=== PATIENT | female | born 1975 | race Caucasian/White ===

== ENCOUNTER 2019-09-04 12:52 | Emergency (ER) | payer OTHER, SELFPAY ==
--- NOTE | 2019-09-04 16:55 | PC.NURSE ---
[employer] CHARTING SYSTEM CRASHED WHEN PATIENT WAS BROUGHT TO ROOM 6. PAPER CHARTING/ASSESSMENT INITIATED.
== END 2019-09-04 13:55 | disposition home or self-care (01) ==
LOC: CHSED 12:54
PROVIDERS: Emergency Provider Surgery; PCP Family Medicine
DX: S61.204A Unspecified open wound of right ring finger without damage to nail, initial encounter (principal); W45.8XXA Other foreign body or object entering through skin, initial encounter
CPT/HCPCS: 99282

== ENCOUNTER 2019-09-09 10:50 | Outpatient (CLI) | payer OTHER, SELFPAY ==
[2019-09-09 11:21] LABS: Creatinine Urine 96.83 mg/dL (40-278)
[2019-09-09 11:26] LABS: MALB Creatinine Ratio 69.3 mg/g (0-30); Microalbumin Urine Random 67.2 mg/L
[2019-09-09 11:27] LABS: Hemoglobin A1C 7.3 % (<5.7)
[2019-09-09 12:46] LABS: Alanine Aminotransferase 41 U/L (14-59); Alkaline Phosphatase 86 U/L (46-116); Anion Gap 11.3 mmol/L (7-16); Aspartate Amino Transferase 27 U/L (15-37); Bilirubin,Total 0.3 mg/dL (0.00-1.00); Blood Urea Nitrogen 8 mg/dL (7-18); Carbon Dioxide 31 mmol/L (21-32); Chloride 107 mmol/L (98-108); Cholesterol 146 mg/dL (0-200); Estimated Glomerular Filt Rate > 60; Glucose 127 mg/dL (70-99); HDL Direct 43 mg/dL (40-60); LDL Cholesterol Calculated 57 mg/dL (<130); Osmolality Calculated 300 mOsm/kg (285-295); Potassium 4.3 mmol/L (3.5-5.1); Sodium 145 mmol/L (136-145); Total Protein 7.4 g/dL (6.4-8.2); Triglycerides 231 mg/dL (0-150)
== END 2019-09-09 10:51 | disposition home or self-care (01) ==
LOC: CHSLAB 10:53
PROVIDERS: PCP Nurse Practitioner Family; Visit Provider Nurse Practitioner Family
DX: E11.21 Type 2 diabetes mellitus with diabetic nephropathy (principal)
CPT/HCPCS: 36415; 80053; 80061; 82043; 83036

== ENCOUNTER 2020-02-12 14:46 | Outpatient (CLI) | payer OTHER, SELFPAY ==
--- NOTE | ~2020-02-12 | XR_ITS ---
EXAMINATION: XR chest 2V 02/12/2020 14:59 INDICATION: Chronic obstructive pulmonary disease PROCEDURE: 2 view chest COMPARISON: Comparison to multiple prior studies sequentially, with oldest reviewed study dated 09/2014. FINDINGS: The lungs are clear. The cardiomediastinal silhouette is within normal limits. There are no pleural effusions. There is no pneumothorax suspected. IMPRESSION: 1: NO ACUTE CARDIOPULMONARY DISEASE. Reviewed, dictated and finalized at location B.
[2020-02-12 15:16] LABS: Hematocrit 50.3 % (35.0-49.0); Mean Corpuscular HGB Conc 35.8 g/dL (32.0-36.0); Mean Corpuscular Hemoglobin 30.7 pg (27.0-31.0); Mean Corpuscular Volume 85.7 fL (78.0-102.0); Mean Platelet Volume 9.7 fl (9.2-11.8); Platelet Count Result 288 K/mm3 (150-420); Red Blood Count 5.87 M/mm3 (4.20-5.40); Red Cell Distribution Width 12.8 % (11.6-14.4); White Blood Count 10.7 K/mm3 (4.8-10.8)
[2020-02-12 16:28] LABS: Anion Gap 19.1 mmol/L (7-16); Blood Urea Nitrogen 11 mg/dL (7-18); Carbon Dioxide 23 mmol/L (21-32); Chloride 102 mmol/L (98-108); Potassium 4.1 mmol/L (3.5-5.1); Sodium 140 mmol/L (136-145)
[2020-02-12 16:29] LABS: Alanine Aminotransferase 52 U/L (14-59); Albumin Level 4.3 g/dL (3.4-5.0); Alkaline Phosphatase 105 U/L (46-116); Aspartate Amino Transferase 43 U/L (15-37); Bilirubin,Total 0.5 mg/dL (0.00-1.00); Calcium 9.9 mg/dL (8.5-10.1); Estimated Glomerular Filt Rate > 60; Osmolality Calculated 299 mOsm/kg (285-295); Total Protein 8.2 g/dL (6.4-8.2)
[2020-02-12 16:42] LABS: Glucose 272 mg/dL (70-99)
[2020-02-13 00:16] LABS: SARS-CoV-2 RNA PCR Negative
== END 2020-02-12 14:47 | disposition home or self-care (01) ==
LOC: CHSIMG 14:50
PROVIDERS: PCP Nurse Practitioner Family; Visit Provider Family Medicine
DX: J44.1 Chronic obstructive pulmonary disease with (acute) exacerbation (principal); Z11.59 Encounter for screening for other viral diseases
CPT/HCPCS: 36415; 71046; 80053; 85027; 87635; C9803; U0003

== ENCOUNTER 2020-02-14 03:01 | Emergency (ER) | payer OTHER, SELFPAY ==
[2020-02-14 03:23] VITALS: BP 128/75; PULSE 72; RESP 20; TEMP 36.2; O2SAT 97
--- NOTE | 2020-02-14 03:35 | ED.GENADULT ---
HPI - General Adult General Chief complaint: Headache Stated complaint: 44YO female w/ 5 day h/o frontal headache associated with Sinus congestion. Related Data Home Medications Medication Instructions Recorded Confirmed albuterol sulfate 90 mcg/actuation 1 inhalation INHALATION Q4H PRN 08/10/19 02/14/20 aerosol inhaler ondansetron HCl 8 mg tablet 8 mg PO Q8H PRN 09/09/19 02/14/20 insulin glargine 100 unit/mL (3 80 unit SUB-Q DAILY ml 01/25/20 02/14/20 mL) subcutaneous pen insulin lispro 100 unit/mL See Rx Instructions .ROUTE 01/25/20 02/14/20 subcutaneous solution .COMPLEX ml Allergies Allergy/AdvReac Type Severity Reaction Status Date / Time empagliflozin [Jardiance] Allergy Intermediate rash Verified 02/12/20 14:20 latex Allergy Intermediate unknown Verified 02/12/20 14:20 tetracycline Allergy Intermediate unknown Verified 02/12/20 14:20 Lactose intolerance Allergy Intermediate unknown Uncoded 01/25/20 10:14 Review of Systems Review of Systems: All systems reviewed & are unremarkable except as noted in HPI and below Constitutional: Constitutional: Reports no additional constitutional complaints Eyes: Eyes: Reports no additional eye complaints ENT: Reports system reviewed and no additional complaints, except as documented and Reports nasal congestion Cardiovascular: Cardiovascular: Reports no additional cardiovascular complaints Respiratory: Respiratory: Reports no additional respiratory complaints Gastrointestinal: Gastrointestinal: Reports no additional gastrointestinal complaints Genitourinary: Genitourinary: Reports no additional female genitourinary complaints Musculoskeletal: Musculoskeletal: Reports no additional musculoskeletal complaints Integumentary/Breasts: Skin/Breast: Reports system reviewed and no additional complaints, except as docu Neurologic: Reports system reviewed and no additional complaints, except as documented Psychiatric: Psychiatric: Reports no additional psychiatric complaints Endocrine: Endocrine: Reports no additional endocrine complaints [facility] Past Medical History Medical History Acute insomnia Acute sinusitis BMI 32.0-32.9,adult COPD (chronic obstructive pulmonary disease) Depression Diabetes mellitus with diabetic nephropathy Finger avulsion Hyperlipidemia IBS (irritable bowel syndrome) Migraine Nicotine dependence Sinusitis, acute maxillary Surgical History Surgical History Hx of cholecystectomy Hx of hysterectomy Family History Family History Mother Diabetes mellitus Social History Social History Smoking packs per day: 1 Smoking cigarettes per day: 20.0 Smoking status: Current every day smoker Tobacco type: cigarettes Alcohol intake: never Substance use: never Substance use type: does not use Exam Const: General: no acute distress and alert Orientation/consciousness: patient oriented x3 HENMT: Head: normal to inspection Face and sinus: sinus tenderness frontal and maxillary Throat: posterior oropharynx abnormal (posterior pharyngeal purulent drainage) Eyes: Pupils: Equal, round and reactive pupils present Neck: Neck: normal visual inspection Chest: Chest palpation & inspection: normal inspection of the chest Resp: Effort & Inspection: normal respiratory effort Auscultation: clear to auscultation bilaterally Cardio: Rate: regular rate Rhythm: regular rhythm GI: GI Palp: Yes Soft to palpation and No Tenderness to palpation present (GI) Back/Spine/Pelvis: Back: no CVA tenderness Neuro: General: patient oriented x3, moves all extremities, no focal motor deficits and CN's II-XI intact bilaterally Psych: Mental Status: mental status grossly normal Affect: normal affect Attitude: cooperative
[2020-02-14] MEDS: AMOXICILLIN/CLAVULANATE K 875-125 MG TAB 1 TABLET PO (03:48)
[2020-02-14 03:50] VITALS: BP 122/76; PULSE 75; RESP 20; TEMP 36.2; O2SAT 98
== END 2020-02-14 03:54 | disposition home or self-care (01) ==
PROVIDERS: Emergency Provider Family Medicine; PCP Nurse Practitioner Family
DX: J01.40 Acute pansinusitis, unspecified (principal)
CPT/HCPCS: 99283; A9270

== ENCOUNTER 2020-05-03 13:36 | Outpatient (CLI) | payer OTHER, SELFPAY ==
--- NOTE | ~2020-05-03 | US_ITS ---
EXAMINATION: US renal BI DATE: 05/03/2020 14:43 INDICATION: Unspecified abdominal pain TECHNIQUE: Multiple ultrasound grayscale images of the kidneys were obtained. COMPARISON: 04/01/2019 FINDINGS: The right kidney measures 10.1 x 5.0 x 6.0 cm. The left kidney measures 13.0 x 6.0 x 5.1 cm. The kidn eys demonstrate normal echogenicity. There is no hydronephrosis in either kidney. No stones identifi ed. The bladder is normal. IMPRESSION: 1. Normal kidneys without hydronephrosis. 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
[2020-05-03 13:59] LABS: Add Urine Microscopic? YES; Appearance Urine Clear (Clear); Bilirubin Urine Negative (Negative); Blood Urine Negative (Negative); Color Urine Yellow (Yellow); Glucose Urine UA 3+ (Negative); Ketones Urine 1+ (Negative); Leukocyte Esterase Ur Negative LEU/UL (Negative); Nitrate Urine Negative (Negative); Protein Urine 1+ (Negative)
[2020-05-03 14:13] LABS: Bacteria Urine 1+ /hpf; RBC Urine 0-2 /hpf (0-2); Squamous Epithelial Cell Urine Moderate /hpf (Few)
[2020-05-03 14:14] LABS: Budding Yeast Urine Present /hpf
[2020-05-03 14:56] LABS: Alanine Aminotransferase 88 U/L (14-59); Albumin Level 4.4 g/dL (3.4-5.0); Alkaline Phosphatase 105 U/L (46-116); Anion Gap 13 mmol/L (8-16); Aspartate Amino Transferase 109 U/L (15-37); Bilirubin,Total 0.5 mg/dL (0.00-1.00); Blood Urea Nitrogen 8 mg/dL (7-18); Calcium 9.4 mg/dL (8.5-10.1); Carbon Dioxide 25 mmol/L (21-32); Chloride 102 mmol/L (98-108); Cholesterol 171 mg/dL (0-200); Estimated Glomerular Filt Rate > 60; Glucose 220 mg/dL (70-99); HDL Direct 43 mg/dL (40-60); LDL Cholesterol Calculated 60 mg/dL (<130); Osmolality Calculated 295 mOsm/kg (285-295); Potassium 4.1 mmol/L (3.5-5.1); Sodium 140 mmol/L (136-145); Total Protein 8.7 g/dL (6.4-8.2); Triglycerides 339 mg/dL (0-150)
== END 2020-05-03 13:37 | disposition home or self-care (01) ==
PROVIDERS: PCP Nurse Practitioner Family; Visit Provider Nurse Practitioner Family
DX: M54.9 Dorsalgia, unspecified (principal); Z00.00 Encounter for general adult medical examination without abnormal findings; E11.21 Type 2 diabetes mellitus with diabetic nephropathy; E78.5 Hyperlipidemia, unspecified; Z87.442 Personal history of urinary calculi; R10.9 Unspecified abdominal pain
CPT/HCPCS: 36415; 76775; 80053; 80061; 81001; 83036

== ENCOUNTER 2020-05-06 08:42 | Outpatient (CLI) | payer OTHER, SELFPAY ==
--- NOTE | ~2020-05-06 | US_ITS ---
US abdomen complete DATE: 05/06/2020 09:49 INDICATION: Elevated liver function tests. Status post cholecystectomy. TECHNIQUE: Real-time imaging of the abdomen, Doppler evaluation COMPARISON: 05/03/2020 bilateral renal ultrasound FINDINGS: The gallbladder is surgically absent by clinical history. Normal hepatopedal portal venous flow direction. No hepatic space-occupying mass lesion is evident. The pancreas is not optimally evaluated due to interference from bowel gas. The spleen measures approximately 11 cm length, within upper limits of normal. The left kidney measures approximately 12.3 cm length. The right kidney measures 12.7 cm approximate length. There is an approximately 1.5 cm hyperechoic fo cus of the left renal pelvis with shadowing suggesting possible pelvic renal calculus. CT correlation is recommended. No hydronephrosis of either kidney is evident. IMPRESSION: Status post cholecystectomy Possible right renal pelvic calculus; consider CT abdomen pelvis correlation Limited evaluation of the pancreas due to interference from bowel gas Reviewed, dictated and finalized at Location A. 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
[2020-05-06 09:09] LABS: Creatinine Urine 72.02 mg/dL (40-278); MALB Creatinine Ratio 75.2 mg/g (0-30); Microalbumin Urine Random 54.2 mg/L
[2020-05-06 09:10] LABS: Hemoglobin A1C 7.7 % (<5.7)
[2020-05-06 09:28] LABS: Alanine Aminotransferase 66 U/L (14-59); Albumin Level 3.9 g/dL (3.4-5.0); Alkaline Phosphatase 94 U/L (46-116); Anion Gap 8 mmol/L (8-16); Aspartate Amino Transferase 47 U/L (15-37); Bilirubin,Total 0.4 mg/dL (0.00-1.00); Blood Urea Nitrogen 6 mg/dL (7-18); Calcium 8.8 mg/dL (8.5-10.1); Carbon Dioxide 28 mmol/L (21-32); Chloride 105 mmol/L (98-108); Estimated Glomerular Filt Rate > 60; Glucose 177 mg/dL (70-99); Osmolality Calculated 293 mOsm/kg (285-295); Potassium 3.7 mmol/L (3.5-5.1); Sodium 141 mmol/L (136-145); Total Protein 7.1 g/dL (6.4-8.2)
[2020-05-11 03:44] LABS: Hepatitis A Antibody IgM Nonreactive; Hepatitis B Core Antibody Nonreactive (Nonreactive); Hepatitis B Surface Antigen Nonreactive (Nonreactive); Hepatitis C Signal to Cutoff 0.01 ratio (<1.00); Hepatitis C Virus Antibody Nonreactive (Nonreactive)
== END 2020-05-06 08:43 | disposition home or self-care (01) ==
LOC: CHSIMG 08:45
PROVIDERS: PCP Nurse Practitioner Family; Visit Provider Nurse Practitioner Family
DX: R74.8 Abnormal levels of other serum enzymes (principal); E11.21 Type 2 diabetes mellitus with diabetic nephropathy
CPT/HCPCS: 36415; 76700; 80053; 80074; 82043; 83036

== ENCOUNTER 2020-05-18 08:49 | Outpatient (CLI) | payer OTHER, SELFPAY ==
--- NOTE | ~2020-05-18 | CT_ITS ---
EXAMINATION: CT abdomen pelvis w con DATE: 05/18/2020 09:20 INDICATION: Right sided abdominal and flank pain. TECHNIQUE: Computed tomography (CT) of the abdomen and pelvis was performed without intravenous contr ast. Automated exposure control and iterative reconstruction technique were employed. The dose-length product was 1104.06 mGy-cm. COMPARISON: 07/12/2007 FINDINGS: A couple unchanged 3-4 mm noncalcified granuloma in the right lower lobe. Mild discoid atelectasis at the lingula. Heart size is normal. No pericardial or pleural effusion. Diffuse hepatic steatosis. Ch olecystectomy clips at the gallbladder fossa. Pancreas, spleen and bilateral adrenal glands are ruthann l. Small region of cortical scarring at the lower pole of the left kidney. Bilateral nonobstructing n ephrolithiasis with 1 mm stone at a lower pole calyx of the left kidney and with a 1.3 cm stone at th e right renal pelvis. There is mild wall thickening at the right renal pelvis but with no evident str anding in the perinephric, renal sinus or periureteral fat and would favor chronic inflammation relat ed to the renal stone rather than more acute urinary tract infection. No hydronephrosis or stones see n along the ureters. Status post prior appendectomy with surgical clips at the tip of the cecum. No b owel obstruction. Small wide mouthed supraumbilical and infraumbilical ventral hernias the latter con taining fat and the former containing fat as well as anterior wall of the transverse colon. Bladder i s normal. The uterus is not identified and has likely been surgically resected. There is 3 screws lou ng the lateral margin of the left acetabulum which could be related to fixation of either an old heal ed fracture or osteotomy. IMPRESSION: 1. Bilateral nonobstructing nephrolithiasis with 13 mm stone in the right renal pelvis where there is mild wall thickening but no surrounding inflammatory stranding. This favors chronic inflammation rel ated to the stone but would correlate with urinalysis to exclude associated urinary tract infection. 2. Small widemouthed supraumbilical and infraumbilical hernias. 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 IMPRESSION: 1. Bilateral nonobstructing nephrolithiasis with 13 mm stone in the right renal pelvis where there is mild wall thickening but no surrounding inflammatory str anding. This favors chronic inflammation related to the stone but would correla te with urinalysis to exclude associated urinary tract infection. 2. Small widemouthed supraumbilical and infraumbilical hernias.
== END 2020-05-18 08:50 | disposition home or self-care (01) ==
LOC: CHSIMG 08:50
PROVIDERS: PCP Nurse Practitioner Family; Visit Provider Nurse Practitioner Family
DX: N20.0 Calculus of kidney (principal)
CPT/HCPCS: 74177; Q9965

== ENCOUNTER 2020-07-11 12:51 | Outpatient (CLI) | payer OTHER, SELFPAY ==
[2020-07-11 13:31] LABS: SARS-CoV-2 Ag Negative (Negative)
== END 2020-07-11 12:52 | disposition home or self-care (01) ==
LOC: CHSLAB 12:54
PROVIDERS: PCP Nurse Practitioner Family; Visit Provider Nurse Practitioner Family
DX: R50.9 Fever, unspecified (principal)
CPT/HCPCS: 87426

== ENCOUNTER 2020-08-17 15:43 | Emergency (ER) | payer OTHER, SELFPAY ==
--- NOTE | ~2020-08-17 | XR_ITS ---
EXAMINATION: XR chest 1V portable INDICATION: Left-sided chest pain TECHNIQUE: Portable AP chest at 1627 hours COMPARISON: 02/12/2020 FINDINGS: The lungs are free of acute opacities. There is no pleural effusion or pneumothorax. The ca rdiomediastinal silhouette is normal. IMPRESSION: 1. No acute cardiopulmonary abnormality. 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 [employer]
--- NOTE | 2020-08-17 15:52 | ECG_ITS ---
Measurements Intervals [place] Rate: 85 P: 57 [place]: 153 QRS: -52 QRSD: 85 T: 79 QT: 360 QTc: 430 Interpretive Statements SINUS RHYTHM LEFT ANTERIOR FASCICULAR BLOCK ST ELEVATION IN ANTEROLAT/INF LEADS- PROBABLY EARLY REPOLARIZATION BASELINE WANDER- V1 ABNORMAL ECG Electronically Signed On 08-17-2020 17:19:00 [employer] by Jr Mccracken D.O.
[2020-08-17 15:57] VITALS: BP 147/94; PULSE 96; RESP 20; TEMP 36.7; O2SAT 98
[2020-08-17 16:15] LABS: Basophils Absolute Auto 0.08 K/mm3 (0.00-0.10); Basophils Percent Auto 0.7 % (0.0-1.0); Eosinophils Absolute Auto 0.28 K/mm3 (0.02-0.50); Eosinophils Percent Auto 2.4 % (1.0-6.0); Hemoglobin 16.8 g/dL (12.0-15.0); Immature Granulocyte Absolute 0.04 K/mm3 (0.00-0.00); Immature Granulocyte Percent A 0.3 % (0.0-0.0); Lymphocytes Percent Auto 37.5 % (18.0-42.0); Mean Corpuscular Hemoglobin 30.4 pg (27.0-31.0); Mean Platelet Volume 9.7 fl (9.2-11.8); Monocytes Absolute Auto 0.49 K/mm3 (0.10-0.90); Monocytes Percent Auto 4.2 % (2.0-11.0); Neutrophils Absolute Auto 6.5 K/mm3 (1.7-7.2); Neutrophils Percent Auto 54.9 % (50.0-70.0); Platelet Count Result 287 K/mm3 (150-420); Red Blood Count 5.52 M/mm3 (4.20-5.40); White Blood Count 11.7 K/mm3 (4.8-10.8)
--- NOTE | 2020-08-17 16:21 | ED.GENADULT ---
HPI - General Adult General Chief complaint: Chest Pain Stated complaint: chest pain Source: patient Mode of arrival: ambulatory Limitations: no limitations History of Present Illness HPI narrative: Preeti is a 45F with a PMH of COPD, fibromyalgia, kidney stones, IBS, DMII, insomnia and depression that presented to the ED with chest pain. She has had a chest pain for 3 days. It is a little worse today. It is a constant aching and tenderness in her upper left chest. It is worse when she is carrying her 25lb grandchild. She also is very tired, has persistent sweats (admits she is going through menopause), but no anxiety, N/V, syncope or SOB. Related Data Allergies Allergy/AdvReac Type Severity Reaction Status Date / Time empagliflozin [Jardiance] Allergy Intermediate rash Verified 07/12/20 15:41 latex Allergy Intermediate unknown Verified 07/12/20 15:41 tetracycline Allergy Intermediate unknown Verified 07/12/20 15:41 Lactose intolerance Allergy Intermediate unknown Uncoded 07/12/20 15:41 Review of Systems Constitutional: Constitutional: Reports as per HPI Eyes: Eyes: Reports no additional eye complaints ENT: Reports system reviewed and no additional complaints, except as documented Cardiovascular: Cardiovascular: Reports as per HPI Respiratory: Respiratory: Reports as per HPI Gastrointestinal: Gastrointestinal: Reports no additional gastrointestinal complaints Genitourinary: Genitourinary: Reports no additional female genitourinary complaints Musculoskeletal: Musculoskeletal: Reports no additional musculoskeletal complaints Integumentary/Breasts: Skin/Breast: Reports system reviewed and no additional complaints, except as docu Neurologic: Reports system reviewed and no additional complaints, except as documented Psychiatric: Psychiatric: Reports no additional psychiatric complaints Endocrine: Endocrine: Reports no additional endocrine complaints Hematologic/Lymphatic: Hematologic/Lymphatic: Reports no additional hematologic/lymphatic complaints Allergic/Immunologic: Allergic/Immunologic: Reports no additional allergic/immunologic complaints [facility] Past Medical History Medical History Acute insomnia Acute sinusitis BMI 32.0-32.9,adult COPD (chronic obstructive pulmonary disease) COPD exacerbation Depression Diabetes mellitus with diabetic nephropathy Finger avulsion Hyperlipidemia IBS (irritable bowel syndrome) Migraine Sinusitis, acute maxillary Surgical History Surgical History Hx of cholecystectomy Hx of hysterectomy Family History Family History Mother Diabetes mellitus Social History Social History Smoking packs per day: 1 Smoking cigarettes per day: 20.0 Smoking status: Former smoker Tobacco type: cigarettes Alcohol intake: never Substance use: never Substance use type: does not use Gender identity (if verbalized by the patient): Female Exam Const: General: no acute distress and alert Orientation/consciousness: patient oriented x3 Limitations: No altered mental status HENMT: Head: normal to inspection Eyes: Conjunctivae: conjunctivae normal Pupils: Equal, round and reactive pupils present Neck: Neck: normal visual inspection Chest: Chest palpation & inspection: normal inspection of the chest Other: TTP just left of the sternum Resp: Effort & Inspection: normal respiratory effort, not labored and not tachypneic Auscultation: clear to auscultation bilaterally Cardio: Rate: regular rate Rhythm: regular rhythm Heart sounds: no murmurs GI: GI Palp: Yes Soft to palpation, No Tenderness to palpation present (GI) and No Guarding due to palpation present (GI) : General: Yes no CVA tenderness Skin: General skin exam: normal color Neuro: G
[2020-08-17 16:28] LABS: Prothrombin Time 10.6 Seconds (9.50-12.10)
[2020-08-17 16:29] LABS: Alanine Aminotransferase 33 U/L (14-59); Alkaline Phosphatase 96 U/L (46-116); Anion Gap 10 mmol/L (8-16); Aspartate Amino Transferase 30 U/L (15-37); Bilirubin,Total 0.4 mg/dL (0.00-1.00); Blood Urea Nitrogen 8 mg/dL (7-18); Calcium 9.6 mg/dL (8.5-10.1); Carbon Dioxide 26 mmol/L (21-32); Chloride 104 mmol/L (98-108); Estimated CRCL calculation 84 ml/min; Estimated Glomerular Filt Rate > 60; Glucose 193 mg/dL (70-99); Lipase 161 U/L (73-393); Osmolality Calculated 293 mOsm/kg (285-295); Potassium 3.9 mmol/L (3.5-5.1); Sodium 140 mmol/L (136-145); Total Protein 8.2 g/dL (6.4-8.2); Troponin I 4.5 ng/L (0.00-60.4)
[2020-08-17 16:36] LABS: BNP 5.6 pg/mL (0-100)
[2020-08-17 17:13] VITALS: PULSE 92; RESP 20; O2SAT 96
== END 2020-08-17 17:10 | disposition home or self-care (01) ==
PROVIDERS: Emergency Provider Family Medicine; PCP Nurse Practitioner Family
DX: M94.0 Chondrocostal junction syndrome [Tietze] (principal)
CPT/HCPCS: 36415; 71045; 80053; 83690; 83880; 84484; 85025; 85610; 93005; 99283; 99284

== ENCOUNTER 2020-09-29 10:19 | Outpatient (CLI) | payer OTHER, SELFPAY ==
[2020-09-29 10:33] LABS: Hematocrit 46.1 % (35.0-49.0); Hemoglobin 15.8 g/dL (12.0-15.0); Mean Corpuscular HGB Conc 34.3 g/dL (32.0-36.0); Mean Corpuscular Hemoglobin 29.9 pg (27.0-31.0); Mean Corpuscular Volume 87.3 fL (78.0-102.0); Mean Platelet Volume 9.2 fl (9.2-11.8); Platelet Count Result 295 K/mm3 (150-420); Red Blood Count 5.28 M/mm3 (4.20-5.40); Red Cell Distribution Width 13.2 % (11.6-14.4)
[2020-09-29 10:39] LABS: Add Urine Microscopic? YES; Appearance Urine Clear (Clear); Bilirubin Urine Negative (Negative); Blood Urine Negative (Negative); Color Urine Yellow (Yellow); Glucose Urine UA 3+ (Negative); Ketones Urine Negative (Negative); Leukocyte Esterase Ur Negative (Negative); Nitrate Urine Negative (Negative); Protein Urine Negative (Negative); Specific Grav Ur 1.025 (1.010-1.020); Urobilinogen Urine 0.2 mg/dL (0.2-1.0)
[2020-09-29 10:45] LABS: Bacteria Urine Trace /hpf; Budding Yeast Urine Present /hpf; RBC Urine None seen /hpf (0-2); Squamous Epithelial Cell Urine Moderate /hpf (Few); WBC Urine 0-3 /hpf (0-3)
[2020-09-29 11:07] LABS: Anion Gap 9 mmol/L (8-16); Band Neutrophils Percent 0 % (0-6); Basophils Percent Manual 1 % (0-1); Blood Urea Nitrogen 10 mg/dL (7-18); Calcium 9.3 mg/dL (8.5-10.1); Carbon Dioxide 29 mmol/L (21-32); Chloride 105 mmol/L (98-108); Eosinophils Percent Manual 3 % (1-6); Estimated Glomerular Filt Rate > 60; Glucose 147 mg/dL (70-99); Lymphocytes Percent Manual 47 % (18-44); Metamyelocytes Percent 0 %; Monocytes Percent Manual 6 % (3-9); Myelocytes Percent 0 %; Neutrophils Percent Manual 43 % (46-73); Osmolality Calculated 298 mOsm/kg (285-295); Platelet Estimate Adequate (Adequate); Potassium 3.8 mmol/L (3.5-5.1); Sodium 143 mmol/L (136-145); Total Cells Counted 100
== END 2020-09-29 10:20 | disposition home or self-care (01) ==
PROVIDERS: PCP Nurse Practitioner Family
DX: N20.0 Calculus of kidney (principal); Z01.818 Encounter for other preprocedural examination
CPT/HCPCS: 36415; 80048; 81001; 85025; 87086

== ENCOUNTER 2020-10-07 11:20 | Outpatient (CLI) | payer OTHER, SELFPAY ==
[2020-10-08 01:17] LABS: SARS-CoV-2 RNA PCR Negative
== END 2020-10-07 11:21 | disposition home or self-care (01) ==
PROVIDERS: PCP Nurse Practitioner Family
DX: N20.0 Calculus of kidney (principal); Z01.818 Encounter for other preprocedural examination; Z20.822 Contact with and (suspected) exposure to COVID-19
CPT/HCPCS: C9803; U0003; U0005

== ENCOUNTER 2020-10-17 16:12 | Outpatient (NON) | payer OTHER, SELFPAY | END 2020-10-17 16:13 | LOC: CHSLAB 16:13 | PROVIDERS: Visit Provider Nurse Practitioner Family | DX: N20.0 Calculus of kidney (principal) | CPT/HCPCS: 87086; 87088 ==

== ENCOUNTER 2020-10-18 00:13 | Emergency (ER) | payer OTHER, SELFPAY ==
--- NOTE | ~2020-10-18 | CT_ITS ---
EXAMINATION: CT abdomen pelvis w con DATE: 10/18/2020 01:43 INDICATION: Abdomen pain TECHNIQUE: Computed tomography (CT) of the abdomen and pelvis was performed with 100 cc Omnipaque 350 intravenous contrast. The dose-length product was 844.95 mGy-cm. Automated exposure control and iter ative reconstruction technique were employed. COMPARISON: CT dated 05/18/2020 FINDINGS: Heart size normal. No significant pleural or pericardial effusion. Small hiatal hernia. No significant vascular abnormality. No lymphadenopathy. There is a malpositioned right ureteral stent with proximal coil in the distal ureter. There are mult iple stones in the distal aspect of the right ureter. There is right hydronephrosis with enhancement of the urothelium, suspicious for ascending urinary tract infection. Punctate nonobstructing left gordon al stone. Fatty infiltration of the liver. Status post cholecystectomy. The spleen, pancreas, adrenal glands ar e unremarkable. There is a periumbilical ventral hernia containing nonobstructed colon. There are rig ht renal stones. Status post hysterectomy. Surgical hardware in the right acetabulum. Moderate osteoa rthritis of the hips. IMPRESSION: 1. Malpositioned right ureteral stent with the proximal coil in the distal aspect of the ureter. Enha ncing right urothelium, suspicious for ascending urinary tract infection. 2: Multiple distal right ureteral and bilateral renal stones. 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 IMPRESSION: 1. Malpositioned right ureteral stent with the proximal coil in the distal aspe ct of the ureter. Enhancing right urothelium, suspicious for ascending urinary tract infection. 2: Multiple distal right ureteral and bilateral renal stones.
[2020-10-18 00:15] VITALS: BP 148/78; PULSE 110; RESP 22; TEMP 36.5; O2SAT 97
--- NOTE | 2020-10-18 00:35 | ECG_ITS ---
Measurements Intervals [place] Rate: 99 P: 30 [place]: 104 QRS: 1 QRSD: 102 T: 79 QT: 370 QTc: 475 Interpretive Statements SINUS RHYTHM DELAYED PRECORDIAL R/S TRANSITION NONSPECIF ST ELEVATION IN ANTEROLAT/INF LEADS BORDERLINE ST-T WAVE ABNORMALITY- HIGH LATERAL LEADS BASELINE ARTIFACT- I, III, AVR, AVL BORDERLINE ECG Electronically Signed On 10-18-2020 7:04:36 CDT by Jr Mccracken D.O.
[2020-10-18] MEDS: ONDANSETRON INJ 4 MG/2 ML VIAL IV PUSH (00:43)
[2020-10-18] MEDS: MORPHINE SULFATE (*CRX) 4 MG/ML INJ IV PUSH ×2 (00:44→04:13)
[2020-10-18] MEDS: SODIUM CHLORIDE 0.9% IV 1,000 ML 999 ML IV CONT ×2 (00:54→01:48)
[2020-10-18] MEDS: MAG HYDROX/ALUMINUM HYD/SIMETH 30 ML, PHENobarb/HYOSCY/ATROPINE/SCOP 32.4 MG, LIDOCAINE... PO (00:56)
[2020-10-18 00:59] LABS: Basophils Percent Auto 1.1 % (0.0-1.0); Eosinophils Absolute Auto 0.22 K/mm3 (0.02-0.50); Eosinophils Percent Auto 2.3 % (1.0-6.0); Hematocrit 46.4 % (35.0-49.0); Hemoglobin 16.6 g/dL (12.0-15.0); Immature Granulocyte Absolute 0.03 K/mm3 (0.00-0.00); Immature Granulocyte Percent A 0.3 % (0.0-0.0); Lymphocytes Percent Auto 37.8 % (18.0-42.0); Mean Corpuscular HGB Conc 35.8 g/dL (32.0-36.0); Mean Corpuscular Volume 83.8 fL (78.0-102.0); Mean Platelet Volume 9.8 fl (9.2-11.8); Monocytes Percent Auto 9.5 % (2.0-11.0); Neutrophils Absolute Auto 4.7 K/mm3 (1.7-7.2); Platelet Count Result 309 K/mm3 (150-420); Red Blood Count 5.54 M/mm3 (4.20-5.40); Red Cell Distribution Width 12.5 % (11.6-14.4); White Blood Count 9.5 K/mm3 (4.8-10.8)
[2020-10-18 01:13] LABS: Partial Thromboplastin Time 27.9 SEC (23.90-30.70); Prothrombin Time 10.8 Seconds (9.50-12.10)
[2020-10-18 01:15] VITALS: BP 136/86; PULSE 100; RESP 20; O2SAT 97
[2020-10-18 01:18] LABS: Add Urine Microscopic? YES; Appearance Urine Clear (Clear); Bilirubin Urine Negative (Negative); Blood Urine 3+ (Negative); Color Urine Yellow (Yellow); Glucose Urine UA 3+ (Negative); Ketones Urine Negative (Negative); Leukocyte Esterase Ur 1+ LEU/UL (Negative); Nitrate Urine Positive (Negative); Protein Urine 1+ (Negative); Specific Grav Ur <= 1.005 (1.010-1.020)
[2020-10-18 01:23] LABS: Alanine Aminotransferase 21 U/L (14-59); Albumin Level 3.5 g/dL (3.4-5.0); Alkaline Phosphatase 103 U/L (46-116); Anion Gap 17 mmol/L (8-16); Aspartate Amino Transferase 14 U/L (15-37); Bilirubin,Total 0.5 mg/dL (0.00-1.00); Blood Urea Nitrogen 13 mg/dL (7-18); Calcium 9.1 mg/dL (8.5-10.1); Carbon Dioxide 21 mmol/L (21-32); Chloride 90 mmol/L (98-108); Estimated CRCL calculation 49 ml/min; Estimated Glomerular Filt Rate 44; Lipase 246 U/L (73-393); Potassium 3.1 mmol/L (3.5-5.1); Sodium 128 mmol/L (136-145); Total Protein 7.5 g/dL (6.4-8.2)
[2020-10-18 01:29] LABS: Glucose > 500 mg/dL (70-99); Osmolality Calculated 288 mOsm/kg (285-295)
[2020-10-18 01:29] LABS: RBC Urine >75 /hpf (0-2)
[2020-10-18 01:30] LABS: Bacteria Urine 1+ /hpf; Squamous Epithelial Cell Urine None seen /hpf (Few); WBC Urine 16-20 /hpf (0-3)
[2020-10-18 01:44] VITALS: BP 125/82; PULSE 90; RESP 18; O2SAT 99
[2020-10-18] MEDS: KCL 20 MEQ/SW 100 ML 100 ML 50 MEQ IVPB (01:55)
[2020-10-18 02:21] LABS: Glucose Point of Care 417 (65-105)
[2020-10-18] MEDS: SODIUM CHLORIDE 0.9% IV 1,000 ML 999 ML (03:25)
--- NOTE | 2020-10-18 04:17 | ED.ABDPAIN ---
HPI - Abdominal Pain General Chief Complaint: Abdominal Pain Stated Complaint: upper adominal pain History of Present Illness HPI narrative: This is a 45-year-old female that presents with some abdominal pain/ having flank pain mainly on the right side has a history of kidney stones and had a large kidney stone measuring 13mm, was seen approximately a week ago and had a ureteral stent placed, and along with some lithotripsy, and she has been having abdominal pain ever since she had this procedure done by urology at [facility]. The patient has been having abdominal pain so her primary care physician this afternoon and told her that if symptoms worsen should present herself to the emergency department. Currently her pain is right flank area and abdominal with some nausea with no vomiting rates her pain about 8/10 afebrile. Currently there is no chest pain no shortness of breath no fever chills no diarrhea or constipation. Patient has a history of diabetes, COPD and depression. Apparently the patient has been feeling sick and has not been eating well or taking her insulin. Patient had repeat labs and the potassium level was 3.1 after a K rider and will supplement with 40 mEq of p.o. potassium her lactic acid level had dropped from 01/15 1.9 patient is pain level has decreased about a about a 2/10 and will send the patient home with the request to follow-up with her urologist at [facility] at her scheduled time. Patient also advise she has urinary tract infection will be sending in antibiotics for that. Patient did receive 1 g of IM ceftriaxone prior to discharge MD elicited complaint: abdominal pain Onset (ago): week(s) Pain Consistency: intermittent Location: periumbilical and R flank Severity: severe Pain scale (0-10): 8 Related Data Home Medications Medication Instructions Recorded Confirmed insulin glargine [Basaglar KwikPen 60 unit SUBCUT HS 10/18/20 10/18/20 U-100 Insulin] oxybutynin chloride 10 mg PO DAILY 10/18/20 10/18/20 pregabalin [Lyrica] 400 mg PO HS 10/18/20 10/18/20 Allergies Allergy/AdvReac Type Severity Reaction Status Date / Time empagliflozin [Jardiance] Allergy Intermediate rash Verified 10/17/20 15:22 latex Allergy Intermediate unknown Verified 10/17/20 15:22 tetracycline Allergy Intermediate unknown Verified 10/17/20 15:22 Lactose intolerance Allergy Intermediate unknown Uncoded 10/17/20 15:22 Review of Systems Review of Systems: All systems reviewed & are unremarkable except as noted in HPI and below PMFSH Past Medical History Medical History Acute insomnia Acute sinusitis BMI 32.0-32.9,adult COPD (chronic obstructive pulmonary disease) COPD exacerbation Depression Diabetes mellitus with diabetic nephropathy Finger avulsion Hyperlipidemia IBS (irritable bowel syndrome) Migraine Sinusitis, acute maxillary Surgical History Surgical History Hx of cholecystectomy Hx of hysterectomy Family History Family History Mother Diabetes mellitus Social History Social History Smoking packs per day: 1 Smoking cigarettes per day: 20.0 Smoking status: Former smoker Tobacco type: cigarettes Alcohol intake: never Substance use: never Substance use type: does not use Gender identity (if verbalized by the patient): Female Exam Const: General: no acute distress HENMT: Head: normal to inspection Eyes: Conjunctivae: conjunctivae normal Pupils: Equal, round and reactive pupils present EOM: EOMs intact bilaterally Neck: Neck: normal visual inspection, no lymphadenopathy and no meningeal signs Chest: Chest palpation & inspection: normal inspection of the chest Resp: Effort & Inspection: normal respiratory effort Auscultation: clear to
[2020-10-18 04:50] LABS: Glucose Point of Care 354 (65-105)
[2020-10-18] MEDS: INSULIN HUMAN REGULAR (*BKC) 100 UNITS/ML 6 UNITS SUB-Q (04:55)
[2020-10-18 04:58] LABS: Potassium 3.1 mmol/L (3.5-5.1)
[2020-10-18 05:10] LABS: Lactic Acid Reflex 1.9 mmol/L (0.4-2.0)
[2020-10-18] MEDS: cefTRIAXone 1 GM VIAL IM (05:27)
[2020-10-18] MEDS: POTASSIUM CHLORIDE 20 MEQ TABLET 40 MEQ PO (05:27)
[2020-10-18 05:28] VITALS: BP 120/77; PULSE 80; RESP 20; TEMP 36.6; O2SAT 99
[2020-10-18] MEDS: LIDOCAINE HCL 1% LOCAL INJ 20 ML VIAL (05:28)
[2020-10-18 05:38] LABS: Glucose Point of Care 355 (65-105)
== END 2020-10-18 05:37 | disposition home or self-care (01) ==
PROVIDERS: Emergency Provider Emergency Medicine; PCP Nurse Practitioner Family
DX: N20.0 Calculus of kidney (principal); N39.0 Urinary tract infection, site not specified
CPT/HCPCS: 36415; 74177; 80053; 81001; 82948; 83605; 83690; 84132; 84484; 85025; 85610; 85730; 87086; 93005; 96361; 96365; 96366; 96372; 96375; 96376; 99284; A9270; J0696; J1815; J2270; J2405; J3480; J7030; Q9967

== ENCOUNTER 2020-10-21 12:20 | Outpatient (CLI) | payer OTHER, SELFPAY ==
--- NOTE | ~2020-10-21 | US_ITS ---
US retroperitoneal comp 10/21/2020 12:52 Procedure: Realtime transabdominal ultrasound of the kidneys and bladder. Indication: Hydronephrosis Comparison: No prior studies for comparison. Findings: There is moderate right hydronephrosis with right renal stones. No left hydronephrosis, sto ne or mass. The right kidney measures 14.1 cm and left kidney measures 12.7 cm. Bladder within ruthann l limits. Right ureteral jet not definitely visualized. Impression: 1: Right renal stones with moderate hydronephrosis. Reviewed, dictated and finalized at location B. Impression: 1: Right renal stones with moderate hydronephrosis.
== END 2020-10-21 12:21 | disposition home or self-care (01) ==
PROVIDERS: PCP Nurse Practitioner Family
DX: N13.30 Unspecified hydronephrosis (principal)
CPT/HCPCS: 76770

== ENCOUNTER 2021-02-15 15:17 | Outpatient (NON) | payer OTHER, SELFPAY | END 2021-02-15 15:18 | disposition home or self-care (01) | LOC: CHSLAB 15:18 | PROVIDERS: Visit Provider Nurse Practitioner Family | DX: N39.0 Urinary tract infection, site not specified (principal) | CPT/HCPCS: 87086 ==

== ENCOUNTER 2021-02-20 12:19 | Outpatient (CLI) | payer OTHER, SELFPAY ==
--- NOTE | ~2021-02-20 | MM_ITS ---
EXAMINATION: MM screening johanna BI w therese HISTORY: Screening mammogram TECHNIQUE: Craniocaudal and mediolateral oblique 3-D tomosynthesis images were obtained and synthetic 2-D images were generated. CAD analysis was submitted and interpreted. COMPARISON: 04/14/2018 bilateral diagnostic digital mammogram and left breast ultrasound 01/19/2016 bilateral digital screening mammogram BREAST PARENCHYMAL COMPOSITION: There are scattered areas of fibroglandular density. FINDINGS: Scattered bilateral benign calcifications. There is no evidence of suspicious mass, calcifi cation, or architectural distortion to suggest malignancy in either breast. There has been no suspici ous interval change. IMPRESSION: 1. No mammographic evidence of malignancy. 2. Recommend routine screening mammography in one year. BI-RADS Category 2: Benign finding(s). 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
== END 2021-02-20 12:20 | disposition home or self-care (01) ==
LOC: CHSIMG 12:20
PROVIDERS: PCP Nurse Practitioner Family; Visit Provider Nurse Practitioner Family
DX: Z12.31 Encounter for screening mammogram for malignant neoplasm of breast (principal)
CPT/HCPCS: 77063; 77067

== ENCOUNTER 2021-04-05 13:00 | Outpatient (NON) | payer OTHER, SELFPAY | END 2021-04-05 13:01 | disposition home or self-care (01) | LOC: CHSLAB 13:02 | PROVIDERS: Visit Provider Nurse Practitioner Family | DX: R30.0 Dysuria (principal) | CPT/HCPCS: 87086; 87088 ==

== ENCOUNTER 2021-05-25 00:01 | Observation (INO) | payer OTHER, SELFPAY ==
--- NOTE | ~2021-05-25 | XR_ITS ---
EXAMINATION: XR chest 1V portable INDICATION: Leukocytosis TECHNIQUE: Portable AP chest at 0154 hours COMPARISON: 08/17/2020 FINDINGS: The lungs are free of acute opacities. There is no pleural effusion or pneumothorax. The ca rdiomediastinal silhouette is normal. IMPRESSION: 1. No acute cardiopulmonary abnormality. 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
--- NOTE | ~2021-05-25 | CT_ITS ---
EXAMINATION: CT cervical spine wo con DATE: 05/25/2021 00:45 INDICATION: Head injury, neck pain TECHNIQUE: Computed tomography (CT) of the cervical spine was performed without intravenous contrast. The dose-length product (DLP) was 379.47 mGy-cm. Automated exposure control and iterative reconstruc tion technique were employed. COMPARISON: None FINDINGS: There is no fracture, dislocation, or subluxation. The vertebral body heights, alignment, a nd intervertebral disc spaces are normal. The paravertebral soft tissues are unremarkable. The odonto id is intact. IMPRESSION: 1. No acute osseous abnormality. 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
--- NOTE | ~2021-05-25 | CT_ITS ---
EXAMINATION: CT brain wo con INDICATION: Head injury COMPARISON: None TECHNIQUE: Standard unenhanced head CT. The dose-length product (DLP) was 605.33 mGy-cm. The mA was a djusted according to patient size. Iterative reconstruction technique was employed. FINDINGS: There is no intracranial hemorrhage, acute infarction, or abnormal mass lesion. The ventric les are normal. There is no abnormal mass effect or midline shift. The trivedi-white matter differentiat ion is normal. The basal cisterns are patent. The orbits are normal. The paranasal sinuses, mastoids and calvarium are normal. IMPRESSION: 1. No acute intracranial abnormality. 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
--- NOTE | 2021-05-25 00:07 | ED.GENADULT ---
HPI - General Adult General Source: patient and family Mode of arrival: ambulatory Limitations: no limitations History of Present Illness HPI narrative: Preeti is a 46F with a PMH of nicotine dependence, fibromyalgia, COPD, migraines, IBS, HLD, DMII and depression that presented to the ED after falling and hitting her head. She was out smoking in the garage when she went unconscious and hit her head. She is unsure if she tripped and got knocked out or passed out then fell. She admits to using MJ earlier in the evening before her fall. No CP, SOB, nausea or vomiting reported. Related Data Home Medications Medication Instructions Recorded Confirmed liraglutide 0.6 mg/0.1 mL (18 mg/3 1.2 mg SUB-Q DAILY ml 02/15/21 05/25/21 mL) subcutaneous pen injector Allergies Allergy/AdvReac Type Severity Reaction Status Date / Time empagliflozin [Jardiance] Allergy Intermediate rash Verified 05/25/21 00:20 latex Allergy Intermediate Rash Verified 05/25/21 00:20 tetracycline Allergy Intermediate unknown Verified 05/25/21 00:20 lactose AdvReac Nausea Verified 05/25/21 00:20 Review of Systems Constitutional: Constitutional: Reports no additional constitutional complaints Eyes: Eyes: Reports no additional eye complaints ENT: Reports system reviewed and no additional complaints, except as documented Cardiovascular: Cardiovascular: Reports as per HPI Respiratory: Respiratory: Reports no additional respiratory complaints Gastrointestinal: Gastrointestinal: Reports no additional gastrointestinal complaints Genitourinary: Genitourinary: Reports no additional female genitourinary complaints Musculoskeletal: Musculoskeletal: Reports no additional musculoskeletal complaints Integumentary/Breasts: Skin/Breast: Reports system reviewed and no additional complaints, except as docu Neurologic: Reports as per HPI Psychiatric: Psychiatric: Reports no additional psychiatric complaints Endocrine: Endocrine: Reports no additional endocrine complaints Hematologic/Lymphatic: Hematologic/Lymphatic: Reports no additional hematologic/lymphatic complaints Allergic/Immunologic: Allergic/Immunologic: Reports no additional allergic/immunologic complaints PMFSH Past Medical History Medical History Acute insomnia Acute sinusitis BMI 32.0-32.9,adult COPD (chronic obstructive pulmonary disease) COPD exacerbation Depression Diabetes mellitus with diabetic nephropathy Finger avulsion Hyperlipidemia IBS (irritable bowel syndrome) Migraine Sinusitis, acute maxillary Surgical History Surgical History Hx of cholecystectomy Hx of hysterectomy Family History Family History Mother Diabetes mellitus Social History Social History Smoking packs per day: 1 Smoking cigarettes per day: 20.0 Smoking status: Current every day smoker Tobacco type: cigarettes Second hand tobacco smoke exposure: Yes Alcohol intake: former Substance use: unknown Substance use type: does not use Gender identity (if verbalized by the patient): Female Spiritual care concerns: No Exam Const: General: no acute distress, alert and confusion Orientation/consciousness: patient oriented x3 Other: Slow to respond to questions HENMT: Head: normal to inspection Other: Nomocephalic, atrauamtic Eyes: Pupils: Equal, round and reactive pupils present Other: conjunctival injection Neck: Neck: normal visual inspection Other: No midline tenderness. Full active ROM Chest: Chest palpation & inspection: normal inspection of the chest Resp: Effort & Inspection: normal respiratory effort Auscultation: clear to auscultation bilaterally Cardio: Rate: tachycardic Rhythm: regular rhythm GI: Inspection: non-distended GI Palp
--- NOTE | 2021-05-25 00:15 | ECG_ITS ---
Measurements Intervals [place] Rate: 97 P: 28 CT: 149 QRS: -28 QRSD: 93 T: 54 QT: 340 QTc: 433 Interpretive Statements SINUS RHYTHM DELAYED PRECORDIAL R/S TRANSITION ST ELEVATION IN DIFFUSE LEADS- PROBABLY EARLY REPOLARIZATION ABNORMALITY BASELINE ARTIFACT- I, II, III, AVR, AVL, AVF BORDERLINE ECG Electronically Signed On 05-25-2021 8:24:05 CDT by Jr Mccracken D.O.
[2021-05-25 00:27] VITALS: BP 156/93; PULSE 109; RESP 17; TEMP 36.8; O2SAT 95
[2021-05-25 00:28] LABS: Glucose Point of Care 139 mg/dl (65-105)
[2021-05-25 00:58] LABS: Hematocrit 46.8 % (35.0-49.0); Hemoglobin 16.4 g/dL (12.0-15.0); Mean Corpuscular Hemoglobin 31.3 pg (27.0-31.0); Mean Corpuscular Volume 89.3 fL (78.0-102.0); Platelet Count Result 293 K/mm3 (150-420); Red Blood Count 5.24 M/mm3 (4.20-5.40); Red Cell Distribution Width 13.5 % (11.6-14.4)
[2021-05-25 01:06] LABS: White Blood Count 22.3 K/mm3 (4.8-10.8)
[2021-05-25 01:15] LABS: Alanine Aminotransferase 36 U/L (14-59); Albumin Level 3.7 g/dL (3.4-5.0); Alkaline Phosphatase 89 U/L (46-116); Anion Gap 11 mmol/L (8-16); Aspartate Amino Transferase 21 U/L (15-37); Bilirubin,Total 0.3 mg/dL (0.00-1.00); Blood Urea Nitrogen 9 mg/dL (7-18); Calcium 8.7 mg/dL (8.5-10.1); Carbon Dioxide 29 mmol/L (21-32); Chloride 103 mmol/L (98-108); Estimated CRCL calculation 69 ml/min; Estimated Glomerular Filt Rate > 60; Glucose 140 mg/dL (70-99); Osmolality Calculated 296 mOsm/kg (285-295); Potassium 3.6 mmol/L (3.5-5.1); Sodium 143 mmol/L (136-145); Total Protein 7.5 g/dL (6.4-8.2)
[2021-05-25 01:21] LABS: Add Urine Microscopic? YES; Appearance Urine Clear (Clear); Bilirubin Urine Negative (Negative); Blood Urine 2+ (Negative); Color Urine Light Yellow (Yellow); Glucose Urine UA 3+ (Negative); Ketones Urine Negative (Negative); Leukocyte Esterase Ur Negative (Negative); Nitrate Urine Negative (Negative); Protein Urine Negative (Negative); Specific Grav Ur 1.015 (1.010-1.020); Urobilinogen Urine 0.2 mg/dL (0.2-1.0)
[2021-05-25 01:26] LABS: Band Neutrophils Percent 0 % (0-6); Basophils Absolute Manual 0.44 K/mm3 (0-0.1); Basophils Percent Manual 2 % (0-1); Eosinophils Absolute Manual 0.66 K/mm3 (0.02-0.5); Eosinophils Percent Manual 3 % (1-6); Lymphocytes Absolute Manual 3.56 K/mm3 (1.1-4.5); Lymphocytes Percent Manual 16 % (18-44); Monocytes Absolute Manual 1.11 K/mm3 (0.1-0.90); Monocytes Percent Manual 5 % (3-9); Neutrophils Percent Manual 74 % (46-73); Platelet Estimate Adequate (Adequate)
[2021-05-25 01:30] LABS: RBC Urine 21-50 /hpf (0-2)
[2021-05-25 01:30] LABS: Ethanol < 3 mg/dL (0-6); Troponin I < 4.0 ng/L (0.00-60.4)
[2021-05-25 01:31] LABS: Bacteria Urine Trace /hpf; Squamous Epithelial Cell Urine Few /hpf (Few); WBC Urine 0-3 /hpf (0-3)
[2021-05-25 01:32] LABS: Amphetamine Screen Urine Negative (Negative); Barbiturate Screen Urine Negative (Negative); Benzodiazepines Screen Urine Negative (Negative); Cannabinoid Screen Urine Positive (Negative); Cocaine Screen Urine Negative (Negative); Methadone Screen Urine Negative (Negative); Opiate Screen Urine Negative (Negative); Phencyclidine Screen Urine Negative (Negative)
--- NOTE | 2021-05-25 02:50 | PC.NURSE ---
report called to [facility] de la cruz, pt being admitted for 23 hours observation into room 204. pt admitted with iv antibiotics infusing.
--- NOTE | 2021-05-25 03:11 | PC.NURSE ---
pt transported to floor via wheelchair, no IV medications infusing at this time.
[2021-05-25 03:12] VITALS: BP 115/71; PULSE 93; RESP 16; O2SAT 97
[2021-05-25 03:36] VITALS: BMI 32.1
--- NOTE | 2021-05-25 03:38 | PC.NURSE ---
Patient admitted to room 204 per w/c from the ER. Is alert and oriented, cooperative with care.
[2021-05-25 04:00] VITALS: BP 120/82; PULSE 93; RESP 20; TEMP 36.4; O2SAT 96
[2021-05-25 07:55] LABS: Hematocrit 44.6 % (35.0-49.0); Hemoglobin 15.3 g/dL (12.0-15.0); Mean Corpuscular HGB Conc 34.3 g/dL (32.0-36.0); Mean Corpuscular Hemoglobin 30.5 pg (27.0-31.0); Mean Corpuscular Volume 88.8 fL (78.0-102.0); Mean Platelet Volume 9.2 fl (9.2-11.8); Platelet Count Result 291 K/mm3 (150-420); Red Blood Count 5.02 M/mm3 (4.20-5.40); Red Cell Distribution Width 13.4 % (11.6-14.4); White Blood Count 18.2 K/mm3 (4.8-10.8)
[2021-05-25 08:00] VITALS: BP 98/63; PULSE 82; PULSE 92; RESP 14; TEMP 36.7; O2SAT 94
[2021-05-25 08:03] LABS: Estimated CRCL calculation 80 ml/min; Estimated Glomerular Filt Rate > 60
[2021-05-25] MEDS: INSULIN GLARGINE (*BKC) 100 UNITS/ML 80 UNITS SUB-Q (08:48)
[2021-05-25 08:49] LABS: Band Neutrophils Percent 0 % (0-6); Lymphocytes Percent Manual 33 % (18-44); Monocytes Absolute Manual 0.54 K/mm3 (0.1-0.90); Monocytes Percent Manual 3 % (3-9); Neutrophils Absolute Manual 11.64 K/mm3 (1.7-7.2); Neutrophils Percent Manual 64 % (46-73); Platelet Estimate Adequate (Adequate); Total Cells Counted 100
[2021-05-25] MEDS: SIMVASTATIN 10 MG TABLET 20 MG PO (08:49)
[2021-05-25] MEDS: VENLAFAXINE HCL 75 MG TABLET BY MOUTH (08:50)
[2021-05-25] MEDS: ENOXAPARIN 40 MG/0.4 ML SYRINGE SUB-Q (08:51)
--- NOTE | 2021-05-25 11:34 | PM.SD2 ---
Same Day Admit/Disch: HPI History of Present Illness Chief complaint: LEUKOCYTOSIS SYNCOPE Narrative: Preeti Sharif is a 46 year old female who is admitted under observation for head injury related to a fall. Pt states she is not sure if she passed out then fell or fell then passed out. She believes she may have tripped over a small stepping stool but is not 100% sure. She admits that she lost consciousness for an unknown duration. She admits to smoking marijuana earlier in the day which she gets from a dispensary and NOT off the streets. Prior to her fall she was smoking a cigarette. She admits she has a headache which is much better this AM. The [place] is located at the top front of her head where her hematoma is found. She denies changes in vision, hearing, balance, coordination, speech, numbness, tingling, fevers, chills, abdominal pain, flank pain, urinary issues, vaginal drainage or itching, rashes, and no recent infections. [facility] Past Medical History Medical History Acute insomnia Acute sinusitis BMI 32.0-32.9,adult COPD (chronic obstructive pulmonary disease) COPD exacerbation Depression Diabetes mellitus with diabetic nephropathy Finger avulsion Hyperlipidemia IBS (irritable bowel syndrome) Migraine Sinusitis, acute maxillary Surgical History Surgical History Hx of cholecystectomy Hx of hysterectomy Family History Family History Mother Diabetes mellitus Social History Social History Smoking packs per day: 1 Smoking cigarettes per day: 20.0 Smoking status: Current every day smoker Tobacco type: cigarettes Second hand tobacco smoke exposure: Yes Alcohol intake: former Substance use: unknown Substance use type: does not use Gender identity (if verbalized by the patient): Female Spiritual care concerns: No Same Day Admit/Disch: Med Pre-admit Medications Home Medications Medication Instructions Recorded Confirmed Type fluticasone propionate 50 See Rx Instructions .ROUTE 09/02/20 05/25/21 Rx mcg/actuation nasal .COMPLEX #16 ml spray,suspension oxybutynin chloride 10 mg 10 mg PO DAILY #30 tablet 01/10/21 05/25/21 Rx tablet,extended release 24 hr albuterol sulfate 90 mcg/actuation 1 inh INHALATION Q4H PRN #6.7 g 01/12/21 05/25/21 Rx aerosol inhaler insulin glargine 100 unit/mL (3 See Rx Instructions .ROUTE 01/12/21 05/25/21 Rx mL) subcutaneous pen .COMPLEX #15 milliliter insulin syringe-needle U-100 1 mL #500 each 01/12/21 05/25/21 Rx 27 gauge x 1/2 meloxicam 15 mg tablet See Rx Instructions .ROUTE 01/12/21 05/25/21 Rx .COMPLEX #90 tablet simvastatin 20 mg tablet 20 mg PO DAILY #30 tablet 01/12/21 05/25/21 Rx venlafaxine 75 mg tablet See Rx Instructions .ROUTE 01/12/21 05/25/21 Rx .COMPLEX #90 tablet ipratropium bromide 17 2 puff INHALATION BID #12.9 gm 01/24/21 05/25/21 Rx mcg/actuation HFA aerosol inhaler insulin lispro 100 unit/mL See Rx Instructions .ROUTE 01/26/21 05/25/21 Rx subcutaneous solution .COMPLEX #10 ml liraglutide 0.6 mg/0.1 mL (18 mg/3 1.2 mg SUB-Q DAILY ml 02/15/21 05/25/21 History mL) subcutaneous pen injector pen needle, diabetic 32 gauge x #100 ea 02/15/21 05/25/21 Rx 5/32 loratadine 10 mg tablet See Rx Instructions .ROUTE 03/24/21 05/25/21 Rx .COMPLEX #30 tablet pregabalin 200 mg capsule 400 mg PO HS #60 cap 04/14/21 05/25/21 Rx ertugliflozin 5 mg tablet 5 mg PO QAM #90 tablet 04/25/21 05/25/21 Rx tamsulosin 0.4 mg capsule See Rx Instructions .ROUTE 04/28/21 05/25/21 Rx .COMPLEX #30 cap insulin syringes (disposable) 1 mL #500 each 05/10/21 05/25/21 Rx omeprazole 40 mg capsule,delayed 40 mg PO DAILY #30 cap 05/23/21 05/25/21 Rx release Exam Const: General: cooperative, comfortable, no acute di
[2021-05-25 11:40] LABS: Glucose Point of Care 53 mg/dl (65-105)
[2021-05-25 11:40] LABS: Glucose Point of Care 110 mg/dl (65-105)
[2021-05-25 11:44] VITALS: PULSE 72
[2021-05-25 11:48] VITALS: BP 102/60; PULSE 72; RESP 14; TEMP 36.4; O2SAT 94
--- NOTE | 2021-05-25 13:38 | PCPTNOTE ---
No Care Plan initiated due to patient being discharged today.
--- NOTE | 2021-05-25 13:40 | PC.NURSE ---
Pt given discharge instructions by RN. Medications were reviewed, Blood glucose monitoring was reviewed. S&S of concussion were reviewed. Pt has an appointment with PCP on 06/01/21 @ 0900. RN took pt to family car via and assisted her into the car.
--- NOTE | 2021-05-31 14:03 | PC.NURSE ---
Pt states she received and understood her discharge instructions. Pt states everybody was very nice .
== END 2021-05-25 13:25 | disposition home or self-care (01) ==
LOC: CHSED 02:07 → CHS2ND 07:26
PROVIDERS: Admitting Provider Family Medicine; Emergency Provider Family Medicine; PCP Nurse Practitioner Family; Visit Provider Family Medicine
DX: S09.90XA Unspecified injury of head, initial encounter (principal); R55 Syncope and collapse; D72.829 Elevated white blood cell count, unspecified; J44.9 Chronic obstructive pulmonary disease, unspecified; E11.21 Type 2 diabetes mellitus with diabetic nephropathy; E78.5 Hyperlipidemia, unspecified; N20.0 Calculus of kidney; K58.9 Irritable bowel syndrome, unspecified; M79.7 Fibromyalgia; F17.210 Nicotine dependence, cigarettes, uncomplicated; F32.A Depression, unspecified; Z90.49 Acquired absence of other specified parts of digestive tract; Z90.710 Acquired absence of both cervix and uterus
CPT/HCPCS: 36415; 70450; 71045; 72125; 80053; 80307; 81001; 82565; 82948; 84484; 85025; 87040; 93005; 96365; 96366; 96367; 96372; 97161; 99283; 99285; A9270; G0378; G0379; J1650; J1815; J2543; J3370

== ENCOUNTER 2021-06-13 11:44 | Outpatient (CLI) | payer OTHER, SELFPAY ==
--- NOTE | ~2021-06-13 | XR_ITS ---
EXAMINATION: XR abdomen/kub 1V EXAM DATE: 06/13/2021 12:16 INDICATION: RLQ pain x1yr, worse x3wks, F/U from ER visit 05/25 . TECHNIQUE: Frontal projection(s) of the abdomen for interpretation. Comparison is made to prior exami nation from 2012. FINDINGS: There are cholecystectomy clips. There is expected amount of colonic stool and gas. No s mall bowel dilation, nonobstructive bowel gas pattern. Calcifications in the pelvis are believed to be phleboliths. There is no organomegaly suspected. The bones are unremarkable. Right acetabular hardware. IMPRESSION: Unremarkable abdomen x-ray exam. Reviewed, dictated and finalized at location B. CENTER ASSOCIATE
[2021-06-13 11:57] LABS: Hematocrit 47.4 % (35.0-49.0); Hemoglobin 15.9 g/dL (12.0-15.0); Mean Corpuscular HGB Conc 33.5 g/dL (32.0-36.0); Mean Corpuscular Hemoglobin 30.2 pg (27.0-31.0); Mean Corpuscular Volume 90.1 fL (78.0-102.0); Mean Platelet Volume 9.4 fl (9.2-11.8); Platelet Count Result 293 K/mm3 (150-420); Red Blood Count 5.26 M/mm3 (4.20-5.40); Red Cell Distribution Width 13.2 % (11.6-14.4); White Blood Count 14.7 K/mm3 (4.8-10.8)
[2021-06-13 12:19] LABS: Band Neutrophils Percent 0 % (0-6); Eosinophils Absolute Manual 0.44 K/mm3 (0.02-0.5); Eosinophils Percent Manual 3 % (1-6); Lymphocytes Absolute Manual 5.14 K/mm3 (1.1-4.5); Lymphocytes Percent Manual 35 % (18-44); Monocytes Absolute Manual 0.73 K/mm3 (0.1-0.90); Monocytes Percent Manual 5 % (3-9); Neutrophils Absolute Manual 8.37 K/mm3 (1.7-7.2); Neutrophils Percent Manual 57 % (46-73); Platelet Estimate Adequate (Adequate); Total Cells Counted 100
== END 2021-06-13 11:45 | disposition home or self-care (01) ==
LOC: CHSLAB 11:47
PROVIDERS: PCP Nurse Practitioner Family; Visit Provider Nurse Practitioner Family
DX: R10.31 Right lower quadrant pain (principal); R10.2 Pelvic and perineal pain; N20.0 Calculus of kidney; D72.829 Elevated white blood cell count, unspecified
CPT/HCPCS: 36415; 74018; 85025

== ENCOUNTER 2021-06-18 18:25 | Emergency (ER) | payer OTHER, SELFPAY ==
--- NOTE | ~2021-06-18 | CT_ITS ---
EXAMINATION: CT abdomen pelvis wo con DATE: 06/18/2021 19:25 INDICATION: Nephrolithiasis. Right flank pain. TECHNIQUE: Computed tomography (CT) of the abdomen and pelvis was performed without intravenous contr ast. Automated exposure control and iterative reconstruction technique were employed. The dose-length product was 834.52 mGy-cm. COMPARISON: None FINDINGS: Normal discoid atelectasis at the lingula. Heart size is normal. Very small pericardial effusion. No pleural effusion. Diffuse hepatic steatosis. Cholecystectomy clips the upper outer fossa. Pancreas, s pleen and bilateral adrenal glands are normal. 1 mm nonobstructing stone in an inferior calyx of the left kidney. Kidneys and ureters are otherwise normal with no other urolithiasis, hydroureteronephros is or perinephric/ureteral stranding. Decompressed bladder is unremarkable. The uterus is not identif ied and has likely been surgically resected. Status post appendectomy with suture line at the margin of the remaining very small appendiceal stump. Bowels are unremarkable with no obstruction. Couple sm all fat-containing periumbilical ventral hernias. No free intraperitoneal gas or fluid. No free intra peritoneal gas or fluid. No pathologically enlarged abdominal or pelvic lymphadenopathy. Fixation scr ews in the right supra-acetabular region. Heterotopic ossification cephalad to the right greater troc hanter. IMPRESSION: 1. 1 mm nonobstructing left renal stone. No other urolithiasis or hydronephrosis. 2. Couple small fat-containing paraumbilical ventral hernias. 3. Very small pericardial effusion. 4. Diffuse hepatic steatosis. 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 MAN IMPRESSION: 1. 1 mm nonobstructing left renal stone. No other urolithiasis or hydronephrosi s. 2. Couple small fat-containing paraumbilical ventral hernias. 3. Very small pericardial effusion. 4. Diffuse hepatic steatosis.
[2021-06-18 18:30] VITALS: BP 150/102; PULSE 115; RESP 20; TEMP 36.8; O2SAT 95
--- NOTE | 2021-06-18 18:43 | ED.ABDPAIN ---
HPI - Abdominal Pain General Chief Complaint: Urogenital-Female Stated Complaint: POSSIBLE KIDNEY STONE Source: patient and RN notes reviewed Mode of arrival: ambulatory Limitations: no limitations History of Present Illness MD elicited complaint: flank pain and other ( Pain in her urethra) Pertinent past history: kidney stones Onset (ago): day(s) (2) Pain Consistency: intermittent Location: R flank Severity: severe Quality: stabbing, sharp and burning Radiation: none Migration to: no migration Exacerbating factors: nothing Relieving factors: nothing Associated symptoms: nausea Related Data Home Medications Medication Instructions Recorded Confirmed liraglutide 0.6 mg/0.1 mL (18 mg/3 1.2 mg SUB-Q DAILY ml 02/15/21 06/18/21 mL) subcutaneous pen injector Allergies Allergy/AdvReac Type Severity Reaction Status Date / Time empagliflozin [Jardiance] Allergy Intermediate rash Verified 06/01/21 09:10 latex Allergy Intermediate Rash Verified 06/01/21 09:10 tetracycline Allergy Intermediate unknown Verified 06/01/21 09:10 lactose AdvReac Nausea Verified 06/01/21 09:10 Review of Systems Review of Systems: All systems reviewed & are unremarkable except as noted in HPI and below Constitutional: Constitutional: Denies chills and Denies fever(s) Cardiovascular: Cardiovascular: Denies chest pain Gastrointestinal: Gastrointestinal: Denies constipation, Reports nausea and Denies vomiting PMFSH Past Medical History Medical History Acute insomnia Acute sinusitis BMI 32.0-32.9,adult COPD (chronic obstructive pulmonary disease) COPD exacerbation Depression Diabetes mellitus with diabetic nephropathy Finger avulsion Hyperlipidemia IBS (irritable bowel syndrome) Migraine Sinusitis, acute maxillary Surgical History Surgical History Hx of cholecystectomy Hx of hysterectomy Family History Family History Mother Diabetes mellitus Social History Social History Smoking packs per day: 1 Smoking cigarettes per day: 20.0 Smoking status: Current every day smoker Tobacco type: cigarettes Second hand tobacco smoke exposure: Yes Alcohol intake: former Substance use: unknown Substance use type: does not use Gender identity (if verbalized by the patient): Female Spiritual care concerns: No Exam Const: General: healthy appearing, no acute distress and alert Nutritional Appearance: well nourished and obese centrally obese Orientation/consciousness: patient oriented x3 Other: female nurse in the room during examination. HENMT: Head: normal to inspection Ears: external ears normal Face and sinus: normal facial exam Mouth: Yes moist mucous membranes Eyes: Conjunctivae: conjunctivae normal Pupils: Equal, round and reactive pupils present EOM: EOMs intact bilaterally Resp: Effort & Inspection: normal respiratory effort Auscultation: clear to auscultation bilaterally Cardio: Rate: regular rate Rhythm: regular rhythm GI: GI Palp: Yes Soft to palpation, No Tenderness to palpation present (GI) and No Guarding due to palpation present (GI) Auscultation: normal bowel sounds : General: Yes CVA tenderness on the right Back/Spine/Pelvis: Cervical Spine: cervical ROM normal Thoracic/Lumbar Spine: thoraco-lumbar ROM normal Skin: General skin exam: normal color Rashes: no rashes Neuro: General: patient oriented x3, moves all extremities and no focal motor deficits Speech: normal speech Gait exam (Neuro): Normal gait present Extrem: General: normal to inspection and no clubbing, cyanosis or edema Psych: Appearance: grossly normal and well kempt Mental Status: mental status grossly normal Affect: normal affect Attitude: cooperative Thought content: Yes Normal thought content present
[2021-06-18 18:48] LABS: Add Urine Microscopic? YES; Bilirubin Urine Negative (Negative); Blood Urine 1+ (Negative); Color Urine Light Yellow (Yellow); Glucose Urine UA 3+ (Negative); Ketones Urine 1+ (Negative); Leukocyte Esterase Ur Negative LEU/UL (Negative); Nitrate Urine Negative (Negative); Protein Urine 2+ (Negative); Specific Grav Ur 1.015 (1.010-1.020); Urobilinogen Urine 0.2 mg/dL (0.2-1.0); pH Urine 8.5 (5.0-8.0)
[2021-06-18] MEDS: KETOROLAC (*BKC) 60 MG/2 ML VIAL IM (18:49)
[2021-06-18 18:56] LABS: Appearance Urine Cloudy (Clear); Bacteria Urine 2+ /hpf; Squamous Epithelial Cell Urine Many /hpf (Few); WBC Urine None seen /hpf (0-3)
[2021-06-18 18:57] LABS: Budding Yeast Urine Present /hpf
--- NOTE | 2021-06-18 19:01 | PC.NURSE ---
REPORT TO JILL LWE.
[2021-06-18 19:12] LABS: Basophils Absolute Auto 0.14 K/mm3 (0.00-0.10); Basophils Percent Auto 1.2 % (0.0-1.0); Eosinophils Absolute Auto 0.16 K/mm3 (0.02-0.50); Eosinophils Percent Auto 1.3 % (1.0-6.0); Hemoglobin 18.6 g/dL (12.0-15.0); Immature Granulocyte Absolute 0.05 K/mm3 (0.00-0.00); Immature Granulocyte Percent A 0.4 % (0.0-0.0); Lymphocytes Absolute Auto 4.73 K/mm3 (1.10-4.50); Lymphocytes Percent Auto 39.8 % (18.0-42.0); Mean Corpuscular HGB Conc 35.1 g/dL (32.0-36.0); Mean Corpuscular Hemoglobin 31.1 pg (27.0-31.0); Mean Corpuscular Volume 88.5 fL (78.0-102.0); Mean Platelet Volume 9.3 fl (9.2-11.8); Monocytes Absolute Auto 0.78 K/mm3 (0.10-0.90); Monocytes Percent Auto 6.6 % (2.0-11.0); Neutrophils Percent Auto 50.7 % (50.0-70.0); Platelet Count Result 288 K/mm3 (150-420); Red Blood Count 5.99 M/mm3 (4.20-5.40); Red Cell Distribution Width 13.2 % (11.6-14.4); White Blood Count 11.9 K/mm3 (4.8-10.8)
[2021-06-18 19:27] LABS: Alanine Aminotransferase 45 U/L (14-59); Albumin Level 3.9 g/dL (3.4-5.0); Alkaline Phosphatase 108 U/L (46-116); Anion Gap 16 mmol/L (8-16); Aspartate Amino Transferase 36 U/L (15-37); Bilirubin,Total 0.5 mg/dL (0.00-1.00); Blood Urea Nitrogen 10 mg/dL (7-18); Calcium 9.6 mg/dL (8.5-10.1); Carbon Dioxide 20 mmol/L (21-32); Chloride 97 mmol/L (98-108); Estimated CRCL calculation 63 ml/min; Estimated Glomerular Filt Rate 58; Glucose 280 mg/dL (70-99); Osmolality Calculated 285 mOsm/kg (285-295); Potassium 3.9 mmol/L (3.5-5.1); Sodium 133 mmol/L (136-145); Total Protein 8.3 g/dL (6.4-8.2)
[2021-06-18 19:29] LABS: CRP < 0.5 mg/dL (0.0-0.9)
[2021-06-18 20:07] VITALS: BP 137/88; PULSE 97; RESP 18; TEMP 36.7; O2SAT 98
== END 2021-06-18 20:12 | disposition home or self-care (01) ==
PROVIDERS: Emergency Provider Emergency Medicine; PCP Nurse Practitioner Family
DX: N34.2 Other urethritis (principal)
CPT/HCPCS: 36415; 74176; 80053; 81001; 85025; 86140; 96372; 99283; 99284; A9270; J1885

== ENCOUNTER 2021-07-05 12:48 | Outpatient (CLI) | payer OTHER, SELFPAY ==
[2021-07-08 07:34] LABS: FSH 39.3 mIU/mL (***)
[2021-07-10 15:16] LABS: Testosterone Free 2.4 pg/mL (0.1-6.4); Testosterone Total 14 ng/dL (2-45)
[2021-07-13 01:11] LABS: Estrogen 116.4 pg/mL
== END 2021-07-05 12:49 | disposition home or self-care (01) ==
LOC: CHSLAB 12:50
PROVIDERS: PCP Nurse Practitioner Family; Visit Provider Nurse Practitioner Family
DX: R53.83 Other fatigue (principal); M25.50 Pain in unspecified joint; L68.9 Hypertrichosis, unspecified
CPT/HCPCS: 36415; 82672; 83001; 83002; 84402; 84403; 86038; 86039; 86430

== ENCOUNTER 2021-10-20 10:53 | Outpatient (CLI) | payer OTHER, SELFPAY ==
--- NOTE | ~2021-10-20 | XR_ITS ---
XR chest 2V DATE: 10/20/2021 11:08 INDICATION: Wheezing, cough. History of COPD, asthma. Smoker. TECHNIQUE: PA and lateral views COMPARISON: 05/25/2021 portable AP chest FINDINGS: Normal heart size. No hilar or mediastinal enlargement. No pulmonary infiltrate or consolid ation, pleural effusion or pulmonary vascular congestion or pneumothorax. Surgical clips overlie the upper abdomen on lateral view, likely due to cholecystectomy. Included skeletal structures are unremarkable. IMPRESSION: No active cardiopulmonary disease Reviewed, dictated and finalized at location A.
== END 2021-10-20 10:54 | disposition home or self-care (01) ==
LOC: CHSIMG 10:56
PROVIDERS: PCP Family Medicine; Visit Provider Nurse Practitioner Family
DX: R06.2 Wheezing (principal)
CPT/HCPCS: 71046

== ENCOUNTER 2021-11-02 15:16 | Outpatient (NON) | payer OTHER, SELFPAY | END 2021-11-02 15:17 | disposition home or self-care (01) | LOC: CHSLAB 15:18 | PROVIDERS: Visit Provider Nurse Practitioner Family | DX: N39.0 Urinary tract infection, site not specified (principal) | CPT/HCPCS: 87086; 87088 ==

== ENCOUNTER 2021-11-21 14:34 | Outpatient (CLI) | payer OTHER, SELFPAY ==
[2021-11-21 15:04] LABS: Basophils Absolute Auto 0.13 K/mm3 (0.00-0.10); Basophils Percent Auto 1.1 % (0.0-1.0); Eosinophils Absolute Auto 0.21 K/mm3 (0.02-0.50); Eosinophils Percent Auto 1.8 % (1.0-6.0); Hematocrit 49.6 % (35.0-49.0); Hemoglobin 17.5 g/dL (12.0-15.0); Immature Granulocyte Absolute 0.03 K/mm3 (0.00-0.00); Immature Granulocyte Percent A 0.3 % (0.0-0.0); Lymphocytes Absolute Auto 5.76 K/mm3 (1.10-4.50); Lymphocytes Percent Auto 48.2 % (18.0-42.0); Mean Corpuscular HGB Conc 35.3 g/dL (32.0-36.0); Mean Corpuscular Hemoglobin 30.1 pg (27.0-31.0); Mean Corpuscular Volume 85.4 fL (78.0-102.0); Mean Platelet Volume 9.2 fl (9.2-11.8); Monocytes Absolute Auto 0.65 K/mm3 (0.10-0.90); Monocytes Percent Auto 5.4 % (2.0-11.0); Neutrophils Absolute Auto 5.2 K/mm3 (1.7-7.2); Neutrophils Percent Auto 43.2 % (50.0-70.0); Platelet Count Result 361 K/mm3 (150-420); Red Blood Count 5.81 M/mm3 (4.20-5.40); Red Cell Distribution Width 13.5 % (11.6-14.4)
[2021-11-21 15:10] LABS: Appearance Urine Clear (Clear); Bilirubin Urine Negative (Negative); Color Urine Yellow (Yellow); Glucose Urine UA 3+ (Negative); Ketones Urine Negative (Negative); Leukocyte Esterase Ur Negative LEU/UL (Negative); Nitrate Urine Negative (Negative); Protein Urine Negative (Negative); Specific Grav Ur <= 1.005 (1.010-1.020); Urobilinogen Urine 0.2 mg/dL (0.2-1.0)
[2021-11-21 15:33] LABS: Add Urine Microscopic? YES; Blood Urine Trace-lysed (Negative); RBC Urine 0-2 /hpf (0-2); WBC Urine None seen /hpf (0-3)
[2021-11-21 15:34] LABS: Bacteria Urine Trace /hpf; Squamous Epithelial Cell Urine Rare /hpf (Few)
[2021-11-21 15:39] LABS: Hemoglobin A1C 7.7 % (<5.7)
[2021-11-21 15:41] LABS: Alanine Aminotransferase 20 U/L (14-59); Albumin Level 4.1 g/dL (3.4-5.0); Alkaline Phosphatase 91 U/L (46-116); Amylase 20 U/L (25-115); Anion Gap 11 mmol/L (8-16); Aspartate Amino Transferase 21 U/L (15-37); Bilirubin,Total 0.5 mg/dL (0.00-1.00); Blood Urea Nitrogen 7 mg/dL (7-18); Calcium 9.5 mg/dL (8.5-10.1); Carbon Dioxide 26 mmol/L (21-32); Chloride 102 mmol/L (98-108); Cholesterol 207 mg/dL (0-200); Estimated Glomerular Filt Rate > 60; Glucose 106 mg/dL (70-99); HDL Direct 38 mg/dL (40-60); LDL Cholesterol Calculated 107 mg/dL (<130); Lipase 147 U/L (73-393); Magnesium 1.8 mg/dL (1.8-2.4); Osmolality Calculated 286 mOsm/kg (285-295); Potassium 3.3 mmol/L (3.5-5.1); Sodium 139 mmol/L (136-145); Total Protein 7.9 g/dL (6.4-8.2); Triglycerides 312 mg/dL (0-150)
[2021-11-23 16:27] LABS: Vitamin D 25 Hydroxy 22 ng/mL (30-100)
== END 2021-11-21 14:35 | disposition home or self-care (01) ==
LOC: CHSLAB 14:37
PROVIDERS: PCP Nurse Practitioner Family; Visit Provider Nurse Practitioner Family
DX: Z00.00 Encounter for general adult medical examination without abnormal findings (principal); R11.2 Nausea with vomiting, unspecified; R11.10 Vomiting, unspecified; E11.21 Type 2 diabetes mellitus with diabetic nephropathy; E78.5 Hyperlipidemia, unspecified; Z79.899 Other long term (current) drug therapy
CPT/HCPCS: 36415; 80053; 80061; 81001; 82150; 82306; 83036; 83690; 83735; 85025

== ENCOUNTER 2022-05-15 13:52 | Outpatient (CLI) | payer OTHER, SELFPAY ==
--- NOTE | ~2022-05-15 | XR_ITS ---
EXAMINATION: XR chest 2V DATE: 05/15/2022 14:08 INDICATION: Chronic obstructive pulmonary disease TECHNIQUE: PA and lateral views of the chest are obtained. COMPARISON: 10/20/2021 FINDINGS: The lungs are free of acute opacities. No pleural effusion or pneumothorax. The cardiomedia stinal silhouette is normal. There is mild thoracic spondylosis. IMPRESSION: 1. No acute cardiopulmonary abnormality. 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
== END 2022-05-15 13:53 | disposition home or self-care (01) ==
LOC: CHSIMG 13:54
PROVIDERS: PCP Nurse Practitioner Family; Visit Provider Nurse Practitioner Family
DX: J44.1 Chronic obstructive pulmonary disease with (acute) exacerbation (principal)
CPT/HCPCS: 71046

== ENCOUNTER 2022-06-26 15:49 | Outpatient (CLI) | payer OTHER, SELFPAY ==
[2022-06-26 18:00] LABS: Appearance Urine Clear (Clear); Bilirubin Urine Negative (Negative); Blood Urine 2+ (Negative); Glucose Urine UA 3+ (Negative); Ketones Urine Negative (Negative); Leukocyte Esterase Ur Negative LEU/UL (Negative); Nitrate Urine Negative (Negative); Protein Urine Negative (Negative); Specific Grav Ur 1.015 (1.010-1.020); Urobilinogen Urine 0.2 mg/dL (0.2-1.0)
[2022-06-26 18:22] LABS: Add Urine Microscopic? YES; Bacteria Urine Trace /hpf; Color Urine Light Yellow (Yellow); Squamous Epithelial Cell Urine Few /hpf (Few); WBC Urine 0-3 /hpf (0-3)
== END 2022-06-26 15:50 | disposition home or self-care (01) ==
LOC: CHSLAB 15:51
PROVIDERS: PCP Nurse Practitioner Family; Visit Provider Nurse Practitioner Family
DX: R39.9 Unspecified symptoms and signs involving the genitourinary system (principal)
CPT/HCPCS: 81001

== ENCOUNTER 2022-06-28 13:58 | Outpatient (CLI) | payer OTHER, SELFPAY ==
--- NOTE | ~2022-06-28 | US_ITS ---
EXAMINATION: US pelvic complete DATE: 06/28/2022 14:43 INDICATION: Right lower quadrant pain. Uterus and ovaries are surgically absent. Comparison:No prior studies for comparison. TECHNIQUE: Multiple transabdominal and endovaginal sonographic images of the pelvis performed. FINDINGS: The uterus and ovaries are absent. No abnormal pelvic masses. There is no free fluid in the pelvis. There are no abnormal masses seen on either side. IMPRESSION: 1. Unremarkable pelvic ultrasound status post total hysterectomy. 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 ICAL CARE TECHNICIAN
--- NOTE | ~2022-06-28 | US_ITS ---
US renal BI 06/28/2022 14:44 Procedure: Realtime transabdominal ultrasound of the kidneys and bladder. Indication: Bilateral flank pain Comparison: No prior studies for comparison Findings: Renal echotexture is normal bilaterally without hydronephrosis, contour deforming mass or r enal calculus. The right kidney measures 11.5 cm and left kidney measures 12.9 cm. Bladder within no rmal limits. Impression: 1: Unremarkable renal ultrasound. No stones, masses or hydronephrosis. 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 GATOR Impression: 1: Unremarkable renal ultrasound. No stones, masses or hydronephrosis.
== END 2022-06-28 13:59 | disposition home or self-care (01) ==
LOC: CHSIMG 14:00
PROVIDERS: PCP Nurse Practitioner Family; Visit Provider Nurse Practitioner Family
DX: R10.2 Pelvic and perineal pain (principal); R10.9 Unspecified abdominal pain
CPT/HCPCS: 76775; 76856

== ENCOUNTER 2022-07-16 14:29 | Outpatient (CLI) | payer OTHER, SELFPAY ==
[2022-07-16 15:29] LABS: Influenza A QL RT-PCR Negative (Negative); Influenza B QL RT-PCR Negative (Negative); SARS-CoV-2 RNA PCR Positive (Negative)
== END 2022-07-16 14:30 | disposition home or self-care (01) ==
LOC: CHSLAB 14:31
PROVIDERS: PCP Nurse Practitioner Family; Visit Provider Nurse Practitioner Family
DX: U07.1 COVID-19 (principal)
CPT/HCPCS: 87636

== ENCOUNTER 2022-09-13 11:27 | Outpatient (CLI) | payer OTHER, SELFPAY ==
--- NOTE | ~2022-09-13 | XR_ITS ---
EXAMINATION: XR foot RT 2V INDICATION: Right foot pain TECHNIQUE: Two views of the right foot are obtained. COMPARISON: 12/13/2017 FINDINGS: There is stable changes of talonavicular plate and screw fixation. Bone alignment is normal . No fracture is identified. The soft tissues are unremarkable. IMPRESSION: 1. No radiographic correlate for the patient's symptoms. 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 AL TRAINER SUPERVISOR
== END 2022-09-13 11:28 | disposition home or self-care (01) ==
LOC: CHSIMG 11:29
PROVIDERS: PCP Nurse Practitioner Family; Visit Provider Nurse Practitioner Family
DX: M79.671 Pain in right foot (principal)
CPT/HCPCS: 73620

== ENCOUNTER 2022-12-27 10:21 | Emergency (ER) | payer OTHER, SELFPAY ==
[2022-12-27] VITALS (7 sets, daily range): BP systolic 101–132; BP diastolic 70–80; PULSE 98–115; RESP 18–22; TEMP 36.1–36.5; O2SAT 95–97
--- NOTE | ~2022-12-27 | CT_ITS ---
Clinical Indication: Shortness of breath CT Scan of the Chest with Contrast: Technique: Contiguous sections were acquired throughout the chest after intravenous administration of 100 cc of Omnipaque 350. Dose reduction technique was used on this scan by utilizing automated expos ure control and iterative reconstruction technique. The dose-length product (DLP) was 520.80 mGy-cm. Findings: There is right paratracheal, subcarinal, AP window, and bilateral hilar lymphadenopathy. Largest node is probably in the superior right paratracheal region measuring 2.5 x 1.7 x 1.2 cm.. There is no ashlie ling defect in the pulmonary arterial tree to suggest pulmonary embolus. There is no evidence of aort ic dissection or aneurysm. There is no evidence of pleural or pericardial effusion. There are probable minimal hypoventilatory groundglass changes at the lung bases. No pulmonary nodule evident. Images through the upper abdomen reveal probable splenomegaly, partially imaged. Impression: No evidence of pulmonary embolus, aortic dissection, or aortic aneurysm. Mediastinal and bilateral hilar lymphadenopathy, as detailed above. Diagnostic considerations include inflammatory/reactive lymph nodes versus lymphoma or other metastatic disease. Probable minimal hypoventilatory groundglass changes at the lung bases. Correlate for bronchiolitis, hypersensitivity pneumonitis, or minimal pulmonary edema. Probable splenomegaly, of uncertain etiology. Reviewed, dictated and finalized at [facility]. Impression: No evidence of pulmonary embolus, aortic dissection, or aortic aneurysm. Mediastinal and bilateral hilar lymphadenopathy, as detailed above. Diagnostic considerations include inflammatory/reactive lymph nodes versus lymphoma or oth er metastatic disease. Probable minimal hypoventilatory groundglass changes at the lung bases. Correla te for bronchiolitis, hypersensitivity pneumonitis, or minimal pulmonary edema. Probable splenomegaly, of uncertain etiology.
--- NOTE | ~2022-12-27 | XR_ITS ---
Clinical Indication: Cough, shortness of breath PA and lateral views of the chest: Comparison: 05/15/2022 Findings: The lungs are clear, without evidence of focal consolidation or pleural effusion. Cardiome diastinal silhouette is within normal limits. Bones and soft tissues are unremarkable. Impression: Normal chest. Reviewed, dictated and finalized at location . Impression: Normal chest.
--- NOTE | 2022-12-27 10:28 | ECG_ITS ---
Measurements Intervals [place] Rate: 103 P: 4 SC: 155 QRS: -53 QRSD: 75 T: 39 QT: 327 QTc: 430 Interpretive Statements SINUS TACHYCARDIA LEFT AXIS DEVIATION [QRS AXIS < -30] PATTERN CONSISTENT WITH PULMONARY DISEASE ABNORMAL ECG COMPARED TO ECG 05/25/2021 00:25:39 SINUS TACHYCARDIA NOW PRESENT LEFT-AXIS DEVIATION NOW PRESENT Electronically Signed On 12-31-2022 9:14:20 CDT by Gt Celestin M.D.
[2022-12-27] MEDS: IPRATROPIUM 0.5 MG/ALBUTEROL SULFATE 2.5 MG AMPUL.NEB 3 ML INHALATION (10:47)
[2022-12-27 11:00] LABS: HCO3 ABG 22.3 mmol/L (23-29); Oxygen Content ABG 21.4 %vol (16.0-22.0); Oxygen Saturation ABG 97.1 % (95-97); Oxyhemoglobin 92.8 % (94-100); PCO2 ABG 33.7 mmHg (35-45); PO2 ABG 89.2 mmHg (80-90); Total Hemoglobin 16.4 g/dL (12.0-18.0); pH ABG 7.44 (7.35-7.45)
[2022-12-27 11:01] LABS: Basophils Absolute Auto 0.09 K/mm3 (0.00-0.10); Basophils Percent Auto 1.2 % (0.0-1.0); Eosinophils Absolute Auto 0.26 K/mm3 (0.02-0.50); Eosinophils Percent Auto 3.4 % (1.0-6.0); Hematocrit 46.3 % (35.0-49.0); Hemoglobin 15.9 g/dL (12.0-15.0); Immature Granulocyte Absolute 0.02 K/mm3 (0.00-0.00); Immature Granulocyte Percent A 0.3 % (0.0-0.0); Lymphocytes Absolute Auto 2.86 K/mm3 (1.10-4.50); Lymphocytes Percent Auto 37.7 % (18.0-42.0); Mean Corpuscular HGB Conc 34.3 g/dL (32.0-36.0); Mean Corpuscular Hemoglobin 30.9 pg (27.0-31.0); Mean Corpuscular Volume 89.9 fL (78.0-102.0); Mean Platelet Volume 9.9 fl (9.2-11.8); Monocytes Absolute Auto 0.62 K/mm3 (0.10-0.90); Monocytes Percent Auto 8.2 % (2.0-11.0); Neutrophils Absolute Auto 3.7 K/mm3 (1.7-7.2); Neutrophils Percent Auto 49.2 % (50.0-70.0); Platelet Count Result 239 K/mm3 (150-420); Red Blood Count 5.15 M/mm3 (4.20-5.40); Red Cell Distribution Width 13.9 % (11.6-14.4); White Blood Count 7.6 K/mm3 (4.8-10.8)
[2022-12-27 11:02] LABS: Device NASAL CANNULA; Liters per Minute 1.5 LPM; Modified Allen's Test Pass; Site Drawn RIGHT RADIAL
[2022-12-27] MEDS: methylPREDNISolone SOD SUCC 125 MG VIAL IV PUSH (11:02)
[2022-12-27 11:16] LABS: INR 0.9; Partial Thromboplastin Time 26.2 SEC (23.90-30.70); Prothrombin Time 10.3 Seconds (9.50-12.10)
[2022-12-27 11:18] LABS: D Dimer 0.58 mg/L (0.19-0.50)
[2022-12-27 11:20] LABS: Alanine Aminotransferase 33 U/L (14-59); Albumin Level 3.4 g/dL (3.4-5.0); Alkaline Phosphatase 81 U/L (46-116); Anion Gap 8 mmol/L (8-16); Aspartate Amino Transferase 24 U/L (15-37); Bilirubin,Total 0.4 mg/dL (0.00-1.00); Blood Urea Nitrogen 10 mg/dL (7-18); Calcium 8.6 mg/dL (8.5-10.1); Carbon Dioxide 26 mmol/L (21-32); Chloride 107 mmol/L (98-108); Estimated CRCL calculation 89 ml/min; Estimated Glomerular Filt Rate > 60; Glucose 204 mg/dL (70-99); Magnesium 1.7 mg/dL (1.8-2.4); NT Pro B Type Natriuretic Pept 12 pg/mL (0-125); Osmolality Calculated 297 mOsm/kg (285-295); Potassium 4.1 mmol/L (3.5-5.1); Sodium 141 mmol/L (136-145); Total Protein 7.1 g/dL (6.4-8.2); Troponin I 4.2 ng/L (0.00-60.4)
--- NOTE | 2022-12-27 12:02 | ED.SOB ---
HPI - SOB/Dyspnea General Chief Complaint: Shortness of Breath/Dyspnea Stated Complaint: shortness of breath Time Seen by Provider: 12/27/22 10:23 Source: patient Mode of arrival: ambulatory Limitations: no limitations History of Present Illness HPI Narrative: this is a 47-year-old female with a history of COPD/ asthma that presents with increased shortness of breath started earlier today with some nonproductive cough with no chest pain no abdominal pain no fever chills no flank pain. Patient has a history of COPD and has been using her inhaler with minimal relief at home. MD elicited complaint: shortness of breath and cough Pertinent past history: COPD and asthma Onset (ago): hour(s) Related Data Allergies Allergy/AdvReac Type Severity Reaction Status Date / Time empagliflozin [Jardiance] Allergy Intermediate rash Verified 12/27/22 10:31 latex Allergy Intermediate Rash Verified 12/27/22 10:31 tetracycline Allergy Intermediate unknown Verified 12/27/22 10:31 lactose AdvReac Nausea Verified 12/27/22 10:31 Review of Systems Review of Systems: All systems reviewed & are unremarkable except as noted in HPI and below PMFSH Past Medical History Medical History Acute bronchitis Acute insomnia Acute sinusitis Acute sinusitis BMI 32.0-32.9,adult Calculus of kidney COPD (chronic obstructive pulmonary disease) COPD exacerbation COPD exacerbation Cough Depression Diabetes mellitus with diabetic nephropathy Fatigue Finger avulsion Head injury with loss of consciousness (05/24/21) Hyperlipidemia IBS (irritable bowel syndrome) Joint pain Migraine Nipple discharge Pelvic pain Preventative health care RLQ abdominal pain Sinusitis, acute maxillary Syncope Urethritis Wheezing Surgical History Surgical History Hx of cholecystectomy Hx of hysterectomy Family History Family History Mother Diabetes mellitus Social History Social History Smoking packs per day: 1 Smoking cigarettes per day: 20.0 Smoking status: Current every day smoker Tobacco type: cigarettes Second hand tobacco smoke exposure: Yes Alcohol intake: former Substance use: unknown Substance use type: does not use Lack of Transportation: No Lack of Food: Never True Concerned About Future Housing: No Difficulty Paying Gas/Electric Bills: YES Difficulty Paying for Meds: No Currently Unemployed: No Education: High School Diploma/GED Difficulty w/ Childcare or Family Care: No Living arrangements: with family Gender identity (if verbalized by the patient): Female Spiritual care concerns: No Exam Const: General: healthy appearing Nutritional Appearance: well nourished Orientation/consciousness: patient oriented x3 Limitations: no limitations HENMT: Head: normal to inspection Face and sinus: normal facial exam Mouth: Yes Normal oral and palatal mucosa present Eyes: Conjunctivae: conjunctivae normal Neck: Neck: normal visual inspection Chest: Chest palpation & inspection: normal inspection of the chest Resp: Effort & Inspection: normal respiratory effort Auscultation: wheezes Cardio: Rate: regular rate Rhythm: regular rhythm GI: GI Palp: Yes Soft to palpation : General: Yes bladder normal to palpation Urinary Catheter: Urinary Catheter: patent and draining Skin: General skin exam: normal color Rashes: no rashes Neuro: General: patient oriented x3 Cranial nerves: Yes Nystagmus not present Extrem: General: normal to inspection Psych: Mental Status: mental status grossly normal Affect: normal affect Course Course Emergency Course: Patient presenting with shortness of breath received a nebulizer treatment with IV steroids and after her breathing treatment patient felt sig
== END 2022-12-27 12:14 | disposition home or self-care (01) ==
PROVIDERS: Emergency Provider Emergency Medicine; PCP Nurse Practitioner Family
DX: J06.9 Acute upper respiratory infection, unspecified (principal); J44.9 Chronic obstructive pulmonary disease, unspecified; E78.5 Hyperlipidemia, unspecified; E11.9 Type 2 diabetes mellitus without complications; F17.210 Nicotine dependence, cigarettes, uncomplicated
CPT/HCPCS: 36415; 36600; 71046; 71275; 80053; 82805; 83735; 83880; 84484; 85025; 85380; 85610; 85730; 93005; 94640; 96374; 99284; J2930; Q9967

== ENCOUNTER 2023-01-03 05:04 | Observation (INO) | payer OTHER, SELFPAY ==
[2023-01-03] VITALS (14 sets, daily range): BP systolic 98–116; BP diastolic 63–79; PULSE 84–125; RESP 16–24; TEMP 35.8–36.8; O2SAT 91–98; BMI 31.4
--- NOTE | ~2023-01-03 | XR_ITS ---
Portable chest x-ray Comparison: 12/27/2022 Clinical History: COPD exacerbation, cough Findings: Suggestion of minimal asymmetric haziness of the right lung as compared to the left. No pl eural effusion or pneumothorax. Cardiomediastinal silhouette is stable. Bones and soft tissues are u nremarkable. Impression: Minimal right lung haziness. Correlate for minimal asymmetric pulmonary edema or atypical infection. Reviewed, dictated and finalized at location . Impression: Minimal right lung haziness. Correlate for minimal asymmetric pulmonary edema o r atypical infection.
--- NOTE | 2023-01-03 05:08 | ED.GENADULT ---
HPI - General Adult General Chief complaint: Shortness of Breath/Dyspnea Stated complaint: SOB Time Seen by Provider: 01/03/23 05:05 History of Present Illness HPI narrative: the patient is a 47-year-old woman with a history of COPD, on inhalers and nebulizer therapies at home but not on oxygen. She still smokes cigarettes but she has been trying to vape more than smoke. Also uses marijuana. History of insulin-dependent diabetes, hyperlipidemia, depression, irritable bowel syndrome, prior cholecystectomy and hysterectomy. She was seen here 12/27/2022 for a COPD exacerbation who was treated with IV steroids while in the emergency room. A workup had a positive D-dimer but a CT angiogram of the chest was negative (see results below). She was discharged home on prednisone 20 mg p.o. b.i.d. for 5 days and LEVOFLOX 500 mg daily for 5 days. She has taken her medications and has completed that course. The patient continues to have wheezing and shortness of breath. She has a cough occasionally productive of green phlegm most recently 48 hours ago. Does have chest tightness with the coughing. Has rhinorrhea nasal congestion and a sore throat. Myalgias present. No abdominal pain. No nausea vomiting. No fevers or chills or diaphoresis. No urinary symptoms. No sick contacts. Related Data Allergies Allergy/AdvReac Type Severity Reaction Status Date / Time empagliflozin [Jardiance] Allergy Intermediate rash Verified 12/27/22 10:31 latex Allergy Intermediate Rash Verified 12/27/22 10:31 tetracycline Allergy Intermediate unknown Verified 12/27/22 10:31 lactose AdvReac Nausea Verified 12/27/22 10:31 Review of Systems Review of Systems: All systems reviewed & are unremarkable except as noted in HPI and below Constitutional: Constitutional: Denies chills, Denies excessive sweating, Denies fatigue, Denies fever(s), Denies headache(s) and Denies weakness Eyes: Eyes: Denies change in vision and Denies photophobia ENT: Denies dysphagia, Denies dizziness, Denies headache(s), Denies lip swelling, Reports nasal congestion, Reports sore throat and Denies tongue swelling Cardiovascular: Cardiovascular: Reports chest pain (tightness), Denies syncope, Denies rapid heart rate and Reports dyspnea Respiratory: Respiratory: Reports chest congestion, Reports cough, Reports dyspnea and Reports wheezing Gastrointestinal: Gastrointestinal: Denies abdominal pain, Denies constipation, Denies dysphagia, Denies diarrhea, Denies nausea and Denies vomiting Genitourinary: Genitourinary: Denies hematuria, Denies urinary frequency, Denies dysuria and Denies urinary urgency Musculoskeletal: Musculoskeletal: Denies back pain, Denies myalgias, Denies arthralgias, Denies joint swelling and Denies numbness Integumentary/Breasts: Skin/Breast: Denies pruritus, Denies erythema and Denies rash Neurologic: Denies confusion, Denies dizziness, Denies syncope, Denies headache(s), Denies focal weakness, Denies numbness and Denies weakness Psychiatric: Psychiatric: Denies anxiety and Denies confusion Endocrine: Endocrine: Denies excessive sweating and Denies fatigue Hematologic/Lymphatic: Hematologic/Lymphatic: Denies easy bleeding and Denies easy bruising Allergic/Immunologic: Allergic/Immunologic: Denies lip swelling and Denies tongue swelling PMFSH Past Medical History Medical History Acute bronchitis Acute insomnia Acute sinusitis Acute sinusitis BMI 32.0-32.9,adult Calculus of kidney COPD (chronic obstructive pulmonary disease) COPD exacerbation COPD exacerbation Cough Depression Diabetes mellitus with diabetic nephropathy Fatigue Finger avulsion Head injury with loss of consciousness (05/24/21) Hyperlipidemia IBS (irritable bowel syndrome) Joint pain Migraine Nipple discharge Pelvic pain Preventative health care RLQ abdominal pain Sinusitis, acute maxillary Syncope Urethritis Wheezing Surgical
--- NOTE | 2023-01-03 05:20 | ECG_ITS ---
Measurements Intervals [place] Rate: 111 P: 2 WI: 137 QRS: -50 QRSD: 92 T: 72 QT: 343 QTc: 466 Interpretive Statements BASELINE ARTIFACT, REDUCED ECG QUALITY SINUS TACHYCARDIA LEFT ANTERIOR FASCICULAR BLOCK [QRS AXIS <= -45, QR IN I, RS IN II] POOR R-WAVE PROGRESSION COMPARED TO ECG 12/27/2022 10:59:29 NO SIGNIFICANT DIFFERENCE Electronically Signed On 01-03-2023 16:25:15 CDT by Jin Taylor M.D.
[2023-01-03] MEDS: guaiFENesin/DEXTROMETHORPHAN 5 ML UDC 10 ML PO (05:24)
[2023-01-03] MEDS: methylPREDNISolone SOD SUCC 125 MG VIAL IV PUSH (05:25)
[2023-01-03] MEDS: IPRATROPIUM 0.5 MG/ALBUTEROL SULFATE 2.5 MG AMPUL.NEB 3 ML 9 ML INHALATION (05:25)
[2023-01-03 05:26] LABS: Basophils Absolute Auto 0.08 K/mm3 (0.00-0.10); Basophils Percent Auto 0.5 % (0.0-1.0); Eosinophils Percent Auto 1.9 % (1.0-6.0); Hematocrit 44.2 % (35.0-49.0); Hemoglobin 15.4 g/dL (12.0-15.0); Immature Granulocyte Absolute 0.06 K/mm3 (0.00-0.00); Immature Granulocyte Percent A 0.4 % (0.0-0.0); Lymphocytes Absolute Auto 5.44 K/mm3 (1.10-4.50); Lymphocytes Percent Auto 35.2 % (18.0-42.0); Mean Corpuscular HGB Conc 34.8 g/dL (32.0-36.0); Mean Corpuscular Hemoglobin 30.6 pg (27.0-31.0); Mean Corpuscular Volume 87.9 fL (78.0-102.0); Mean Platelet Volume 9.6 fl (9.2-11.8); Monocytes Absolute Auto 0.69 K/mm3 (0.10-0.90); Monocytes Percent Auto 4.5 % (2.0-11.0); Neutrophils Absolute Auto 8.9 K/mm3 (1.7-7.2); Neutrophils Percent Auto 57.5 % (50.0-70.0); Platelet Count Result 271 K/mm3 (150-420); Red Blood Count 5.03 M/mm3 (4.20-5.40); Red Cell Distribution Width 13.5 % (11.6-14.4); White Blood Count 15.5 K/mm3 (4.8-10.8)
[2023-01-03] MEDS: BENZONATATE 100 MG CAPSULE PO (05:26)
[2023-01-03] MEDS: MAGNESIUM SULF 2 GM/WATER 50ML 2 GM/50 ML BAG IVPB (05:31)
[2023-01-03 05:44] LABS: Lactic Acid Reflex 2.4 mmol/L (0.4-2.0)
[2023-01-03 05:48] LABS: D Dimer 0.51 mg/L (0.19-0.50)
[2023-01-03 05:52] LABS: Alanine Aminotransferase 20 U/L (14-59); Albumin Level 3.2 g/dL (3.4-5.0); Alkaline Phosphatase 92 U/L (46-116); Anion Gap 12 mmol/L (8-16); Aspartate Amino Transferase 12 U/L (15-37); Bilirubin,Total 0.3 mg/dL (0.00-1.00); Blood Urea Nitrogen 13 mg/dL (7-18); CRP 10.9 mg/dL (0.0-0.9); Calcium 9.5 mg/dL (8.5-10.1); Carbon Dioxide 26 mmol/L (21-32); Chloride 100 mmol/L (98-108); Estimated Glomerular Filt Rate > 60; Glucose 195 mg/dL (70-99); NT Pro B Type Natriuretic Pept 13 pg/mL (0-125); Osmolality Calculated 291 mOsm/kg (285-295); Potassium 3.1 mmol/L (3.5-5.1); Sodium 138 mmol/L (136-145); Total Protein 7.3 g/dL (6.4-8.2); Troponin I 5.1 ng/L (0.00-60.4)
[2023-01-03 06:01] LABS: Base Excess ABG -0.8 mmol/L (0-2); HCO3 ABG 22.6 mmol/L (23-29); Oxygen Content ABG 19.8 %vol (16.0-22.0); Oxygen Saturation ABG 91.8 % (95-97); Oxyhemoglobin 87.8 % (94-100); PCO2 ABG 34.1 mmHg (35-45); PO2 ABG 58.7 mmHg (80-90); Total Hemoglobin 16.1 g/dL (12.0-18.0); pH ABG 7.44 (7.35-7.45)
[2023-01-03 06:02] LABS: Device ROOM AIR; Modified Allen's Test Pass; Site Drawn LEFT RADIAL
[2023-01-03 06:29] LABS: Erythrocyte Sedimentation Rate 26 mm/hr (0-15)
[2023-01-03 06:30] LABS: Strep Group A RT-PCR NOT DETECTED (Negative)
[2023-01-03 06:42] LABS: Influenza A QL RT-PCR Negative (Negative); Influenza B QL RT-PCR Negative (Negative); SARS-CoV-2 RNA PCR Negative (Negative)
[2023-01-03 06:51] LABS: RSV RNA, RT-PCR Negative (Negative)
--- NOTE | 2023-01-03 08:03 | PC.NURSE ---
0802 pt given fan; stated she was overheating
[2023-01-03] MEDS: AZITHROMYCIN 500 MG/NS 250 ML 500 MG/250 ML BAG 250 MG IVPB (08:09)
[2023-01-03] MEDS: POTASSIUM BICARBONATE 25 MEQ TABEF 50 MEQ PO (08:11)
[2023-01-03 08:23] LABS: Reflex Lactic Acid Yes or No Add Lactic
[2023-01-03 09:15] LABS: Lactic Acid 1.9 mmol/L (0.4-2.0)
[2023-01-03] MEDS: cefTRIAXone 2 GM/NS 100 ML 2 GM/100 ML BAG IVPB (09:20)
--- NOTE | 2023-01-03 09:55 | ADMGEN ---
This patient, Preeti Sharif, was admitted to 2nd Floor Room 203-2. Patient/family oriented to hospital policies and general routines including ID bracelet, bed and alarms, visiting hours, pain management, procedures, bathroom and other care routines, personal items, smoking policy, room service/diet, and visiting hours. Information on how to activate the Rapid Response Team has been discussed. Patient/Family are encouraged to report perceived risks to care and to ask questions if they do not understand what they are told or what they should do.
[2023-01-03 10:01] LABS: Magnesium 1.8 mg/dL (1.8-2.4)
[2023-01-03] MEDS: SIMVASTATIN 10 MG TABLET 20 MG PO (12:07)
[2023-01-03] MEDS: TAMSULOSIN HCL 0.4 MG CAPSULE BY MOUTH (12:07)
[2023-01-03] MEDS: NICOTINE (*PBKC) 21 MG PATCH 1 PATCH TRANSDERM (12:07)
[2023-01-03] MEDS: ENOXAPARIN 40 MG/0.4 ML SYRINGE SUB-Q (12:07)
[2023-01-03 12:12] LABS: Glucose Point of Care 361 mg/dl (65-105)
[2023-01-03] MEDS: INSULIN HUMAN LISPRO (*BKC) 1,000 UNITS/10 ML VIAL 70 UNITS SUB-Q ×2 (12:31→17:29)
[2023-01-03] MEDS: ALBUTEROL SULFATE NEB 2.5 MG/3 ML INH INHALATION ×2 (15:22→19:30)
[2023-01-03 17:05] LABS: Glucose Point of Care 232 mg/dl (65-105)
[2023-01-03] MEDS: QUEtiapine FUMARATE 25 MG TABLET 50 MG BY MOUTH (20:28)
[2023-01-03] MEDS: ACETAMINOPHEN 325 MG TABLET 650 MG PO (20:28)
[2023-01-03] MEDS: PREGABALIN (*CRX) 100 MG CAPSULE 400 MG PO (20:28)
[2023-01-03 20:31] LABS: Glucose Point of Care 265 mg/dl (65-105)
[2023-01-03] MEDS: INSULIN GLARGINE (*BKC) 1,000 UNITS/10 ML VIAL 40 UNITS SUB-Q (20:33)
[2023-01-04] VITALS (8 sets, daily range): BP systolic 111–141; BP diastolic 63–86; PULSE 76–102; RESP 17–18; TEMP 36.2–36.4; O2SAT 93–96
[2023-01-04 04:57] LABS: Basophils Absolute Auto 0.03 K/mm3 (0.00-0.10); Basophils Percent Auto 0.2 % (0.0-1.0); Eosinophils Absolute Auto 0.08 K/mm3 (0.02-0.50); Eosinophils Percent Auto 0.5 % (1.0-6.0); Hematocrit 43.7 % (35.0-49.0); Hemoglobin 14.8 g/dL (12.0-15.0); Immature Granulocyte Absolute 0.12 K/mm3 (0.00-0.00); Immature Granulocyte Percent A 0.8 % (0.0-0.0); Lymphocytes Absolute Auto 3.54 K/mm3 (1.10-4.50); Lymphocytes Percent Auto 24.3 % (18.0-42.0); Mean Corpuscular HGB Conc 33.9 g/dL (32.0-36.0); Mean Corpuscular Hemoglobin 30.4 pg (27.0-31.0); Mean Corpuscular Volume 89.7 fL (78.0-102.0); Mean Platelet Volume 9.7 fl (9.2-11.8); Monocytes Absolute Auto 0.64 K/mm3 (0.10-0.90); Monocytes Percent Auto 4.4 % (2.0-11.0); Neutrophils Absolute Auto 10.2 K/mm3 (1.7-7.2); Neutrophils Percent Auto 69.8 % (50.0-70.0); Platelet Count Result 275 K/mm3 (150-420); Red Blood Count 4.87 M/mm3 (4.20-5.40); Red Cell Distribution Width 13.6 % (11.6-14.4); White Blood Count 14.6 K/mm3 (4.8-10.8)
[2023-01-04 05:10] LABS: Anion Gap 10 mmol/L (8-16); Blood Urea Nitrogen 13 mg/dL (7-18); Calcium 9.3 mg/dL (8.5-10.1); Carbon Dioxide 27 mmol/L (21-32); Chloride 107 mmol/L (98-108); Estimated CRCL calculation 105 ml/min; Estimated Glomerular Filt Rate > 60; Glucose 170 mg/dL (70-99); Osmolality Calculated 302 mOsm/kg (285-295); Potassium 3.5 mmol/L (3.5-5.1); Sodium 144 mmol/L (136-145)
[2023-01-04] MEDS: methylPREDNISolone SOD SUCC 40 MG VIAL IV PUSH (05:46)
[2023-01-04] MEDS: ALBUTEROL SULFATE NEB 2.5 MG/3 ML INH INHALATION ×2 (06:54→11:31)
[2023-01-04] MEDS: cefTRIAXone 2 GM/NS 100 ML 2 GM/100 ML BAG IVPB (08:50)
[2023-01-04] MEDS: AZITHROMYCIN 500 MG/NS 250 ML 500 MG/250 ML BAG 250 MG IVPB (08:50)
[2023-01-04] MEDS: INSULIN HUMAN LISPRO (*BKC) 1,000 UNITS/10 ML VIAL 70 UNITS SUB-Q (08:51)
[2023-01-04] MEDS: NICOTINE (*PBKC) 21 MG PATCH 1 PATCH TRANSDERM (08:51)
[2023-01-04] MEDS: SIMVASTATIN 10 MG TABLET 20 MG PO (08:51)
[2023-01-04] MEDS: ENOXAPARIN 40 MG/0.4 ML SYRINGE SUB-Q (08:51)
[2023-01-04] MEDS: TAMSULOSIN HCL 0.4 MG CAPSULE BY MOUTH (08:51)
--- NOTE | 2023-01-04 11:45 | PC.NURSE ---
Discharge packet reviewed with patient. All questions answered. Pt escorted to front of hospital.
--- NOTE | 2023-01-07 10:31 | PC.NURSE ---
Pt states she received and understood her discharge instructions. Pt also states everything was fine .
--- NOTE | 2023-01-14 11:13 | PM.SD2 ---
Same Day Admit/Disch: HPI History of Present Illness Chief complaint: COPD exacerbation pneumonia Narrative: Preeti Sharif is a 47 year old female the patient is a 47-year-old woman with a history of COPD, on inhalers and nebulizer therapies at home but not on oxygen.? She still smokes cigarettes but she has been trying to vape more than smoke.? Also uses marijuana.? History of insulin-dependent diabetes, hyperlipidemia, depression, irritable bowel syndrome, prior cholecystectomy and hysterectomy.? She was seen here 12/27/2022 for a COPD exacerbation who was treated with IV steroids while in the emergency room.? A workup had a positive D-dimer but a CT angiogram of the chest was negative (see results below).? She was discharged home on prednisone 20 mg p.o. b.i.d. for 5 days and LEVOFLOX 500 mg daily for 5 days.? She has taken her medications and has completed that course.? The patient continues to have wheezing and shortness of breath.? She has a cough occasionally productive of green phlegm most recently 48 hours ago.? Does have chest tightness with the coughing.? Has rhinorrhea nasal congestion and a sore throat.? Myalgias present.? No abdominal pain.? No nausea vomiting.? No fevers or chills or diaphoresis.? No urinary symptoms.? No sick contacts. Related Data [facility] Past Medical History Medical History (Updated 01/18/23 @ 12:02 by Arline Olson NP) Acute bronchitis Acute insomnia Acute sinusitis Acute sinusitis BMI 32.0-32.9,adult Calculus of kidney COPD (chronic obstructive pulmonary disease) COPD exacerbation COPD exacerbation Cough Depression Diabetes mellitus with diabetic nephropathy Fatigue Finger avulsion Head injury with loss of consciousness (05/24/21) Hyperlipidemia IBS (irritable bowel syndrome) Joint pain Migraine Nipple discharge Pelvic pain Pneumonia Preventative health care RLQ abdominal pain Sinusitis, acute maxillary Syncope Urethritis Wheezing Surgical History Surgical History Hx of cholecystectomy Hx of hysterectomy Family History Family History Mother Diabetes mellitus Social History Social History Smoking packs per day: 1 Smoking cigarettes per day: 20.0 Smoking status: Heavy tobacco smoker Tobacco type: cigarettes Second hand tobacco smoke exposure: Yes Alcohol intake: current Substance use: never Substance use type: does not use Lack of Transportation: No Lack of Food: Never True Current Housing: I Have Housing Concerned About Future Housing: No Difficulty Paying Gas/Electric Bills: No Difficulty Paying for Meds: No Currently Unemployed: No Education: Decline to Answer Difficulty w/ Childcare or Family Care: No Living arrangements: with family Gender identity (if verbalized by the patient): Female Spiritual care concerns: No Same Day Admit/Disch: Med Pre-admit Medications Home Medications Medication Instructions Recorded Confirmed Type fluticasone propionate 50 See Rx Instructions .Route 09/02/20 01/03/23 Rx mcg/actuation nasal .COMPLEX #16 mL spray,suspension albuterol sulfate 90 mcg/actuation 1 inh inhalation Q4H PRN Shortness 01/12/21 01/03/23 Rx aerosol inhaler (Ventolin HFA) Of Breath #6.7 grams insulin syringe-needle U-100 1 mL #500 ea 01/12/21 01/03/23 Rx 27 gauge x 1/2 insulin lispro 100 unit/mL See Rx Instructions .Route 01/26/21 01/03/23 Rx subcutaneous solution .COMPLEX #10 mL pen needle, diabetic 32 gauge x #100 ea 02/15/21 01/03/23 Rx 5/32 (TechLITE Pen Needle) insulin syringes (disposable) 1 mL #500 ea 05/10/21 01/03/23 Rx simvastatin 20 mg tablet 20 mg PO DAILY #30 tabs 07/26/21 01/03/23 Rx insulin glargine 100 unit/mL (3 90 unit (0.9 mL) .Route .COMPLEX 11/23/21 01/03/23 Rx mL) subcutaneous pen (Basaglar #15 mL KwikPen U-100 Insul
== END 2023-01-04 11:45 | disposition home or self-care (01) ==
LOC: CHSED 08:07 → CHS2ND 09:20
PROVIDERS: Emergency Medicine; Nurse Practitioner Family; Admitting Provider Internal Medicine; Emergency Provider Emergency Medicine; PCP Nurse Practitioner Family; Visit Provider Internal Medicine
DX: J44.0 Chronic obstructive pulmonary disease with (acute) lower respiratory infection (principal); J20.9 Acute bronchitis, unspecified; J44.1 Chronic obstructive pulmonary disease with (acute) exacerbation; E11.21 Type 2 diabetes mellitus with diabetic nephropathy; E78.5 Hyperlipidemia, unspecified; K58.9 Irritable bowel syndrome, unspecified; R09.02 Hypoxemia; F32.A Depression, unspecified; F17.210 Nicotine dependence, cigarettes, uncomplicated; Z79.4 Long term (current) use of insulin; Z20.822 Contact with and (suspected) exposure to COVID-19
CPT/HCPCS: 36415; 36600; 71045; 80048; 80053; 82805; 82948; 83605; 83735; 83880; 84484; 85025; 85380; 85652; 86140; 87637; 87651; 93005; 94640; 96365; 96367; 96368; 96372; 96375; 99285; A9270; G0378; G0379; J0456; J0696; J1650; J1815; J2920; J2930; J3475

== ENCOUNTER 2023-06-05 12:40 | Outpatient (CLI) | payer OTHER, SELFPAY ==
[2023-06-05 13:06] LABS: Basophils Absolute Auto 0.14 K/mm3 (0.00-0.10); Basophils Percent Auto 1.4 % (0.0-1.0); Eosinophils Absolute Auto 0.17 K/mm3 (0.02-0.50); Eosinophils Percent Auto 1.7 % (1.0-6.0); Hematocrit 50.6 % (35.0-49.0); Hemoglobin 17.3 g/dL (12.0-15.0); Immature Granulocyte Absolute 0.04 K/mm3 (0.00-0.00); Immature Granulocyte Percent A 0.4 % (0.0-0.0); Lymphocytes Absolute Auto 4.56 K/mm3 (1.10-4.50); Lymphocytes Percent Auto 45.7 % (18.0-42.0); Mean Corpuscular HGB Conc 34.2 g/dL (32.0-36.0); Mean Corpuscular Hemoglobin 29.7 pg (27.0-31.0); Mean Corpuscular Volume 86.8 fL (78.0-102.0); Mean Platelet Volume 9.9 fl (9.2-11.8); Monocytes Absolute Auto 0.67 K/mm3 (0.10-0.90); Monocytes Percent Auto 6.7 % (2.0-11.0); Neutrophils Absolute Auto 4.4 K/mm3 (1.7-7.2); Neutrophils Percent Auto 44.1 % (50.0-70.0); Platelet Count Result 313 K/mm3 (150-420); Red Blood Count 5.83 M/mm3 (4.20-5.40); Red Cell Distribution Width 13.2 % (11.6-14.4)
[2023-06-05 13:41] LABS: Alanine Aminotransferase 24 U/L (14-59); Albumin Level 3.8 g/dL (3.4-5.0); Alkaline Phosphatase 123 U/L (46-116); Anion Gap 12 mmol/L (8-16); Aspartate Amino Transferase 13 U/L (15-37); Bilirubin,Total 0.3 mg/dL (0.00-1.00); Blood Urea Nitrogen 7 mg/dL (7-18); Calcium 9.9 mg/dL (8.5-10.1); Carbon Dioxide 26 mmol/L (21-32); Chloride 100 mmol/L (98-108); Cholesterol 240 mg/dL (0-200); Estimated Glomerular Filt Rate > 60; Glucose 243 mg/dL (70-99); HDL Direct 32 mg/dL (40-60); Osmolality Calculated 292 mOsm/kg (285-295); Potassium 4.2 mmol/L (3.5-5.1); Sodium 138 mmol/L (136-145); Total Protein 8.2 g/dL (6.4-8.2)
[2023-06-05 13:43] LABS: LDL Cholesterol Calculated 50 mg/dL (<130); Triglycerides 789 mg/dL (0-150)
[2023-06-05 13:46] LABS: LDL Cholesterol Direct 118 mg/dL (0-130)
[2023-06-05 14:05] LABS: Hemoglobin A1C 11.6 % (<5.7)
[2023-06-07 12:03] LABS: Vitamin D 25 Hydroxy 15 ng/mL (30-100)
== END 2023-06-05 12:41 | disposition home or self-care (01) ==
LOC: CHSLAB 12:41
PROVIDERS: PCP Nurse Practitioner Family; Visit Provider Nurse Practitioner Family
DX: E78.5 Hyperlipidemia, unspecified (principal); Z13.6 Encounter for screening for cardiovascular disorders; Z79.899 Other long term (current) drug therapy; I10 Essential (primary) hypertension; E11.21 Type 2 diabetes mellitus with diabetic nephropathy
CPT/HCPCS: 36415; 80053; 80061; 82306; 83036; 83721; 85025

== ENCOUNTER 2023-08-10 11:43 | Emergency (ER) | payer OTHER, SELFPAY ==
--- NOTE | ~2023-08-10 | XR_ITS ---
EXAMINATION: XR ankle RT min 3V INDICATION: Right ankle pain TECHNIQUE: Four views of the right ankle are obtained. COMPARISON: 09/13/2022 FINDINGS: There are stable changes of talonavicular fusion. Bone alignment is normal. No fracture is identified. The soft tissues are unremarkable. IMPRESSION: 1. No acute osseous abnormality. 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
[2023-08-10 11:43] VITALS: BP 120/75; PULSE 99; RESP 18; TEMP 36.7; O2SAT 95
[2023-08-10] MEDS: ORPHENADRINE CITRATE 30 MG/ML 2 ML VIAL 60 MG IM (12:13)
[2023-08-10] MEDS: KETOROLAC (*BKC) 60 MG/2 ML VIAL IM (12:14)
--- NOTE | 2023-08-10 12:57 | ED.LOWEXIN ---
HPI - Extremity Injury (Lower) General Chief Complaint: Extremity Injury, Lower Stated Complaint: right foot pain and low back pain Time Seen by Provider: 08/10/23 11:52 Source: patient Mode of arrival: ambulatory Limitations: no limitations History of Present Illness HPI Narrative: this is a 48-year-old female with a known surgery with rods and pins in her right ankle after a fracture in the past presents with pain in her right ankle and causing spasm in her lower back on the right with no numbness or tingling rates her pain about a 7/10 no known injury but has been at work and been on her feet for most of the day and has been going on for the last 2 to 3 days. complaint: ankle injury Onset (ago): day(s) Related Data Allergies Allergy/AdvReac Type Severity Reaction Status Date / Time empagliflozin [Jardiance] Allergy Intermediate rash Verified 07/01/23 13:08 latex Allergy Intermediate Rash Verified 07/01/23 13:08 tetracycline Allergy Intermediate unknown Verified 07/01/23 13:08 lactose AdvReac Nausea Verified 07/01/23 13:08 Review of Systems Review of Systems: All systems reviewed & are unremarkable except as noted in HPI and below PMFSH Past Medical History Medical History Acute bronchitis Acute insomnia Acute sinusitis Acute sinusitis BMI 32.0-32.9,adult Calculus of kidney COPD (chronic obstructive pulmonary disease) COPD exacerbation COPD exacerbation Cough Depression Diabetes mellitus with diabetic nephropathy Fatigue Finger avulsion Head injury with loss of consciousness (05/24/21) Hyperlipidemia IBS (irritable bowel syndrome) Joint pain Migraine Nipple discharge Pelvic pain Pneumonia Preventative health care RLQ abdominal pain Sinusitis, acute maxillary Syncope Urethritis Wheezing Surgical History Surgical History Hx of cholecystectomy Hx of hysterectomy Family History Family History Mother Diabetes mellitus Social History Social History Smoking packs per day: 1 Smoking cigarettes per day: 20.0 Smoking status: Heavy tobacco smoker Tobacco type: cigarettes Second hand tobacco smoke exposure: Yes Alcohol intake: current Substance use: never Substance use type: does not use Lack of Transportation: No Lack of Food: Never True Current Housing: I Have Housing Concerned About Future Housing: No Difficulty Paying Gas/Electric Bills: No Difficulty Paying for Meds: No Currently Unemployed: No Education: Decline to Answer Difficulty w/ Childcare or Family Care: No Living arrangements: with family Gender identity (if verbalized by the patient): Female Spiritual care concerns: No Exam Const: General: healthy appearing Nutritional Appearance: well nourished Orientation/consciousness: patient oriented x3 Chest: Chest palpation & inspection: normal inspection of the chest Resp: Effort & Inspection: normal respiratory effort Auscultation: clear to auscultation bilaterally Cardio: Rate: regular rate Rhythm: regular rhythm Skin: General skin exam: normal color Rashes: no rashes Wounds: no wounds Neuro: General: patient oriented x3 and moves all extremities Extrem: Other: Right lower ankle pain with no swelling has good range of motion although tender with no numbness or tingling. Course Course Emergency Course: Patient received muscle relaxer IM along with Toradol 60mg IM after reassessment patient has a moderate relief of her symptoms x-rays reviewed with patient which shows no acute fractures. Vital Signs Vital signs: Vital Signs Temperature 36.7 C 08/10/23 11:43 Pulse Rate 99 08/10/23 11:43 Respiratory Rate 18 08/10/23 11:43 Blood Pressure 120/75 08/10/23 11:43 Pulse Oximetry 95 08/10/23 11
[2023-08-10 13:37] VITALS: PULSE 84; RESP 20; O2SAT 98
== END 2023-08-10 13:38 | disposition home or self-care (01) ==
PROVIDERS: Emergency Provider Emergency Medicine; PCP Nurse Practitioner Family
DX: S93.491A Sprain of other ligament of right ankle, initial encounter (principal); S33.5XXA Sprain of ligaments of lumbar spine, initial encounter; J44.9 Chronic obstructive pulmonary disease, unspecified; E11.9 Type 2 diabetes mellitus without complications; Z87.891 Personal history of nicotine dependence; X58.XXXA Exposure to other specified factors, initial encounter
CPT/HCPCS: 73610; 96372; 99284; J1885; J2360

== ENCOUNTER 2023-09-06 13:26 | Outpatient (RCR) | payer OTHER, SELFPAY ==
--- NOTE | 2023-09-06 14:38 | OPREHPOC ---
Outpatient Therapy Plan of Care This is a Multidisciplinary Plan of Care that may contain components documented by all disciplines (PT, OT, and ST.) PT Problem 1 PT Problem #1 Knowledge Deficit PT Goal 1 Goal 1. independent and compliant with HEP Target Visit 6 PT Problem 2 PT Problem #2 Pain PT Goal 1 Goal 1. decrease pain at worst to 4/10 or less in the buttock 2. centralization of L radicular symptoms to not past the buttock. Target Visit 12 PT Problem 3 PT Problem #3 Impaired Range of Motion PT Goal 1 Goal 1. improve lumbar flexion to the ankles 2. improve lumbar side bending to 40 degrees Target Visit 12 PT Problem 4 PT Problem #4 Impaired Strength PT Goal 1 Goal 1. patient to perform TA contraction correctly in supine hooklying 2. patient to hold bridge posture in supine for 60 seconds without posture loss 3. 4+/5 or better bilateral hip strength 4. 5/5 L knee strength Target Visit 12 PT Problem 5 PT Problem #5 Impaired Functional Mobil PT Goal 1 Goal 1. LEFS to display 40% or less functional deficits 2. patient to ambulate 6 minutes without rest for 800ft or better Target Visit 12
--- NOTE | 2023-09-06 14:38 | PTOPEVAL1 ---
Assessment and note entered by JT File, PT Evaluation Information Assessment Status Evaluation Diagnosis L knee pain, sciatica Onset 09/02/23 Subjective Information patient reports she is coming to therapy for pain that runs from behind the L knee up to the buttock . she reports she has pain all the time. she reports her symptoms are worse with increased activity. she reports both standing and sitting. she reports she gets relief when sitting with the L knee bent and sitting on her foot. she reports the whole leg tingles and she has had neuropathy for some time. she reports she has had no injury that she can recall. she reports her symptoms have been going off and on for about 6 months. she reports she has not had any imaging of the L knee or lower back. Reported Pain Level Pain Score 6: Self Report Assessment PT Clinical Summary mrs. quevedo is a 48 yo female who presents to skilled PT services for evaluation and treatment of L knee and posterior LE pain. she presents today with signs and symptoms that and consistent with L sciatica. she presents with decreased lumbar rom, weak core strength, weak hip strength, pain, and L LE paresthesias. Continued skilled PT is indicated to improve patients objective/ functional deficits and return to her prior level functional activity performance/quality of life. Plan of Care Interventions Electrical Stimulation,Hot Pack/Cold Pack,Manual Therapy,Neuro Re-education,Patient/Caregiver Educati,Therapeutic Activities,Therapeutic Exercise PT Services Indicated Yes Treatment Frequency and 3x weekly for 12 visits Duration These treatments will address the objective and functional deficits as defined above. The patient will be advanced safely and appropriately in order for the patient to progress towards his/her prior level of function. Additional exercises will be introduced and as well as a comprehensive home exercise program upon discharge, if needed, ?to ensure carryover of functional gains achieved in the clinic. This treatment plan has been reviewed and agreement upon by the patient.
--- NOTE | 2023-09-16 13:20 | PCPTNOTE ---
patient no call no show
== END 2023-09-10 09:51 | disposition home or self-care (01) ==
LOC: CHSPT 13:26
PROVIDERS: PCP Family Medicine; Visit Provider Nurse Practitioner Family
DX: M25.562 Pain in left knee (principal); M54.32 Sciatica, left side
CPT/HCPCS: 97014; 97110; 97161; G0283

== ENCOUNTER 2023-11-14 11:02 | Outpatient (CLI) | payer OTHER, SELFPAY ==
[2023-11-14 11:25] LABS: Appearance Urine Clear (Clear); Bilirubin Urine Negative (Negative); Blood Urine Negative (Negative); Color Urine Light Yellow (Yellow); Glucose Urine UA 3+ (Negative); Ketones Urine Negative (Negative); Leukocyte Esterase Ur Negative LEU/UL (Negative); Nitrate Urine Negative (Negative); Protein Urine Negative (Negative); Specific Grav Ur 1.015 (1.010-1.020); Urobilinogen Urine 0.2 mg/dL (0.2-1.0); pH Urine 7.5 (5.0-8.0)
[2023-11-14 11:30] LABS: Creatinine Urine 39.65 mg/dL (40-278); MALB Creatinine Ratio 32.7 mg/g (0-30); Microalbumin Urine Random < 13.0 mg/L
[2023-11-14 11:33] LABS: Hemoglobin A1C 8.5 % (<5.7)
[2023-11-14 11:34] LABS: Add Urine Microscopic? YES; Bacteria Urine Rare /hpf; RBC Urine None seen /hpf (0-2); Squamous Epithelial Cell Urine Occasional /hpf (Few); WBC Urine None seen /hpf (0-3)
[2023-11-14 12:50] LABS: Alanine Aminotransferase 41 U/L (14-59); Albumin Level 3.5 g/dL (3.4-5.0); Alkaline Phosphatase 82 U/L (46-116); Anion Gap 8 mmol/L (4-12); Aspartate Amino Transferase 24 U/L (15-37); Bilirubin,Total 0.4 mg/dL (0.00-1.00); Blood Urea Nitrogen 7 mg/dL (7-18); Calcium 8.8 mg/dL (8.5-10.1); Carbon Dioxide 29 mmol/L (21-32); Chloride 106 mmol/L (98-108); Estimated Glomerular Filt Rate > 60; Glucose 217 mg/dL (70-99); Magnesium 1.9 mg/dL (1.8-2.4); Osmolality Calculated 301 mOsm/kg (285-295); Potassium 4.4 mmol/L (3.5-5.1); Sodium 143 mmol/L (136-145); Total Protein 6.7 g/dL (6.4-8.2)
[2023-11-16 03:48] LABS: Vitamin D 25 Hydroxy 68 ng/mL (30-100)
== END 2023-11-14 11:03 | disposition home or self-care (01) ==
LOC: CHSLAB 11:03
PROVIDERS: PCP Nurse Practitioner Family; Visit Provider Nurse Practitioner Family
DX: N39.0 Urinary tract infection, site not specified (principal); Z79.899 Other long term (current) drug therapy; E11.21 Type 2 diabetes mellitus with diabetic nephropathy; I10 Essential (primary) hypertension
CPT/HCPCS: 36415; 80053; 81001; 82043; 82306; 83036; 83735

== ENCOUNTER 2023-12-30 19:40 | Emergency (ER) | payer OTHER, SELFPAY ==
[2023-12-30] VITALS (8 sets, daily range): BP systolic 100–158; BP diastolic 61–109; PULSE 78–137; RESP 16–22; TEMP 36.6; O2SAT 92–98
--- NOTE | ~2023-12-30 | CT_ITS ---
EXAMINATION: CTA chest PE protocol DATE: 12/30/2023 21:18 INDICATION: sob, elevated d dimer TECHNIQUE: Computed tomography angiography (CTA) of the chest was performed with 100 mL Omnipaque-350 intravenous contrast timed to evaluate the pulmonary arteries. Coronal maximum intensity projection 3D-reconstructions were created by the technologist. The dose-length product (DLP) was 863.10 mGy-cm. Automated exposure control and iterative reconstruction technique were employed. COMPARISON: 12/27/2022. FINDINGS: Lung parenchyma and airways: Mild motion artifact. Multiple bilateral sub-6 mm pulmonary nodules. Mil d diffuse groundglass opacities and dependent septal thickening. Patent airways. Pleura: Unremarkable. Thoracic inlet, axillae and chest wall: Unremarkable. Thoracic aorta: No significant dilation. No dissection. Mediastinum: Enlarged paratracheal, prevascular, subcarinal, and precarinal lymph nodes. Heart and pericardium: Normal. Coronary artery calcifications: Absent. Upper abdomen: No significant finding. Bones: No acute osseous finding. Pulmonary arteries: Study quality: Mild motion artifact, overall diagnostic. No pulmonary emboli dete cted. IMPRESSION: No CT evidence of acute pulmonary embolus. Pulmonary opacities may represent mild edema in the appropriate clinical context. Mediastinal lymphadenopathy. Multiple sub-6 mm pulmonary nodules which require no routine follow-up unless the patient is at high risk, in which case consider an optional low-dose noncontrast CT of the chest in 12 months.. Reviewed, dictated and finalized at [facility]. IMPRESSION: No CT evidence of acute pulmonary embolus. Pulmonary opacities may represent mild edema in the appropriate clinical contex t. Mediastinal lymphadenopathy. Multiple sub-6 mm pulmonary nodules which require no routine follow-up unless t he patient is at high risk, in which case consider an optional low-dose noncont rast CT of the chest in 12 months..
--- NOTE | 2023-12-30 19:46 | ECG_ITS ---
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 Measurements Intervals [place] Rate: 135 P: 58 MI: 128 QRS: 3 QRSD: 87 T: 67 QT: 324 QTc: 486 Interpretive Statements SINUS TACHYCARDIA SEPTAL MYOCARDIAL INFARCTION , PROBABLY OLD [40+ ms Q WAVE IN V1/V2] No previous ECG available for comparison Electronically Signed On 12-31-2023 14:12:36 CDT by Sangita Perez M.D.
--- NOTE | 2023-12-30 19:49 | ED.GENADULT ---
HPI - General Adult General Chief complaint: Abdominal Pain Stated complaint: abdominal pain Time Seen by Provider: 12/30/23 19:43 Source: patient Mode of arrival: ambulatory Limitations: clinical condition History of Present Illness HPI narrative: 48 year old female presents to the Emergency Department complaining of abdominal pain, cramping, sweating and dehydration. States she has been mowing grass past 2 days in heat. Patient is hyperventilating and very anxious. Poor historian. Onset (ago): day(s) Radiation: non-radiation Severity: moderate Pain Consistency: constant Relieving factors: none Exacerbating factors: none Treatments prior to arrival: none Related Data Allergies Allergy/AdvReac Type Severity Reaction Status Date / Time empagliflozin [Jardiance] Allergy Intermediate rash Verified 12/30/23 19:45 latex Allergy Intermediate Rash Verified 12/30/23 19:45 tetracycline Allergy Intermediate unknown Verified 12/30/23 19:45 lactose AdvReac Nausea Verified 12/30/23 19:45 Review of Systems Review of Systems: All systems reviewed & are unremarkable except as noted in HPI and below Constitutional: Constitutional: Reports as per HPI and Reports weakness Eyes: Eyes: Reports as per HPI ENT: Reports system reviewed and no additional complaints, except as documented Cardiovascular: Cardiovascular: Reports as per HPI, Denies chest pain and Reports rapid heart rate Respiratory: Respiratory: Reports as per HPI and Reports dyspnea Gastrointestinal: Gastrointestinal: Reports as per HPI and Reports abdominal pain Genitourinary: Genitourinary: Reports no additional female genitourinary complaints Musculoskeletal: Musculoskeletal: Reports no additional musculoskeletal complaints and Reports muscle cramps Integumentary/Breasts: Skin/Breast: Reports system reviewed and no additional complaints, except as docu Neurologic: Reports system reviewed and no additional complaints, except as documented, Reports dizziness and Reports weakness Psychiatric: Psychiatric: Reports no additional psychiatric complaints Endocrine: Endocrine: Reports no additional endocrine complaints Hematologic/Lymphatic: Hematologic/Lymphatic: Reports no additional hematologic/lymphatic complaints Allergic/Immunologic: Allergic/Immunologic: Reports no additional allergic/immunologic complaints [facility] Past Medical History Medical History Acute bronchitis Acute insomnia Acute sinusitis Acute sinusitis BMI 32.0-32.9,adult Calculus of kidney COPD (chronic obstructive pulmonary disease) COPD exacerbation COPD exacerbation Cough Depression Diabetes mellitus with diabetic nephropathy Fatigue Finger avulsion Head injury with loss of consciousness (05/24/21) Hyperlipidemia IBS (irritable bowel syndrome) Joint pain Migraine Nipple discharge Pelvic pain Pneumonia Preventative health care RLQ abdominal pain Sinusitis, acute maxillary Syncope Urethritis Wheezing Surgical History Surgical History Hx of cholecystectomy Hx of hysterectomy Family History Family History Mother Diabetes mellitus Social History Social History Smoking packs per day: 1 Smoking cigarettes per day: 20.0 Smoking status: Heavy tobacco smoker Tobacco type: cigarettes Second hand tobacco smoke exposure: Yes Alcohol intake: current Substance use: never Substance use type: does not use Lack of Transportation: No Lack of Food: Never True Current Housing: I Have Housing Concerned About Future Housing: No Difficulty Paying Gas/Electric Bills: No Difficulty Paying for Meds: No Currently Unemployed: No Education: Decline to Answer Difficulty w/ Childcare or Family Care: No Living arrangements: with family Gender identity (if
[2023-12-30] MEDS: SODIUM CHLORIDE 0.9% IV 1,000 ML 999 ML IV CONT ×2 (20:00→21:36)
[2023-12-30] MEDS: LORazepam INJ (*CRX) 2 MG/ML VIAL 1 MG IV PUSH (20:03)
[2023-12-30 20:13] LABS: Hematocrit 54.6 % (35.0-49.0); Hemoglobin 18.7 g/dL (12.0-15.0); Mean Corpuscular HGB Conc 34.2 g/dL (32-36); Mean Corpuscular Hemoglobin 30.2 pg (27.0-31.0); Mean Corpuscular Volume 88.1 fL (78.0-102.0); Mean Platelet Volume 9.8 fl (9.2-11.8); Platelet Count Result 441 K/mm3 (150-420); Red Cell Distribution Width 13.3 % (11.6-14.4)
[2023-12-30 20:18] LABS: White Blood Count 35.9 K/mm3 (4.8-10.8)
[2023-12-30 20:31] LABS: Alanine Aminotransferase 64 U/L (14-59); Albumin Level 4.5 g/dL (3.4-5.0); Alkaline Phosphatase 108 U/L (46-116); Anion Gap 21 mmol/L (4-12); Aspartate Amino Transferase 55 U/L (15-37); Bilirubin,Total 0.5 mg/dL (0.00-1.00); Blood Urea Nitrogen 9 mg/dL (7-18); Calcium 10.3 mg/dL (8.5-10.1); Carbon Dioxide 21 mmol/L (21-32); Chloride 92 mmol/L (98-108); Estimated CRCL calculation 45 ml/min; Estimated Glomerular Filt Rate 39; Magnesium 1.9 mg/dL (1.8-2.4); Osmolality Calculated 294 mOsm/kg (285-295); Potassium 2.7 mmol/L (3.5-5.1); Sodium 134 mmol/L (136-145); Total Protein 9.3 g/dL (6.4-8.2); Troponin I 8.4 ng/L (0.00-60.4)
[2023-12-30 20:34] LABS: Band Neutrophils Percent 0 % (0-6); Glucose 419 mg/dL (70-99); Neutrophils Absolute Manual 27.64 K/mm3 (1.7-7.2); Neutrophils Percent Manual 77 % (46-73); Total Cells Counted 100
[2023-12-30 20:35] LABS: Lymphocytes Percent Manual 17 % (18-44); Monocytes Absolute Manual 1.79 K/mm3 (0.1-0.90); Monocytes Percent Manual 5 % (3-9); Myelocytes Percent 1 %; Platelet Estimate Increased (Adequate); Schistocytes None Seen
[2023-12-30 20:57] LABS: Base Excess ABG -8.9 mmol/L (0-2); Device ROOM AIR; HCO3 ABG 14.3 mmol/L (23-29); Oxygen Saturation ABG 93.7 % (95-97); Oxyhemoglobin 91.4 % (94-100); PO2 ABG 69.9 mmHg (80-90); Site Drawn LEFT BRACHIAL; Total Hemoglobin 18.7 g/dL (12.0-18.0); pH ABG 7.36 (7.35-7.45)
[2023-12-30 21:03] LABS: Acetone Negative (Negative)
[2023-12-30 21:04] LABS: Add Urine Microscopic? NO; Appearance Urine Clear (Clear); Bilirubin Urine Negative (Negative); Blood Urine Negative (Negative); Color Urine Yellow (Yellow); Glucose Urine UA 3+ (Negative); Ketones Urine Negative (Negative); Leukocyte Esterase Ur Negative (Negative); Nitrate Urine Negative (Negative); Protein Urine Negative (Negative); Specific Grav Ur <= 1.005 (1.010-1.020); Urobilinogen Urine 0.2 mg/dL (0.2-1.0)
[2023-12-30] MEDS: INSULIN REG 100 UNITS/100 ML 100 UNITS/100 ML BAG 8 UNITS IV CONT (21:36)
[2023-12-30 22:33] LABS: Glucose Point of Care 152 mg/dl (65-105)
[2023-12-30 23:01] LABS: Hematocrit 46.1 % (35.0-49.0); Hemoglobin 16.3 g/dL (12.0-15.0); Mean Corpuscular HGB Conc 35.4 g/dL (32-36); Mean Corpuscular Hemoglobin 30.8 pg (27.0-31.0); Mean Corpuscular Volume 87.1 fL (78.0-102.0); Mean Platelet Volume 9.4 fl (9.2-11.8); Platelet Count Result 310 K/mm3 (150-420); Red Blood Count 5.29 M/mm3 (4.20-5.40); Red Cell Distribution Width 13.2 % (11.6-14.4)
[2023-12-30 23:10] LABS: Reflex Lactic Acid Yes or No Add Lactic
[2023-12-30 23:14] LABS: Band Neutrophils Percent 0 % (0-6); Lymphocytes Absolute Manual 6.24 K/mm3 (1.1-4.5); Lymphocytes Percent Manual 24 % (18-44); Monocytes Percent Manual 10 % (3-9); Neutrophils Absolute Manual 17.16 K/mm3 (1.7-7.2); Neutrophils Percent Manual 66 % (46-73); Total Cells Counted 100
[2023-12-30 23:15] LABS: Platelet Estimate Adequate (Adequate); Schistocytes None Seen
[2023-12-30] MEDS: POTASSIUM CHLORIDE 20 MEQ ER TABLET 40 MEQ PO (23:17)
[2023-12-30 23:22] LABS: Lactic Acid Reflex 3.2 mmol/L (0.4-2.0)
[2023-12-31] VITALS: BP 110/64; PULSE 74; RESP 18; TEMP 36.6; O2SAT 96
[2024-01-01 07:42] LABS: Beta-Hydroxybutyrate/Acetoacetate 0.14 mmol/L (0.02-0.27)
--- NOTE | 2024-01-06 14:39 | PC.NURSE ---
FINAL BLOOD CULTURE RESULTS X2: NO GROWTH AFTER 5 DAYS.
== END 2023-12-31 | disposition home or self-care (01) ==
PROVIDERS: Emergency Provider Emergency Medicine; PCP Nurse Practitioner Family
DX: E86.0 Dehydration (principal); E11.65 Type 2 diabetes mellitus with hyperglycemia; E87.21 Acute metabolic acidosis; E87.6 Hypokalemia; D72.829 Elevated white blood cell count, unspecified; R91.8 Other nonspecific abnormal finding of lung field; J44.9 Chronic obstructive pulmonary disease, unspecified; E11.21 Type 2 diabetes mellitus with diabetic nephropathy; E78.5 Hyperlipidemia, unspecified; F32.A Depression, unspecified; F17.210 Nicotine dependence, cigarettes, uncomplicated; Z79.4 Long term (current) use of insulin; Z79.84 Long term (current) use of oral hypoglycemic drugs; Z79.51 Long term (current) use of inhaled steroids; Z79.85 Long-term (current) use of injectable non-insulin antidiabetic drugs
CPT/HCPCS: 36415; 36600; 71275; 80053; 81003; 82010; 82805; 82948; 83605; 83735; 84484; 85025; 85380; 87040; 93005; 96361; 96374; 96375; 99284; A9270; J1815; J2060; J7030; Q9967

== ENCOUNTER 2024-01-06 14:01 | Outpatient (CLI) | payer OTHER, SELFPAY ==
[2024-01-06 14:19] LABS: Hemoglobin 18.2 g/dL (12.0-15.0); Mean Corpuscular HGB Conc 34.3 g/dL (32-36); Mean Corpuscular Hemoglobin 30.4 pg (27.0-31.0); Mean Corpuscular Volume 88.6 fL (78.0-102.0); Mean Platelet Volume 9.7 fl (9.2-11.8); Platelet Count Result 410 K/mm3 (150-420); Red Blood Count 5.98 M/mm3 (4.20-5.40); Red Cell Distribution Width 12.8 % (11.6-14.4); White Blood Count 14.2 K/mm3 (4.8-10.8)
[2024-01-06 14:42] LABS: Band Neutrophils Percent 0 % (0-6); Basophils Absolute Manual 0.14 K/mm3 (0-0.1); Basophils Percent Manual 1 % (0-1); Eosinophils Absolute Manual 0.28 K/mm3 (0.02-0.50); Eosinophils Percent Manual 2 % (1-6); Lymphocytes Absolute Manual 5.53 K/mm3 (1.1-4.5); Lymphocytes Percent Manual 39 % (18-44); Monocytes Absolute Manual 0.85 K/mm3 (0.1-0.90); Monocytes Percent Manual 6 % (3-9); Neutrophils Absolute Manual 7.38 K/mm3 (1.7-7.2); Neutrophils Percent Manual 52 % (46-73); Total Cells Counted 100
[2024-01-06 14:43] LABS: Platelet Estimate Slightly Increased (Adequate)
[2024-01-06 14:52] LABS: Alanine Aminotransferase 48 U/L (14-59); Albumin Level 4.2 g/dL (3.4-5.0); Alkaline Phosphatase 116 U/L (46-116); Anion Gap 12 mmol/L (4-12); Aspartate Amino Transferase 26 U/L (15-37); Bilirubin,Total 0.4 mg/dL (0.00-1.00); Blood Urea Nitrogen 9 mg/dL (7-18); Carbon Dioxide 27 mmol/L (21-32); Chloride 94 mmol/L (98-108); Estimated Glomerular Filt Rate 59; Potassium 4.8 mmol/L (3.5-5.1); Sodium 133 mmol/L (136-145); Total Protein 8.5 g/dL (6.4-8.2)
[2024-01-06 14:58] LABS: Glucose 526 mg/dL (70-99); Osmolality Calculated 298 mOsm/kg (285-295)
[2024-01-07 22:23] LABS: Vitamin D 25 Hydroxy 81 ng/mL (30-100)
== END 2024-01-06 14:02 | disposition home or self-care (01) ==
LOC: CHSLAB 14:02
PROVIDERS: PCP Nurse Practitioner Family; Visit Provider Nurse Practitioner Family
DX: E55.9 Vitamin D deficiency, unspecified (principal); D72.829 Elevated white blood cell count, unspecified
CPT/HCPCS: 36415; 80053; 82306; 85025

== ENCOUNTER 2024-04-13 12:40 | Outpatient (NON) | payer OTHER, SELFPAY ==
[2024-04-13 13:16] LABS: Add Urine Microscopic? NO; Appearance Urine Clear (Clear); Bilirubin Urine Negative (Negative); Blood Urine Negative (Negative); Color Urine Light Yellow (Yellow); Glucose Urine UA 3+ (Negative); Ketones Urine Trace (Negative); Leukocyte Esterase Ur Negative LEU/UL (Negative); Nitrate Urine Negative (Negative); Protein Urine Negative (Negative); Urobilinogen Urine 0.2 mg/dL (0.2-1.0)
== END 2024-04-13 12:41 | disposition home or self-care (01) ==
LOC: CHSLAB 12:41
PROVIDERS: PCP Nurse Practitioner Family; Visit Provider Nurse Practitioner Family
DX: Z87.898 Personal history of other specified conditions (principal)
CPT/HCPCS: 81003

== ENCOUNTER 2024-09-02 14:58 | Outpatient (CLI) | payer OTHER, SELFPAY ==
--- NOTE | ~2024-09-02 | XR_ITS ---
HISTORY: GENERAL LT KNEE PAIN, POPS ,NKI COMPARISON: None TECHNIQUE: 3 views of the left knee were performed FINDINGS: No acute or subacute fracture. Medial tibiofemoral joint space narrowing is identified. No suprapatellar joint effusion is identified. The infrapatellar joint space is clear. IMPRESSION: Degenerative disease, without acute fracture. 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 WIRE HANGER
--- NOTE | ~2024-09-02 | XR_ITS ---
Right foot Technique: AP, oblique, and lateral views were obtained. Clinical History: Pain Findings: No acute fracture or dislocation is seen. Osseous alignment is anatomic. There is orthopedi c fusion across the talonavicular joint. Remaining joint spaces are intact. Soft tissues are unremark able. Impression: No acute abnormality. Orthopedic fusion across the talonavicular joint. Reviewed, dictated and finalized at location . SHADE ASSEMBLER Impression: No acute abnormality. Orthopedic fusion across the talonavicular joint.
--- NOTE | ~2024-09-02 | XR_ITS ---
HISTORY: BUBBA FEET PAIN,NKI,CHRONIC COMPARISON: None TECHNIQUE: 3 views of the left foot were performed FINDINGS: No acute fracture or dislocation is appreciated. Periarticular osteopenia is identified suggesting osteoarthritis. Additional findings within the proximal phalanx of the great toe which may represent gouty arthritis. Peripheral joint space narrowing is identified. The base of the fifth metatarsal is intact. A small calcaneal spur is noted. Trace soft tissue swelling along the forefoot. IMPRESSION: Soft tissue swelling and degenerative disease without acute fracture. 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 TURE METER OPERATOR
--- OUTSIDE RECORDS SUMMARY | 2024-09-02 15:40 | XMS_ITS | Clinical Summary ---
Author Organization [facility] Address [address] [place] [address] Care Team Providers Care Non Categorical Preschool Teacher Name Role Phone Josh Kidd MD Primary Care Provider [phone] Allergies Active Allergy Reactions Criticality Noted Date Comments Latex Rash Low 10/28/2014 Tetracyclines & Related Rash Low 10/28/2014 Medications insulin glargine 100 UNIT/ML injection (PEN) Inject into the skin nightly at bedtime. Active cyclobenzaprine 10 MG tablet Take 10 mg by mouth 3 (three) times daily as needed for Muscle Spasms. Active trazodone 50 MG tablet Take 50-100 mg by mouth nightly as needed for Sleep. Active simvastatin 20 MG tablet Take 20 mg by mouth daily. Active pregabalin 100 MG capsule Take 100 mg by mouth 2 (two) times daily. Active omeprazole 40 MG capsuleIndicatio ns:One hour prior to largest meal Take 40 mg by mouth daily. Active diclofenac potassium 50 MG tablet Take 50 mg by mouth 3 (three) times daily. Active loratadine 10 MG tablet Take 10 mg by mouth daily. Active insulin lispro 100 UNIT/ML injection (VIAL)Indication s:Patient states she takes 60 units 3 times per day of Admelog, has a photo on cell phone showing the same. Inject 60 Units into the skin 3 (three) times daily before meals. Active venlafaxine 75 MG tablet Take 75 mg by mouth daily. Active liraglutide 18 MG/3ML injection Inject 1.2 mg into the skin daily. Active fluticasone furoate-vilanter ol 200-25 MCG/INH inhaler Inhale 1 puff into the lungs daily. Arnuity Elipta per patient Active ipratropium 17 MCG/ACT inhaler Inhale into the lungs as needed for Wheezing. Atrovent HFA Active albuterol (2.5 MG/3ML) 0.083% nebulizer solution as needed for Wheezing. Active topiramate 50 MG TabIndications:S tatus migrainosus 2nd script. Take 1 tab twice daily for 2 weeks, then fill new script. 28 tablet 9 Active topiramate 50 MG TabIndications:S tatus migrainosus 3rd script. Take 1 cap twice daily along with 25mg cap for 2 weeks, then fill new script. 28 tablet 9 Active topiramate 100 MG tabletIndication s:Status migrainosus 4th script. Take 1 tab twice daily to continue 60 tablet 2 9 Active topiramate 25 MG tabletIndication s:Status migrainosus 3rd script. Take 1 tab twice daily for 2 weeks along with 50mg tab, then fill new script. 28 tablet 9 Active Active Problems Problem Noted Date Diagnosed Date Status migrainosus 11/27/2018 Chronic migraine w/o aura, not intractable, w st at migr 11/27/2018 Ischemic stroke ([facility]) 11/26/2018 Social History Tobacco Use Types Packs/Day Years Used Date Smoking Tobacco: Every Day Cigarettes 1 32 Smokeless Tobacco: Never Alcohol Use Standard Drinks/Week Comments No 0 (1 standard drink = 0.6 oz pur e alcohol) AUDIT-C Answer Date Recorded Frequency of Alcohol Consumption Never 11/26/2018 Average Number of Drinks Not on file 019 Frequency of Binge Drinking Not on file 07/2018 Comments Unknown Sex and Gender Information Value Date Recorded Sex Assigned at Not on file 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 Gender Identity Not on file Sexual Orientation Not on file Last Filed Vital Signs Vital Sign Reading Time Taken Comments Blood Pressure 143/93 11/28/2018 7:43 AM CDT RN NOTIFIED Pulse 88 11/28/2018 7:43 AM CDT Temperature 36.7 C (98 F) 11/28/2018 7:43 AM CDT Respiratory Rate 18 11/28/2018 7:43 AM CDT Oxygen Saturation 95% 11/28/2018 7:43 AM CDT Inhaled Oxygen Concentration - - Weight 86.2 kg (190 lb) 11/26/2018 8:29 PM CDT Height 162.6 cm (5' 4 ) 11/26/2018 8:29 PM CDT Body Mass Index 32.61 11/26/2018 8:29 PM CDT Plan of Treatment Health Maintenance Due Date Last Done Comments Colorectal Cancer Screening Colonoscopy (10 Years) 1973 Annual Physical 1976 Pneumococcal Vaccine: Pediat rics (0 to 5 Years) and At-Risk Patients (6 to 64 Years) (1 of 2 - PCV) 1979 Hepatitis C 1991 DTaP, Tdap and Td Vaccines ( 1 - Tdap) 1992 Hepatitis B Vaccines (1 of 3 - 19+ 3-dose series) 1992 Mammogram Screening 2013 Zoster Vaccines (1 of 2) 2023 COVID-19 Vaccine ( - 2023-2 5 season) 2024 Influenza Adult (#1) 2024 Meningococcal B Vaccine Aged Out No l onger eligible based on patient's age to complete this topic Meningococcal Vaccine Aged Out No olya winston eligible based on patient's age to complete this topic RSV Immunizations Under 20 Months Aged Out No longer eligible based on patient's age to complete this topic Insurance [employer] Advance Directives * Full Code (Latest Code Status on File) Date Activated Date Inactivated Comments 11/26/2018 6:13 PM 11/28/2018 2:55 PM Care Teams Non Categorical Preschool Teacher Relationship Specialty Start Date End Date Josh Kidd MD [address] [place] [address] PCP - General FAMILY PRACTICE 11/26/18
--- OUTSIDE RECORDS SUMMARY | 2024-09-02 15:40 | XMS_ITS | Referral Summary ---
Author Organization [facility] Address [address] [place] [address] Care Team Providers Care Manager Clinical Informatics Name Role Phone Josh Kidd MD Primary Care Provider [phone] Allergies Active Allergy Reactions Criticality Noted Date Comments Empagliflozin Rash Medium 04/08/2018 Latex Other (See comments),Rash Medium 11/11/2012 Reaction: Catheters cause blisters Tetracyclines Hives Medium 11/11/2012 Medications albuterol 2.5 mg /3 mL (0.083 %) nebulizer solution as needed Active amoxicillin-cl avulanate (AUGMENTIN) 875-125 mg per tablet Take 1 tablet by mouth 2 (two) times a day 2 Active cyclobenzaprin e (FLEXERIL) 10 mg tablet Take 10 mg by mouth 3 (three) times a day as needed 8 Active Steglatro 5 mg tablet Take 1 tablet by mouth every morning [address] (NexIUM) 20 mg granule packet for oral suspension Active fluticasone propionate (FLONASE) 50 mcg/actuation nasal spray SPRAY 1 SPRAY INTO EACH NOSTRIL EVERY DAY 2 Active fluticasone furoate-vilant Beatriz (BREO ELLIPTA) 200-25 mcg/dose diskus inhaler Inhale 1 puff daily Active insulin glargine (BASAGLAR) 100 unit/mL (3 mL) pen for injection Inject 60 Units under the skin nightly 8 Active HumaLOG 100 unit/mL vial for injection INJECT 70 UNITS SUBCUTANEOUSLY 3 TIMES A DAY 2 Active Atrovent HFA 17 mcg/actuation inhaler Inhale 2 puffs 2 (two) times a day 2 Active Victoza 2-Beau 0.6 mg/0.1 mL (18 mg/3 mL) injection INJECT 0.6 MG (0.1 ML) UNDER THE SKIN DAILY 2 Active loratadine (CLARITIN) 10 mg tablet Take 10 mg by mouth daily 2 Active meloxicam (MOBIC) 15 mg tablet Take 15 mg by mouth daily 2 Active omeprazole (PriLOSEC) 40 mg capsule Take by mouth daily 2 Active ondansetron (ZOFRAN) 8 mg tablet TAKE 1 TABLET BY MOUTH EVERY 8 HOURS NEEDED FOR NAUSEA & VOMITING 0 Active oxybutynin XL (DITROPAN-XL) 10 mg 24 hr tablet TAKE 1 (ONE) TABLET BY MOUTH ONCE DAILY REASONS: URINARY URGENCY 2 Active TechLITE Pen Needle 32 gauge x 532 needle daily 2 Active predniSONE (DELTASONE) 20 mg tablet TAKE 2 TABLETS BY MOUTH DAILY FOR 5 DAYS TAKE IN THE MORNING WITH FOOD 2 Active pregabalin (LYRICA) 200 mg capsule Take 400 mg by mouth nightly 2 Active rOPINIRole (REQUIP) 0.25 mg tablet 0 Active simvastatin (ZOCOR) 20 mg tablet Take 20 mg by mouth nightly 8 Active SUMAtriptan (IMITREX) 50 mg tablet Take 50 mg by mouth daily as needed 2 Active TechLITE Insulin Syringe 1 mL 31 gauge x 5/16 syringe as directed 2 Active venlafaxine (EFFEXOR) 75 mg tablet Take 75 mg by mouth daily 2 Active Active Problems Problem Noted Date Diagnosed Date CRP elevated 11/30/2021 Chronic pain syndrome 11/30/2021 Smoking 11/30/2021 Renal stone 10/23/2021 Positive JOSH (antinuclear antibody) 10/23/2021 Arthralgia of both hands 10/23/2021 Chronic fatigue 10/23/2021 Diabetic polyneuropathy asso ciated with type 2 diabetes mellitus (CMS/HCC) 05/12/2020 Hyperlipidemia 05/12/2020 Insulin resistance 05/12/2020 Chronic migraine w/o aura, not intractable, w st at migr 11/27/2018 Status migrainosus 11/27/2018 Ischemic stroke 11/26/2018 Gastric ulcer 11/11/2012 Social History Tobacco Use Types Packs/Day Years Used Date Smoking Tobacco: Former Comments Unknown Sex and Gender Information Value Date Recorded Sex Assigned at Not on file Legal Sex Female 10:10 AM V 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 Gender Identity Not on file Sexual Orientation Not on file Last Filed Vital Signs Vital Sign Reading Time Taken Comments Blood Pressure 149/89 10/23/2021 12:53 PM CDT Pulse 80 10/23/2021 12:53 PM CDT Temperature 36.6 C (97.9 F) 10/23/2021 12:53 PM CDT Respiratory Rate - - Oxygen Saturation 97% 11/23/2012 7:27 AM CDT Inhaled Oxygen Concentration - - Weight 85 kg (187 lb 6.4 oz) 10/23/2021 12:53 PM CDT Height 162.6 cm (5' 4 ) 10/23/2021 12:53 PM CDT Body Mass Index 32.17 10/23/2021 12:53 PM CDT Plan of Treatment Not on file Insurance [facility] Care Teams Manager Clinical Informatics Relationship Specialty Start Date End Date Josh Kidd MD [address] [place] [address] PCP - General 10/02/18
--- OUTSIDE RECORDS SUMMARY | 2024-09-02 15:40 | XMS_ITS | Clinical Summary ---
Author Organization [facility] Address [address] [place] [address] Care Team Providers Care Broomcorn Seeder Name Role Phone Yenny Hernández WATER AND FIRE TECHNICIAN-SENIOR DYNAMICS CRM DEVELOPER Primary Care Provid er Source Comments [facility],non-owned Affiliates and Associated Physician Practices is amultiple site organization consisting of ambulatory clinics and hospital sitesin [place], [place], [place] and [place]. This disclosure is being madepursuant to the Care Everywhere program and may not contain all information available regarding this patient. Last updated 18.[facility] Allergies Active Allergy Reactions Criticality Noted Date Comments Empagliflozin Rash Medium 04/08/2018 Latex Skin Reactions 04/08/2018 Catheters cause blisters Tetracycline Unknown 04/08/2018 Medications * Be aware that medications may not be up to date on this document. Alwaysverify current medications with the patient. Medication Sig Dispensed Refills Start Date End Date Status ADMELOG 100 UNIT/ML vial Inject 60 Units subcutaneously 3 times daily before meals 03/24/2018 Active cyclobenzaprine (FLEXERIL) 10 MG tablet Take 10 mg by mouth 3 times daily as needed 04/01/2018 Active VICTOZA 18 MG/3ML pen Inject 1.2 mg subcutaneously at bedtime 03/22/2018 Active omeprazole (PRILOSEC) 40 MG capsule Take 40 mg by mouth at bedtime 03/24/2018 Active simvastatin (ZOCOR) 20 MG tablet Take 20 mg by mouth at bedtime 03/30/2018 Active BASAGLAR KWIKPEN (BASAGLAR) pen Inject 60 Units subcutaneously at bedtime 03/30/2018 Active Albuterol Sulfate (VENTOLIN HFA IN) Inhale by mouth as needed Active STEGLATRO 5 MG tablet Take 5 mg by mouth at bedtime 08/12/2020 Active fluticasone propionate (FLONASE) 50 MCG/ACT nasal spray USE 1 SPRAY IN EACH NOSTRIL DAILY 04/20/2020 Active TECHLITE PEN NEEDLES 32G X 4 MM MISC USE DIRECTED ONCE DAILY 08/24/2020 Active loratadine (CLARITIN) 10 MG tablet Take 10 mg by mouth at bedtime 04/18/2020 Active meloxicam (MOBIC) 15 MG tablet Take 15 mg by mouth once daily 04/18/2020 Active pregabalin (LYRICA) 200 MG capsule Take 400 mg by mouth at bedtime 05/11/2020 Active SUMAtriptan (IMITREX) 50 MG tablet Take 50 mg by mouth once as needed Active traMADol (ULTRAM) 50 MG tablet Take 50 mg by mouth every 4 hours as needed 07/18/2020 Active venlafaxine (EFFEXOR) 75 MG tablet Take 75 mg by mouth at bedtime 04/18/2020 Active oxyCODONE, immediate release, (ROXICODONE) 5 MG tablet Take 1 (one) tablet by mouth every 6 hours as needed for Pain 5 tablet 10/12/2020 Active tamsulosin (FLOMAX) 0.4 MG capsule Take 1 (one) capsule by mouth once daily At the same time every day after a meal. For stent discomfort. Take as long as stent is in place. 30 capsule 10/12/2020 Active oxybutynin CR 24hr (DITROPAN-XL) 10 MG tabletIndications :Urinary Urgency TAKE 1 (ONE) TABLET BY MOUTH ONCE DAILY REASONS: URINARY URGENCY 90 tablet 4 11/06/2021 Active Active Problems Problem Noted Date Diagnosed Date Renal stone Immunizations Name Administration Dates Next Due INFLUENZA VACCINE 06/12/2020 Family History Medical History Relation Name Comments Diabetes - Type 2 Father Diabetes - Type 2 Sister Relation Name Status Comments Father Sister Social History Tobacco Use Types Packs/Day Years Used Date Smoking Tobacco: Some Days Cigarettes Smokeless Tobacco: Never Comments:A PACK LASTS A WEEK Alcohol Use Standard Drinks/Week Comments No 0 (1 standard drink = 0.6 oz pur e alcohol) AUDIT-C Answer Date Recorded Q1: How often do you have a drink containing alc ohol? Never 10/04/2020 Average Number of Drinks Not on file 021 Frequency of Binge Drinking Not on file 03/2021 Sex and Gender Information Value Date Recorded Sex Assigned at Not on file Gender Identity Not on file Sexual Orientation Not on file Last Filed Vital Signs Vital Sign Reading Time Taken Comments Blood Pressure 133/87 10/18/2020 1:13 PM CDT Pulse 96 10/18/2020 1:13 PM CDT Temperature 36.8 C (98.2 F) 10/18/2020 1:13 PM CDT Respiratory Rate 20 10/12/2020 12:00 PM CDT Oxygen Saturation 100% 10/18/2020 1:13 PM CDT Inhaled Oxygen Concentration - - Weight 79.4 kg (175 lb) 10/18/2020 1:13 PM CDT Height 162.6 cm (5' 4 ) 10/18/2020 1:13 PM CDT Body Mass Index 30.04 10/18/2020 1:13 PM CDT Plan of Treatment Health Maintenance Due Date Last Done Comments COLOGUARD (AGES 45-75) - COL ON CA SCREENING 1973 COLON MONITORING 1973 COLONOSCOPY - COLON CA SCREENING 1973 CT COLONOGRAPHY - COLON CA SCREENING 1973 Colorectal Cancer Screening 1973 FIT - COLON CA SCREENING 1973 FLEX SIG - COLON CA SCREENING 1973 MAMMOGRAM 1973 PAP SMEAR 1973 HIV SCREENING 1988 HEPATITIS C SCREENING 03/02/1991 DTAP/TDAP/TD VACCINES (1 - Tdap) 1992 HEPATITIS B VACCINE (1 of 3 - 19+ 3-dose series) 1992 PNEUMOCOCCAL VACCINE 50+ (1 of 2 - PCV) 1992 PNEUMOCOCCAL VACCINE (1 of 2 - PCV) 1992 ZOSTER VACCINE (1 of 2) 2023 SCREENING FOR DIABETES 10/13/2023 1, 10/12/2020 COVID-19 VACCINE (1 - 2023-2 5 season) 2024 INFLUENZA VACCINE (#1) 2024 06/12/2020 DEPRESSION SCREENING 07/29/2024 HIB VACCINE Aged Out No longer eligi ble based on patient's age to complete this topic HPV VACCINE Aged Out No longer eligi ble based on patient's age to complete this topic MENINGOCOCCAL (Group B) VACCINE Aged Out No longer eligible b ased on patient's age to complete this topic MENINGOCOCCAL VACCINE Aged Out No olya winston eligible based on patient's age to complete this topic Medical Devices Implanted Type Area Pharmacy Associate Device Identifier Shelf Expiration Date Model / Serial / Lot Stent Uret 6fr 24cm Pgtl Crv Tpr Tip Implanted:Qty: 1 on 10/12/2020 by Dariel Gudino MD at [facility] Right: Ureter [employer] Scimed 07/04/2023 [id number] / / [id number] Procedures Procedure Name Priority Date/Time Associated Diagnosis Comments GLUCOSE - POINT OF CARE Routine 10/12/2020 7:58 AM CDT from Last 3 Months or Most Recently Relevant to Health Maintenance Results * (ABNORMAL) GLUCOSE - POINT OF CARE (10/12/2020 7:58 AM CDT) Glucose WB/POC 160(H) 70 - 115 mg/dL 10/12/2020 7:59 AM CDT [facility] Specimen Type Venous 10/12/2020 7:59 AM CDT [facility] Blood BLOOD SPECIMEN / Unknown 10/12/2020 7:58 AM CDT 10/12/2020 7:59 AM CDT Dariel Gudino MD LAB - POINT OF CAR E ORDERABLES [facility] [address] [place] [address], [facility] [phone] from Last 3 Months or Most Recently Relevant to Health Maintenance Care Teams Broomcorn Seeder Relationship Specialty Start Date End Date Yenny Hernández, WATER AND FIRE TECHNICIAN-SENIOR DYNAMICS CRM DEVELOPER [address] [place] [address] PCP - General 06/16/20
--- OUTSIDE RECORDS SUMMARY | 2024-09-02 15:40 | XMS_ITS | Encounter Summary ---
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
--- OUTSIDE RECORDS SUMMARY | 2024-09-02 15:40 | XMS_ITS | Patient Health Summary ---
Author Organization [facility] [employer] Address [address] [place] [address] Care Team Providers Care Dance Hall Hostess Name Role Phone Yenny Hernández SEO ASSISTANT-MEDICAL RECEPTIONIST BILLER Primary Care Provid er Note from [facility],non-owned Affiliates and Associated Physician Practices is amultiple site organization consisting of ambulatory clinics and hospital sitesin [place], [place], [place] and [place]. This disclosure is being madepursuant to the Care Everywhere program and may not contain all information available regarding this patient. Last updated 18.[facility] [employer] Allergies * Empagliflozin(Rash) -Medium Criticality * Latex(Skin Reactions) * Tetracycline(Unknown) Medications * Be aware that medications may not be up to date on this document. Alwaysverify current medications with the patient. * ADMELOG 100 UNIT/ML vial(Started 03/24/2018) Inject 60 Units subcutaneously 3 times daily before meals * cyclobenzaprine (FLEXERIL) 10 MG tablet(Started 04/01/2018) Take 10 mg by mouth 3 times daily as needed * VICTOZA 18 MG/3ML pen(Started 03/22/2018) Inject 1.2 mg subcutaneously at bedtime * omeprazole (PRILOSEC) 40 MG capsule(Started 03/24/2018) Take 40 mg by mouth at bedtime * simvastatin (ZOCOR) 20 MG tablet(Started 03/30/2018) Take 20 mg by mouth at bedtime * BASAGLAR KWIKPEN (BASAGLAR) pen(Started 03/30/2018) Inject 60 Units subcutaneously at bedtime * Albuterol Sulfate (VENTOLIN HFA IN) Inhale by mouth as needed * STEGLATRO 5 MG tablet(Started 08/12/2020) Take 5 mg by mouth at bedtime * fluticasone propionate (FLONASE) 50 MCG/ACT nasal spray(Started 04/20/2020) USE 1 SPRAY IN EACH NOSTRIL DAILY * TECHLITE PEN NEEDLES 32G X 4 MM MISC(Started 08/24/2020) USE DIRECTED ONCE DAILY * loratadine (CLARITIN) 10 MG tablet(Started 04/18/2020) Take 10 mg by mouth at bedtime * meloxicam (MOBIC) 15 MG tablet(Started 04/18/2020) Take 15 mg by mouth once daily * pregabalin (LYRICA) 200 MG capsule(Started 05/11/2020) Take 400 mg by mouth at bedtime * SUMAtriptan (IMITREX) 50 MG tablet Take 50 mg by mouth once as needed * traMADol (ULTRAM) 50 MG tablet(Started 07/18/2020) Take 50 mg by mouth every 4 hours as needed * venlafaxine (EFFEXOR) 75 MG tablet(Started 04/18/2020) Take 75 mg by mouth at bedtime * oxyCODONE, immediate release, (ROXICODONE) 5 MG tablet(Started 10/12/2020) Take 1 (one) tablet by mouth every 6 hours as needed for Pain * tamsulosin (FLOMAX) 0.4 MG capsule(Started 10/12/2020) Take 1 (one) capsule by mouth once daily At the same time every day after a meal. For stent discomfort. Take as long as stent is in place. * oxybutynin CR 24hr (DITROPAN-XL) 10 MG tablet(Started 11/06/2021) TAKE 1 (ONE) TABLET BY MOUTH ONCE DAILY REASONS: URINARY URGENCY 4 refills by 11/06/2022 Active Problems Problem Noted Date Diagnosed Date Renal stone Immunizations * INFLUENZA VACCINE(Given 06/12/2020) Social History Tobacco Use Types Packs/Day Years [...] Mass Index 30.04 10/18/2020 1:13 PM CDT Medical Devices Implanted Type Area Systems Software Designer Device Identifier Shelf Expiration Date Model / Serial / Lot Stent Uret 6fr 24cm Pgtl Crv Tpr Tip Implanted:Qty: 1 on 10/12/2020 by Dariel Gudino MD at [facility] Right: Ureter [employer]imed 07/04/2023 [id number] / / [id number] Procedures * IMAGING/RADIOLOGY/XRAY RESULTS ORDER(Performed 11/08/2020) * MT CYSTOSCOPY,REMV CALCULUS,SIMPLE(Performed 10/19/2020) Performed for Nephrolithiasis, Encounter for removal of ureteral stent * URINALYSIS AUTO - POINT OF CARE (AMB) [facility](Performed 10/18/2020) Performed for Nephrolithiasis * CARDIAC EKG ORDER(Performed 10/13/2020) * FL CYSTO SURGERY(Performed 10/12/2020) Performed for Renal stone * GLUCOSE - POINT OF CARE(Performed 10/12/2020) * STONE ANALYSIS QUANT(Performed 10/12/2020) Performed for Renal stone * PATHOLOGY TISSUE(Performed 10/12/2020) Performed for Kidney stone * MT CYSTOSCOPY,INSERT URETERAL STENT(Performed 10/12/2020) Performed for Kidney stone * MT CYSTOURETHROSCOPY,URETER CATHETER(Performed 10/12/2020) Performed for Kidney stone * MT CYSTO/URETERO/PYELOSCOPY W/LITHOTRIPSY(Performed 10/12/2020) Performed for Kidney stone * ENDOTRACHEAL TUBE NOTE(Performed 10/12/2020) * EKG 12-LEAD(Performed 10/12/2020) Performed for Chronic obstructive pulmonary disease, unspecified COPD type (HCC) * GLUCOSE - POINT OF CARE(Performed 10/12/2020) * CULTURE URINE(Performed 08/31/2020) Performed for Kidney stone * URINALYSIS AUTO - POINT OF CARE (AMB) [facility](Performed 08/12/2020) Performed for Kidney stone * XR FOOT LEFT 2VW(Performed 10/16/2018) Performed for Bunion, left foot * URINALYSIS AUTO - POINT OF CARE (AMB) [facility](Performed 04/08/2018) Performed for Frequent UTI Results * IMAGING RADIOLOGY XRAY RESULTS ORDER (11/08/2020) Anatomical Region Laterality Modality Other Narrative 11/08/2020 Ordered by an unspecified provider. Scanned Document IMAGING * MT CYSTOSCOPY,REMV CALCULUS,SIMPLE (10/19/2020 2:40 PM CDT) Narrative Monica Tong APRN-CNP - 10/19/2020 2:40 PM CDT Monica Tong APRN-CNP 10/19/2020 2:41 PM Cystoscopy with stent removal: Patient's perineum and genitalia were prepped and draped in the usual sterile fashion. Lidocaine urojet was injected into the urethra and given sufficient time to take effect. A flexible cystoscope was advanced into the bladder. Urethra examined with well coapting sphincter.The stent was grasped and removed in its entirety. Patient tolerated well. IAN Reid 10/19/2020 2:40 PM Monica SOSA PROCEDURE/MIN OR SURGICAL ORDERABLES * URINALYSIS AUTO - POINT OF CARE (AMB) [facility] (10/18/2020 1:25 PM CDT) Only the most recent of3 resultswithin the time period is included. Glucose UA 500 Bilirubin UA POCT 2 Ketones UA POCT 5 Specific Azalea UA 1.015 Blood Urine POCT 200 pH UA 6.0 Protein UA 30 Urobilinogen UA 4 Nitrite UA pos WBC UA 500 Urine URINE / Unknown 10/18/2020 1 :25 PM CDT Monica Ibarra Ran SEO ASSISTANT-MEDICAL RECEPTIONIST BILLER LAB - POINT O F CARE ORDERABLES * CARDIAC EKG ORDER (10/13/2020 2:52 PM CDT) Narrative 10/13/2020 2:52 PM CDT Ordered by an unspecified provider. Scanned Document CARDIAC SERVICES ORD ERABLES * FL CYSTO SURGERY (10/12/2020 8:59 PM CDT) Narrative [facility] - 10/12/2020 8:59 PM CDT Fluoroscopy was used for this exam in the OR. Please see the Operative report. Dariel Gudino MD FLUOROSCOPY ORDERA BLES [facility] * (ABNORMAL) GLUCOSE - POINT OF CARE (10/12/2020 11:04 AM CDT) Only the most recent of2 resultswithin the time period is included. Pathologist [facility] Glucose WB/POC 173(H) 70 - 115 mg/dL 10/12/2020 12:33 PM CDT [facility] Specimen Type Arterial/C apillary 10/12/2020 12:33 PM CDT [facility] Blood BLOOD SPECIMEN / Unknown 10/12/2020 11:04 AM CDT 10/12/2020 12:32 PM CDT Dariel Gudino MD LAB - POINT OF CAR E ORDERABLES [facility] [address] [place] [id number], [place] [phone] * STONE ANALYSIS QUANT (10/12/2020 10:50 AM CDT) Pathologist [facility] Calculi Composition See Note 10/15/2020 7:40 AM CDT [facility] ([facility]) Comment: Calculi composed primarily of: 20% calcium oxalate monohydrate, 60% calcium oxalate dihydrate, and 20% calcium phosphate (hydroxy- and carbonate- apatite). INTERPRETIVE INFORMATION: Calculi (Stone) analysis Calculi are the products of physiological processes that yield crystalline compounds in a matrix of biological compounds and blood. Matrix components are not reported. The clinically significant crystalline components identified in calculi specimens are reported. Gross description may not be consistent with composition determined by FTIR analysis. Performed By: [facility] [address] [place] [address] Driver Merchandiser: Mahogany Flores MD Calculi Mass 43 mg 10/15/2020 7:40 AM CDT [email or web address] [facility] ([facility]) Calculi Number 6 10/15/2020 7:40 AM CDT [facility] ([facility]) Calculi Size 1 to 4 mm 10/15/2020 7:40 AM CDT [facility] ([facility]) Calculi Description See Note 10/15/2020 7:40 AM CDT [facility] ([facility]) Comment: Specimen consists of six, small, august/white, irregular calculi fragments. Pathology/Cytolo gy CALCULUS SPECIMEN / Unknown Collection / Unknown 10/12/2020 10:50 AM CDT 10/12/2020 1:17 PM CDT Dariel Gudino MD LAB - URINE CHEMIS TRY ORDERABLES [facility]) [address] [place] [address] * PATHOLOGY TISSUE (10/12/2020 10:11 AM CDT) Case Report Surgical Pathology Report Case: [id number] Authorizing Provider: Dariel Gudino MD Collected: 10/12/2020 10:11 AM Ordering Location: [facility] Received: 10/12/2020 11:24 AM Pathologist: Jessica Hayden MD Specimen: Calculus, RIGHT RENAL PELVIS STONE 10/12/2020 5:33 PM CDT [facility] Final Diagnosis Ureter, right, stone, extraction: - Calculi (gross diagnosis) 10/12/2020 5:33 PM CDT [facility] Clinical History The patient is a 45-year-old woman with kidney stones. Operative procedure: Right ureteroscopy with lithotripsy, stone extraction. 10/12/2020 5:33 PM CDT [facility] Gross Description The requisition and specimen(s) are identified with the patient's name Preeti Sharif. Received fresh without fixative, specimen A consists of 4 hard, yellow-august kidney stones ranging from 0.2-0.3 cm in greatest dimension, with an aggregate measurement of 0.7 x 0.2 x 0.2 cm. There is no attached soft tissue. The specimen is received for gross examination only, and is submitted for chemical analysis. 10/12/2020 5:33 PM CDT [facility] Disclaimer The performance characteristics of all immunohistochemical and indirect immunofluorescence stains (if any) cited in this report were determined by the Histopathology Laboratory of [facility]. Some of these tests were developed by our own laboratory and have not been cleared or approved by the US Food and Drug Administration. The FDA does not require this test to go through premarket FDA review. These tests are used for clinical purposes. They should not be regarded as investigational or for research. This laboratory is certified under the Clinical Laboratory Improvement Amendments (CLIA) as qualified to perform high complexity clinical laboratory testing. This case has been personally reviewed and interpreted by the attending (teaching) pathologist. 10/12/2020 5:33 PM CDT [facility] Embedded Images 10/12/2020 5:33 PM CDT [facility] Gross only CALCULUS SPECIMEN / Unknown 10/12/2020 10:11 AM CDT 10/12/2020 11:24 AM CDT Comment:Pre-op diagnosis: KIDNEY STONE Dariel Gudino MD LAB - PATHOLOGY/CY TOLJACKELYN ORDERABLES [facility] [address] [place] [address], [place] [phone] * ETT LINE PERFORMABLE (10/12/2020 9:23 AM CDT) Narrative Pennie Inman APRN-CRNA - 10/12/2020 9:23 AM CDT Pennie Inman APRN-CRNA 10/12/2020 9:23 AM Endotracheal Tube Placement: Patient Location: OR. Procedure: intubation ([id number]). Procedure Section: Sedation: under general anesthesia. Indications for Airway Management: anesthesia Procedure pretreatments used? No Induction: modified rapid sequence Patient Position: sniffing Mask Ventilation: not attempted. Blade Type: Adan Blade Size: 3 Laryngoscopy View: grade 1 (full cords) Intubation Adjuncts: cricoid pressure Tube: endotracheal tube Placement: oral Tube type: cuff - inflated Tube Size (MM): 6.5 Depth of Insertion (CM): 23 Measured From: gums Cuff volume (mL): 6 Cuff Inflated With: air Number of Attempts: 1. Placement Verified By: direct visualization, bilateral breath sounds and CO2 monitor Tube secured with: adhesive tape. Dentition unchanged? Yes Difficult Airway? No. Staff Section Anesthesia Provider: Pennie Inman APRN-CRNA, Performed the procedure Alfonzo Freeman MD GENERAL ANESTHESIA O RDERABLES * EKG 12-LEAD (10/12/2020 8:47 AM CDT) Ventricular Rate 81 BPM [facility] Atrial Rate 81 BPM [facility] P-R Interval 160 ms [facility] QRS Duration ms 86 ms [facility] Q-T Interval ms 406 ms [facility] QTC Calculation (Bezet) 471 ms [facility] Calculated P [place] 37 degrees [facility] Calculated R [place] -32 degrees [facility] Calculated T [place] 50 degrees [facility] Interpretation EKG NORMAL SINUS RHYTHM LEFT AXIS DEVIATION NO PREVIOUS ECGS AVAILABLE Confirmed by Enrrique Tinoco ([id number]) on 10/13/2020 7:55:54 AM [facility] 10/12/2020 8:47 AM CDT 10/13/2020 7:55 AM CDT Alfonzo Freeman MD ECG ORDERABLES [facility] * CULTURE URINE (08/31/2020 3:31 PM INK GRINDER) Culture Urine 10,000-50,000 CFU/mL urogenital rebel AMY 09/02/2020 8:18 AM INK GRINDER [facility] Urine URINE SPECIMEN OBTAINED BY CLEAN CATCH PROCEDURE / Unknown Collection / Unknown 08/31/2020 3:31 PM INK GRINDER 08/31/2020 3:37 PM INK GRINDER Dariel Gudino MD LAB - MICROBIOLOGY ORDERABLES [facility] [address] [place] [address] [phone] * XR FOOT LEFT 2VW (10/16/2018 2:13 PM CDT) Anatomical Region Laterality Modality Ankle / Foot Radiographic Shireen ging 10/16/2018 2:39 PM CDT Impressions 10/17/2018 10:05 AM CDT IMPRESSION: Mild hallux valgus. Dictated by Chang Lazar MD (resident care provider). I, Dr. PATTIE BRYANT M.D. have personally reviewed and interpreted this examination/study. This report was electronically signed by PATTIE BRYANT M.D. on 10/17/2018 10:05 AM . Narrative 10/17/2018 10:05 AM CDT EXAMINATION: Left foot, 2 views HISTORY: Left foot bunion. COMPARISON: No prior study is available for comparison. FINDINGS: 2 weightbearing views of the foot are submitted for interpretation. There is no acute fracture or dislocation. Mild hallux valgus is present. The joint spaces are preserved. A small plantar calcaneal spur is present. Bone density and texture are normal. No soft tissue swelling is present. Procedure Note Pattie Bryant MD - 10/17/2018 EXAMINATION: Left foot, 2 views HISTORY: Left foot bunion. COMPARISON: No prior study is available for comparison. FINDINGS: 2 weightbearing views of the foot are submitted for interpretation.There is no acute fracture or dislocation. Mild hallux valgus is present. The joint spaces are preserved. A small plantar calcaneal spur is present. Bone density and texture are normal. No soft tissue swelling is present. IMPRESSION: Mild hallux valgus. Dictated by Chang Lazar MD (resident care provider). I, Dr. PATITE BRYANT M.D. have personally reviewed and interpreted this examination/study. This report was electronically signed by PATTIE BRYANT M.D. on 10/17/2018 10:05 AM . Derick Smith Jr., MD DIAGNOSTIC IMAGING ORDERABLES Care Teams Dance Hall Hostess Relationship Specialty Start Date End Date Yenny Hernández, SEO ASSISTANT-MEDICAL RECEPTIONIST BILLER [address] [place] [address] PCP - General 06/16/20
--- OUTSIDE RECORDS SUMMARY | 2024-09-02 15:40 | XMS_ITS | Referral Summary ---
Author Organization [facility] [employer] Address [address] [place] [address] Care Team Providers Care Excavation Laborer Name Role Phone Yenny Hernández TECHNOLOGY ARCHITECT-ACID LEVELER Primary Care Provid er Source Comments [facility],non-owned Affiliates and Associated Physician Practices is amultiple site organization consisting of ambulatory clinics and hospital sitesin [place], [place], [place] and [place]. This disclosure is being madepursuant to the Care Everywhere program and may not contain all information available regarding this patient. Last updated 18.[facility] [employer] Allergies Active Allergy Reactions Criticality Noted Date [...] Administration Dates Next Due INFLUENZA VACCINE 06/12/2020 Social History Tobacco Use Types Packs/Day Years [...] Mass Index 30.04 10/18/2020 1:13 PM CDT Functional Status Functional Status Response Date of Assess ment Is person deaf or have serious hearing difficult y? No 10/12/2020 Is person blind or have serious difficulty seein g? No 10/12/2020 Does person have serious dif ficulty walking/climbing stairs? No 10/12/2020 Does person have difficulty dressing/bathing? No 10/12/2020 Does person have difficulty doing errands alone? No 10/12/2020 Cognitive Status Response Date of Assessm ent Does person have difficulty concentrating/remembering/making decisions? No 10/12/2020 Plan of Treatment Not on file Medical Devices Implanted Type Area Acetaldehyde Converter Operator Device Identifier Shelf Expiration Date Model / Serial / Lot Stent Uret 6fr 24cm Pgtl Crv Tpr Tip Implanted:Qty: 1 on 10/12/2020 by Dariel Gudino MD at [facility] Right: Ureter Maag[employer]imed 07/04/2023 [id number] / / [id number] Procedures Procedure Name Priority Date/Time Associated Diagnosis Comments GLUCOSE - POINT OF CARE Routine 10/12/2020 7:58 AM CDT from Last 3 Months or Most Recently Relevant to Health Maintenance Results * (ABNORMAL) GLUCOSE - POINT OF CARE (10/12/2020 7:58 AM CDT) Glucose WB/POC 160(H) 70 - 115 mg/dL 10/12/2020 7:59 AM CDT [facility] Specimen Type Venous 10/12/2020 7:59 AM CDT [facility] Blood BLOOD SPECIMEN / Unknown 10/12/2020 7:58 AM CDT 10/12/2020 7:59 AM CDT Dariel Gudino MD LAB - POINT OF CAR E ORDERABLES [facility] [address] [place] [address], [facility] [phone] from Last 3 Months or Most Recently Relevant to Health Maintenance Care Teams Excavation Laborer Relationship Specialty Start Date End Date Yenny Hernández, TECHNOLOGY ARCHITECT-ACID LEVELER [address] [place] [address] PCP - General 06/16/20
--- OUTSIDE RECORDS SUMMARY | 2024-09-02 15:40 | XMS_ITS | Clinical Summary ---
Author Organization [facility] Address [address] [place] [address] Care Team Providers Care Ticket Dispenser Changer Name Role Phone Josh Kidd MD Primary Care Provider [phone] Allergies Active Allergy Reactions Criticality Noted Date [...] 11/27/2018 Ischemic stroke 11/26/2018 Gastric ulcer 11/11/2012 Surgical History Surgery Date Site/Laterality Comments NM TOTAL ABDOMINAL HYSTERECT W/WO RMVL TUBE OVARY Hysterectomy - (Added by TW Conv) HIP SURGERY Hip Repair - (Added by TW Conv) ANKLE SURGERY Ankle Surgery - (Added by TW Conv) Family History Medical History Relation Name Comments Bladder Cancer Other Bladder Cance r - (Added by TW Conv) Breast cancer Other Breast Cancer - (Added by TW Conv) Colon cancer Other Malignant Neopl asm, Colon - (Added by TW Conv) Kidney cancer Other Kidney Cancer - (Added by TW Conv) Relation Name Status Comments Other Social History Tobacco Use Types Packs/Day Years Used Date Smoking Tobacco: Former Comments Unknown Sex and Gender Information Value Date Recorded Sex Assigned at Not on file Legal Sex Female 10:10 AM GUIDE [employer]OME[employer] Gender Identity Not on file Sexual Orientation Not on file Obstetrics History Last Filed Vital Signs Vital Sign Reading [...] 10/23/2021 12:53 PM CDT Plan of Treatment Health Maintenance Due Date Last Done Comments Albumin Creatinine Ratio, Urine 1973 Breast Cancer Screening-Mammogram 1973 Cervical Cancer Screening 1973 Colon Cancer Screening-Colonoscopy 1973 Depression Screening 1973 Hemoglobin A1C 1973 Hepatitis C Screening 1973 eGFR 1973 Dilated Eye Exam 1973 Foot Exam 1973 Lipid Panel 1973 DTaP/Tdap/Td Vaccine (1 - Tdap) 1984 Hepatitis B Screening 1991 Regular Well Visit/Exam 18-64 1991 Pneumococcal vaccine <65 (2 of 2 - PCV) 08/10/2020 0 08/10/2019 Zoster Vaccine (1 of 2) 2023 Influenza Vaccine (#1) 2024 06/12/2020, 2018 Insurance [facility] Care Teams Ticket Dispenser Changer Relationship Specialty Start Date End Date Josh Kidd MD [address] [place] [address], [place] [address] PCP - General 10/02/18
--- OUTSIDE RECORDS SUMMARY | 2024-09-02 15:40 | XMS_ITS | Clinical Summary ---
Author Organization [facility] Address [address] [place] [address] Phone Care Team Providers Care Commercial Loan Underwriter Name Role Phone Yenny Hernández Fred CAPABILITY LEAD, [facility] Primary Care Provi feliberto Allergies Active Allergy Reactions Criticality Noted Date Comments Latex Rash,Unknown Low 10/28/2014 Medications cyclobenzaprine (FLEXERIL) 10 MG Tablet Take 10 mg by mouth. 8 Active rOPINIRole (REQUIP) 0.25 MG Tablet 0 Active meloxicam (MOBIC) 15 MG Tablet 0 Active venlafaxine (EFFEXOR) 75 MG Tablet 0 Active traZODone (DESYREL) 50 MG Tablet TAKE 1 TABLET BY MOUTH TWICE A DAY 0 Active simvastatin (ZOCOR) 20 MG Tablet 0 Active pregabalin (LYRICA) 200 MG Capsule 0 Active omeprazole (PriLOSEC) 40 MG CAPSULE DELAYED RELEASE TAKE 1 CAPSULE BY MOUTH EVERY DAY 0 Active ondansetron (ZOFRAN) 8 MG Tablet TAKE 1 TABLET BY MOUTH EVERY 8 HOURS NEEDED FOR NAUSEA & VOMITING 0 Active loratadine (CLARITIN) 10 MG Tablet Take 10 mg by mouth daily. 0 Active fluticasone (FLONASE) 50 MCG/ACT Suspension USE 1 SPRAY IN EACH NOSTRIL DAILY 0 Active OneTouch Verio Strip TEST BLOOD SUGAR 3 TIMES DAILY 0 Active SUMAtriptan (IMITREX) 50 MG Tablet Take 50 mg by mouth once as needed. Use as directed. May repeat dose in 2 hours if headache recurs. Active insulin glargine (Lantus SoloStar) 100 UNIT/ML Solution Pen-injector 40 Units by Subcutaneous route every evening. 15 mL 3 0 Active Insulin Lispro, 1 Unit Dial, (HumaLOG KwikPen) 100 UNIT/ML Solution Pen-injector 14 units before each meal. ISF of 1:15 if >140 mg/dL. Up to 80 units/day 30 mL 3 0 Active Active Problems Problem Noted Date Diagnosed Date Type 2 diabetes mellitus wit h diabetic polyneuropathy, with long-term current use of insulin 05/12/2020 Class 1 obesity due to exces s calories with serious comorbidity and body mass index (BMI) of 32.0 to 32.9 in adult 05/12/2020 Hyperlipidemia 05/12/2020 Diabetic polyneuropathy asso ciated with type 2 diabetes mellitus 05/12/2020 Insulin resistance 05/12/2020 Family History Medical History Relation Name Comments Diabetes Father Parkinsonism Father Cancer Mother Mouth Diabetes Mother Neuropathy Mother Diabetes Sister Lupus Sister Relation Name Status Comments Father Alive Mother Sister Alive Social History Tobacco Use Types Packs/Day Years Used Date Smoking Tobacco: Former Cigarettes Smokeless Tobacco: Never Tobacco Cessation:Counseling Given: No Alcohol Use Standard Drinks/Week Comments Not Currently 0 (1 standard drink = 0.6 oz pur e alcohol) Sexually Active Control Partners Comments Not Currently Comments Unknown Sex and Gender Information Value Date Recorded Sex Assigned at Not on file Legal Sex Female 11:33 AM CDT Gender Identity Not on file Sexual Orientation Not on file Last Filed Vital Signs Vital Sign Reading Time Taken Comments Blood Pressure 130/72 05/12/2020 2:07 PM CDT Pulse 120 05/12/2020 2:07 PM CDT Temperature 36 C (96.8 F) 05/12/2020 2:07 PM CDT Respiratory Rate 16 05/12/2020 2:07 PM CDT Oxygen Saturation 97% 05/12/2020 2:07 PM CDT Inhaled Oxygen Concentration - - Weight 86.2 kg (190 lb) 05/12/2020 2:07 PM CDT Height 162.6 cm (5' 4 ) 05/12/2020 2:07 PM CDT Body Mass Index 32.61 05/12/2020 2:07 PM CDT Plan of Treatment Health Maintenance Due Date Last Done Comments Diabetes: Eye Exam 1973 Diabetes: Foot Exam 1973 Diabetes: Hemoglobin A1c 1973 Hepatitis C Virus (HCV) Screening 1973 TdaP Immunization 1973 Diabetes: Nephropathy Screening 1991 Hepatitis B Immunization (1 of 3 - 19+ 3-dose series) 1992 Colonoscopy 2018 Colorectal Cancer Screening 2018 Pneumococcal Immunization (5 0+ years) (2 of 2 - PCV) 08/10/2020 08/10/2019 Cologuard 2023 Immunochemical Fecal Occult Blood 2023 Mammogram 2023 Zoster Immunization (1 of 2) 2023 Influenza Immunization (#1) 2024 05/05/2019 SARS-COV-2 Immunization ( - 2023- season) 2024 Respiratory Syncytial Virus (RSV) Immunization (Adult) (1 - 1-dose 75+ series) 2048 Pneumococcal Immunization Combined Discontinued 2019 Meningococcal Immunization (ACWY) Aged Out No longer eligible based on patient's age to complete this topic Rotavirus Immunization Aged Out No lo nger eligible based on patient's age to complete this topic Insurance [place] Care Teams Commercial Loan Underwriter Relationship Specialty Start Date End Date Yenny Hernández, CAPABILITY LEAD, ASSEMBLY AND PACKING SUPERVISOR [address] [place] [address] PCP - General Advanced Practice Nurse 05/05/20
== END 2024-09-02 14:59 | disposition home or self-care (01) ==
PROVIDERS: PCP Nurse Practitioner Family; Visit Provider Nurse Practitioner Family
DX: M25.562 Pain in left knee (principal); M79.672 Pain in left foot; M79.671 Pain in right foot; M79.89 Other specified soft tissue disorders
CPT/HCPCS: 73562; 73630

== ENCOUNTER 2024-12-12 13:54 | Emergency (ER) | payer OTHER, SELFPAY ==
[2024-12-12 13:54] VITALS: BP 132/85; PULSE 96; RESP 16; TEMP 36.4; O2SAT 95
--- OUTSIDE RECORDS SUMMARY | 2024-12-12 14:00 | XMS_ITS | Encounter Summary ---
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
--- OUTSIDE RECORDS SUMMARY | 2024-12-12 14:00 | XMS_ITS | Clinical Summary ---
Author Organization [facility] Address [address] [place] [address] Care Team Providers Care Shot Lighter Name Role Phone Josh Kidd MD Primary Care Provider [phone] Allergies Active Allergy Reactions Criticality Noted Date [...] ciated with type 2 diabetes mellitus 05/12/2020 Hyperlipidemia 05/12/2020 Insulin resistance 05/12/2020 Chronic migraine w/o aura, not intractable, w st at migr 11/27/2018 Status migrainosus 11/27/2018 Ischemic stroke 11/26/2018 Gastric ulcer 11/11/2012 Surgical History Surgery Date Site/Laterality Comments MT TOTAL ABDOMINAL HYSTERECT W/WO RMVL TUBE OVARY [...] cancer Other Kidney Cancer - (Added by Conv) Relation Name Status Comments Other Social History Tobacco Use Types Packs/Day Years Used Date Smoking Tobacco: Former Comments Unknown Sex and Gender Information Value Date Recorded Sex Assigned at Not on file 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
--- OUTSIDE RECORDS SUMMARY | 2024-12-12 14:00 | XMS_ITS | Clinical Summary ---
Author Organization [facility] Address [address] [place] [address] Phone Care Team Providers Care Signals Intelligence Analyst Name Role Phone Yenny Hernández Fred [facility], [facility] Primary Care Provi feliberto Allergies Active Allergy [...] Cologuard 2023 Immunochemical Fecal Occult Blood 2023 Zoster Immunization (1 of 2) 2023 [...] this topic Insurance [place]ID [place] Care Teams Signals Intelligence Analyst Relationship Specialty Start Date End Date Yenny Hernández, CLINIC MGR, PIG MACHINE CRANE OPERATOR [address] [place] [address] PCP - General Advanced Practice Nurse 05/05/20
--- OUTSIDE RECORDS SUMMARY | 2024-12-12 14:00 | XMS_ITS | Clinical Summary ---
Author Organization [facility] Address [address] [place] [address] Care Team Providers Care Birth Certificate Clerk Name Role Phone Yenny Hernández FINAL ASSEMBLY AND PACKING SUPERVISOR-LOOM SETTER Primary Care Provid er Source Comments [facility],non-owned Affiliates and Associated Physician Practices is amultiple site organization consisting of ambulatory clinics and hospital sitesin [place], [place], [place] and [place]. This disclosure is being madepursuant to the Care Everywhere program and may not contain all information available regarding this patient. Last updated 18.[facility] Allergies Active Allergy Reactions Criticality Noted Date Comments Empagliflozin Rash Medium 04/08/2018 Latex Skin Reactions 04/08/2018 Catheters cause blisters Tetracycline Unknown 04/08/2018 Medications * Be aware that medications may not be up to date on this document. Alwaysverify current medications with the patient. ADMELOG 100 UNIT/ML vial Inject 60 Units subcutaneously 3 times daily before meals 8 Active cyclobenzaprin e (FLEXERIL) 10 MG tablet Take 10 mg by mouth 3 times daily as needed 8 Active VICTOZA 18 MG/3ML pen Inject 1.2 mg subcutaneously at bedtime 8 Active omeprazole (PRILOSEC) 40 MG capsule Take 40 mg by mouth at bedtime 8 Active simvastatin (ZOCOR) 20 MG tablet Take 20 mg by mouth at bedtime 8 Active BASAGLAR KWIKPEN (BASAGLAR) pen Inject 60 Units subcutaneously at bedtime 8 Active Albuterol Sulfate (VENTOLIN HFA IN) Inhale by mouth as needed Active STEGLATRO 5 MG tablet Take 5 mg by mouth at bedtime 1 Active fluticasone propionate (FLONASE) 50 MCG/ACT nasal spray USE 1 SPRAY IN EACH NOSTRIL DAILY 0 Active TECHLITE PEN NEEDLES 32G X 4 MM MISC USE DIRECTED ONCE DAILY 1 Active loratadine (CLARITIN) 10 MG tablet Take 10 mg by mouth at bedtime 0 Active meloxicam (MOBIC) 15 MG tablet Take 15 mg by mouth once daily 0 Active pregabalin (LYRICA) 200 MG capsule Take 400 mg by mouth at bedtime 0 Active SUMAtriptan (IMITREX) 50 MG tablet Take 50 mg by mouth once as needed Active traMADol (ULTRAM) 50 MG tablet Take 50 mg by mouth every 4 hours as needed 0 Active venlafaxine (EFFEXOR) 75 MG tablet Take 75 mg by mouth at bedtime 0 Active oxyCODONE, immediate release, (ROXICODONE) 5 MG tablet Take 1 (one) tablet by mouth every 6 hours as needed for Pain 5 tablet 1 Active tamsulosin (FLOMAX) 0.4 MG capsule Take 1 (one) capsule by mouth once daily At the same time every day after a meal. For stent discomfort. Take as long as stent is in place. 30 capsule 1 Active oxybutynin CR 24hr (DITROPAN-XL) 10 MG tabletIndicati ons:Urinary Urgency TAKE 1 (ONE) TABLET BY MOUTH ONCE DAILY REASONS: URINARY URGENCY 90 tablet 4 2 Active Active Problems Problem Noted Date Diagnosed Date Renal stone Immunizations Immunization Administration Dates Next Due INFLUENZA VACCINE 06/12/2020 [...] of Binge Drinking Not on file 03/2021 Comments No Sex and Gender Information Value Date Recorded Sex Assigned at Not on file Legal Sex Female 11:21 AM CDT Gender Identity Not on file [...] 50+ (1 of 2 - PCV) 1992 ZOSTER VACCINE (1 of 2) 2023 SCREENING FOR DIABETES 10/13/2023 1, 10/12/2020 COVID-19 VACCINE (1 - 2023-2 5 season) 2024 DEPRESSION SCREENING 07/29/2024 INFLUENZA VACCINE (Season Ended) 2025 06/12/2020 HIB VACCINE Aged Out No longer eligi ble based on patient's age to complete this topic HPV VACCINE Aged Out No longer eligi ble based on patient's age to complete this topic MENINGOCOCCAL (Group B) VACCINE SHARED DECISION-MAKING Aged Out No longer eligible based on patient's age to complete this topic MENINGOCOCCAL GROUPS A/C/Y/W VACCINE Aged Out No longer eligible b ased on patient's age to complete this topic Medical Devices Implanted Type Area Critical Care Unit Manager Device Identifier Shelf Expiration Date Model / Serial / Lot Stent Uret 6fr 24cm Pgtl Crv Tpr Tip Implanted:Qty: 1 on 10/12/2020 by Dariel Gudino MD at [facility] Right: U[employer]ter [employer] 07/04/2023 [id number] / / [id number] Procedures Procedure Name Priority Date/Time Associated Diagnosis Comments GLUCOSE - POINT OF CARE Routine 10/12/2020 7:58 AM CDT from Last 3 Months or Most Recently Relevant to Health Maintenance Results * (ABNORMAL) GLUCOSE - POINT OF CARE (10/12/2020 7:58 AM CDT) Glucose WB/POC 160(H) 70 - 115 mg/dL 10/12/2020 7:59 AM CDT [facility] Specimen Type Venous 10/12/2020 7:[address] [facility] Blood BLOOD SPECIMEN / Unknown 10/12/2020 7:58 AM CDT 10/12/2020 7:59 AM CDT us Dariel Gudino MD LAB - POINT OF CARE ORDERA BLES Final Result [facility] [address] [place] [id number], [facility] [phone] from Last 3 Months or Most Recently Relevant to Health Maintenance Insurance [facility] Care Teams Birth Certificate Clerk Relationship Specialty Start Date End Date Yenny Hernández, FINAL ASSEMBLY AND PACKING SUPERVISOR-LOOM SETTER [address] [place] [address] PCP - General 06/16/20
--- OUTSIDE RECORDS SUMMARY | 2024-12-12 14:00 | XMS_ITS | Clinical Summary ---
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 Gender Identity Not on file Sexual Orientation [...] Colonoscopy (10 Years) 1973 Annual Physical 1976 Hepatitis C 1991 DTaP, Tdap and Td Vaccines ( 1 - Tdap) 1992 Hepatitis B Vaccines (1 of 3 - 19+ 3-dose series) 1992 Pneumococcal Vaccine: 50+ Ye ars (1 of 2 - PCV) 1992 Mammogram Screening 2013 Zoster Vaccines (1 of 2) 2023 COVID-19 Vaccine (1 - 2023-2 5 season) 2024 Meningococcal B Vaccine Aged Out No l onger eligible based on patient's age to complete this topic Meningococcal Vaccine Aged Out No olya winston eligible based on patient's age to complete this topic RSV Immunizations Under 20 Months Aged Out No longer eligible based on patient's age to complete this topic Insurance Advance Directives * Full Code (Latest Code Status on File) Date Activated Date Inactivated Comments 11/26/2018 6:13 PM 11/28/2018 2:55 PM Care Teams Union Steward Relationship Specialty Start Date End Date Josh Kidd MD [facility] [place] [address] PCP - General FAMILY PRACTICE 11/26/18
--- OUTSIDE RECORDS SUMMARY | 2024-12-12 14:00 | XMS_ITS | Referral Summary ---
Author Organization [facility] Address [address] [place] [address] Care Team Providers Care Director Of Family Service Center Name Role Phone Josh Kidd MD Primary Care Provider [phone] Allergies Active Allergy Reactions Criticality Noted Date [...] on file Legal Sex Female 10:10 AM EVP Gender Identity Not on file Sexual Orientation [...] Plan of Treatment Not on file Insurance [facility] Care Teams Director Of Family Service Center Relationship Specialty Start Date End Date Josh Kidd MD [address] [place] [id number] PCP - General 10/02/18
--- NOTE | 2024-12-12 14:08 | ED.SKABFB ---
HPI - Skin/Abscess/Foreign Bdy General Chief complaint: Skin/Abscess/Foreign Body Stated complaint: skin infection Time Seen by Provider: 12/12/24 14:07 Source: patient History of Present Illness HPI narrative: 49 years old white female, history of diabetes presents with a lump like cyst at the left side of her neck started 1 and have week ago, was seen by medical provider and was given steroid topical for possible insect bite. No improvement, getting worse. Patient denies any fever, chills, nausea, vomiting, itching or drainage. Related Data Allergies Allergy/AdvReac Type Severity Reaction Status Date / Time empagliflozin (Jardiance) Allergy Intermediate rash Verified 12/12/24 14:10 latex Allergy Intermediate Rash Verified 12/12/24 14:10 tetracycline Allergy Intermediate unknown Verified 12/12/24 14:10 lactose AdvReac Nausea Verified 12/12/24 14:10 Review of Systems Review of Systems: All systems reviewed & are unremarkable except as noted in HPI and below PMFSH Past Medical History Medical History Pneumonia Wheezing Cough Urethritis Joint pain Fatigue RLQ abdominal pain Pelvic pain Head injury with loss of consciousness (05/24/21) Syncope Nipple discharge Preventative health care Acute bronchitis Acute sinusitis COPD exacerbation Calculus of kidney COPD exacerbation BMI 32.0-32.9,adult Acute sinusitis Sinusitis, acute maxillary Finger avulsion Depression Acute insomnia Migraine IBS (irritable bowel syndrome) COPD (chronic obstructive pulmonary disease) Hyperlipidemia Diabetes mellitus with diabetic nephropathy Surgical History Surgical History Hx of cholecystectomy Hx of hysterectomy Family History Family History Mother Diabetes mellitus Social History Social History Smoking packs per day: 1 Smoking cigarettes per day: 20.0 Smoking status: Heavy tobacco smoker Tobacco type: cigarettes Second hand tobacco smoke exposure: Yes Alcohol intake: current Substance use: never Substance use type: does not use Do You Feel Safe in your Home?: Yes Lack of Transportation: No Lack of Food: Never True Current Housing: I Have Housing Concerned About Future Housing: No Difficulty Paying Gas/Electric Bills: No Difficulty Paying for Meds: No Currently Unemployed: No Education: Decline to Answer Difficulty w/ Childcare or Family Care: No Living arrangements: with family Gender identity (if verbalized by the patient): Female Spiritual care concerns: No Exam Narrative: General appearance: Well-developed, well-nourished Skin: Normal color Head: Normocephalic, nontraumatic Eyes: Clear conjunctiva ENT: Oropharynx normal, ears normal, nose normal Neck: Supple, nontender , 1 x 3/4 cm indurated skin like a lump with 4 mm scab at the center of it, no fluctuation, tender to touch, slightly erythematous, no discharge at the left side of neck, scattered bumps at the neck posteriorly and bilaterally. Neurologic: Alert and oriented ×3, DIRECT MAIL MARKETER is normal as tested, no gross motor deficit Course Vital Signs Vital signs: Vital Signs Temperature 36.4 C L 12/12/24 13:54 Pulse Rate 96 12/12/24 13:54 Respiratory Rate 16 12/12/24 13:54 Blood Pressure 132/85 12/12/24 13:54 Pulse Oximetry 95 12/12/24 13:54 Oxygen Delivery Room Air 12/12/24 13:54 Temperature 36.4 C L 12/12/24 13:54 Pulse Rate 96 12/12/24 13:54 Respiratory Rate 16 12/12/24 13:54 Blood Pressure 132/85 12/12/24 13:54 Pulse Oximetry 95 12/12/24 13:54 Oxygen Delivery Room Air 12/12/24 13:54 MDM - Skin/Abscess/Foreign Bdy MDM Narrative Medical decision making narrative: Physical examination showing a lumbar at the left side of the neck looks like cyst, infected, nonfluctuant, no discharge have a scab at the center of it. My plan to treat with antibiotic orally at this time, patient was advised to follow-up with Plastic surgery for possible incision and removing the cyst. Discharge Plan Discharge Clinical Impression: Infected cyst of skin Patient Disposition: Home Condition: Stable Instructions: Antibiotic Form, Cyst (ED) Additional Instructions: Return if symptoms are worsening , call your family physician/ plastic surgery for appointment, take Tylenol as as needed for aches and pain, continue home medications. Patient Language: Macedonian Prescriptions: New clindamycin HCl [Cleocin HCl] 300 mg capsule 300 mg PO Q6H Qty: 40 0RF No Action Breztri Aerosphere 160-9-4.8 mcg/actuation HFA aerosol inhaler 2 inh inhalation BID Qty: 10.7 2RF (DME) insulin syringe-needle U-100 1 mL 27 gauge x 1/2 syringe See Rx Instructions .ROUTE .MEDSUPPLY Qty: 500 3RF Rx Instructions: QID prednisone 10 mg tablet See Rx Instructions PO DIRECTED Qty: 30 0RF Rx Instructions: Taper orally as directed; Day 1-3 take 4 tablets every AM. Day 4-6 take 3 tablets every AM. Day 7-9 take 2 tablets every AM. Day 10-12 take 1 tablet every AM. cholecalciferol (vitamin D3) 50 mcg (2,000 unit) capsule 50 mcg PO DAILY Qty: 30 2RF pregabalin [Lyrica] 200 mg capsule 400 mg PO HS Qty: 60 1RF (DME) FreeStyle Sherron 3 [place] Misc See Rx Instructions .Route Qty: 1 0RF Rx Instructions: As directed azithromycin [Zithromax Z-Beau] 250 mg tablet See Rx Instructions PO .COMPLEX Qty: 6 0RF Rx Instructions: take 500 mg today (day 1), then 250 mg for 4 days (days 2-5) PO albuterol sulfate 2.5 mg /3 mL (0.083 %) solution for nebulization 2.5 mg inhalation Q4-6H PRN (Reason: shortness of breath or wheezing) Qty: 90 3RF triamcinolone acetonide 0.5 % cream 1 applic topical TID PRN (Reason: rash) Qty: 30 1RF fluticasone propionate 50 mcg/actuation spray,suspension See Rx Instructions .ROUTE .COMPLEX Qty: 16 3RF Dose Instruction: USE 1 SPRAY IN EACH NOSTRIL DAILY Rx Instructions: USE 1 SPRAY IN EACH NOSTRIL DAILY (DME) pen needle, diabetic [TechLITE Pen Needle] 32 gauge x needle See Rx Instructions .Route Qty: 100 11RF Rx Instructions: Use once daily (DME) insulin syringes (disposable) 1 mL syringe See Rx Instructions .ROUTE .MEDSUPPLY Qty: 500 0RF Rx Instructions: As directed omeprazole 40 mg capsule,delayed release(DR/EC) See Rx Instructions .ROUTE .COMPLEX Qty: 30 5RF Dose Instruction: TAKE 1 CAPSULE BY MOUTH EVERY DAY Rx Instructions: TAKE 1 CAPSULE BY MOUTH EVERY DAY (DME) 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 meter [OneTouch Ultra2 Meter] [facility] See Rx Instructions .ROUTE .COMPLEX Qty: 1 0RF Dose Instruction: DIRECTED Rx Instructions: DIRECTED venlafaxine 150 mg capsule,extended release 24hr See Rx Instructions .ROUTE .COMPLEX Qty: 90 1RF Dose Instruction: TAKE 1 CAPSULE BY MOUTH EVERY DAY Rx Instructions: TAKE 1 CAPSULE BY MOUTH EVERY DAY Trulicity 0.75 mg/0.5 mL pen injector See Rx Instructions .ROUTE .COMPLEX Qty: 2 2RF Dose Instruction: 0.75 MG (0.5 ML) SUBCUTANEOUSLY WEEKLY Rx Instructions: 0.75 MG (0.5 ML) SUBCUTANEOUSLY WEEKLY quetiapine 100 mg tablet See Rx Instructions .ROUTE .COMPLEX Qty: 90 3RF Dose Instruction: TAKE 1 TABLET BY MOUTH AT BEDTIME Rx Instructions: TAKE 1 TABLET BY MOUTH AT BEDTIME meloxicam 15 mg tablet See Rx Instructions .ROUTE .COMPLEX Qty: 90 1RF Dose Instruction: TAKE 1 TABLET BY MOUTH EVERY DAY Rx Instructions: TAKE 1 TABLET BY MOUTH EVERY DAY loratadine 10 mg tablet See Rx Instructions .ROUTE .COMPLEX Qty: 30 5RF Dose Instruction: TAKE 1 TABLET BY MOUTH EVERY DAY Rx Instructions: TAKE 1 TABLET BY MOUTH EVERY DAY Steglatro 5 mg tablet See Rx Instructions .ROUTE .COMPLEX Qty: 30 3RF Dose Instruction: TAKE 1 TABLET BY MOUTH EVERY DAY IN THE MORNING Rx Instructions: TAKE 1 TABLET BY MOUTH EVERY DAY IN THE MORNING (DME) OneTouch Ultra Test Strip See Rx Instructions .ROUTE .COMPLEX Qty: 100 5RF Dose Instruction: TEST BLOOD SUGAR FOUR TIMES DAILY Rx Instructions: TEST BLOOD SUGAR FOUR TIMES DAILY (DME) lancets [OneTouch Delica Plus Lancet] 33 gauge [facility] See Rx Instructions .ROUTE .COMPLEX Qty: 100 1RF Dose Instruction: CHECK BLOOD GLUCOSE UP TO 4 TIMES DAILY Rx Instructions: CHECK BLOOD GLUCOSE UP TO 4 TIMES DAILY insulin glargine [Lantus Solostar U-100 Insulin] 100 unit/mL (3 mL) insulin pen See Rx Instructions .ROUTE .COMPLEX Qty: 15 0RF Dose Instruction: INJECT 20 UNITS SUBCUTANEOUSLY DAILY Rx Instructions: INJECT 20 UNITS SUBCUTANEOUSLY DAILY oxybutynin chloride 5 mg tablet extended release 24hr See Rx Instructions .ROUTE .COMPLEX Qty: 30 2RF Dose Instruction: TAKE 1 TABLET BY MOUTH EVERY DAY Rx Instructions: TAKE 1 TABLET BY MOUTH EVERY DAY insulin lispro [Humalog U-100 Insulin] 100 unit/mL solution See Rx Instructions .ROUTE .COMPLEX Qty: 30 0RF Dose Instruction: INJECT 70 UNITS SUBCUTANEOUSLY 3 TIMES A DAY Rx Instructions: INJECT 70 UNITS SUBCUTANEOUSLY 3 TIMES A DAY atorvastatin 20 mg tablet See Rx Instructions .ROUTE .COMPLEX Qty: 90 2RF Dose Instruction: TAKE 1 TABLET BY MOUTH EVERYDAY AT BEDTIME Rx Instructions: TAKE 1 TABLET BY MOUTH EVERYDAY AT BEDTIME albuterol sulfate 90 mcg/actuation HFA aerosol inhaler See Rx Instructions .ROUTE .COMPLEX Qty: 18 2RF Dose Instruction: INHALE 1 PUFF BY MOUTH EVERY 4 HOURS NEEDED FOR SHORTNESS OF BREATH OR WHEEZING Rx Instructions: INHALE 1 PUFF BY MOUTH EVERY 4 HOURS NEEDED FOR SHORTNESS OF BREATH OR WHEEZING (DME) FreeStyle Sherron 3 Plus Sensor Device See Rx Instructions .Route Qty: 1 0RF Rx Instructions: As directed tizanidine 2 mg tablet See Rx Instructions .ROUTE .COMPLEX Qty: 90 0RF Dose Instruction: TAKE 1 TABLET BY MOUTH 3 TIMES A DAY NEEDED FOR MUSCLE SPASTICITY Rx Instructions: TAKE 1 TABLET BY MOUTH 3 TIMES A DAY NEEDED FOR MUSCLE SPASTICITY Follow-up/Referrals: Rolando Pedersen MD [Physician] - 12/15/24 Yenny Hernández NP [Primary Care Provider] -
== END 2024-12-12 14:18 | disposition home or self-care (01) ==
LOC: CHSED 14:18
PROVIDERS: Emergency Provider Emergency Medicine; PCP Nurse Practitioner Family
DX: L72.8 Other follicular cysts of the skin and subcutaneous tissue (principal); J44.9 Chronic obstructive pulmonary disease, unspecified; E78.5 Hyperlipidemia, unspecified; E11.9 Type 2 diabetes mellitus without complications; F17.210 Nicotine dependence, cigarettes, uncomplicated
CPT/HCPCS: 99283

== ENCOUNTER 2024-12-26 10:42 | Emergency (ER) | payer OTHER, SELFPAY ==
[2024-12-26] VITALS (49 sets, daily range): BP systolic 97–149; BP diastolic 61–99; PULSE 69–114; RESP 15–29; TEMP 36.4–36.9; O2SAT 91–99
--- NOTE | ~2024-12-26 | CT_ITS ---
CT soft tissue neck wo con Ordering provider: Jin Quiroz MD History: 49 years Female with . Spider bite on Lt. side of neck, just below jawline x1mo . Comparison: None. Technique: CT soft tissues neck was performed without contrast. . Automated exposure control and ite rative reconstruction technique were employed. The dose-length product was 381.40 mGy-cm. Findings: LOWER HEAD: The visualized brain parenchyma, optic globes/orbits and mastoids are normal. The visua lized paranasal sinuses are well aerated. SALIVARY GLANDS: Normal. Lymph nodes seen deep to the left parotid the gland measuring 1.1 cm. THYROID: Normal. SUPRAHYOID DEEP SPACES: Left parapharyngeal space lymph node is seen measuring 1.1 cm. Otherwise, nor mal. CAROTID ARTERIES: Normal. JUGULAR VEINS: Normal. TONSILS: Normal. ORAL CAVITY: Partially obscured by dental amalgam but normal as visualized. PHARYNX, LARYNX AND TRACHEA: Patent and normal. No prevertebral soft tissue swelling. SUPERFICIAL SOFT TISSUES: Focal area of fat stranding or hematoma seen in the left side of the neck j ust lateral to the left masseter muscle measuring 2 x 1 cm. Another soft tissue density is seen in th e subcutaneous tissues in the area just inferior to the left parotid the gland measuring 0.7 x 1.2 cm . Otherwise, Normal. No lymphadenopathy or neck mass. THORACIC INLET/VISUALIZED UPPER CHEST: Normal. mediastinal lymph node is seen measuring 1.1 cm. SKELETAL: Age appropriate degenerative changes. IMPRESSION: 1. 2 focal areas seen in the left upper neck seen one lateral to the left masseter muscle and the ot her just inferior to the left parotid gland may be the site of focal infection. Follow-up and clinica l correlation advised. 2. No other significant abnormality seen. 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 IMPRESSION: 1. 2 focal areas seen in the left upper neck seen one lateral to the left mass eter muscle and the other just inferior to the left parotid gland may be the si te of focal infection. Follow-up and clinical correlation advised. 2. No other significant abnormality seen.
--- NOTE | ~2024-12-26 | XR_ITS ---
EXAMINATION: XR chest 1V portable 12/26/2024 11:07 INDICATION: Shortness of breath, nausea and vomiting PROCEDURE: AP portable chest COMPARISON: 10/20/2021 FINDINGS: The lungs are clear. The cardiomediastinal silhouette is within normal limits. There are no pleural effusions. There is no pneumothorax suspected. IMPRESSION: 1: NO ACUTE CARDIOPULMONARY DISEASE. 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
--- OUTSIDE RECORDS SUMMARY | 2024-12-26 10:47 | XMS_ITS | Clinical Summary ---
Author Organization [facility] [employer] Address [address] [place] [address] Care Team Providers Care Toe Former Name Role Phone Yenny Hernández FILTER TANK OPERATOR-HIGH SCHOOL FRENCH TEACHER Primary Care Provid er Source Comments [facility] [employer],non-owned Affiliates and Associated Physician Practices is amultiple site organization consisting of ambulatory clinics and hospital sitesin [place], [place], [place] and [place]. This disclosure is being madepursuant to the Care Everywhere program and may not contain all information available regarding this patient. Last updated 18.[facility] [employer] Allergies Active Allergy Reactions Criticality Noted Date [...] 1:13 PM CDT Height 162.6 cm (5' 4) 10/18/2020 1:13 PM CDT Body Mass Index [...] this topic Medical Devices Implanted Type Area Outpatient Clerk Device Identifier Shelf Expiration Date Model / Serial / Lot Stent Uret 6fr 24cm Pgtl Crv Tpr Tip Implanted:Qty: 1 on 10/12/2020 by Dariel Gudino MD at [facility] Right: [employer] 07/04/2023 [id number] / / [id number] Procedures Procedure Name Priority Date/Time Associated Diagnosis [...] Specimen Type Venous 10/12/2020 7:59 AM CDT [facility] Blood BLOOD SPECIMEN / Unknown 10/12/2020 7:58 AM CDT 10/12/2020 7:59 AM CDT us Dariel Gudino MD LAB - POINT OF CARE ORDERA BLES Final Result [facility] [address] [place] [id number], [facility] [phone] from Last 3 Months or Most Recently Relevant to Health Maintenance Insurance [facility] Care Teams Toe Former Relationship Specialty Start Date End Date Yenny Hernández, FILTER TANK OPERATOR-HIGH SCHOOL FRENCH TEACHER [address] [place] [address] PCP - General 06/16/20
--- OUTSIDE RECORDS SUMMARY | 2024-12-26 10:47 | XMS_ITS | Clinical Summary ---
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
--- OUTSIDE RECORDS SUMMARY | 2024-12-26 10:47 | XMS_ITS | Referral Summary ---
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
--- OUTSIDE RECORDS SUMMARY | 2024-12-26 10:47 | XMS_ITS | Clinical Summary ---
Author Organization [facility] Address [address] [place] [address] Phone Care Team Providers Care Receiver/Laborer Name Role Phone Yenny Hernández Fred CALENDER SUPERVISOR, [facility] Primary Care Provi feliberto Allergies Active Allergy [...] 2:07 PM CDT Height 162.6 cm (5' 4) 05/12/2020 2:07 PM CDT Body Mass Index [...] this topic Insurance MEDICAID [place] Care Teams Receiver/Laborer Relationship Specialty Start Date End Date Yenny Hernández, CALENDER SUPERVISOR, RECEPTIONIST [employer] [address] [place] [address] PCP - General Advanced Practice Nurse 05/05/20
[2024-12-26 10:52] LABS: Glucose Point of Care 369 mg/dl (65-105)
[2024-12-26] MEDS: SODIUM CHLORIDE 0.9% IV 1,000 ML 999 ML IV CONT ×2 (11:34→12:23)
[2024-12-26] MEDS: ONDANSETRON INJ 4 MG/2 ML VIAL IV PUSH (11:34)
[2024-12-26 11:39] LABS: Hemoglobin 16.5 g/dL (12.0-15.0); Mean Corpuscular HGB Conc 34.4 g/dL (32-36); Mean Corpuscular Hemoglobin 30.6 pg (27.0-31.0); Mean Corpuscular Volume 89.1 fL (78.0-102.0); Mean Platelet Volume 9.6 fl (9.2-11.8); Platelet Count Result 286 K/mm3 (150-420); Red Blood Count 5.39 M/mm3 (4.20-5.40); Red Cell Distribution Width 13.2 % (11.6-14.4); White Blood Count 18.3 K/mm3 (4.8-10.8)
[2024-12-26 11:57] LABS: Alanine Aminotransferase 32 U/L (6-35); Albumin Level 4.3 g/dL (3.5-5.1); Alkaline Phosphatase 81 U/L (38-126); Anion Gap 11 mmol/L (4-12); Aspartate Amino Transferase 37 U/L (14-36); Bilirubin,Total 0.7 mg/dL (0.2-1.3); Blood Urea Nitrogen 13 mg/dL (7-17); Calcium 9.3 mg/dL (8.4-10.2); Carbon Dioxide 21 mmol/L (22-30); Chloride 104 mmol/L (98-107); Estimated CRCL calculation 68 ml/min; Estimated Glomerular Filt Rate > 60; Glucose 338 mg/dL (65-110); Lactic Acid Reflex 3.8 mmol/L (0.4-2.0); Lipase 195 U/L (23-300); Osmolality Calculated 295 mOsm/kg (285-295); Sodium 136 mmol/L (137-145); Total Protein 7.3 g/dL (6.3-8.2)
--- NOTE | 2024-12-26 12:13 | ECG_ITS ---
Test Date: 2024-12-26 12:23:34 Measurements Intervals [place] Rate: 86 P: 31 [place]: 147 QRS: -42 QRSD: 97 T: 91 QT: 271 QTc: 326 Interpretive Statements SINUS RHYTHM LEFT AXIS DEVIATION PATTERN CONSISTENT WITH PULMONARY DISEASE NONSPECIFIC T-WAVE ABNORMALITY- HIGH LATERAL LEADS BASELINE ARTIFACT- I, II, AVR BORDERLINE ECG Compared to ECG 12/30/2023 20:01:15 HEART RATE HAS DECREASED Electronically Signed On 12-27-2024 07:01:36 CDT by Jr Mccracken D.O.
[2024-12-26] MEDS: KCL 20 MEQ/SW 100 ML 100 ML 50 MEQ IVPB (12:23)
[2024-12-26] MEDS: POTASSIUM BICARBONATE 25 MEQ TABEF 50 MEQ PO (12:24)
--- NOTE | 2024-12-26 12:51 | ED.FEVER ---
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 insulin syringe-needle U-100 1 mL 27 gauge x 1/2 syringe See Rx Instructions .ROUTE .MEDSUPPLY Qty: 500 3RF Rx Instructions: QID cholecalciferol (vitamin D3) 50 mcg (2,000 unit) capsule 50 mcg PO DAILY Qty: 30 2RF (DME) FreeStyle Sherron 3 [place] See Rx Instructions .Route Qty: 1 0RF Rx Instructions: As directed albuterol sulfate 2.5 mg /3 mL (0.083 %) solution for nebulization 2.5 mg inhalation Q4-6H PRN (Reason: shortness of breath or wheezing) Qty: 90 3RF triamcinolone acetonide 0.5 % cream 1 applic topical TID PRN (Reason: rash) Qty: 30 1RF fluconazole 150 mg tablet 150 mg PO ONCE Qty: 2 0RF Rx Instructions: Take first dose today and repeat in 3 days doxycycline monohydrate 100 mg capsule 100 mg PO BID Qty: 20 0RF mupirocin 2 % ointment 1 applic topical BID Qty: 22 0RF fluticasone propionate 50 mcg/actuation spray,suspension See Rx Instructions .ROUTE .COMPLEX Qty: 16 3RF Dose Instruction: USE 1 SPRAY IN EACH NOSTRIL DAILY Rx Instructions: USE 1 SPRAY IN EACH NOSTRIL DAILY (DME) pen needle, diabetic [TechLITE Pen Needle] 32 gauge x 5/32 needle See Rx Instructions .Route Qty: 100 11RF Rx Instructions: Use once daily (DME) insulin syringes (disposable) 1 mL syringe See Rx Instructions .ROUTE .MEDSUPPLY Qty: 500 0RF Rx Instructions: As directed omeprazole 40 mg capsule,delayed release(DR/EC) See Rx Instructions .ROUTE .COMPLEX Qty: 30 5RF Dose Instruction: TAKE 1 CAPSULE BY MOUTH EVERY DAY Rx Instructions: TAKE 1 CAPSULE BY MOUTH EVERY DAY (DME) 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 meter [OneTouch Ultra2 Meter] [facility] See Rx Instructions .ROUTE .COMPLEX Qty: 1 0RF Dose Instruction: DIRECTED Rx Instructions: DIRECTED venlafaxine 150 mg capsule,extended release 24hr See Rx Instructions .ROUTE .COMPLEX Qty: 90 1RF Dose Instruction: TAKE 1 CAPSULE BY MOUTH EVERY DAY Rx Instructions: TAKE 1 CAPSULE BY MOUTH EVERY DAY Trulicity 0.75 mg/0.5 mL pen injector See Rx Instructions .ROUTE .COMPLEX Qty: 2 2RF Dose Instruction: 0.75 MG (0.5 ML) SUBCUTANEOUSLY WEEKLY Rx Instructions: 0.75 MG (0.5 ML) SUBCUTANEOUSLY WEEKLY quetiapine 100 mg tablet See Rx Instructions .ROUTE .COMPLEX Qty: 90 3RF Dose Instruction: TAKE 1 TABLET BY MOUTH AT BEDTIME Rx Instructions: TAKE 1 TABLET BY MOUTH AT BEDTIME meloxicam 15 mg tablet See Rx Instructions .ROUTE .COMPLEX Qty: 90 1RF Dose Instruction: TAKE 1 TABLET BY MOUTH EVERY DAY Rx Instructions: TAKE 1 TABLET BY MOUTH EVERY DAY loratadine 10 mg tablet See Rx Instructions .ROUTE .COMPLEX Qty: 30 5RF Dose Instruction: TAKE 1 TABLET BY MOUTH EVERY DAY Rx Instructions: TAKE 1 TABLET BY MOUTH EVERY DAY Steglatro 5 mg tablet See Rx Instructions .ROUTE .COMPLEX Qty: 30 3RF Dose Instruction: TAKE 1 TABLET BY MOUTH EVERY DAY IN THE MORNING Rx Instructions: TAKE 1 TABLET BY MOUTH EVERY DAY IN THE MORNING (DME) OneTouch Ultra Test Strip See Rx Instructions .ROUTE .COMPLEX Qty: 100 5RF Dose Instruction: TEST BLOOD SUGAR FOUR TIMES DAILY Rx Instructions: TEST BLOOD SUGAR FOUR TIMES DAILY (DME) lancets [OneTouch Delica Plus Lancet] 33 gauge misc See Rx Instructions .ROUTE .COMPLEX Qty: 100 1RF Dose Instruction: CHECK BLOOD GLUCOSE UP TO 4 TIMES DAILY Rx Instructions: CHECK BLOOD GLUCOSE UP TO 4 TIMES DAILY insulin glargine [Lantus Solostar U-100 Insulin] 100 unit/mL (3 mL) insulin pen See Rx Instructions .ROUTE .COMPLEX Qty: 15 0RF Dose Instruction: INJECT 20 UNITS SUBCUTANEOUSLY DAILY Rx Instructions: INJECT 20 UNITS SUBCUTANEOUSLY DAILY oxybutynin chloride 5 mg tablet extended release 24hr See Rx Instructions .ROUTE .COMPLEX Qty: 30 2RF Dose Instruction: TAKE 1 TABLET BY MOUTH EVERY DAY Rx Instructions: TAKE 1 TABLET BY MOUTH EVERY DAY insulin lispro [Humalog U-100 Insulin] 100 unit/mL solution See Rx Instructions .ROUTE .COMPLEX Qty: 30 0RF Dose Instruction: INJECT 70 UNITS SUBCUTANEOUSLY 3 TIMES A DAY Rx Instructions: INJECT 70 UNITS SUBCUTANEOUSLY 3 TIMES A DAY atorvastatin 20 mg tablet See Rx Instructions .ROUTE .COMPLEX Qty: 90 2RF Dose Instruction: TAKE 1 TABLET BY MOUTH EVERYDAY AT BEDTIME Rx Instructions: TAKE 1 TABLET BY MOUTH EVERYDAY AT BEDTIME albuterol sulfate 90 mcg/actuation HFA aerosol inhaler See Rx Instructions .ROUTE .COMPLEX Qty: 18 2RF Dose Instruction: INHALE 1 PUFF BY MOUTH EVERY 4 HOURS NEEDED FOR SHORTNESS OF BREATH OR WHEEZING Rx Instructions: INHALE 1 PUFF BY MOUTH EVERY 4 HOURS NEEDED FOR SHORTNESS OF BREATH OR WHEEZING (DME) FreeStyle Sherron 3 Plus Sensor Device See Rx Instructions .Route Qty: 1 0RF Rx Instructions: As directed tizanidine 2 mg tablet See Rx Instructions .ROUTE .COMPLEX Qty: 90 0RF Dose Instruction: TAKE 1 TABLET BY MOUTH 3 TIMES A DAY NEEDED FOR MUSCLE SPASTICITY Rx Instructions: TAKE 1 TABLET BY MOUTH 3 TIMES A DAY NEEDED FOR MUSCLE SPASTICITY pregabalin [Lyrica] 200 mg capsule 400 mg PO HS Qty: 60 1RF (DME) Dexcom G7 Sensor Device See Rx Instructions .Route Qty: 1 0RF Rx Instructions: As directed (DME) Dexcom G7 Rehabilitation Services Aide Misc See Rx Instructions .Route Qty: 1 0RF Rx Instructions: As directed Follow-up/Referrals: Yenny Hernández CIRCULAR SHEAR OPERATOR [Primary Care Provider] -
[2024-12-26 12:52] LABS: Glucose Point of Care 221 mg/dl (65-105)
[2024-12-26 12:52] LABS: Influenza A QL RT-PCR Negative (Negative); Influenza B QL RT-PCR Negative (Negative); RSV RNA, RT-PCR Negative (Negative); SARS-CoV-2 RNA PCR Negative (Negative)
[2024-12-26 12:58] LABS: Add Urine Microscopic? NO; Appearance Urine Clear (Clear); Bilirubin Urine Negative (Negative); Blood Urine Negative (Negative); Color Urine Light Yellow (Yellow); Glucose Urine UA 3+ (Negative); Ketones Urine Negative (Negative); Leukocyte Esterase Ur Negative LEU/UL (Negative); Nitrate Urine Negative (Negative); Protein Urine Negative (Negative); Specific Grav Ur <= 1.005 (1.010-1.020); Urobilinogen Urine 0.2 mg/dL (0.2-1.0); pH Urine 5.5 (5.0-8.0)
[2024-12-26 13:11] LABS: Magnesium 1.8 mg/dL (1.6-2.3)
[2024-12-26 13:23] LABS: Band Neutrophils Percent 0 % (0-6); Basophils Percent Manual 0 % (0-1); Eosinophils Percent Manual 0 % (1-6); Lymphocytes Absolute Manual 6.95 K/mm3 (1.1-4.5); Lymphocytes Percent Manual 38 % (18-44); Monocytes Absolute Manual 0.18 K/mm3 (0.1-0.90); Monocytes Percent Manual 1 % (3-9); Neutrophils Absolute Manual 11.16 K/mm3 (1.3-6.7); Neutrophils Percent Manual 61 % (46-73); Total Cells Counted 100
[2024-12-26 13:25] LABS: Platelet Estimate Adequate (Adequate)
[2024-12-26 13:28] LABS: Reflex Lactic Acid Yes or No Add Lactic
[2024-12-26 13:40] LABS: Potassium 2.7 mmol/L (3.4-5.0)
[2024-12-26 13:59] LABS: Lactic Acid 1.9 mmol/L (0.7-2.0)
[2024-12-26 15:57] LABS: Glucose Point of Care 135 mg/dl (65-105)
--- NOTE | 2024-12-28 13:19 | PC.NURSE ---
preliminary blood culture, no growth. pt transferred to [facility]
--- NOTE | 2025-01-02 12:36 | PC.NURSE ---
FINAL BLOOD CULTURE NO GROWTH AFTER 5 DAYS
== END 2024-12-26 17:44 | disposition short-term general hospital (02) ==
PROVIDERS: Emergency Provider Emergency Medicine; PCP Nurse Practitioner Family
DX: L03.211 Cellulitis of face (principal); L02.01 Cutaneous abscess of face; E11.65 Type 2 diabetes mellitus with hyperglycemia; J44.9 Chronic obstructive pulmonary disease, unspecified; F17.210 Nicotine dependence, cigarettes, uncomplicated; Z20.822 Contact with and (suspected) exposure to COVID-19
CPT/HCPCS: 36415; 70490; 71045; 80053; 81003; 82948; 83605; 83690; 83735; 85025; 87040; 87637; 93005; 96361; 96365; 96366; 96368; 96375; 99285; A9270; J0696; J2405; J3480; J7030

== ENCOUNTER 2024-12-31 09:06 | Outpatient (CLI) | payer OTHER, SELFPAY ==
[2024-12-31 09:32] LABS: Basophils Absolute Auto 0.12 K/mm3 (0.00-0.10); Basophils Percent Auto 1.3 % (0.0-1.0); Eosinophils Absolute Auto 0.34 K/mm3 (0.02-0.50); Eosinophils Percent Auto 3.7 % (1.0-6.0); Hematocrit 47.6 % (35.0-49.0); Hemoglobin 15.6 g/dL (12.0-15.0); Immature Granulocyte Absolute 0.03 K/mm3 (0.00-0.00); Immature Granulocyte Percent A 0.3 % (0.0-0.0); Lymphocytes Absolute Auto 3.91 K/mm3 (1.10-4.50); Mean Corpuscular HGB Conc 32.8 g/dL (32-36); Mean Corpuscular Hemoglobin 30.5 pg (27.0-31.0); Mean Platelet Volume 9.6 fl (9.2-11.8); Monocytes Absolute Auto 0.65 K/mm3 (0.10-0.90); Neutrophils Absolute Auto 4.26 K/mm3 (1.70-7.20); Neutrophils Percent Auto 45.7 % (50.0-70.0); Platelet Count Result 277 K/mm3 (150-420); Red Blood Count 5.12 M/mm3 (4.20-5.40); Red Cell Distribution Width 12.8 % (11.6-14.4); White Blood Count 9.3 K/mm3 (4.8-10.8)
--- OUTSIDE RECORDS SUMMARY | 2024-12-31 09:39 | XMS_ITS | Referral Summary ---
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 Care Teams Dermatology Nurse Relationship Specialty Start Date End Date Josh Kidd MD [address] [place] [id number] PCP - General 10/02/18
--- OUTSIDE RECORDS SUMMARY | 2024-12-31 09:39 | XMS_ITS | Clinical Summary ---
Author Organization [facility] Address [address] [place] [address] Care Team Providers Care Balloon Sander Name Role Phone Yenny Hernández ENGINEERING EQUIPMENT OPERATOR-FINANCIAL SECRETARY Primary Care Provid er Source Comments [facility],non-owned Affiliates and Associated Physician Practices is amultiple site organization consisting of ambulatory clinics and hospital sitesin [place] and [place]. This disclosure is being madepursuant to the Care Everywhere program and may not contain all information available regarding this patient. Last updated 18.[facility] Allergies Active Allergy Reactions Criticality Noted Date [...] Last Done Comments COLOGUARD (AGES 45-75) - COLON CA SCREENING 1973 COLON MONITORING 1973 COLONOSCOPY [...] of 2) 2023 SCREENING FOR DIABETES 10/13/2023 , 10/12/2020, 11/27/2018, Additional history exists COVID-19 VACCINE (1 - 2023- season) 2024 DEPRESSION SCREENING 07/29/2024 INFLUENZA VACCINE [...] A/C/Y/W VACCINE Aged Out No longer eligible based on patient's age to complete this topic Medical Devices Implanted Type Area Pump Runner Device Identifier Shelf Expiration Date Model / Serial / Lot Stent Uret 6fr 24cm Pgtl Crv Tpr Tip Implanted:Qty: 1 on 10/12/2020 by Dariel Gudino MD at [facility] Right: Ureter [employer] 07/04/2023 [id number] / / [id number] Procedures Procedure Name Priority Date/Time Associated Diagnosis Comments GLUCOSE - POINT OF CARE Routine 10/12/2020 7:58 AM CDT from Last 3 Months or Most Recently Relevant to Health Maintenance Results * (ABNORMAL) GLUCOSE - POINT OF CARE (10/12/2020 7:58 AM CDT) Glucose WB/POC 160(H) 70 - 115 mg/dL 10/12/2020 7:59 AM CDT [facility] Specimen Type Venous 10/12/2020 7:59 AM CDT [facility] Blood BLOOD SPECIMEN / Unknown 10/12/2020 7:58 AM CDT 10/12/2020 7:59 AM CDT us Dariel Gudino MD LAB - POINT OF CARE ORDERA BLES Final Result [address] [address], [place] [phone] from Last 3 Months or Most Recently Relevant to Health Maintenance Insurance [facility] Care Teams Balloon Sander Relationship Specialty Start Date End Date Yenny Hernández, ENGINEERING EQUIPMENT OPERATOR-FINANCIAL SECRETARY [address] [place] [address] PCP - General 06/16/20
--- OUTSIDE RECORDS SUMMARY | 2024-12-31 09:39 | XMS_ITS | Clinical Summary ---
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
--- OUTSIDE RECORDS SUMMARY | 2024-12-31 09:39 | XMS_ITS | Clinical Summary ---
Author Organization [facility] Address [address] [place] [address] Phone Care Team Providers Care Display Mechanic Name Role Phone Yenny Hernández Fred ADJUNCT INSTRUCTOR, [facility] Primary Care Provi feliberto Allergies Active Allergy [...] 2023 Zoster Immunization (1 of 2) 2023 SARS-COV-2 Immunization (1 - season) 2024 Influenza Immunization (Seas on Ended) 2025 05/05/2019 Respiratory Syncytial Virus (RSV) Immunization (Adult) (1 - 1-dose 75+ series) 2048 Pneumococcal Immunization Combined Discontinued 2019 Human Papillomavirus (HPV) Immunization Aged Out No longer eligible b ased on patient's age to complete this topic Meningococcal Immunization (ACWY) Aged Out No longer eligible based on patient's age to complete this topic Rotavirus Immunization Aged Out No lo nger eligible based on patient's age to complete this topic Insurance MEDICAID [place] Care Teams Display Mechanic Relationship Specialty Start Date End Date Yenny Hernández, ADJUNCT INSTRUCTOR, CLINICAL APPLICATIONS MANAGER [address] [phone] PCP - General Advanced Practice Nurse 05/05/20
[2024-12-31 10:05] LABS: Alanine Aminotransferase 34 U/L (6-35); Albumin Level 4.3 g/dL (3.5-5.1); Alkaline Phosphatase 72 U/L (38-126); Anion Gap 6 mmol/L (4-12); Aspartate Amino Transferase 38 U/L (14-36); Bilirubin,Total 0.4 mg/dL (0.2-1.3); Blood Urea Nitrogen 10 mg/dL (7-17); Calcium 9.7 mg/dL (8.4-10.2); Carbon Dioxide 32 mmol/L (22-30); Chloride 107 mmol/L (98-107); Estimated Glomerular Filt Rate > 60; Glucose 165 mg/dL (65-110); Osmolality Calculated 303 mOsm/kg (285-295); Potassium 4.8 mmol/L (3.4-5.0); Sodium 145 mmol/L (137-145); Total Protein 7.2 g/dL (6.3-8.2)
== END 2024-12-31 09:07 | disposition home or self-care (01) ==
PROVIDERS: PCP Nurse Practitioner Family; Visit Provider Nurse Practitioner Family
DX: E87.6 Hypokalemia (principal); D72.829 Elevated white blood cell count, unspecified
CPT/HCPCS: 36415; 80053; 85025

== ENCOUNTER 2025-02-07 05:26 | Emergency (ER) | payer OTHER, SELFPAY ==
--- NOTE | ~2025-02-07 | XR_ITS ---
Portable chest x-ray Comparison: 12/26/2024 Clinical History: Shortness of breath Findings: Lungs are clear, without focal consolidation or pleural effusion. Cardiomediastinal silho uette is stable. Bones and soft tissues are unremarkable. Impression: Clear lungs. Reviewed, dictated and finalized at location . Impression: Clear lungs.
[2025-02-07 05:28] VITALS: BP 133/77; PULSE 104; RESP 22; TEMP 38.6; O2SAT 97
--- OUTSIDE RECORDS SUMMARY | 2025-02-07 05:28 | XMS_ITS | Encounter Summary ---
Author Organization [facility] Address [address] [place] [address] Care Team Providers Care Filter Tender Name Role Phone Josh Kidd MD Primary Care Provider [phone] Encounter Details Date Type Department Care Team (Late st Contact Info) Description 01/03/2019 Abstract SFL CONVERSION [address] [place] [address] , Generic Conversion, Social History Tobacco Use [...] Information Value Date Recorded Sex Assigned at Female 12/26/2024 8:40 PM CDT Legal Sex Female 10:01 PM JOB TRAINING SPECIALIST Gender Identity Female 12/26/2024 8:40 PM CDT Sexual Orientation Straight 12/26/2024 8: 40 PM CDT documented as of this encounter Plan of Treatment Not on file documented as of this encounter Visit Diagnoses Not on filedocumented in this encounter Care Teams Filter Tender Relationship Specialty Start Date End Date Josh Kidd MD [address] [place] [address] PCP - General FAMILY PRACTICE 11/26/18 documented as of this encounter
--- OUTSIDE RECORDS SUMMARY | 2025-02-07 05:29 | XMS_ITS | Clinical Summary ---
Author Organization [facility] Address [address] [place] [address] Phone Care Team Providers Care Dairy And Food Laboratory Assistant Name Role Phone Yenny Hernández Fred ENGINE ASSEMBLER, [facility] Primary Care Provi feliberto Allergies Active [...] of 3 - 19+ 3-dose series) 1992 Cologuard 2018 Colonoscopy 2018 Colorectal Cancer Screening 2018 Immunochemical Fecal Occult Blood 2018 Pneumococcal Immunization (5 0+ years) (2 of 2 - PCV) 08/10/2020 08/10/2019 Zoster Immunization (1 of 2) 2023 SARS-COV-2 Immunization (1 - season) 2024 Influenza Immunization (#1) 2025 05/05/2019 Respiratory Syncytial Virus (RSV) Immunization [...] age to complete this topic Insurance MEDICAID [place] Care Teams Dairy And Food Laboratory Assistant Relationship Specialty Start Date End Date Yenny Hernández, ENGINE ASSEMBLER, STEAM PRESS OPERATOR [address] [place] [address] PCP - General Advanced Practice Nurse 05/05/20
--- OUTSIDE RECORDS SUMMARY | 2025-02-07 05:29 | XMS_ITS | Clinical Summary ---
Author Organization [facility] Address [address] [place] [address] Care Team Providers Care Application Lead Name Role Phone Josh Kidd MD Primary Care Provider Allergies Active Allergy Reactions Criticality Noted Date Comments Latex Rash Low 10/28/2014 Tetracyclines & Related Rash Low 10/28/2014 Medications insulin glargine 100 UNIT/ML injection (PEN) Inject into the skin nightly at bedtime. Active cyclobenzaprine 10 MG tablet Take 1 tablet (10 mg total) by mouth 3 (three) times daily as needed for Muscle Spasms. Active trazodone 50 MG tablet Take 50-100 mg by mouth nightly as needed for Sleep. Active simvastatin 20 MG tablet Take 20 mg by mouth daily. Active pregabalin 100 MG capsule Take 1 capsule (100 mg total) by mouth 2 (two) times daily. Active omeprazole 40 MG capsuleIndicatio ns:One hour prior to largest meal Take 1 capsule (40 mg total) by mouth daily. Indications: One hour prior to largest meal Active diclofenac potassium 50 MG tablet Take 50 mg by mouth 3 (three) times daily. Active loratadine 10 MG tablet Take 1 tablet (10 mg total) by mouth daily. Active insulin lispro 100 UNIT/ML injection (VIAL)Indication s:Patient states she takes 60 units 3 times per day of Admelog, has a photo on cell phone showing the same. Inject 60 Units into the skin 3 (three) times daily before meals. Active venlafaxine 75 MG tablet Take 1 tablet (75 mg total) by mouth daily. Active liraglutide 18 MG/3ML [...] fill new script. 28 tablet 9 Active QUEtiapine (SEROQUEL) 100 MG tablet Take 1 tablet (100 mg total) by mouth nightly at bedtime. Active meloxicam (MOBIC) 15 MG tablet Take 1 tablet (15 mg total) by mouth daily. Active atorvastatin (LIPITOR) 20 MG tablet Take 1 tablet (20 mg total) by mouth nightly at bedtime. Active oxybutynin XL (DITROPAN-XL) 10 MG 24 hr tablet Take 1 tablet (10 mg total) by mouth daily. Active Active Problems Problem Noted Date Diagnosed Date Neck abscess 12/26/2024 Status migrainosus 11/27/2018 Chronic migraine w/o aura, not intractable, w st at migr 11/27/2018 Ischemic stroke ([facility]) 11/26/2018 Encounters Date Type Department Care Team Description 12/26/2024 6:58 PM CDT - 12/27/2024 9:40 PM CDT Hospital Encounter [facility] [address] [place] [address] Ash Lopes MD Mardani, Fareed, MD Sohail, Atif, MD Discharge Disposition: Left Against Medical Advice 12/26/2024 Travel from Last 3 Months Social History Tobacco Use Types Packs/Day Years Used Date Smoking Tobacco: Every Day Cigarettes 1 32 Smokeless Tobacco: Never Alcohol Use Standard Drinks/Week Comments No 0 (1 standard drink = 0.6 oz pur e alcohol) B1300 Health Literacy Answer Date Recor ded How often do you need to hav e someone help you when you read instructions, pamphlets, or other written material from your doctor or pharmacy? Never 12/26/2024 [facility] Utilities Answer Date Recorded In the past 12 [address] has e [address] gas, oil, or water [employer] threatened to shut off services in your home? No 12/26/2024 Humiliation, Afraid, Rape, and Kick questionnair e Answer Date Recorded Within the last year, have y ou been afraid of your partner or ex-partner? No 12/26/2024 Within the last year, have y ou been humiliated or emotionally abused in other ways by your partner or ex-partner? No Within the last year, have y ou been kicked, hit, slapped, or otherwise physically hurt by your partner or ex-partner? No 12/26/2024 Within the last year, have y ou been raped or forced to have any kind of sexual activity by your partner or ex-partner? No 12/26/2024 Social Connection and Isolat ion Panel [NHANES] Answer Date Recorded In a typical week, how many times do you talk on the phone with family, friends, or neighbors? More than three times a week 12/26/2024 How often do you get togethe r with friends or relatives? More than three times a week 12/26/2024 How often do you attend chur ch or christianity services? Never 12/26/2024 Do you belong to any clubs o r organizations such as synagogue groups, unions, fraternal or athletic groups, or school groups? No 12/26/2024 How often do you attend meet ings of the clubs or organizations you belong to? Never 12/26/2024 Are you , , di vorced, , never , or living with a partner? 12/26/2024 AUDIT-C Answer Date Recorded Q1: How often do you have a drink containing alcohol? Monthly or less 12/26/2024 Q2: How many drinks containi ng alcohol do you have on a typical day when you are drinking? Patient does not drink Q3: How often do you have si x or more drinks on one occasion? Never 12/26/2024 Overall Financial Resource Strain (CARDIA) Answe r Date Recorded How hard is it for you to pa y for the very basics like food, housing, medical care, and heating? Not hard at all 12/26/2024 [facility] [place] [facility] - Occupational Stress Questionnaire Answer Date Recorded Do you feel stress - tense, restless, nervous, or anxious, or unable to sleep at night because your mind is troubled all the time - these days? Only a little 12/26/2024 Hunger Vital Sign Answer Date Recorded Within the past 12 months, y ou worried that your food would run out before you got the money to buy more. Never true 12/27/19 25 Within the past 12 months, t he food you bought just didn't last and you didn't have money to get more. Never true 12/26/2024 PRAPARE - Transportation Answer Date Re corded In the past 12 months, has l ack of transportation kept you from medical appointments or from getting medications? No 11/28 In the past 12 months, has l ack of transportation kept you from meetings, work, or from getting things needed for daily living? No 12/26/2024 Housing Stability Vital Sign Answer Javan e Recorded In the last 12 months, was t here a time when you were not able to pay the mortgage or rent on time? No 12/26/2024 In the past 12 months, how m any times have you moved where you were living? 0 12/26/2024 At any time in the past 12 m [facility], were you homeless or living in a group home (including now)? 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 PM [employer] Gender Identity Female 12/26/2024 8:40 PM CDT Sexual Orientation Straight 12/26/2024 8: 40 PM CDT Last Filed Vital Signs Vital Sign Reading Time Taken Comments Blood Pressure 145/79 12/27/2024 8:06 PM CDT Pulse 90 12/27/2024 8:06 PM CDT Temperature 36.9 C (98.4 F) 12/27/2024 8:06 PM CDT Respiratory Rate 20 12/26/2024 7:46 PM CDT Oxygen Saturation 95% 12/27/2024 8:06 PM CDT Inhaled Oxygen Concentration - - Weight 85.3 kg (188 lb 0.8 oz) 12/26/2024 8:00 P M CDT Height 162.6 cm (5' 4) 12/26/2024 8:00 PM CDT Body Mass Index 32.28 12/26/2024 8:00 PM CDT Plan of Treatment Health Maintenance Due Date Last Done Comments Colorectal Cancer Screening Colonoscopy (10 Years) 1975 Annual Physical 1976 Hepatitis C 1991 DTaP, Tdap and Td Vaccines ( 1 - Tdap) 1992 Hepatitis B Vaccines (1 of 3 - 19+ 3-dose series) 1992 Mammogram Screening 2013 Pneumococcal Vaccine: 50+ Ye ars (2 of 2 - PCV) 08/10/2020 08/10/2019 Zoster Vaccines (1 of 2) 2023 COVID-19 Vaccine ( - 2023-2 5 season) 2024 Meningococcal B Vaccine Aged Out No l onger eligible based on patient's age to complete this topic Meningococcal Vaccine Aged Out No olya winston eligible based on patient's age to complete this topic RSV Immunizations Under 20 Months Aged Out No longer eligible based on patient's age to complete this topic Procedures Procedure Name Priority Date/Time Associated Diagnosis Comments POCT GLUCOSE - DOCKED DEVICE Routine 12/27/2024 8:08 PM CDT POCT GLUCOSE - DOCKED DEVICE Routine 12/27/2024 4:54 PM CDT POCT GLUCOSE - DOCKED DEVICE Routine 12/27/2024 12:45 PM CDT POTASSIUM, SERUM Routine 12/27/2024 12:1 1 PM CDT HEMOGLOBIN, GLYCOSYLATED Routine 12/27/2024 12:11 PM CDT CULTURE, WOUND, W/GRAM STAIN Nurse Collected Priority 12/27/2024 11:30 AM CDT CULTURE, ANAEROBIC Nurse Collected Priority 12/27/2024 11:30 AM CDT URINE BACTERIA CULTURE Nurse Collected Priority 12/27/2024 11:12 AM CDT POCT GLUCOSE - DOCKED DEVICE Routine 12/27/2024 6:13 AM CDT BASIC METABOLIC PANEL Routine 12/27/2024 4:01 AM CDT CBC W/DIFF AUTOMATED Routine 12/27/2024 4:01 AM CDT PATHOLOGY Routine 12/27/2024 12:00 AM CDT POCT GLUCOSE - DOCKED DEVICE Routine 12/26/2024 9:41 PM CDT ECG 12-LEAD Routine 12/26/2024 9:27 PM CDT LACTIC ACID W REFLEX (SEPSIS) STAT 12/26/2024 8:24 PM CDT COMPREHENSIVE METABOLIC PANEL Routine 12/26/2024 8:24 PM CDT CBC W/DIFF AUTOMATED Routine 12/26/2024 8:24 PM CDT CULTURE, BACTERIA, BLOOD Routine 12/26/2024 8:23 PM CDT CULTURE, BACTERIA, BLOOD Routine 12/26/2024 8:23 PM CDT POCT GLUCOSE - DOCKED DEVICE Routine 12/26/2024 7:48 PM CDT from Last 3 Months Results * (ABNORMAL) POCT glucose (12/27/2024 8:08 PM CDT) Only the most recent of6 resultswithin the time period is included. GLUCOSE POC 123(H) 70 - 109 12/27/2024 8:55 PM CDT [facility] 12/27/2024 8:08 PM CDT Jacques Ramirez MD POCT ORDERABLES - DEVICE Final R esult Performing Organization Address [facility] de Phone Number [facility] [address] [place] [address], [place] [phone] * (ABNORMAL) HEMOGLOBIN, GLYCOSYLATED (12/27/2024 12:11 PM CDT) HGB A1C 7.6(H) <5.7 % 12/27/2024 3:36 PM CDT [facility] ESTIMATED AVG GLUCOSE 171(H) 74 - 114 MG/DL 12/27/2024 3:36 PM CDT [facility] 12/27/2024 12:1 1 PM CDT Jacques Ramirez MD LABORATORY Final Result Performing Organization Address [facility] de Phone Number [facility] [address] [place] [address], [place] [phone] * POTASSIUM, SERUM (12/27/2024 12:11 PM CDT) POTASSIUM S/P/B 3.6 3.5 - 5.1 MMOL/L 12/27/2024 12:49 PM CDT [facility] 12/27/2024 12:1 1 PM CDT Jacques Ramirez MD LABORATORY Final Result Performing Organization Address [facility] de Phone Number [facility] [address] [place] [address], [place] [phone] * CULTURE, WOUND W/ GRAM STAIN (12/27/2024 11:30 AM CDT) SPEC DESCRIPTION CHEEK,LEFT 12/27/2024 3:09 PM CDT [facility] SPECIAL REQUESTS NO SPECIAL REQUEST 12/27/2024 3:09 PM CDT [facility] GRAM STAIN RESULT NO NEUTROPHILS OR ORGANISMS SEEN 12/27/2024 4:03 PM CDT [facility] CULTURE RESULT NO GROWTH 5 DAYS 01/01/2025 11:41 AM CDT [facility] CHEEK STRUCTURE / Unknown 12/27/2024 11:30 AM CDT 12/27/2024 3:09 PM CDT us Bree Mendez MD MICROBIOLOGY - GENERAL ORD ERABLES Final Result Performing Organization Address City/[facility]/ZIP Co de Phone Number [facility] [address] [place] [address], [place] [phone] * CULTURE, ANAEROBIC (12/27/2024 11:30 AM CDT) SPEC DESCRIPTION CHEEK,LEFT 12/27/2024 3:09 PM CDT [facility] SPECIAL REQUESTS NO SPECIAL REQUEST 12/27/2024 3:09 PM CDT [facility] CULTURE RESULT NO ANAEROBES ISOLATED 01/01/2025 11:41 AM CDT [facility] CHEEK STRUCTURE / Unknown 12/27/2024 11:30 AM CDT 12/27/2024 3:10 PM CDT us Bree Mendez MD MICROBIOLOGY - GENERAL ORD ERABLES Final Result Performing Organization Address City/[facility]/ZIP Co de Phone Number [facility] [address] [place] [address], [place] [phone] * CULTURE URINE (12/27/2024 11:12 AM CDT) SPEC DESCRIPTION URINE CLEAN CATCH 12/27/2024 11:12 AM CDT [facility] SPECIAL REQUESTS NO SPECIAL REQUEST 12/27/2024 11:12 AM CDT [facility] CULTURE RESULT NO GROWTH (< OR = 1,000 CFU/ML) 12/29/2024 8:54 AM CDT [facility] URINE SPECIMEN OBTAINED BY CLEAN CATCH PROCEDURE / Unknown 12/27/2024 11:12 AM CDT 12/27/2024 11:31 AM CDT us Vitor Larry MD MICROBIOLOGY - GENERAL ORDERAB LES Final Result [facility] [address] [place] [address], [phone] * (ABNORMAL) BASIC METABOLIC PANEL (12/27/2024 4:01 AM CDT) SODIUM S/P/B 149(H) 136 - 145 MMOL/L 12/27/2024 5:04 AM CDT [facility] POTASSIUM S/P/B 2.6(LL) 3.5 - 5.1 MMOL/L 12/27/2024 5:04 AM CDT [facility] Comment: Critical Result(s) Called to and read back by: JILL [id number] at: 05:02:52 12/27/2024 by LUCY. CHLORIDE S/P/B 118(H) 97 - 115 MMOL/L 12/27/2024 5:04 AM CDT [facility] CO2 25.0 21.0 - 32.0 MMOL/L 12/27/2024 5:04 AM CDT [facility] GLUCOSE 108(H) 74 - 106 MG/DL 12/27/2024 5:04 AM CDT [facility] BUN 6(L) 7 - 18 MG/DL 12/27/2024 5:04 AM CDT [facility] CREATININE S/P/B 0.42(L) 0.55 - 1.02 MG/DL 12/27/2024 5:04 AM CDT [facility] CALCIUM S/P/B 8.0(L) 8.5 - 10.1 MG/DL 12/27/2024 5:04 AM CDT [facility] ANION GAP 6.0 2.0 - 10.0 MMOL/L 12/27/2024 5:04 AM CDT [facility] OSMOLALITY (CALC) 306 MOSM/KG 025 5:04 AM CDT [facility] Comment:REFERENCE RANGE NOT ESTABLISHED GFR ESTIMATE >90 >90 ML/MIN/1. 73 M2 12/27/2024 5:04 AM CDT [facility] GFR NOTES GFR REFERENCE S: 12/27/2024 5:04 AM CDT [facility] Comment: THE ESTIMATED GFR IS CALCULATED USING THE 2020 CKD-EPI EQUATION. THE FOLLOWING CATEGORIES FOR GRADING RENAL FUNCTION ARE RECOMMENDED BY THE INTERNATIONAL SOCIETY OF NEPHROLOGY (KDIGO 2012 CLINICAL PRACTICE GUIDELINE). G1,NORMAL OR HIGH: >89 ml/min/1.73 m2 G2,MILDLY DECREASED: 60-89 ml/min/1.73 m2 G3A,MILDLY TO MODERATELY DECREASED: 45-59 ml/min/1.73 m2 G3B,MODERATELY TO SEVERELY DECREASED: 30-44 ml/min/1.73 m2 G4,SEVERELY DECREASED: 15-29 ml/min/1.73 m2 G5,KIDNEY FAILURE: <15 ml/min/1.73 m2 12/27/2024 4:01 AM CDT Vitor Larry MD LABORATORY Final Result [facility] [address] [place] [address], [phone] * (ABNORMAL) CBC W/DIFF AUTOMATED (12/27/2024 4:01 AM CDT) Only the most recent of2 resultswithin the time period is included. WBC 7.81 4.00 - 10.80 x10'3/uL 12/27/2024 4:10 AM CDT [facility] RBC 4.42 4.10 - 5.40 x10'6/uL 12/27/2024 4:10 AM CDT [facility] HGB 13.9 12.0 - 16.0 G/DL 12/27/2024 4:10 AM CDT [facility] HCT 40.0 36.0 - 47.0 % 12/27/2024 4:10 AM CDT [facility] MCV 90.5 78.0 - 100.0 FL 12/27/2024 4:10 AM CDT [facility] MCH 31.4(H) 27.0 - 31.0 PG 12/27/2024 4:10 AM CDT [facility] MCHC 34.8 33.0 - 36.0 G/DL 12/27/2024 4:10 AM CDT [facility] RDW 13.4 11.5 - 14.5 % 12/27/2024 4:10 AM CDT [facility] PLT 192 150 - 350 x10'3/uL 12/27/2024 4:10 AM CDT [facility] MPV 9.7 7.4 - 10.4 FL 12/27/2024 4:10 AM CDT [facility] DIFFERENTIAL TYPE MANUAL DIFFERENTIAL 12/27/2024 5:06 AM CDT [facility] NRBC % 0.0 % 12/27/2024 5:06 AM CDT [facility] SEG NEUTROPHILS 34 % 5:06 AM CDT [facility] LYMPHOCYTES 60 % 12/27/2024 5:06 AM CDT [facility] MONOCYTES 4 % 12/27/2024 5:06 AM CDT [facility] EOSINOPHILS 1 % 12/27/2024 5:06 AM CDT [facility] BASOPHILS 1 % 12/27/2024 5:06 AM CDT [facility] ABS. NEUTROPHILS 2.66 1.60 - 8.30 x10'3/uL 12/27/2024 5:06 AM CDT [facility] ABS. LYMPHOCYTES 4.69 0.80 - 4.70 x10'3/uL 12/27/2024 5:06 AM CDT [facility] ABS. MONOCYTES 0.31 0.00 - 1.50 x10'3/uL 12/27/2024 5:06 AM CDT [facility] ABS. EOSINOPHILS 0.08 0.00 - 0.40 x10'3/uL 12/27/2024 5:06 AM CDT [facility] ABS. BASOPHILS 0.08 0.00 - 0.20 x10'3/uL 12/27/2024 5:06 AM CDT [facility] ABS. NUCLEATED RBC'S 0.00 0.00 - 0.01 x10'3/uL 12/27/2024 5:06 AM CDT [facility] RBC MORPHOLOGY RBC MORPHOLOGY APPEARS NORMAL. SLIDE REVIEWED. 12/27/2024 5:06 AM CDT [facility] PLT EST. ADEQUATE 12/27/2024 5:06 AM CDT [facility] 12/27/2024 4:01 AM CDT us Vitor Larry MD LABORATORY Final Result [facility] [address] [place] [address], [phone] * Pathology (12/27/2024 12:00 AM CDT) PATHOLOGY [facility] Department of Laboratory Medicine [address] [place] [address] , extension [phone] Pathology Report Surgical Pathology Report Name: DAKOTA SHARIF Specimen #: [id number] Age: 8 1975 (Age: 49) Location: [facility] Sex: F Procedure Date: 12/27/2024 Hospital #: [id number] Date Received: 12/28/2024 Date Reported: 12/31/2024 Provider: ASH MENDEZ MD Source: Skin, left cheek, biopsy Clinical History: Left cheek lesion, growing for 1 month. Infectious versus malignancy versus inflammatory. FINAL DIAGNOSIS: Skin, left cheek, shave biopsy: - Superficially sampled skin with marked acute and chronic inflammation and crush artifact, see comment. Diagnosis Comment: The predominant findings in these biopsies are hyperkeratotic skin with marked acute inflammation. There is 1 fragment with abundant crush artifact appears to contain small lymphocytes. These may be part of the reactive inflammatory process, however there are difficult to classify given the artifactual distortion. If there is clinical concern for a neoplasm additional biopsy is recommended. Multiple levels of the specimen were examined. Gross Description: Received in formalin, labeled with a patient label and as left cheek lesion are 5 pieces of delicate white-august disrupted tissue ranging from 0.2 to 0.3 cm. The specimen is entirely submitted in cassette 1. Gross examination (when applicable), interpretation, and sign out were performed at [facility], [address] [place] [address]. 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1975 Requested By: VITOR LARRY Order Number: [id number] [place] MD: Manjeet Goodrich Measurements Intervals Kite Rate: 86 P: 48 VT: 150 QRS: -37 QRSD: 93 T: 75 QT: 284 QTc: 340 Interpretive Statements SINUS RHYTHM LEFT AXIS DEVIATION [QRS AXIS < -30] PATTERN CONSISTENT WITH PULMONARY DISEASE NONSPECIFIC T-WAVE ABNORMALITY Procedure Note Manjeet Goodrich MD - 12/26/2024 [address] [place] [address] Test Date: 2024-12-26 Pat Name: DAKOTA SHARIF Department: 1 Room: 84A 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1975 Requested By: VITOR LARRY Order Number: [id number] [place] : Manjeet Goodrich Measurements Intervals Kite Rate: 86 P: 48 VT: 150 QRS: -37 QRSD: 93 T: 75 QT: 284 QTc: 340 Interpretive Statements SINUS RHYTHM LEFT AXIS DEVIATION [QRS AXIS < -30] PATTERN CONSISTENT WITH PULMONARY DISEASE NONSPECIFIC T-WAVE ABNORMALITY us Vitor Larry MD ECG ORDERABLES Final Result [facility] * LACTIC ACID W REFLEX (SEPSIS) (12/26/2024 8:24 PM CDT) LACTIC ACID VENOUS 1.5 0.4 - 2.0 MMOL/L 12/26/2024 9:12 PM CDT [facility] 12/26/2024 8:24 PM CDT Vitor Larry MD LABORATORY Final Result [facility] [address] [place] [address], [phone] * (ABNORMAL) COMPREHENSIVE METABOLIC PANEL (12/26/2024 8:24 PM CDT) SODIUM S/P/B 145 136 - 145 MMOL/L 12/26/2024 9:10 PM CDT [facility] POTASSIUM S/P/B 3.1(L) 3.5 - 5.1 MMOL/L 12/26/2024 9:10 PM CDT [facility] CHLORIDE S/P/B 112 97 - 115 MMOL/L 12/26/2024 9:10 PM CDT [facility] CO2 25.3 21.0 - 32.0 MMOL/L 12/26/2024 9:10 PM CDT [facility] GLUCOSE 117(H) 74 - 106 MG/DL 12/26/2024 9:10 PM CDT [facility] BUN 8 7 - 18 MG/DL 12/26/2024 9:10 PM CDT [facility] CREATININE S/P/B 0.65 0.55 - 1.02 MG/DL 12/26/2024 9:10 PM CDT [facility] CALCIUM S/P/B 8.7 8.5 - 10.1 MG/DL 12/26/2024 9:10 PM CDT [facility] BILIRUBIN TOTAL S/P/B 0.7 0.2 - 1.0 MG/DL 12/26/2024 9:10 PM CDT [facility] ALKALINE PHOSPHATASE S/P/B 83 41 - 108 U/L 12/26/2024 9:10 PM CDT [facility] AST 23 15 - 37 U/L 12/26/2024 9:10 PM CDT [facility] ALT 25 13 - 56 U/L 12/26/2024 9:10 PM CDT [facility] TOTAL PROTEIN S/P/B 6.8 6.4 - 8.2 G/DL 12/26/2024 9:10 PM CDT [facility] ALBUMIN S/P/B 3.4 3.4 - 5.0 G/DL 12/26/2024 9:10 PM CDT [facility] ANION GAP 7.7 2.0 - 10.0 MMOL/L 12/26/2024 9:10 PM CDT [facility] OSMOLALITY (CALC) 299 MOSM/KG 025 9:10 PM CDT [facility] Comment:REFERENCE RANGE NOT ESTABLISHED GFR ESTIMATE >90 >90 ML/MIN/1. 73 M2 12/26/2024 9:10 PM CDT [facility] GFR NOTES GFR REFERENCE S: 12/26/2024 9:10 PM CDT [facility] Comment: THE ESTIMATED GFR IS CALCULATED USING THE 2020 CKD-EPI EQUATION. THE FOLLOWING CATEGORIES FOR GRADING RENAL FUNCTION ARE RECOMMENDED BY THE INTERNATIONAL SOCIETY OF NEPHROLOGY (KDIGO 2012 CLINICAL PRACTICE GUIDELINE). G1,NORMAL OR HIGH: >89 ml/min/1.73 m2 G2,MILDLY DECREASED: 60-89 ml/min/1.73 m2 G3A,MILDLY TO MODERATELY DECREASED: 45-59 ml/min/1.73 m2 G3B,MODERATELY TO SEVERELY DECREASED: 30-44 ml/min/1.73 m2 G4,SEVERELY DECREASED: 15-29 ml/min/1.73 m2 G5,KIDNEY FAILURE: <15 ml/min/1.73 m2 12/26/2024 8:24 PM CDT us Vitor Larry MD LABORATORY Final Result [facility] [address] [place] [address], [phone] * CULTURE, BACTERIA, BLOOD (12/26/2024 8:23 PM CDT) Only the most recent of2 resultswithin the time period is included. SPEC DESCRIPTION BLOOD 12/26/2024 7:42 PM CDT [facility] SPECIAL REQUESTS NO SPECIAL REQUEST 12/26/2024 7:42 PM CDT [facility] CULTURE RESULT NO GROWTH 5 DAYS 12/31/2024 9:42 PM CDT [facility] BLOOD SPECIMEN OBTAINED FOR BLOOD CULTURE / Unknown 12/26/2024 8:23 PM CDT 12/26/2024 8:24 PM CDT us Vitor Larry MD MICROBIOLOGY - GENERAL ORDERAB LES Final Result Performing Organization Address City/State/[facility] Co de Phone Number [facility] [address] [place] [address], [phone] from Last 3 Months Insurance Advance Directives * Full Code (Latest Code Status on File) Date Activated Date Inactivated Comments 12/26/2024 7:42 PM 12/28/2024 12:30 AM * Full Code Date Activated Date Inactivated Comments 11/26/2018 6:13 PM 11/28/2018 2:55 PM Care Teams Application Lead Relationship Specialty Start Date End Date Josh Kidd MD [address] [place] [address] PCP - General FAMILY PRACTICE 11/26/18
--- OUTSIDE RECORDS SUMMARY | 2025-02-07 05:29 | XMS_ITS | Clinical Summary ---
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
--- OUTSIDE RECORDS SUMMARY | 2025-02-07 05:29 | XMS_ITS | Referral Summary ---
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
--- OUTSIDE RECORDS SUMMARY | 2025-02-07 05:29 | XMS_ITS | Clinical Summary ---
Author Organization [facility] Address [address] [facility] [place] [address] Care Team Providers Care Superintendent Maintenance Airports Name Role Phone Yenny Hernández [employer] GREENSKEEPER Primary Care Provid er Source Comments [facility],non-owned Affiliates and Associated Physician Practices is amultiple site organization consisting of ambulatory clinics and hospital sitesin [place], [place], [place] and [place]. This disclosure is being madepursuant to the Care Everywhere program and may not contain all information available regarding this patient. Last updated 18.[facility] Allergies Active Allergy Reactions Criticality Noted Date [...] - COLON CA SCREENING 1973 MAMMOGRAM 1973 HIV SCREENING 1988 HEPATITIS C SCREENING 03/02/1991 DTAP/TDAP/TD VACCINES (1 - Tdap) 1992 HEPATITIS B VACCINE (1 of 3 - 19+ 3-dose series) 1992 PNEUMOCOCCAL VACCINE 50+ (1 of 2 - PCV) 1992 PAP SMEAR 1994 ZOSTER VACCINE (1 of 2) 2023 SCREENING FOR DIABETES 10/13/2023 , 10/12/2020, 11/27/2018, Additional history exists COVID-19 VACCINE (1 - season) 2024 DEPRESSION SCREENING 07/29/2024 INFLUENZA VACCINE (#1) 2025 06/12/2020 HIB VACCINE Aged Out No [...] this topic Medical Devices Implanted Type Area Verifier Device Identifier Shelf Expiration Date Model / Serial / Lot Stent Uret 6fr 24cm Pgtl Crv Tpr Tip Implanted:Qty: 1 on 10/12/2020 by Dariel Gudino MD at [facility] Right: Ureter [employer] 07/04/2023 [id number] / / [id number] Procedures Procedure Name Priority Date/Time Associated Diagnosis Comments GLUCOSE - POINT OF CARE Routine 10/12/2020 7:58 AM CDT from Last 3 Months or Most Recently Relevant to Health Maintenance Results * (ABNORMAL) GLUCOSE - POINT OF CARE (10/12/2020 7:58 AM CDT) Glucose WB/POC 160(H) 70 - 115 mg/dL 10/12/2020 7:59 AM CDT [facility] Specimen Type Venous 10/12/2020 7:59 AM CDT [facility] Blood BLOOD SPECIMEN / Unknown 10/12/2020 7:58 AM CDT 10/12/2020 7:59 AM CDT us Dariel Gudino MD LAB - POINT OF CARE ORDERA BLES Final Result [address] [address], [place] [phone] from Last 3 Months or Most Recently Relevant to Health Maintenance Insurance [facility] Care Teams Superintendent Maintenance Airports Relationship Specialty Start Date End Date Yenny Hernández, [employer]EUR [employer] GREENSKEEPER [address] [place] [address] PCP - General 06/16/20
--- NOTE | 2025-02-07 05:32 | PC.NURSE ---
PATIENT AMBULATED DOWN TO THE BATHROOM FOR URINE SAMPLE
--- NOTE | 2025-02-07 05:47 | ECG_ITS ---
Test Date: 2025-02-07 06:03:06 Measurements Intervals Olivia Rate: 97 P: 16 ND: 154 QRS: 98 QRSD: 82 T: 8 QT: 334 QTc: 425 Interpretive Statements SINUS RHYTHM BORDERLINE RIGHT AXIS DEVIATION [QRS AXIS > 90] NONSPECIFIC T-WAVE ABNORMALITY ABNORMAL ECG Electronically Signed On 02-07-2025 11:36:39 CDT by tG Celestin M.D.
--- NOTE | 2025-02-07 05:51 | ED_ITS ---
HPI - General Adult General Chief complaint: Unspecified Stated complaint: High Blood Sugar Source: patient Mode of arrival: ambulatory Limitations: no limitations History of Present Illness HPI narrative: this is a 49-year-old female diabetic presents after she felt dizzy with headache nausea and fever, states that her Dexcom has been reading very high. There is no chest pain shortness of breath with some dry mouth is what she states. Nurse fever and chills with no dysuria no flank pain no abdominal pain no hematuria. Patient does have nausea, with no vomiting no diarrhea constipation. Onset (ago): day(s) Severity: moderate Related Data Allergies Allergy/AdvReac Type Severity Reaction Status Date / Time empagliflozin (Jardiance) Allergy Intermediate rash Verified 02/07/25 05:46 latex Allergy Intermediate Rash Verified 02/07/25 05:46 tetracycline Allergy Intermediate unknown Verified 02/07/25 05:46 lactose AdvReac Nausea Verified 02/07/25 05:46 Review of Systems Review of Systems: All systems reviewed & are unremarkable except as noted in HPI and below PMFSH Past Medical History Medical History Pneumonia Wheezing Cough Urethritis Joint pain Fatigue RLQ abdominal pain Pelvic pain Head injury with loss of consciousness (05/24/21) Syncope Nipple discharge Preventative health care Acute bronchitis Acute sinusitis COPD exacerbation Calculus of kidney COPD exacerbation BMI 32.0-32.9,adult Acute sinusitis Sinusitis, acute maxillary Finger avulsion Depression Acute insomnia Migraine IBS (irritable bowel syndrome) COPD (chronic obstructive pulmonary disease) Hyperlipidemia Diabetes mellitus with diabetic nephropathy Surgical History Surgical History Hx of cholecystectomy Hx of hysterectomy Family History Family History Mother Diabetes mellitus Social History Social History Smoking packs per day: 1 Smoking cigarettes per day: 20.0 Smoking status: Heavy tobacco smoker Tobacco type: cigarettes Second hand tobacco smoke exposure: Yes Alcohol intake: current Substance use: never Substance use type: does not use Do You Feel Safe in your Home?: Yes Lack of Transportation: No Lack of Food: Never True Current Housing: I Have Housing Concerned About Future Housing: No Difficulty Paying Gas/Electric Bills: No Difficulty Paying for Meds: No Currently Unemployed: No Education: Decline to Answer Difficulty w/ Childcare or Family Care: No Living arrangements: with family Gender identity (if verbalized by the patient): Female Spiritual care concerns: No Exam Const: General: cooperative, healthy appearing, comfortable, no acute distress and well developed HENMT: Head: normal to inspection Face/Nose/Sinus: Normal external nose present Face and sinus: normal facial exam Mouth: Yes Normal oral and palatal mucosa present Eyes: General: appearance normal, both eyes and all related structures Neck: Neck: normal visual inspection Chest: Chest palpation & inspection: normal inspection of the chest and normal palpation of entire chest wall Resp: Effort & Inspection: normal respiratory effort and able to speak in complete sentences Auscultation: clear to auscultation bilaterally Cardio: Jugular venous distension: no JVD Palpation: normal PMI Rate: regular rate Rhythm: regular rhythm Heart sounds: S1 normal heart sound present and S2 normal heart sound present GI: Inspection: normal to inspection : General: Yes bimanual renal exam normal bilaterally Back/Spine/Pelvis: Back: no CVA tenderness Skin: General skin exam: normal color and no rashes or lesions noted Neuro: General: oriented to person, oriented to place, oriented to time and patient oriented x3 Extrem: General: normal to inspection, full ROM, capillary refill normal and normal exam except as noted Course Course Emergency Course: Patient received IV fluids, Toradol for headache and Zofran for nausea labs reviewed, EKG normal sinus rhythm chest x-ray no acute cardiopulmonary abnormality, urinalysis is positive for urinary tract infection and will dose patient with 1g IV ceftriaxone send antibiotics patient's local pharmacy. Vital Signs Vital signs: Vital Signs Temperature 38.6 C H 02/07/25 05:28 Pulse Rate 104 H 02/07/25 05:28 Respiratory Rate 22 H 02/07/25 05:28 Blood Pressure 133/77 02/07/25 05:28 Pulse Oximetry 97 02/07/25 05:28 Oxygen Delivery Room Air 02/07/25 05:28 Temperature 38.6 C H 02/07/25 05:28 Pulse Rate 104 H 02/07/25 05:28 Respiratory Rate 22 H 02/07/25 05:28 Blood Pressure 133/77 02/07/25 05:28 Pulse Oximetry 97 02/07/25 05:28 Oxygen Delivery Room Air 02/07/25 05:28 Medical Decision Making Vital Signs Vital Signs: Vital Signs Temperature 38.6 C H 02/07/25 05:28 Pulse Rate 104 H 02/07/25 05:28 Respiratory Rate 22 H 02/07/25 05:28 Blood Pressure 133/77 02/07/25 05:28 Pulse Oximetry 97 02/07/25 05:28 Oxygen Delivery Room Air 02/07/25 05:28 Temperature 38.6 C H 02/07/25 05:28 Pulse Rate 104 H 02/07/25 05:28 Respiratory Rate 22 H 02/07/25 05:28 Blood Pressure 133/77 02/07/25 05:28 Pulse Oximetry 97 02/07/25 05:28 Oxygen Delivery Room Air 02/07/25 05:28 Lab Data Labs: Lab Results 02/07/25 Range/Units 05:30 POC Capillary Glucose 288 H (65-105) mg/dl Critical Care Time Critical Care Time Critical Care Time: No Discharge Plan Discharge Clinical Impression: UTI (urinary tract infection), Hyperglycemia Patient Disposition: Home Condition: Stable Instructions: Antibiotic Form, Urinary Tract Infection in Women (ED) Additional Instructions: advised patient to continue her current medication, take medicine as prescribed and follow-up primary care physician within next 3 to 5 days for further evaluation and treatment. Patient Language: American Prescriptions: New ciprofloxacin HCl 500 mg tablet 500 mg PO Q12H Qty: 14 0RF No Action Breztri Aerosphere 160-9-4.8 mcg/actuation HFA aerosol inhaler 2 inh inhalation BID Qty: 10.7 2RF (DME) insulin syringe-needle U-100 1 mL 27 gauge x 1/2 syringe See Rx Instructions .ROUTE .MEDSUPPLY Qty: 500 3RF Rx Instructions: QID cholecalciferol (vitamin D3) 50 mcg (2,000 unit) capsule 50 mcg PO DAILY Qty: 30 2RF (DME) FreeStyle Sherron 3 [place] Misc See Rx Instructions .Route Qty: 1 0RF Rx Instructions: As directed fluticasone propionate 50 mcg/actuation spray,suspension See Rx Instructions .ROUTE .COMPLEX Qty: 16 3RF Dose Instruction: USE 1 SPRAY IN EACH NOSTRIL DAILY Rx Instructions: USE 1 SPRAY IN EACH NOSTRIL DAILY mupirocin 2 % ointment 1 applic topical BID Qty: 22 0RF amoxicillin-pot clavulanate 875-125 mg tablet 1 tablet PO BID Qty: 20 0RF ondansetron 4 mg tablet,disintegrating 4 mg PO Q8H PRN (Reason: nausea and vomiting) Qty: 14 0RF insulin lispro [Humalog U-100 Insulin] 100 unit/mL solution See Rx Instructions .ROUTE .COMPLEX 30 Days Qty: 90 3RF Dose Instruction: INJECT 70 UNITS SUBCUTANEOUSLY 3 TIMES A DAY Rx Instructions: INJECT 70 UNITS SUBCUTANEOUSLY 3 TIMES A DAY Trulicity 1.5 mg/0.5 mL pen injector 1.5 mg subcut WEEKLY Qty: 2 3RF albuterol sulfate 2.5 mg /3 mL (0.083 %) solution for nebulization 2.5 mg inhalation Q4-6H PRN (Reason: shortness of breath or wheezing) Qty: 90 3RF (DME) pen needle, diabetic [TechLITE Pen Needle] 32 gauge x 5/32 needle See Rx Instructions .Route Qty: 100 11RF Rx Instructions: Use once daily (DME) insulin syringes (disposable) 1 mL syringe See Rx Instructions .ROUTE .MEDSUPPLY Qty: 500 0RF Rx Instructions: As directed omeprazole 40 mg capsule,delayed release(DR/EC) See Rx Instructions .ROUTE .COMPLEX Qty: 30 5RF Dose Instruction: TAKE 1 CAPSULE BY MOUTH EVERY DAY Rx Instructions: TAKE 1 CAPSULE BY MOUTH EVERY DAY (DME) 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 meter [OneTouch Ultra2 Meter] [facility] See Rx Instructions .ROUTE .COMPLEX Qty: 1 0RF Dose Instruction: DIRECTED Rx Instructions: DIRECTED venlafaxine 150 mg capsule,extended release 24hr See Rx Instructions .ROUTE .COMPLEX Qty: 90 1RF Dose Instruction: TAKE 1 CAPSULE BY MOUTH EVERY DAY Rx Instructions: TAKE 1 CAPSULE BY MOUTH EVERY DAY quetiapine 100 mg tablet See Rx Instructions .ROUTE .COMPLEX Qty: 90 3RF Dose Instruction: TAKE 1 TABLET BY MOUTH AT BEDTIME Rx Instructions: TAKE 1 TABLET BY MOUTH AT BEDTIME meloxicam 15 mg tablet See Rx Instructions .ROUTE .COMPLEX Qty: 90 1RF Dose Instruction: TAKE 1 TABLET BY MOUTH EVERY DAY Rx Instructions: TAKE 1 TABLET BY MOUTH EVERY DAY loratadine 10 mg tablet See Rx Instructions .ROUTE .COMPLEX Qty: 30 5RF Dose Instruction: TAKE 1 TABLET BY MOUTH EVERY DAY Rx Instructions: TAKE 1 TABLET BY MOUTH EVERY DAY Steglatro 5 mg tablet See Rx Instructions .ROUTE .COMPLEX Qty: 30 3RF Dose Instruction: TAKE 1 TABLET BY MOUTH EVERY DAY IN THE MORNING Rx Instructions: TAKE 1 TABLET BY MOUTH EVERY DAY IN THE MORNING (DME) OneTouch Ultra Test Strip See Rx Instructions .ROUTE .COMPLEX Qty: 100 5RF Dose Instruction: TEST BLOOD SUGAR FOUR TIMES DAILY Rx Instructions: TEST BLOOD SUGAR FOUR TIMES DAILY (DME) lancets [OneTouch Delica Plus Lancet] 33 gauge misc See Rx Instructions .ROUTE .COMPLEX Qty: 100 1RF Dose Instruction: CHECK BLOOD GLUCOSE UP TO 4 TIMES DAILY Rx Instructions: CHECK BLOOD GLUCOSE UP TO 4 TIMES DAILY oxybutynin chloride 5 mg tablet extended release 24hr See Rx Instructions .ROUTE .COMPLEX Qty: 30 2RF Dose Instruction: TAKE 1 TABLET BY MOUTH EVERY DAY Rx Instructions: TAKE 1 TABLET BY MOUTH EVERY DAY atorvastatin 20 mg tablet See Rx Instructions .ROUTE .COMPLEX Qty: 90 2RF Dose Instruction: TAKE 1 TABLET BY MOUTH EVERYDAY AT BEDTIME Rx Instructions: TAKE 1 TABLET BY MOUTH EVERYDAY AT BEDTIME albuterol sulfate 90 mcg/actuation HFA aerosol inhaler See Rx Instructions .ROUTE .COMPLEX Qty: 18 2RF Dose Instruction: INHALE 1 PUFF BY MOUTH EVERY 4 HOURS NEEDED FOR SHORTNESS OF BREATH OR WHEEZING Rx Instructions: INHALE 1 PUFF BY MOUTH EVERY 4 HOURS NEEDED FOR SHORTNESS OF BREATH OR WHEEZING pregabalin [Lyrica] 200 mg capsule 400 mg PO HS Qty: 60 1RF fluconazole 150 mg tablet 150 mg PO ONCE Qty: 2 0RF Rx Instructions: Take first dose today and repeat in 3 days tizanidine 2 mg tablet See Rx Instructions .ROUTE .COMPLEX Qty: 90 0RF Dose Instruction: TAKE 1 TABLET BY MOUTH 3 TIMES A DAY NEEDED FOR MUSCLE SPASTICITY Rx Instructions: TAKE 1 TABLET BY MOUTH 3 TIMES A DAY NEEDED FOR MUSCLE SPASTICITY insulin glargine [Lantus Solostar U-100 Insulin] 100 unit/mL (3 mL) insulin pen See Rx Instructions .ROUTE .COMPLEX Qty: 15 0RF Dose Instruction: INJECT 20 UNITS SUBCUTANEOUSLY DAILY Rx Instructions: INJECT 20 UNITS SUBCUTANEOUSLY DAILY (DME) FreeStyle Sherron 3 Plus Sensor Device See Rx Instructions .Route Qty: 1 0RF Rx Instructions: As directed Follow-up/Referrals: Yenny Hernández, BUSINESS SERVICES REPRESENTATIVE [Primary Care Provider] - Time of Disposition: 06:48
--- NOTE | 2025-02-07 05:51 | PC.NURSE ---
COVID SWAB TAKEN DOWN TO LAB
[2025-02-07] MEDS: ONDANSETRON INJ 4 MG/2 ML VIAL IV PUSH (05:57)
[2025-02-07] MEDS: KETOROLAC 30 MG/ML VIAL (*BKC) IV PUSH (05:57)
[2025-02-07] MEDS: SODIUM CHLORIDE 0.9% IV 1,000 ML 999 ML IV CONT (05:57)
[2025-02-07 06:01] LABS: Hematocrit 41.9 % (35.0-49.0); Hemoglobin 14.5 g/dL (12.0-15.0); Immature Granulocyte Percent A 0.4 % (0.0-0.0); Lymphocytes Absolute Auto 2.19 K/mm3 (1.10-4.50); Mean Corpuscular HGB Conc 34.6 g/dL (32-36); Mean Corpuscular Hemoglobin 30.7 pg (27.0-31.0); Mean Corpuscular Volume 88.6 fL (78.0-102.0); Nucleated Red Blood Cells Absolute Auto 0.00 K/mm3 (0.00-0.00); Nucleated Red Blood Cells Perc 0.0 % (0-0.0); Platelet Count Result 259 K/mm3 (150-420); Red Blood Count 4.73 M/mm3 (4.20-5.40); White Blood Count 12.9 K/mm3 (4.8-10.8)
[2025-02-07] MEDS: IPRATROPIUM 0.5 MG/ALBUTEROL SULFATE 2.5 MG AMPUL.NEB 3 ML INHALATION (06:01)
[2025-02-07 06:03] LABS: Add Urine Microscopic? YES; Appearance Urine Clear (Clear); Glucose Urine UA 3+ (Negative); Leukocyte Esterase Ur 2+ LEU/UL (Negative); Nitrate Urine Positive (Negative); Specific Grav Ur <= 1.005 (1.010-1.020)
[2025-02-07 06:16] LABS: Alanine Aminotransferase 23 U/L (6-35); Albumin Level 4.1 g/dL (3.5-5.1); Alkaline Phosphatase 92 U/L (38-126); Anion Gap 8 mmol/L (4-12); Aspartate Amino Transferase 29 U/L (14-36); Bilirubin,Total 0.7 mg/dL (0.2-1.3); Blood Urea Nitrogen 9 mg/dL (7-17); Calcium 8.9 mg/dL (8.4-10.2); Carbon Dioxide 23 mmol/L (22-30); Chloride 100 mmol/L (98-107); Estimated CRCL calculation 83 ml/min; Estimated Glomerular Filt Rate > 60; Glucose 289 mg/dL (65-110); Magnesium 1.8 mg/dL (1.6-2.3); Osmolality Calculated 281 mOsm/kg (285-295); Potassium 3.7 mmol/L (3.4-5.0); Sodium 131 mmol/L (137-145); Total Protein 7.7 g/dL (6.3-8.2)
--- NOTE | 2025-02-07 06:18 | PC.NURSE ---
LAB AT THE BEDSIDE FOR BLOOD CULTURES
[2025-02-07 06:20] LABS: INR 1.0; Partial Thromboplastin Time 28.9 Sec (23.9-30.70); Prothrombin Time 10.7 Seconds (9.50-12.1)
[2025-02-07 06:25] LABS: NT Pro B Type Natriuretic Pept 218 pg/mL (19.9-100)
[2025-02-07 06:37] LABS: Influenza A QL RT-PCR Negative (Negative); Influenza B QL RT-PCR Negative (Negative); RSV RNA, RT-PCR Negative (Negative); SARS-CoV-2 RNA PCR Negative (Negative)
[2025-02-07] MEDS: cefTRIAXone 1 GM in SODIUM CHLORIDE 0.9% IV 50 ML 100 ML IVPB (06:47)
[2025-02-07 07:08] VITALS: BP 130/68; PULSE 82; RESP 16; TEMP 37.9; O2SAT 96
--- NOTE | 2025-02-09 12:24 | PC.NURSE ---
Preliminary blood culture report; no growth detected at this time.
--- NOTE | 2025-02-09 16:30 | PC.NURSE ---
preliminary blood culture shows gram neg rods. pt prescribed cipro. erp, dr long, reviewed report. no new orders. no0 change in plan of care
--- NOTE | 2025-02-10 13:01 | PC.NURSE ---
preliminary blood cultures x2 reviewed. gram negative bacilli isolated
--- NOTE | 2025-02-11 17:50 | PC.NURSE ---
final urine culture report reviewed. E. coli isolated. pt prescribed cipro at discharge. susceptibility report shows resistance to cipro. erp reviewed pt case and requests abx be changed to macrobid 100mg BID for 5 days. pt called and confirmed [place] [facility]. [facility] in [place]. pt instructed to fill rx and take as prescribed.
--- NOTE | 2025-02-13 12:50 | PC.NURSE ---
Patient was discharged on CIPRO for UTI. UA results showed Cipro resistant to culture. Patient was changed to Macrobid on 02/11. Patient's blood cultures shows one positive and one negative. RN spoke with patient and she reports feeling better and denies any symptoms since medication change. Patient had follow up with PCP 02/12/[address] ERP Dr. London states no change needed to antibiotic since patient denies any symptoms. patient to follow up with pcp.
== END 2025-02-07 07:20 | disposition home or self-care (01) ==
PROVIDERS: Emergency Provider Emergency Medicine; PCP Nurse Practitioner Family
DX: N39.0 Urinary tract infection, site not specified (principal); E11.65 Type 2 diabetes mellitus with hyperglycemia; J44.9 Chronic obstructive pulmonary disease, unspecified; E78.5 Hyperlipidemia, unspecified; F17.210 Nicotine dependence, cigarettes, uncomplicated; Z20.822 Contact with and (suspected) exposure to COVID-19
CPT/HCPCS: 36415; 71045; 80053; 81001; 82948; 83605; 83735; 83880; 85025; 85610; 85730; 87637; 93005; 96365; 96375; 99284; J0696; J1885; J2405; J7030

== ENCOUNTER 2025-02-17 10:02 | Inpatient (IN) | payer OTHER, SELFPAY ==
[2025-02-17] VITALS (26 sets, daily range): BP systolic 130–165; BP diastolic 76–103; PULSE 94–109; RESP 18–20; TEMP 36.1–36.8; O2SAT 91–98; BMI 28.2
--- NOTE | ~2025-02-17 | XR_ITS ---
EXAMINATION: XR chest 1V portable 02/17/2025 11:41 INDICATION: Cough PROCEDURE: PA view of the chest COMPARISON: Comparison to multiple prior studies sequentially, with oldest reviewed study dated 07/2022. FINDINGS: The lungs are clear. The cardiomediastinal silhouette is within normal limits. There are no pleural effusions. There is no pneumothorax suspected. IMPRESSION: 1: NO ACUTE CARDIOPULMONARY DISEASE. 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
--- NOTE | ~2025-02-17 | CT_ITS ---
EXAM: CT abdomen pelvis wo con - 02/17/2025 10:30 CDT History: 49 years old Female with right flank pain TECHNIQUE: Multidetector CT of the abdomen and pelvis without contrast. Coronal and sagittal reforma ts were also provided for review. Automatic exposure control was used for this study. COMPARISON: 06/18/2021. FINDINGS: VISUALIZED CHEST: Visualized lungs are clear. ABDOMEN and PELVIS: Streak artifact from external hardware in the pelvis limits evaluation of subjacent anatomy. LIVER: Within normal limits. GALLBLADDER: Postcholecystectomy. BILE DUCTS: No dilatation. SPLEEN: Within normal limits. PANCREAS: Within normal limits. ADRENAL GLANDS: Within normal limits. KIDNEYS and URETERS: No hydronephrosis or hydroureter. Punctate nonobstructive nephrolithiasis. URINARY BLADDER: Within normal limits. STOMACH and BOWEL: No abnormal bowel wall thickening. No obstruction. Stomach distended with air-flui d levels. REPRODUCTIVE ORGANS: Within normal limits. MESENTERY/PERITONEAL CAVITY: No free fluid or pneumoperitoneum. LYMPH NODES: No abdominal or pelvic lymphadenopathy. ABDOMINAL WALL: Umbilical hernia containing fat and a small portion of transverse colon. VASCULATURE: Within normal limits. MUSCULOSKELETAL: Multilevel degenerative changes of the spine. Status post ORIF of posterior ilium. IMPRESSION: Punctate nonobstructive nephrolithiasis. No hydroureteronephrosis. 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
--- OUTSIDE RECORDS SUMMARY | 2025-02-17 10:06 | XMS_ITS | Clinical Summary ---
Author Organization [facility] Address [address] [place] [address] Care Team Providers Care [id number]/[id number] Tank Driver Name Role Phone Yenny Hernández ADVERTISING JOB TITLES-RECREATIONAL SPORTS DIRECTOR Primary Care Provid er Source Comments [facility],non-owned Affiliates and Associated Physician Practices is amultiple site organization consisting of ambulatory clinics and hospital sitesin [place], [place], [place] and [place]. This disclosure is being madepursuant to the Care Everywhere program and may not contain all information available regarding this patient. Last updated 18.[facility] Allergies Active Allergy Reactions Criticality Noted Date [...] this topic Medical Devices Implanted Type Area Opera Singer Device Identifier Shelf Expiration Date Model / Serial / Lot Stent Uret 6fr 24cm Pgtl Crv Tpr Tip Implanted:Qty: 1 on 10/12/2020 by Dariel Gudino MD at [facility] Right: Ureter [employer] 07/04/2023 [id number] / / [id number] Procedures Procedure Name Priority Date/Time Associated Diagnosis Comments GLUCOSE - POINT OF CARE Routine 10/12/2020 7:58 AM CDT from Last 3 Months or Most Recently Relevant to Health Maintenance Results * (ABNORMAL) GLUCOSE - POINT OF CARE (10/12/2020 7:58 AM CDT) Glucose WB/POC 160(H) 70 - 115 mg/dL 10/12/2020 7:59 AM CDT [facility] Specimen Type Venous 10/12/2020 7:59 AM CDT [facility] Blood BLOOD SPECIMEN / Unknown 10/12/2020 7:58 AM CDT 10/12/2020 7:59 AM CDT us Dariel Gudino MD LAB - POINT OF CARE ORDERA BLES Final Result [address] [address], [place] [phone] from Last 3 Months or Most Recently Relevant to Health Maintenance Insurance [facility] Care Teams [id number]/M60 Tank Driver Relationship Specialty Start Date End Date Yenny Hernández, ADVERTISING JOB TITLES-RECREATIONAL SPORTS DIRECTOR [address] [place] [address] PCP - General 06/16/20
--- OUTSIDE RECORDS SUMMARY | 2025-02-17 10:06 | XMS_ITS | Clinical Summary ---
Author Organization [facility] Address [address] [place] [address] Care Team Providers Care Construction Job Titles Name Role Phone Josh Kidd MD Primary Care Provider [phone] Allergies Active Allergy Reactions Criticality Noted Date [...] w st at migr 11/27/2018 Ischemic stroke ([facility]) 11/26/2018 Encounters Date Type Department Care Team Description 12/26/2024 6:58 PM CDT - 12/27/2024 9:40 PM CDT Hospital Encounter [place] [address] [place] [address] Ash Lopes MD Mardani, Fareed, MD Sohail, [...] from your doctor or pharmacy? Never 12/26/2024 [facility] Utilities Answer Date Recorded In the past 12 months has e [employer] gas, oil, or water [employer] threatened to shut off services in your [...] often do you attend chur ch or bahai services? Never 12/26/2024 Do you belong to any clubs o r organizations such as scientology groups, unions, fraternal or athletic groups, or [...] and heating? Not hard at all 12/26/2024 [facility] of Occupat ional Health - Occupational Stress [...] any time in the past 12 m [facility], were you homeless or living in a fpc (including now)? 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 Gender Identity Female 12/26/2024 8:40 PM CDT [...] 70 - 109 12/27/2024 8:55 PM CDT [facility] 12/27/2024 8:08 PM CDT Jacques Ramirez MD POCT ORDERABLES - DEVICE Final R esult Performing Organization Address [facility] de Phone Number [facility] [address] [place] [address], [place] [phone] * (ABNORMAL) HEMOGLOBIN, GLYCOSYLATED (12/27/2024 12:11 PM CDT) HGB A1C 7.6(H) <5.7 % 12/27/2024 3:36 PM CDT [facility] ESTIMATED AVG GLUCOSE 171(H) 74 - 114 MG/DL 12/27/2024 3:36 PM CDT [facility] 12/27/2024 12:1 1 PM CDT Jacques Ramirez MD LABORATORY Final Result Performing Organization Address [facility] de Phone Number [facility] [address] [place] [address], [place] [phone] * POTASSIUM, SERUM (12/27/2024 12:11 PM CDT) POTASSIUM S/P/B 3.6 3.5 - 5.1 MMOL/L 12/27/2024 12:49 PM CDT [facility] 12/27/2024 12:1 1 PM CDT Jacques Ramirez MD LABORATORY Final Result Performing Organization Address [facility] de Phone Number [facility] [address] [place] [address], [place] [phone] * CULTURE, WOUND W/ GRAM STAIN (12/27/2024 11:30 AM CDT) SPEC DESCRIPTION CHEEK,LEFT 12/27/2024 3:09 PM CDT [facility] SPECIAL REQUESTS NO SPECIAL REQUEST 12/27/2024 3:09 PM CDT [facility] GRAM STAIN RESULT NO NEUTROPHILS OR ORGANISMS SEEN 12/27/2024 4:03 PM CDT [facility] CULTURE RESULT NO GROWTH 5 DAYS 01/01/2025 11:41 AM CDT [facility] CHEEK STRUCTURE / Unknown 12/27/2024 11:30 AM CDT 12/27/2024 3:09 PM CDT us Bree Mendez MD MICROBIOLOGY - GENERAL ORD ERABLES Final Result Performing Organization Address City/[facility]/ZIP Co de Phone Number [facility] [address] [place] [address], [place] [phone] * CULTURE, ANAEROBIC (12/27/2024 11:30 AM CDT) SPEC DESCRIPTION CHEEK,LEFT 12/27/2024 3:09 PM CDT [facility] SPECIAL REQUESTS NO SPECIAL REQUEST 12/27/2024 3:09 PM CDT [facility] CULTURE RESULT NO ANAEROBES ISOLATED 01/01/2025 11:41 AM CDT [facility] CHEEK STRUCTURE / Unknown 12/27/2024 11:30 AM CDT 12/27/2024 3:10 PM CDT us Bree Mendez MD MICROBIOLOGY - GENERAL ORD ERABLES Final Result Performing Organization Address City/[facility]/ZIP Co de Phone Number [facility] [address] [place] [address], [place] [phone] * CULTURE URINE (12/27/2024 11:12 AM CDT) SPEC DESCRIPTION URINE CLEAN CATCH 12/27/2024 11:12 AM CDT [facility] SPECIAL REQUESTS NO SPECIAL REQUEST 12/27/2024 11:12 AM CDT [facility] CULTURE RESULT NO GROWTH (< OR = 1,000 CFU/ML) 12/29/2024 8:54 AM CDT [facility] URINE SPECIMEN OBTAINED BY CLEAN CATCH PROCEDURE / Unknown 12/27/2024 11:12 AM CDT 12/27/2024 11:31 AM CDT us Vitor Larry MD MICROBIOLOGY - GENERAL ORDERAB LES Final Result [facility] [address] [place] [address], [id number] * (ABNORMAL) BASIC METABOLIC PANEL (12/27/2024 4:01 AM CDT) SODIUM S/P/B 149(H) 136 - 145 MMOL/L 12/27/2024 5:04 AM CDT [facility] POTASSIUM S/P/B 2.6(LL) 3.5 - 5.1 MMOL/L 12/27/2024 5:04 AM CDT [facility] Comment: Critical Result(s) Called to and read back by: JILL [id number] at: 05:02:52 12/27/2024 by LUCY. CHLORIDE S/P/B 118(H) 97 - 115 MMOL/L 12/27/2024 5:04 AM CDT [facility] CO2 25.0 21.0 - 32.0 MMOL/L 12/27/2024 5:04 AM CDT [facility] GLUCOSE 108(H) 74 - 106 MG/DL 12/27/2024 5:04 AM CDT [facility] BUN 6(L) 7 - 18 MG/DL 12/27/2024 5:04 AM CDT [facility] CREATININE S/P/B 0.42(L) 0.55 - 1.02 MG/DL 12/27/2024 5:04 AM CDT [facility] CALCIUM S/P/B 8.0(L) 8.5 - 10.1 MG/DL 12/27/2024 5:04 AM CDT [facility] ANION GAP 6.0 2.0 - 10.0 MMOL/L 12/27/2024 5:04 AM CDT [facility] OSMOLALITY (CALC) 306 MOSM/KG 025 5:04 AM CDT [facility] Comment:REFERENCE RANGE NOT ESTABLISHED GFR ESTIMATE >90 >90 ML/MIN/1. 73 M2 12/27/2024 5:04 AM CDT [facility] GFR NOTES GFR REFERENCE S: 12/27/2024 5:04 AM CDT [facility] Comment: THE ESTIMATED GFR IS CALCULATED [...] CDT Vitor Larry MD LABORATORY Final Result [facility] [address] [place] [address], [phone] * (ABNORMAL) CBC W/DIFF AUTOMATED (12/27/2024 4:01 AM CDT) Only the most recent of2 resultswithin the time period is included. WBC 7.81 4.00 - 10.80 x10'3/uL 12/27/2024 4:10 AM CDT [facility] RBC 4.42 4.10 - 5.40 x10'6/uL 12/27/2024 4:10 AM CDT [facility] HGB 13.9 12.0 - 16.0 G/DL 12/27/2024 4:10 AM CDT [facility] HCT 40.0 36.0 - 47.0 % 12/27/2024 4:10 AM CDT [facility] MCV 90.5 78.0 - 100.0 FL 12/27/2024 4:10 AM CDT [facility] MCH 31.4(H) 27.0 - 31.0 PG 12/27/2024 4:10 AM CDT [facility] MCHC 34.8 33.0 - 36.0 G/DL 12/27/2024 4:10 AM CDT [facility] RDW 13.4 11.5 - 14.5 % 12/27/2024 4:10 AM CDT [facility] PLT 192 150 - 350 x10'3/uL 12/27/2024 4:10 AM CDT [facility] MPV 9.7 7.4 - 10.4 FL 12/27/2024 4:10 AM CDT [facility] DIFFERENTIAL TYPE MANUAL DIFFERENTIAL 12/27/2024 5:06 AM CDT [facility] NRBC % 0.0 % 12/27/2024 5:06 AM CDT [facility] SEG NEUTROPHILS 34 % 5:06 AM CDT [facility] LYMPHOCYTES 60 % 12/27/2024 5:06 AM CDT [facility] MONOCYTES 4 % 12/27/2024 5:06 AM CDT [facility] EOSINOPHILS 1 % 12/27/2024 5:06 AM CDT [facility] BASOPHILS 1 % 12/27/2024 5:06 AM CDT [facility] ABS. NEUTROPHILS 2.66 1.60 - 8.30 x10'3/uL 12/27/2024 5:06 AM CDT [facility] ABS. LYMPHOCYTES 4.69 0.80 - 4.70 x10'3/uL 12/27/2024 5:06 AM CDT [facility] ABS. MONOCYTES 0.31 0.00 - 1.50 x10'3/uL 12/27/2024 5:06 AM CDT [facility] ABS. EOSINOPHILS 0.08 0.00 - 0.40 x10'3/uL 12/27/2024 5:06 AM CDT [facility] ABS. BASOPHILS 0.08 0.00 - 0.20 x10'3/uL 12/27/2024 5:06 AM CDT [facility] ABS. NUCLEATED RBC'S 0.00 0.00 - 0.01 x10'3/uL 12/27/2024 5:06 AM CDT [facility] RBC MORPHOLOGY RBC MORPHOLOGY APPEARS NORMAL. SLIDE REVIEWED. 12/27/2024 5:06 AM CDT [facility] PLT EST. ADEQUATE 12/27/2024 5:06 AM CDT [facility] 12/27/2024 4:01 AM CDT us Vitor Larry MD LABORATORY Final Result [facility] [address] [place] [address], [phone] * Pathology (12/27/2024 12:00 AM CDT) PATHOLOGY [facility] Department of Laboratory Medicine [address] [place] [address] , extension [phone] Pathology Report Surgical Pathology Report Name: DAKOTA SHARIF Specimen #: [id number] Age: 8 1975 (Age: 49) Location: [facility] Sex: F Procedure Date: 12/27/2024 Hospital #: [id number] Date Received: 12/28/2024 Date Reported: 12/31/2024 Provider: [...] interpretation, and sign out were performed at [facility], [address] [place] [address]. 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 [employer]: : 1975 Requested By: VITOR LARRY Order Number: [id number] Reading MD: Manjeet Goodrich Measurements Intervals [place] Rate: 86 P: 48 NE: 150 QRS: -37 QRSD: 93 T: 75 QT: 284 QTc: 340 Interpretive Statements SINUS RHYTHM LEFT AXIS DEVIATION [QRS AXIS < -30] PATTERN CONSISTENT WITH PULMONARY DISEASE NONSPECIFIC T-WAVE ABNORMALITY Procedure Note Manjeet Goodrich MD - 12/26/2024 [address] [place] [address] Test Date: 2024-12-26 Pat Name: DAKOTA SHARIF Department: 1 Room: 84A Gender: Female [employer]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[employer]: : 1975 Requested By: VITOR LARRY Order Number: [id number] Reading : Manjeet Goodrich Measurements Intervals [place] Rate: 86 P: 48 NE: 150 QRS: -37 QRSD: 93 T: 75 QT: 284 QTc: 340 Interpretive Statements SINUS RHYTHM LEFT AXIS DEVIATION [QRS AXIS < -30] PATTERN CONSISTENT WITH PULMONARY DISEASE NONSPECIFIC T-WAVE ABNORMALITY us Vitor Larry MD ECG ORDERABLES Final Result [facility] * LACTIC ACID W REFLEX (SEPSIS) (12/26/2024 8:24 PM CDT) LACTIC ACID VENOUS 1.5 0.4 - 2.0 MMOL/L 12/26/2024 9:12 PM CDT [facility] 12/26/2024 8:24 PM CDT Vitor Larry MD LABORATORY Final Result [facility] [address] [place] [address], [phone] * (ABNORMAL) COMPREHENSIVE METABOLIC PANEL (12/26/2024 8:24 PM CDT) SODIUM S/P/B 145 136 - 145 MMOL/L 12/26/2024 9:10 PM CDT [facility] POTASSIUM S/P/B 3.1(L) 3.5 - 5.1 MMOL/L 12/26/2024 9:10 PM CDT [facility] CHLORIDE S/P/B 112 97 - 115 MMOL/L 12/26/2024 9:10 PM CDT [facility] CO2 25.3 21.0 - 32.0 MMOL/L 12/26/2024 9:10 PM CDT [facility] GLUCOSE 117(H) 74 - 106 MG/DL 12/26/2024 9:10 PM CDT [facility] BUN 8 7 - 18 MG/DL 12/26/2024 9:10 PM CDT [facility] CREATININE S/P/B 0.65 0.55 - 1.02 MG/DL 12/26/2024 9:10 PM CDT [facility] CALCIUM S/P/B 8.7 8.5 - 10.1 MG/DL 12/26/2024 9:10 PM CDT [facility] BILIRUBIN TOTAL S/P/B 0.7 0.2 - 1.0 MG/DL 12/26/2024 9:10 PM CDT [facility] ALKALINE PHOSPHATASE S/P/B 83 41 - 108 U/L 12/26/2024 9:10 PM CDT [facility] AST 23 15 - 37 U/L 12/26/2024 9:10 PM CDT [facility] ALT 25 13 - 56 U/L 12/26/2024 9:10 PM CDT [facility] TOTAL PROTEIN S/P/B 6.8 6.4 - 8.2 G/DL 12/26/2024 9:10 PM CDT [facility] ALBUMIN S/P/B 3.4 3.4 - 5.0 G/DL 12/26/2024 9:10 PM CDT [facility] ANION GAP 7.7 2.0 - 10.0 MMOL/L 12/26/2024 9:10 PM CDT [facility] OSMOLALITY (CALC) 299 MOSM/KG 025 9:10 PM CDT [facility] Comment:REFERENCE RANGE NOT ESTABLISHED GFR ESTIMATE >90 >90 ML/MIN/1. 73 M2 12/26/2024 9:10 PM CDT [facility] GFR NOTES GFR REFERENCE S: 12/26/2024 9:10 PM CDT [facility] Comment: THE ESTIMATED GFR IS CALCULATED [...] us Vitor Larry MD LABORATORY Final Result [facility] [address] [place] [address], [id number] * CULTURE, BACTERIA, BLOOD (12/26/2024 8:23 PM CDT) Only the most recent of2 resultswithin the time period is included. SPEC DESCRIPTION BLOOD 12/26/2024 7:42 PM CDT [facility] SPECIAL REQUESTS NO SPECIAL REQUEST 12/26/2024 7:42 PM CDT [facility] CULTURE RESULT NO GROWTH 5 DAYS 12/31/2024 9:42 PM CDT [facility] BLOOD SPECIMEN OBTAINED FOR BLOOD CULTURE / Unknown 12/26/2024 8:23 PM CDT 12/26/2024 8:24 PM CDT us Vitor Larry MD MICROBIOLOGY - GENERAL ORDERAB LES Final Result Performing Organization Address City/State/[facility] Co de Phone Number [facility] [address] [place] [address], [id number] from Last 3 Months Insurance Advance Directives * Full Code (Latest Code Status on File) Date Activated Date Inactivated Comments 12/26/2024 7:42 PM 12/28/2024 12:30 AM * Full Code Date Activated Date Inactivated Comments 11/26/2018 6:13 PM 11/28/2018 2:55 PM Care Teams Construction Job Titles Relationship Specialty Start Date End Date Josh Kidd MD [address] [place] [address] PCP - General FAMILY PRACTICE 11/26/18
--- OUTSIDE RECORDS SUMMARY | 2025-02-17 10:06 | XMS_ITS | Encounter Summary ---
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
--- OUTSIDE RECORDS SUMMARY | 2025-02-17 10:07 | XMS_ITS | Clinical Summary ---
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
--- OUTSIDE RECORDS SUMMARY | 2025-02-17 10:07 | XMS_ITS | Referral Summary ---
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
--- OUTSIDE RECORDS SUMMARY | 2025-02-17 10:07 | XMS_ITS | Clinical Summary ---
Author Organization [facility] Address [address] [place] [address] Phone Care Team Providers Care Manufacturing Inspector Name Role Phone Yenny Hernández Fred NUCLEAR PHYSICIST, [facility] Primary Care Provi feliberto Allergies Active Allergy [...] age to complete this topic Insurance MEDICAID [place] Care Teams Manufacturing Inspector Relationship Specialty Start Date End Date Yenny Hernández, NUCLEAR PHYSICIST, [facility] [address] [place] [address] PCP - General Advanced Practice Nurse 05/05/20
--- NOTE | 2025-02-17 10:09 | ED_ITS ---
HPI - Female Genitourinary General Chief complaint: Recheck/Abnormal Lab/Rx Stated complaint: abnormal culture need iv abt Source: patient Mode of arrival: ambulatory Limitations: no limitations History of Present Illness HPI Narrative: 49-year-old female, smoker with a history of migraine, depression, diabetes mellitus, dyslipidemia, kidney stones, COPD, IBS presented to the ED on 02/07/2025 with fever nausea, dizziness and was noted to have urinary tract infection. The patient was treated with ciprofloxacin. The patient had blood cultures 1/2 and urine cultures positive for ESBL E coli was resistant to ciprofloxacin. The patient presented to Her primary care physician's office with right flank pain without any fever. The patient was prescribed nitrofurantoin. The patient presents to the ED with -- ongoing subjective fever with sweating. -- Right flank pain /right CVA angle pain without any radiation. Pain is noted 3 to 4 times a day and lasts around 5 minutes. -- No dysuria or hematuria -- nausea and vomiting. She has had 2 episodes of vomiting today. MD elicited complaint: flank pain Onset (ago): day(s) ( Ten days) Location of symptoms: flank Severity: mild Female Urogenital Radiation: Non-Radiating Quality of pain: aching Consistency: intermittent Vaginal discharge: none Exacerbating factors: none Relieving factors: none Associated symptoms: fever, nausea and vomiting Treatment prior to arrival: other ( initially treated with ciprofloxacin and subsequently nitrofurantoin) Patient : No Related Data Allergies Allergy/AdvReac Type Severity Reaction Status Date / Time empagliflozin (Jardiance) Allergy Intermediate rash Verified 02/17/25 10:28 latex Allergy Intermediate Rash Verified 02/17/25 10:28 tetracycline Allergy Intermediate unknown Verified 02/17/25 10:28 lactose AdvReac Nausea Verified 02/17/25 10:28 Review of Systems 2 Review of Systems: All systems reviewed & are unremarkable except as noted in HPI and below Constitutional: Constitutional: Reports as per HPI ( subjective fever with diaphoresis) Eyes: Eyes: Reports as per HPI and Reports no additional eye complaints ENT: Reports system reviewed and no additional complaints, except as documented and Reports as per HPI Cardiovascular: Cardiovascular: Reports as per HPI and Reports no additional cardiovascular complaints Respiratory: Respiratory: Reports as per HPI and Reports no additional respiratory complaints Gastrointestinal: Gastrointestinal: Reports as per HPI and Reports no additional gastrointestinal complaints Genitourinary: Genitourinary: Reports no additional female genitourinary complaints and Reports as per HPI Comments: right flank pain Musculoskeletal: Musculoskeletal: Reports no additional musculoskeletal complaints and Reports as per HPI Integumentary/Breasts: Skin/Breast: Reports system reviewed and no additional complaints, except as docu and Reports as per HPI Neurologic: Reports system reviewed and no additional complaints, except as documented and Reports as per HPI Psychiatric: Psychiatric: Reports no additional psychiatric complaints and Reports as per HPI Endocrine: Endocrine: Reports no additional endocrine complaints and Reports as per HPI Hematologic/Lymphatic: Hematologic/Lymphatic: Reports no additional hematologic/lymphatic complaints and Reports as per HPI Allergic/Immunologic: Allergic/Immunologic: Reports no additional allergic/immunologic complaints and Reports as per HPI PMFSH Past Medical History Medical History Pneumonia Wheezing Cough Urethritis Joint pain Fatigue RLQ abdominal pain Pelvic pain Head injury with loss of consciousness (05/24/21) Syncope Nipple discharge Preventative health care Acute bronchitis Acute sinusitis COPD exacerbation Calculus of kidney COPD exacerbation BMI 32.0-32.9,adult Acute sinusitis Sinusitis, acute maxillary Finger avulsion Depression Acute insomnia Migraine IBS (irritable bowel syndrome) COPD (chronic obstructive pulmonary disease) Hyperlipidemia Diabetes mellitus with diabetic nephropathy Surgical History Surgical History Hx of cholecystectomy Hx of hysterectomy Family History Family History Mother Diabetes mellitus Social History Social History Smoking packs per day: 1 Smoking cigarettes per day: 20.0 Smoking status: Heavy tobacco smoker Tobacco type: cigarettes Second hand tobacco smoke exposure: Yes Alcohol intake: current Substance use: never Substance use type: does not use Do You Feel Safe in your Home?: Yes Lack of Transportation: No Lack of Food: Never True Current Housing: I Have Housing Concerned About Future Housing: No Difficulty Paying Gas/Electric Bills: No Difficulty Paying for Meds: No Currently Unemployed: No Education: Decline to Answer Difficulty w/ Childcare or Family Care: No Living arrangements: with family Gender identity (if verbalized by the patient): Female Spiritual care concerns: No Exam 2 Narrative: afebrile. Blood pressure 155/94. Const: General: healthy appearing and no acute distress Nutritional Appearance: well nourished Orientation/consciousness: patient oriented x3 Limitations: no limitations HENMT: Head: normal to inspection Ears: external ears normal F chase/Nose/Sinus: Normal external nose present Face and sinus: normal facial exam Mouth: Yes Normal oral and palatal mucosa present Throat: posterior oropharynx normal Eyes: Conjunctivae: conjunctivae normal Pupils: Equal, round and reactive pupils present EOM: EOMs intact bilaterally Direct Ophthalmoscopy: no photophobia Neck: Neck: normal visual inspection, no lymphadenopathy and no meningeal signs Chest: Chest palpation & inspection: normal inspection of the chest Resp: Effort & Inspection: normal respiratory effort Auscultation: clear to auscultation bilaterally Cardio: Rate: regular rate Rhythm: regular rhythm GI: GI Palp: Yes Soft to palpation Auscultation: normal bowel sounds O ther: No tenderness/rigidity/rebound. : General: Yes CVA tenderness ( Tenderness over the right CVA angle closer to the lumbar spine) on the right Back/Spine/Pelvis: Back: CVA tenderness Skin: General skin exam: normal color Rashes: no rashes Wounds: no wounds Neuro: General: patient oriented x3, moves all extremities, no meningeal signs, no focal motor deficits and CN's II-XI intact bilaterally Cranial nerves: Yes Nystagmus not present Speech: normal speech Gait exam (Neuro): Normal gait present Extrem: General: normal to inspection and no clubbing, cyanosis or edema Psych: Appearance: grossly normal Mental Status: mental status grossly normal Affect: normal affect Attitude: cooperative Course Course Emergency Course: right flank pain-- CT of the abdomen and pelvis did not show any stones or any other abnormality. History of ESBL E coli bacteremia and urinary tract infection On urine and blood cultures done on 02/07/2025. Blood culture was 1/2 positive. Patient was treated with Cipro floxacillin and subsequently nitrofurantoin. Patient has ongoing right flank pain, subjective fever and vomiting. Blood work is significant for a white count of 13.8 and lactate of 4.1. urine was negative for infection. In view of the history of ESBL E coli UTI and bacteremia and ongoing fevers would admit the patient and treat with IV ertapenem tell her blood cultures have resulted. Elevated blood sugars Vital Signs Vital signs: Vital Signs Temperature 36.1 C L 07/23/25 10:02 Pulse Rate 109 H 02/17/25 10:02 Respiratory Rate 20 02/17/25 10:02 Blood Pressure 155/94 H 02/17/25 10:02 Pulse Oximetry 97 02/17/25 10:02 Oxygen Delivery Room Air 02/17/25 10:02 Temperature 36.1 C L 02/17/25 10:02 Pulse Rate 109 H 02/17/25 10:02 Respiratory Rate 20 02/17/25 10:02 Blood Pressure 165/92 H 02/17/25 12:19 Pulse Oximetry 96 02/17/25 12:30 Oxygen Delivery Room Air 02/17/25 12:30 MDM - Female Genitourinary MDM Narrative Medical decision making narrative: ESBL E coli urosepsis hyperglycemia right flank pain Differential Diagnosis Differential diagnosis: Likely urinary tract infection and ovarian cyst Medical Records Attestation: I reviewed the patient's medical records. Lab Data Attestation: I reviewed the patient's lab results. 02/17/25 10:56 02/17/25 10:56 Labs: Lab Results 02/17/25 02/17/25 Range/Units 10:45 10:56 WBC 13.8 H (4.8-10.8) K/mm3 RBC 5.59 H (4.20-5.40) M/mm3 Hgb 17.0 H (12.0-15.0) g/dL Hct 49.0 (35.0-49.0) % MCV 87.7 (78.0-102.0) fL MCH 30.4 (27.0-31.0) pg MCHC 34.7 (32-36) g/dL RDW 12.4 (11.6-14.4) % Plt Count 527 H (150-420) K/mm3 MPV 9.3 (9.2-11.8) fl Immature Gran % (Auto) 0.7 H (0.0-0.0) % Neut % (Auto) 67.5 (50.0-70.0) % Lymph % (Auto) 26.4 (18.0-42.0) % [place] % (Auto) 3.9 (2.0-11.0) % Eos % (Auto) 0.6 L (1.0-6.0) % Baso % (Auto) 0.9 (0.0-1.0) % Lymph # (Auto) 3.65 (1.10-4.50) K/mm3 Highlands # (Auto) 0.54 (0.10-0.90) K/mm3 Eos # (Auto) 0.08 (0.02-0.50) K/mm3 Baso # (Auto) 0.13 H (0.00-0.10) K/mm3 Abs Immat Gran (auto) 0.10 H (0.00-0.00) K/mm3 Absolute Neuts (auto) 9.33 H (1.70-7.20) K/mm3 Absolute Nucleated RBC 0.00 (0.00-0.00) K/mm3 Nucleated RBC % 0.0 (0-0.0) % % Immature Plt Fraction 1.0 (1.0-7.0) % Sodium 141 (137-145) mmol/L Potassium 4.0 (3.4-5.0) mmol/L Chloride 105 (98-107) mmol/L Carbon Dioxide 23 (22-30) mmol/L Anion Gap 13 H (4-12) mmol/L BUN 7 (7-17) mg/dL Creatinine 0.55 L (0.7-1.0) mg/dL Estim Creat Clear Calc 102 ml/min Estimated GFR > 60 (59 - ) Glucose 311 H (65-110) mg/dL Calculated Osmolality 302 H (285-295) mOsm/kg Lactic Acid 4.1 H (0.4-2.0) mmol/L Calcium 9.5 (8.4-10.2) mg/dL Total Bilirubin 0.7 (0.2-1.3) mg/dL AST 34 (14-36) U/L ALT 37 H (6-35) U/L Alkaline Phosphatase 127 H (38-126) U/L Total Protein 8.7 H (6.3-8.2) g/dL Albumin 4.6 (3.5-5.1) g/dL Lipase 163 (23-300) U/L Urine Color Light yellow (Yellow) Urine Appearance Clear (Clear) Urine pH 6.5 (5.0-8.0) Ur Specific Rector <= 1.005 L (1.010-1.020) Urine Protein Negative (Negative) Urine Glucose (UA) 3+ H (Negative) Urine Ketones Negative (Negative) Ur Blood (Man) Negative (Negative) Urine Nitrate Negative (Negative) Urine Bilirubin Negative (Negative) Urine Urobilinogen 0.2 (0.2-1.0) mg/dL Leukocyte Esterase Rfl Negative (Negative) VILMA/UL Discharge Plan Discharge Clinical Impression: Urinary tract infection, Bacteremia due to Escherichia coli, Hyperglycemia due to type 2 diabetes mellitus, Acute flank pain Patient Disposition: Acute Care Hospital [facility] Condition: Stable Patient Language: Slovenian Prescriptions: No Action [employer] Aerosphere 160-9-4.8 mcg/actuation HFA aerosol inhaler 2 inh inhalation BID Qty: 10.7 2RF (DME) insulin syringe-needle U-100 1 mL 27 gauge x 1/2 syringe See Rx Instructions .ROUTE .MEDSUPPLY Qty: 500 3RF Rx Instructions: QID cholecalciferol (vitamin D3) 50 mcg (2,000 unit) capsule 50 mcg PO DAILY Qty: 30 2RF (DME) FreeStyle Sherron 3 [place] Misc See Rx Instructions .Route Qty: 1 0RF Rx Instructions: As directed fluticasone propionate 50 mcg/actuation spray,suspension See Rx Instructions .ROUTE .COMPLEX Qty: 16 3RF Dose Instruction: USE 1 SPRAY IN EACH NOSTRIL DAILY Rx Instructions: USE 1 SPRAY IN EACH NOSTRIL DAILY mupirocin 2 % ointment 1 applic topical BID Qty: 22 0RF ondansetron 4 mg tablet,disintegrating 4 mg PO Q8H PRN (Reason: nausea and vomiting) Qty: 14 0RF Trulicity 1.5 mg/0.5 mL pen injector 1.5 mg subcut WEEKLY Qty: 2 3RF albuterol sulfate 2.5 mg /3 mL (0.083 %) solution for nebulization 2.5 mg inhalation Q4-6H PRN (Reason: shortness of breath or wheezing) Qty: 90 3RF (DME) pen needle, diabetic [TechLITE Pen Needle] 32 gauge x 5/32 needle See Rx Instructions .Route Qty: 100 11RF Rx Instructions: Use once daily (DME) insulin syringes (disposable) 1 mL syringe See Rx Instructions .ROUTE .MEDSUPPLY Qty: 500 0RF Rx Instructions: As directed omeprazole 40 mg capsule,delayed release(DR/EC) See Rx Instructions .ROUTE .COMPLEX Qty: 30 5RF Dose Instruction: TAKE 1 CAPSULE BY MOUTH EVERY DAY Rx Instructions: TAKE 1 CAPSULE BY MOUTH EVERY DAY (DME) 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 meter [OneTouch Ultra2 Meter] [facility] See Rx Instructions .ROUTE .COMPLEX Qty: 1 0RF Dose Instruction: DIRECTED Rx Instructions: DIRECTED (DME) OneTouch Ultra Test Strip See Rx Instructions .ROUTE .COMPLEX Qty: 100 5RF Dose Instruction: TEST BLOOD SUGAR FOUR TIMES DAILY Rx Instructions: TEST BLOOD SUGAR FOUR TIMES DAILY (DME) lancets [OneTouch Delica Plus Lancet] 33 gauge [facility] See Rx Instructions .ROUTE .COMPLEX Qty: 100 1RF Dose Instruction: CHECK BLOOD GLUCOSE UP TO 4 TIMES DAILY Rx Instructions: CHECK BLOOD GLUCOSE UP TO 4 TIMES DAILY atorvastatin 20 mg tablet See Rx Instructions .ROUTE .COMPLEX Qty: 90 2RF Dose Instruction: TAKE 1 TABLET BY MOUTH EVERYDAY AT BEDTIME Rx Instructions: TAKE 1 TABLET BY MOUTH EVERYDAY AT BEDTIME albuterol sulfate 90 mcg/actuation HFA aerosol inhaler See Rx Instructions .ROUTE .COMPLEX Qty: 18 2RF Dose Instruction: INHALE 1 PUFF BY MOUTH EVERY 4 HOURS NEEDED FOR SHORTNESS OF BREATH OR WHEEZING Rx Instructions: INHALE 1 PUFF BY MOUTH EVERY 4 HOURS NEEDED FOR SHORTNESS OF BREATH OR WHEEZING pregabalin [Lyrica] 200 mg capsule 400 mg PO HS Qty: 60 1RF tizanidine 2 mg tablet See Rx Instructions .ROUTE .COMPLEX Qty: 90 0RF Dose Instruction: TAKE 1 TABLET BY MOUTH 3 TIMES A DAY NEEDED FOR MUSCLE SPASTICITY Rx Instructions: TAKE 1 TABLET BY MOUTH 3 TIMES A DAY NEEDED FOR MUSCLE SPASTICITY insulin glargine [Lantus Solostar U-100 Insulin] 100 unit/mL (3 mL) insulin pen See Rx Instructions .ROUTE .COMPLEX Qty: 15 0RF Dose Instruction: INJECT 20 UNITS SUBCUTANEOUSLY DAILY Rx Instructions: INJECT 20 UNITS SUBCUTANEOUSLY DAILY (DME) FreeStyle Sherron 3 Plus Sensor Device See Rx Instructions .Route Qty: 1 0RF Rx Instructions: As directed meloxicam 15 mg tablet See Rx Instructions .ROUTE .COMPLEX Qty: 90 1RF Dose Instruction: TAKE 1 TABLET BY MOUTH EVERY DAY Rx Instructions: TAKE 1 TABLET BY MOUTH EVERY DAY venlafaxine 150 mg capsule,extended release 24hr See Rx Instructions .ROUTE .COMPLEX Qty: 90 1RF Dose Instruction: TAKE 1 CAPSULE BY MOUTH EVERY DAY Rx Instructions: TAKE 1 CAPSULE BY MOUTH EVERY DAY oxybutynin chloride 5 mg tablet extended release 24hr See Rx Instructions .ROUTE .COMPLEX Qty: 30 2RF Dose Instruction: TAKE 1 TABLET BY MOUTH EVERY DAY Rx Instructions: TAKE 1 TABLET BY MOUTH EVERY DAY Steglatro 5 mg tablet See Rx Instructions .ROUTE .COMPLEX Qty: 30 3RF Dose Instruction: TAKE 1 TABLET BY MOUTH EVERY DAY IN THE MORNING Rx Instructions: TAKE 1 TABLET BY MOUTH EVERY DAY IN THE MORNING insulin lispro [Humalog U-100 Insulin] 100 unit/mL solution See Rx Instructions .ROUTE .COMPLEX 30 Days Qty: 90 3RF Dose Instruction: INJECT 70 UNITS SUBCUTANEOUSLY 3 TIMES A DAY Rx Instructions: INJECT 70 UNITS SUBCUTANEOUSLY 3 TIMES A DAY loratadine 10 mg tablet See Rx Instructions .ROUTE .COMPLEX Qty: 30 5RF Dose Instruction: TAKE 1 TABLET BY MOUTH EVERY DAY Rx Instructions: TAKE 1 TABLET BY MOUTH EVERY DAY Follow-up/Referrals: Yogi Dickson DO [Primary Care Provider] - Time of Disposition: 12:58
--- OUTSIDE RECORDS SUMMARY | 2025-02-17 10:33 | XMS_ITS | Clinical Summary ---
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
--- OUTSIDE RECORDS SUMMARY | 2025-02-17 10:33 | XMS_ITS | Clinical Summary ---
Author Organization [facility] Address [address] [place] [address] Phone Care Team Providers Care Broom Man Name Role Phone Yenny Hernández Fred GEOTECHNICAL FIELD TECHNICIAN, [facility] Primary Care Provi feliberto Allergies Active [...] age to complete this topic Insurance MEDICAID [place] Care Teams Broom Man Relationship Specialty Start Date End Date Yenny Hernández, GEOTECHNICAL FIELD TECHNICIAN, DIGITAL ASSISTANT [address] [place] [address] PCP - General Advanced Practice Nurse 05/05/20
--- OUTSIDE RECORDS SUMMARY | 2025-02-17 10:33 | XMS_ITS | Clinical Summary ---
Author Organization [facility] [employer] Address [address] [place] [address] Care Team Providers Care Ham Marker Name Role Phone Yenny Hernández BODY TECHNICIAN-METER AND SERVICE LINE INSPECTOR Primary Care Provid er Source Comments [facility] [employer],non-owned Affiliates and Associated Physician Practices is amultiple site organization consisting of ambulatory clinics and hospital sitesin [place], [place], [place] and [place]. This disclosure is being madepursuant to the Care Everywhere program and may not contain all information available regarding this patient. Last updated 18.[facility] [employer] Allergies Active Allergy Reactions Criticality Noted Date [...] this topic Medical Devices Implanted Type Area [employer] Membership Sales Agent Device Identifier Shelf Expiration Date Model / Serial / Lot Stent Uret 6fr 24cm Pgtl Crv Tpr Tip Implanted:Qty: 1 on 10/12/2020 by Dariel Gudino MD at [facility] Right: [employer] 07/04/2023 [id number] / / [id number] Procedures Procedure Name Priority Date/Time Associated Diagnosis Comments GLUCOSE - POINT OF CARE Routine 10/12/2020 7:58 AM CDT from Last 3 Months or Most Recently Relevant to Health Maintenance Results * (ABNORMAL) GLUCOSE - POINT OF CARE (10/12/2020 7:58 AM CDT) Glucose WB/POC 160(H) 70 - 115 mg/dL 10/12/2020 7:59 AM CDT [facility] Specimen Type Venous 10/12/2020 7:59 AM CDT [facility] Blood BLOOD SPECIMEN / Unknown 10/12/2020 7:58 AM CDT 10/12/2020 7:59 AM CDT us Dariel Gudino MD LAB - POINT OF CARE ORDERA BLES Final Result [address] [address], [place] [phone] from Last 3 Months or Most Recently Relevant to Health Maintenance Insurance [facility] Care Teams Ham Marker Relationship Specialty Start Date End Date Yneny Hernández, BODY TECHNICIAN-METER AND SERVICE LINE INSPECTOR [address] [place] [address] PCP - General 06/16/20
--- OUTSIDE RECORDS SUMMARY | 2025-02-17 10:33 | XMS_ITS | Referral Summary ---
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
[2025-02-17 11:09] LABS: Hematocrit 49.0 % (35.0-49.0); Hemoglobin 17.0 g/dL (12.0-15.0); Immature Granulocyte Percent A 0.7 % (0.0-0.0); Immature Platelet Fraction Pct 1.0 % (1.0-7.0); Lymphocytes Absolute Auto 3.65 K/mm3 (1.10-4.50); Mean Corpuscular HGB Conc 34.7 g/dL (32-36); Mean Corpuscular Hemoglobin 30.4 pg (27.0-31.0); Mean Corpuscular Volume 87.7 fL (78.0-102.0); Nucleated Red Blood Cells Absolute Auto 0.00 K/mm3 (0.00-0.00); Nucleated Red Blood Cells Perc 0.0 % (0-0.0); Platelet Count Result 527 K/mm3 (150-420); Red Blood Count 5.59 M/mm3 (4.20-5.40); White Blood Count 13.8 K/mm3 (4.8-10.8)
[2025-02-17 11:11] LABS: Add Urine Microscopic? NO; Appearance Urine Clear (Clear); Glucose Urine UA 3+ (Negative); Leukocyte Esterase Ur Negative LEU/UL (Negative); Nitrate Urine Negative (Negative); Specific Grav Ur <= 1.005 (1.010-1.020)
[2025-02-17 11:22] LABS: Alanine Aminotransferase 37 U/L (6-35); Albumin Level 4.6 g/dL (3.5-5.1); Alkaline Phosphatase 127 U/L (38-126); Anion Gap 13 mmol/L (4-12); Aspartate Amino Transferase 34 U/L (14-36); Bilirubin,Total 0.7 mg/dL (0.2-1.3); Blood Urea Nitrogen 7 mg/dL (7-17); Calcium 9.5 mg/dL (8.4-10.2); Carbon Dioxide 23 mmol/L (22-30); Chloride 105 mmol/L (98-107); Estimated CRCL calculation 102 ml/min; Estimated Glomerular Filt Rate > 60; Glucose 311 mg/dL (65-110); Lipase 163 U/L (23-300); Osmolality Calculated 302 mOsm/kg (285-295); Potassium 4.0 mmol/L (3.4-5.0); Sodium 141 mmol/L (137-145); Total Protein 8.7 g/dL (6.3-8.2)
[2025-02-17] MEDS: ERTAPENEM SODIUM 1 GM in SODIUM CHLORIDE 0.9% IV 50 ML 100 ML IVPB (12:18)
[2025-02-17] MEDS: LACTATED RINGERS 1,000 ML 999 ML IV CONT (12:18)
[2025-02-17] MEDS: INSULIN HUMAN REGULAR (*BKC) 1,000 UNITS/10 ML VIAL 10 UNITS SUB-Q (13:02)
--- NOTE | 2025-02-17 13:41 | ADMGEN ---
This patient, Preeti Sharif, was admitted to 2nd Floor Room 202-2. Patient/family oriented to hospital policies and general routines including ID bracelet, bed and alarms, visiting hours, pain management, procedures, bathroom and other care routines, personal items, smoking policy, room service/diet, and visiting hours. Information on how to activate the Rapid Response Team has been discussed. Patient/Family are encouraged to report perceived risks to care and to ask questions if they do not understand what they are told or what they should do.
[2025-02-17 13:42] LABS: Hematocrit 45.4 % (35.0-49.0); Hemoglobin 15.8 g/dL (12.0-15.0); Immature Granulocyte Percent A 1.1 % (0.0-0.0); Lymphocytes Absolute Auto 4.21 K/mm3 (1.10-4.50); Mean Corpuscular HGB Conc 34.8 g/dL (32-36); Mean Corpuscular Hemoglobin 30.7 pg (27.0-31.0); Mean Corpuscular Volume 88.3 fL (78.0-102.0); Nucleated Red Blood Cells Absolute Auto 0.00 K/mm3 (0.00-0.00); Nucleated Red Blood Cells Perc 0.0 % (0-0.0); Platelet Count Result 443 K/mm3 (150-420); Red Blood Count 5.14 M/mm3 (4.20-5.40); White Blood Count 15.0 K/mm3 (4.8-10.8)
[2025-02-17 13:53] LABS: Anion Gap 8 mmol/L (4-12); Blood Urea Nitrogen 7 mg/dL (7-17); Calcium 9.3 mg/dL (8.4-10.2); Carbon Dioxide 29 mmol/L (22-30); Chloride 105 mmol/L (98-107); Estimated CRCL calculation 93 ml/min; Estimated Glomerular Filt Rate > 60; Glucose 209 mg/dL (65-110); Osmolality Calculated 298 mOsm/kg (285-295); Potassium 4.3 mmol/L (3.4-5.0); Sodium 142 mmol/L (137-145)
[2025-02-17] MEDS: INSULIN GLARGINE (*BKC) 1,000 UNITS/10 ML VIAL 20 UNITS SUB-Q (21:12)
[2025-02-17] MEDS: ATORVASTATIN 10 MG TABLET 20 MG BY MOUTH (21:15)
[2025-02-17] MEDS: PREGABALIN (*CRX) 100 MG CAPSULE 400 MG PO (21:15)
--- NOTE | 2025-02-17 22:36 | PC.NURSE ---
Message left for Naina Olson that patient's blood pressure was 145/101 after she ambulated back to bed from the bathroom. Patient was asymptomatic and denies any pain, dizziness, nausea, increased weakness.
--- NOTE | 2025-02-17 23:20 | PC.NURSE ---
Spoke with Naina Olson, Hospitalist, about blood pressure. New order to continue to monitor.
[2025-02-18 06:00] VITALS: BP 131/86; PULSE 100; RESP 18; O2SAT 92
[2025-02-18 07:42] VITALS: BP 134/92; PULSE 105; RESP 16; TEMP 37.3; O2SAT 97
[2025-02-18] MEDS: ENOXAPARIN 40 MG/0.4 ML SYRINGE SUB-Q (08:15)
[2025-02-18] MEDS: LORATADINE 10 MG TABLET BY MOUTH (08:16)
[2025-02-18] MEDS: VENLAFAXINE HCL XR 75 MG CAP.ER.24H 150 MG BY MOUTH (08:17)
[2025-02-18] MEDS: MELOXICAM 7.5 MG TABLET 15 MG PO (08:17)
[2025-02-18] MEDS: ACETAMINOPHEN 325 MG TABLET 650 MG PO (08:19)
[2025-02-18] MEDS: ERTAPENEM SODIUM 1 GM in SODIUM CHLORIDE 0.9% IV 50 ML 100 ML IVPB (08:20)
[2025-02-18] MEDS: NICOTINE (*PBKC) 21 MG PATCH 1 PATCH TRANSDERM (10:03)
[2025-02-18] MEDS: CHOLECALCIFEROL (VITAMIN D3) 25 MCG (1,000 UNITS) TABLET 50 MCG PO (10:03)
[2025-02-18] MEDS: oxyBUTYnin CHLORIDE XL 5 MG TAB.ER.24 PO (10:04)
[2025-02-18 10:15] LABS: Hematocrit 48.4 % (35.0-49.0); Hemoglobin 16.3 g/dL (12.0-15.0); Immature Granulocyte Percent A 0.5 % (0.0-0.0); Lymphocytes Absolute Auto 3.68 K/mm3 (1.10-4.50); Mean Corpuscular HGB Conc 33.7 g/dL (32-36); Mean Corpuscular Hemoglobin 30.2 pg (27.0-31.0); Mean Corpuscular Volume 89.6 fL (78.0-102.0); Nucleated Red Blood Cells Absolute Auto 0.00 K/mm3 (0.00-0.00); Nucleated Red Blood Cells Perc 0.0 % (0-0.0); Platelet Count Result 475 K/mm3 (150-420); Red Blood Count 5.40 M/mm3 (4.20-5.40); White Blood Count 12.8 K/mm3 (4.8-10.8)
--- NOTE | 2025-02-18 10:19 | P.PNIM_ITS ---
Subjective Date/time seen: 02/18/25 10:19 Objective Data Vital Signs Vital Signs: Vital Signs - 24 hr 02/17/25 10:30 02/17/25 10:31 02/17/25 10:49 Temperature Pulse Rate Respiratory Rate Blood Pressure 145/98 H Pulse Oximetry 96 97 96 Oxygen Delivery Room Air 02/17/25 10:50 02/17/25 11:00 02/17/25 11:15 Temperature Pulse Rate Respiratory Rate Blood Pressure 155/94 H Pulse Oximetry 97 97 92 Oxygen Delivery 02/17/25 11:16 02/17/25 11:17 02/17/25 11:30 Temperature Pulse Rate Respiratory Rate Blood Pressure 156/94 H Pulse Oximetry 92 93 92 Oxygen Delivery Room Air Room Air 02/17/25 11:31 02/17/25 11:45 02/17/25 11:46 Temperature Pulse Rate Respiratory Rate Blood Pressure 155/91 H 144/97 H Pulse Oximetry 92 95 95 Oxygen Delivery Room Air 02/17/25 12:01 02/17/25 12:12 02/17/25 12:17 Temperature Pulse Rate Respiratory Rate Blood Pressure 146/103 H Pulse Oximetry 98 96 Oxygen Delivery 02/17/25 12:19 02/17/25 12:30 02/17/25 14:00 Temperature 36.7 C Pulse Rate 96 Respiratory Rate 18 Blood Pressure 165/92 H 141/88 H Pulse Oximetry 91 96 98 Oxygen Delivery Room Air Room Air 02/17/25 16:00 02/17/25 20:00 02/17/25 21:00 Temperature 36.3 C L 36.6 C Pulse Rate 102 H Respiratory Rate 18 Blood Pressure 130/86 145/101 H Pulse Oximetry 95 Oxygen Delivery Room Air Room Air 02/17/25 21:11 02/17/25 23:58 02/18/25 06:00 Temperature 36.8 C Pulse Rate 94 100 Respiratory Rate 18 18 Blood Pressure 133/76 131/86 Pulse Oximetry 95 96 92 Oxygen Delivery Room Air Room Air Room Air 02/18/25 07:42 Temperature 37.3 C Pulse Rate 105 H Respiratory Rate 16 Blood Pressure 134/92 H Pulse Oximetry 97 Oxygen Delivery Room Air Intake/Output Intake/Output: Intake & Output 02/15/25 02/16/25 02/17/25 02/18/25 23:59 23:59 23:59 23:59 Intake Total 2040 1090 Output Total 700 Balance 1340 1090 Meds/Results Medications: Active Medications Generic Name Dose Route Start Last Admin Trade Name Freq PRN Reason Stop Dose Admin Acetaminophen 650 mg 02/17/25 13:01 02/18/25 08:19 Acetaminophen 325 Mg Tablet PO 650 mg Q4H PRN Administration Mild Pain (1-3) or Fever Albuterol 2.5 mg 02/17/25 20:41 Albuterol Sulfate Neb 2.5 Mg/3 Ml Inh INHALATION Q4-6H PRN shortness of breath or wheezing Atorvastatin Calcium 20 mg 02/17/25 21:00 02/17/25 21:15 Atorvastatin 10 Mg Tablet BY MOUTH 20 mg QHS PARTH Administration Dextrose 12.5 gm 02/17/25 19:47 Dextrose 50% 25 Gm/50 Ml Syringe IV PUSH PRN PRN Hypoglycemia Protocol Dextrose 12.5 gm 02/17/25 20:42 Dextrose 50% 25 Gm/50 Ml Syringe IV PUSH PRN PRN Hypoglycemia Protocol Enoxaparin Sodium 40 mg 02/18/25 09:00 02/18/25 08:15 Enoxaparin 40 Mg/0.4 Ml Syringe SUB-Q 40 mg DAILY [facility] Administration Glucagon 1 mg 02/17/25 19:47 Glucagon For Inj 1 Mg Vial IM PRN PRN Hypoglycemia Protocol Glucagon 1 mg 02/17/25 20:42 Glucagon For Inj 1 Mg Vial IM PRN PRN Hypoglycemia Protocol Glucose 15 gm 02/17/25 19:47 Glucose Oral Gel 15 Gm Of Glucse In 37.5 Gm Tube PO PRN PRN Hypoglycemia Protocol Glucose 15 gm 02/17/25 20:42 Glucose Oral Gel 15 Gm Of Glucse In 37.5 Gm Tube PO PRN PRN Hypoglycemia Protocol Ertapenem 1 gm/ Sodium 50 mls @ 100 mls/hr 02/18/25 09:00 02/18/25 08:55 Chloride IVPB Infused DAILY [facility] Infusion Dextrose 1,000 mls @ 100 mls/hr 02/17/25 19:47 Dextrose 5% 1,000 Ml IVPB PRN PRN Hypoglycemia Protocol Dextrose 1,000 mls @ 100 mls/hr 02/17/25 20:42 Dextrose 5% 1,000 Ml IVPB PRN PRN Hypoglycemia Protocol Insulin Glargine 20 units 02/17/25 21:00 02/17/25 21:12 Insulin Glargine (*Bkc) 1,000 Units/10 Ml Vial SUB-Q 20 units HS PAR[facility] Administration Insulin Human Lispro 3 - 6 units 02/18/25 08:00 02/18/25 08:16 Insulin Human Lispro (*Bkc) 1,000 Units/10 Ml Vial SUB-Q Not Given TIDWM [facility] Protocol Loratadine 10 mg 02/18/25 09:00 02/18/25 08:16 Loratadine 10 Mg Tablet BY MOUTH 10 mg QAM [facility] Administration Meloxicam 15 mg 02/18/25 09:00 02/18/25 08:17 Meloxicam 7.5 Mg Tablet PO 15 mg DAILY [facility] Administration Miscellaneous Information 1 each 02/18/25 00:01 Steglatro Is Nonform; Can Pt Use From Home? XX 03/20/25 00:00 CLARIFY [facility] Miscellaneous Information 1 each 02/19/25 00:01 Order Clarification - Breztri Aerosphere] 160-9-4.8 Is Non-Formulary XX 03/21/25 00:00 CLARIFY [facility] Miscellaneous Information 1 each 02/19/25 00:01 Order Clarification-Nonformulary Drug (Dulaglutide [Trulicity] 1.5 Mg/0.5 Ml Pen Injector) XX 03/21/25 00:00 CLARIFY [facility] Nicotine 1 patch 02/18/25 09:35 02/18/25 10:03 Nicotine (*Pbkc) 21 Mg Patch TRANSDERM 1 patch DAILY [facility] Administration Non-Formulary Medication 0 mg 02/17/25 20:45 Ertugliflozin [Steglatro] .ROUTE 03/19/25 20:44 .COMPLEX [facility] Non-Formulary Medication 2 inhalation 02/18/25 17:00 Hnnpmkntmg-Iqgprngh-Asglskvoxr [Breztri Aerosphere] INHALATION 03/20/25 16:59 BID PAR[facility] Non-Formulary Medication 1.5 mg 02/25/25 09:00 Dulaglutide [Trulicity] SUB-Q 03/27/25 08:59 WEEKLY [facility] Ondansetron HCl 4 mg 02/17/25 13:01 Ondansetron Inj 4 Mg/2 Ml Vial IV PUSH Q6H PRN Nausea And Vomiting Oxybutynin Chloride 5 mg 02/18/25 09:30 02/18/25 10:04 Oxybutynin Chloride Xl 5 Mg Tab.Er.24 PO 5 mg DAILY [facility] Administration Pregabalin 400 mg 02/17/25 21:00 02/17/25 21:15 Pregabalin (*Crx) 100 Mg Capsule PO 400 mg HS [facility] Administration Venlafaxine HCl 150 mg 02/18/25 09:00 02/18/25 08:17 Venlafaxine Hcl Xr 75 Mg Cap.Er.24h BY MOUTH 150 mg DAILY [facility] Administration Vitamin D 50 mcg 02/18/25 09:30 02/18/25 10:03 Cholecalciferol (Vitamin D3) 25 Mcg (1,000 Units) Tablet PO 50 mcg DAILY [facility] Administration Radiology Results: ITS Impressions Abdomen/Pelvis CT 02/17/25 11:04 IMPRESSION: Punctate nonobstructive nephrolithiasis. No hydroureteronephrosis. Chest X-Ray 02/17/25 11:42 IMPRESSION: 1: NO ACUTE CARDIOPULMONARY DISEASE. Labs Labs: Laboratory Results - last 24 hr 02/17/25 02/17/25 02/17/25 10:45 10:56 13:08 WBC 13.8 H RBC 5.59 H Hgb 17.0 H Hct 49.0 MCV 87.7 MCH 30.4 MCHC 34.7 RDW 12.4 Plt Count 527 H MPV 9.3 Immature Gran % (Auto) 0.7 H Neut % (Auto) 67.5 Lymph % (Auto) 26.4 Morrill % (Auto) 3.9 Eos % (Auto) 0.6 L Baso % (Auto) 0.9 Lymph # (Auto) 3.65 Morrill # (Auto) 0.54 Eos # (Auto) 0.08 Baso # (Auto) 0.13 H Abs Immat Gran (auto) 0.10 H Absolute Neuts (auto) 9.33 H Absolute Nucleated RBC 0.00 Nucleated RBC % 0.0 % Immature Plt Fraction 1.0 Sodium 141 Potassium 4.0 Chloride 105 Carbon Dioxide 23 Anion Gap 13 H BUN 7 Creatinine 0.55 L Estim Creat Clear Calc 102 Estimated GFR > 60 Glucose 311 H POC Capillary Glucose Calculated Osmolality 302 H Lactic Acid 4.1 H 2.4 H Calcium 9.5 Total Bilirubin 0.7 AST 34 ALT 37 H Alkaline Phosphatase 127 H Total Protein 8.7 H Albumin 4.6 Lipase 163 Urine Color Light yellow Urine Appearance Clear Urine pH 6.5 Ur Specific Heaters <= 1.005 L Urine Protein Negative Urine Glucose (UA) 3+ H Urine Ketones Negative Ur Blood (Man) Negative Urine Nitrate Negative Urine Bilirubin Negative Urine Urobilinogen 0.2 Leukocyte Esterase Rfl Negative 02/17/25 02/17/25 02/17/25 13:36 17:13 21:09 WBC 15.0 H RBC 5.14 Hgb 15.8 H Hct 45.4 MCV 88.3 MCH 30.7 MCHC 34.8 RDW 12.3 Plt Count 443 H MPV 9.1 L Immature Gran % (Auto) 1.1 H Neut % (Auto) 64.5 Lymph % (Auto) 28.2 Morrill % (Auto) 4.9 Eos % (Auto) 0.6 L Baso % (Auto) 0.7 Lymph # (Auto) 4.21 Morrill # (Auto) 0.73 Eos # (Auto) 0.09 Baso # (Auto) 0.11 H Abs Immat Gran (auto) 0.16 H Absolute Neuts (auto) 9.65 H Absolute Nucleated RBC 0.00 Nucleated RBC % 0.0 % Immature Plt Fraction Sodium 142 Potassium 4.3 Chloride 105 Carbon Dioxide 29 Anion Gap 8 BUN 7 Creatinine 0.58 L Estim Creat Clear Calc 93 Estimated GFR > 60 Glucose 209 H POC Capillary Glucose 159 H 202 H Calculated Osmolality 298 H Lactic Acid Calcium 9.3 Total Bilirubin AST ALT Alkaline Phosphatase Total Protein Albumin Lipase Urine Color Urine Appearance Urine pH Ur Specific Heaters Urine Protein Urine Glucose (UA) Urine Ketones Ur Blood (Man) Urine Nitrate Urine Bilirubin Urine Urobilinogen Leukocyte Esterase Rfl 02/18/25 07:29 WBC RBC Hgb Hct MCV MCH MCHC RDW Plt Count MPV Immature Gran % (Auto) Neut % (Auto) Lymph % (Auto) Morrill % (Auto) Eos % (Auto) Baso % (Auto) Lymph # (Auto) Morrill # (Auto) Eos # (Auto) Baso # (Auto) Abs Immat Gran (auto) Absolute Neuts (auto) Absolute Nucleated RBC Nucleated RBC % % Immature Plt Fraction Sodium Potassium Chloride Carbon Dioxide Anion Gap BUN Creatinine Estim Creat Clear Calc Estimated GFR Glucose POC Capillary Glucose 186 H Calculated Osmolality Lactic Acid Calcium Total Bilirubin AST ALT Alkaline Phosphatase Total Protein Albumin Lipase Urine Color Urine Appearance Urine pH Ur Specific Heaters Urine Protein Urine Glucose (UA) Urine Ketones Ur Blood (Man) Urine Nitrate Urine Bilirubin Urine Urobilinogen Leukocyte Esterase Rfl
[2025-02-18 10:38] LABS: Alanine Aminotransferase 21 U/L (6-35); Albumin Level 4.2 g/dL (3.5-5.1); Alkaline Phosphatase 113 U/L (38-126); Anion Gap 10 mmol/L (4-12); Aspartate Amino Transferase 29 U/L (14-36); Bilirubin,Total 0.6 mg/dL (0.2-1.3); Blood Urea Nitrogen 10 mg/dL (7-17); CRP 1.3 mg/dL (<1.0); Calcium 9.4 mg/dL (8.4-10.2); Carbon Dioxide 30 mmol/L (22-30); Chloride 98 mmol/L (98-107); Estimated CRCL calculation 76 ml/min; Estimated Glomerular Filt Rate > 60; Glucose 343 mg/dL (65-110); Magnesium 1.8 mg/dL (1.6-2.3); Osmolality Calculated 299 mOsm/kg (285-295); Potassium 4.2 mmol/L (3.4-5.0); Sodium 138 mmol/L (137-145); Total Protein 7.4 g/dL (6.3-8.2)
[2025-02-18 10:52] LABS: Procalcitonin 0.1 ng/mL
[2025-02-18] MEDS: INSULIN GLARGINE (*BKC) 1,000 UNITS/10 ML VIAL 20 UNITS SUB-Q ×2 (12:12→20:45)
[2025-02-18] MEDS: INSULIN HUMAN LISPRO (*BKC) 1,000 UNITS/10 ML VIAL SUB-Q (12:13)
--- NOTE | 2025-02-18 13:14 | P.HP_ITS ---
H&P: HPI History of Present Illness Date/Time: 02/18/25 10:14 Chief Complaint: Bacteremia Narrative: This is a 49 year old female patient who was called back into the hospital for positive blood cultures that were resistant to Ciprofloxacin as prescribed on ER visit 02/07. Initial positive gram negative bacilli noted on 02/09, C&S finalized on 02/13 that shows ESBL. Patient also had positive urine cultures and her PCP changed her antibiotics from Cipro to Macrobid on Thursday 02/15. On 02/17 patient was called and notified to go back to ER for IV antibiotics due to bacteremia. Patient states today that even though her dysuria improved with change to Macrobid, she was still having fevers up to 103 degrees with nausea and vomiting up to the day she was called back into the hospital. She also complained of lower right flank/back pain. CT abdomen and pelvis was negative for obstructive uropathy or ureteral stone. Today patient notes she feels much better. She is now able to eat with only mild nausea. Blood sugars noted to be elevated but we did not want to drop too low so her insulin regimen was changed from her home dosing to High Dose SSI and Lantus 20 units Q12HR. Patient had family bring in her Trulicity which is dosed on Tuesdays and her ertugliflozin from home. Review of Systems Review of Systems: Right low back/flank pain and nausea with meals noted now. Resolved fever, chills, dysuria and vomiting. PMF Past Medical History Medical History Pneumonia Wheezing Cough Urethritis Joint pain Fatigue RLQ abdominal pain Pelvic pain Head injury with loss of consciousness (05/24/21) Syncope Nipple discharge Preventative health care Acute bronchitis Acute sinusitis COPD exacerbation Calculus of kidney COPD exacerbation BMI 32.0-32.9,adult Acute sinusitis Sinusitis, acute maxillary Finger avulsion Depression Acute insomnia Migraine IBS (irritable bowel syndrome) COPD (chronic obstructive pulmonary disease) Hyperlipidemia Diabetes mellitus with diabetic nephropathy Surgical History Surgical History Hx of cholecystectomy Hx of hysterectomy Family History Family History Mother Diabetes mellitus Social History Social History Smoking packs per day: 1 Smoking cigarettes per day: 20.0 Smoking status: Current every day smoker Tobacco type: cigarettes Second hand tobacco smoke exposure: Yes Alcohol intake: never Substance use: current Substance use type: marijuana Last use: 02/16/2025 Do You Feel Safe in your Home?: Yes Lack of Transportation: YES Lack of Food: Never True Current Housing: I Have Housing Concerned About Future Housing: No Difficulty Paying Gas/Electric Bills: YES Difficulty Paying for Meds: No Currently Unemployed: YES Education: High School Diploma/GED Difficulty w/ Childcare or Family Care: No Living arrangements: with family Gender identity (if verbalized by the patient): Female Spiritual care concerns: No Meds Home Medications and Allergies Home Medications ?Medication ?Instructions ?Recorded ?Confirmed ?Type pen needle, diabetic 32 gauge x #100 ea 02/15/21 02/17/25 Rx 5/32 (TechLITE Pen Needle) insulin syringes (disposable) 1 mL #500 ea 05/10/21 02/17/25 Rx budesonide 160 mcg-glycopyr 9 2 inh inhalation BID #10.7 grams 07/03/22 02/17/25 Rx mcg-formot 4.8 mcg/actuation HFA inhaler (Breztri Aerosphere) albuterol sulfate 2.5 mg/3 mL 2.5 mg (3 mL) inhalation Q4-6H PRN 01/06/24 02/17/25 Rx (0.083 %) solution for nebulization shortness of breath or wheezing #90 mL insulin syringe-needle U-100 1 mL #500 ea 04/13/24 02/17/25 Rx 27 gauge x 1/2 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 meter (OneTouch #1 ea 05/11/24 02/17/25 Rx Ultra2 Meter) cholecalciferol (vitamin D3) 50 50 mcg PO DAILY #30 caps 09/10/24 02/17/25 Rx mcg (2,000 unit) capsule blood sugar diagnostic (OneTouch #100 strips 10/14/24 02/17/25 Rx Ultra Test strips) lancets 33 gauge (OneTouch Delica #100 ea 10/14/24 02/17/25 Rx Plus Lancet) 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,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,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 ea 10/21/24 02/17/25 Rx (FreeStyle Sherron 3 Moro) atorvastatin 20 mg tablet See Rx Instructions .Route 11/13/24 02/17/25 Rx .COMPLEX #90 tabs albuterol sulfate 90 mcg/actuation See Rx Instructions .Route 11/16/24 02/17/25 Rx aerosol inhaler .COMPLEX #18 ea pregabalin 200 mg capsule (Lyrica) 400 mg (2 x 200 mg) PO HS #60 caps 12/15/24 02/17/25 Rx dulaglutide 1.5 mg/0.5 mL 1.5 mg (0.5 mL) subcut WEEKLY #2 mL 01/06/25 02/17/25 Rx subcutaneous pen injector (Trulicity) fluticasone propionate 50 See Rx Instructions .Route 01/06/25 02/17/25 Rx mcg/actuation nasal .COMPLEX #16 mL spray,suspension tizanidine 2 mg tablet See Rx Instructions .Route 01/18/25 02/17/25 Rx .COMPLEX #90 tabs 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 sensor (FreeStyle #1 ea 01/27/25 02/17/25 Rx Sherron 3 Plus Sensor device) meloxicam 15 mg tablet See Rx Instructions .Route 02/08/25 02/17/25 Rx .COMPLEX #90 tabs venlafaxine 150 mg See Rx Instructions .Route 02/09/25 02/17/25 Rx capsule,extended release 24 hr .COMPLEX #90 caps ertugliflozin 5 mg tablet See Rx Instructions .Route 02/10/25 02/17/25 Rx (Steglatro) .COMPLEX #30 tabs insulin lispro 100 unit/mL See Rx Instructions .Route 02/10/25 02/17/25 Rx subcutaneous solution (Humalog .COMPLEX 30 days #90 mL U-100 Insulin) loratadine 10 mg tablet See Rx Instructions .Route 02/10/25 02/17/25 Rx .COMPLEX #30 tabs oxybutynin chloride 5 mg See Rx Instructions .Route 02/10/25 02/17/25 Rx tablet,extended release 24 hr .COMPLEX #30 tabs insulin glargine 100 unit/mL (3 20 unit subcut HS 02/17/25 02/17/25 History mL) subcutaneous pen (Lantus Solostar U-100 Insulin) Allergies Allergy/AdvReac Type Severity Reaction Status Date / Time empagliflozin (Jardiance) Allergy Intermediate rash Verified 02/17/25 10:28 latex Allergy Intermediate Rash Verified 02/17/25 10:28 tetracycline Allergy Intermediate unknown Verified 02/17/25 10:28 lactose AdvReac Nausea Verified 02/17/25 10:28 Vital Signs Vital Signs - 24 hr 02/17/25 14:00 02/17/25 16:00 02/17/25 20:00 Temperature 36.7 C 36.3 C L Pulse Rate 96 102 H Respiratory Rate 18 18 Blood Pressure 141/88 H 130/86 Pulse Oximetry 98 95 Oxygen Delivery Room Air Room Air Room Air 02/17/25 21:00 02/17/25 21:11 02/17/25 23:58 Temperature 36.6 C 36.8 C Pulse Rate 94 Respiratory Rate 18 Blood Pressure 145/101 H 133/76 Pulse Oximetry 95 96 Oxygen Delivery Room Air Room Air 02/18/25 06:00 02/18/25 07:42 Temperature 37.3 C Pulse Rate 100 105 H Respiratory Rate 18 16 Blood Pressure 131/86 134/92 H Pulse Oximetry 92 97 Oxygen Delivery Room Air Room Air Exam Const: General: no acute distress Nutritional Appearance: well nourished Orientation/consciousness: patient oriented x3 Limitations: no limitations HENMT: Head: normal to inspection Ears: external ears normal Face/Nose/Sinus: Normal external nose present Face and sinus: normal facial exam Eyes: Conjunctivae: conjunctivae normal Pupils: Equal, round and reactive pupils present EOM: EOMs intact bilaterally Direct Ophthalmoscopy: no photophobia Neck: Neck: normal visual inspection, no lymphadenopathy and no meningeal signs Chest: Chest palpation & inspection: normal inspection of the chest Resp: Effort & Inspection: normal respiratory effort Auscultation: clear to auscultation bilaterally Cardio: Rate: regular rate Rhythm: regular rhythm GI: GI Palp: Yes Soft to palpation Auscultation: normal bowel sounds Other: No tenderness/rigidity/rebound. : General: Yes CVA tenderness ( Tenderness over the right CVA angle closer to the lumbar spine) on the right Back/Spine/Pelvis: Back: CVA tenderness Skin: General skin exam: normal color Rashes: no rashes Wounds: no wound s Neuro: General: patient oriented x3, moves all extremities, no meningeal signs, no focal motor deficits and CN's II-XI intact bilaterally Cranial nerves: Yes Nystagmus not present Speech: normal speech Gait exam (Neuro): Normal gait present Extrem: General: normal to inspection and no clubbing, cyanosis or edema Psych: Appearance: grossly normal Mental Status: mental status grossly normal Affect: normal affect Attitude: cooperative H&P: Results Labs Labs: Short CBC 02/17/25 02/18/25 Range/Units 13:36 09:57 WBC 15.0 H 12.8 H (4.8-10.8) K/mm3 Hgb 15.8 H 16.3 H (12.0-15.0) g/dL Hct 45.4 48.4 (35.0-49.0) % Plt Count 443 H 475 H (150-420) K/mm3 BMP 02/17/25 02/18/25 13:36 09:57 Sodium 142 138 Potassium 4.3 4.2 Chloride 105 98 Carbon Dioxide 29 30 BUN 7 10 Creatinine 0.58 L 0.72 Glucose 209 H 343 H Calcium 9.3 9.4 Liver Function 02/18/25 Range/Units 09:57 Total Bilirubin 0.6 (0.2-1.3) mg/dL AST 29 (14-36) U/L ALT 21 (6-35) U/L Alkaline Phosphatase 113 (38-126) U/L Albumin 4.2 (3.5-5.1) g/dL Pulse Oximetry SpO2 results: 92-97% on room air Attestation: I personally reviewed and interpreted this pulse oximetry as follows: Interpretation: No need for supplemental oxygenation at this time Imaging CT scan - abdomen: Radiologist's impression: EXAM: CT abdomen pelvis [facility] - 02/17/2025 10:30 CDT History: 49 years old Female with right flank pain TECHNIQUE: Multidetector CT of the abdomen and pelvis without contrast. Coronal and sagittal reformats were also provided for review. Automatic exposure control was used for this study. COMPARISON: 06/18/2021. FINDINGS: VISUALIZED CHEST: Visualized lungs are clear. ABDOMEN and PELVIS: Streak artifact from external hardware in the pelvis limits evaluation of subjacent anatomy. LIVER: Within normal limits. GALLBLADDER: Postcholecystectomy. BILE DUCTS: No dilatation. SPLEEN: Within normal limits. PANCREAS: Within normal limits. ADRENAL GLANDS: Within normal limits. KIDNEYS and URETERS: No hydronephrosis or hydroureter. Punctate nonobstructive nephrolithiasis. URINARY BLADDER: Within normal limits. STOMACH and BOWEL: No abnormal bowel wall thickening. No obstruction. Stomach distended with air-fluid levels. REPRODUCTIVE ORGANS: Within normal limits. MESENTERY/PERITONEAL CAVITY: No free fluid or pneumoperitoneum. LYMPH NODES: No abdominal or pelvic lymphadenopathy. ABDOMINAL WALL: Umbilical hernia containing fat and a small portion of transverse colon. VASCULATURE: Within normal limits. MUSCULOSKELETAL: Multilevel degenerative changes of the spine. Status post ORIF of posterior ilium. IMPRESSION: Punctate nonobstructive nephrolithiasis. No hydroureteronephrosis. 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 Chest x-ray: Radiologist's impression: EXAMINATION: XR chest 1V portable 02/17/2025 11:41 INDICATION: Cough PROCEDURE: PA view of the chest COMPARISON: Comparison to multiple prior studies sequentially, with oldest reviewed study dated 12/27/2022. FINDINGS: The lungs are clear. The cardiomediastinal silhouette is within normal limits. There are no pleural effusions. There is no pneumothorax suspected. IMPRESSION: 1: NO ACUTE CARDIOPULMONARY DISEASE. 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 Assessment and Plan Assessment and plan (1) Bacteremia due to Escherichia coli: Code(s): R78.81 - Bacteremia; B96.20 - Unspecified Escherichia coli [E. coli] as the cause of diseases classified elsewhere Status: Acute Assessment and Plan: -ESBL, sensitive to Ertapenem/Meropenem -Admit to Hospital for IV antibiotics -Watch blood cultures drawn on admission -Plan total 10 days of once daily Ertapenem 1 gram IV -Place Midline/PICC if admit cultures negative for 48 hours and arrange for outpatient infusion daily to complete 10 days of Ertapenem treatment. (2) Urinary tract infection: Code(s): N39.0 - Urinary tract infection, site not specified Status: Acute Assessment and Plan: -Dysuria resolved, right flank pain remains with low CVA tenderness -Repeat UA does not appear infected on admission -Same ESBL E. coli infection as bacteremia from 02/07/25 -Initially treated with Cipro which was resistant and changed by PCP to Macrobid on 02/15 -On IV Ertapenem since 02/17 -CT abdomen pelvis negative for ureteral stone, obstructive uropathy or hydronephrosis (3) Acute flank pain: Code(s): R10.9 - Unspecified abdominal pain Status: Acute Assessment and Plan: -See above (4) Insulin dependent diabetes mellitus: Status: Acute Assessment and Plan: -Patient on lispro 70 units with meals in addition to Trulicity weekly and ertugliflozin 5 mg daily -Carb controlled diet with high dose SSI -Lantus 20 units BID, may need increased tomorrow if still significantly elevated blood sugars (5) Hyperglycemia due to type 2 diabetes mellitus: Code(s): E11.65 - Type 2 diabetes mellitus with hyperglycemia Status: Acute Assessment and Plan: -See above (6) Hyperlipidemia: Code(s): E78.5 - Hyperlipidemia, unspecified Status: Acute Assessment and Plan: -Continue home medications (7) Depression: Code(s): F32.9 - Major depressive disorder, single episode, unspecified Status: Chronic Assessment and Plan: -Stable, continue home medications (8) COPD (chronic obstructive pulmonary disease): Code(s): J44.9 - Chronic obstructive pulmonary disease, unspecified Status: Acute Assessment and Plan: -Stable, no active exacerbation -Patient states she rarely ever uses Breztri -Use albuterol or Duonebs PRN for wheezing (9) Nicotine dependence: Code(s): F17.200 - Nicotine dependence, unspecified, uncomplicated Status: Acute Assessment and Plan: -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 -Nicotine patch ordered Plan Admit to inpatient status for IV antibiotics Plan 10 days total Ertapenem dosing (outpatient once line inserted and able to arrange) DC as early as 02/19/25 if blood cultures are negative growth to date by Noon Quality VTE Prophylaxis VTE prophylaxis: pharmacologic ordered (Lovenox) Hospitalist MIPS Advance Care Plan I have confirmed that the patient's Advanced Care Plan is present, code status is documented, or surrogate decision maker is listed in patient medical record.: Yes Medication Reconciliation I have utilized all available resources to obtain, update and review the patients current medications (includes all prescriptions, OTC, herbals, cannabis, and nutritional supplements).: Yes
--- NOTE | 2025-02-18 14:26 | PHAR ---
VERFIED PATIENT HOME MEDICATIONS: STEGLATRO 5MG TABLET PO DAILY, TRULICITY 1.5MG SQ WEEKLY
[2025-02-18] MEDS: ERTUGLIFLOZIN PO (14:34)
[2025-02-18] MEDS: [UNRECOGNIZED DRUG - OTHER] PO (14:34)
[2025-02-18 16:00] VITALS: BP 139/87; PULSE 115; RESP 18; TEMP 36.7; O2SAT 96
--- NOTE | 2025-02-18 16:42 | PC.NURSE ---
LPN RN, Iam, aware of sepsis alert.
[2025-02-18 20:00] VITALS: PULSE 115; RESP 18; O2SAT 96
[2025-02-18] MEDS: ATORVASTATIN 10 MG TABLET 20 MG BY MOUTH (20:44)
[2025-02-18] MEDS: PREGABALIN (*CRX) 100 MG CAPSULE 400 MG PO (20:44)
[2025-02-19] VITALS: BP 123/93; PULSE 116; RESP 16; TEMP 37.2; O2SAT 97
[2025-02-19 05:19] LABS: Hematocrit 49.9 % (35.0-49.0); Hemoglobin 16.8 g/dL (12.0-15.0); Immature Granulocyte Percent A 0.4 % (0.0-0.0); Lymphocytes Absolute Auto 4.74 K/mm3 (1.10-4.50); Mean Corpuscular HGB Conc 33.7 g/dL (32-36); Mean Corpuscular Hemoglobin 29.8 pg (27.0-31.0); Mean Corpuscular Volume 88.6 fL (78.0-102.0); Nucleated Red Blood Cells Absolute Auto 0.00 K/mm3 (0.00-0.00); Nucleated Red Blood Cells Perc 0.0 % (0-0.0); Platelet Count Result 450 K/mm3 (150-420); Red Blood Count 5.63 M/mm3 (4.20-5.40); White Blood Count 11.8 K/mm3 (4.8-10.8)
[2025-02-19 05:31] LABS: Alanine Aminotransferase 19 U/L (6-35); Albumin Level 4.1 g/dL (3.5-5.1); Alkaline Phosphatase 103 U/L (38-126); Anion Gap 10 mmol/L (4-12); Aspartate Amino Transferase 28 U/L (14-36); Bilirubin,Total 0.7 mg/dL (0.2-1.3); Blood Urea Nitrogen 11 mg/dL (7-17); Calcium 9.0 mg/dL (8.4-10.2); Carbon Dioxide 24 mmol/L (22-30); Chloride 106 mmol/L (98-107); Estimated CRCL calculation 104 ml/min; Estimated Glomerular Filt Rate > 60; Glucose 195 mg/dL (65-110); Magnesium 2.0 mg/dL (1.6-2.3); Osmolality Calculated 294 mOsm/kg (285-295); Potassium 3.5 mmol/L (3.4-5.0); Sodium 140 mmol/L (137-145); Total Protein 7.9 g/dL (6.3-8.2)
[2025-02-19 07:44] VITALS: BP 104/85; PULSE 98; RESP 16; TEMP 36.9; O2SAT 96
[2025-02-19] MEDS: INSULIN GLARGINE (*BKC) 1,000 UNITS/10 ML VIAL 20 UNITS SUB-Q ×2 (08:28→20:47)
[2025-02-19] MEDS: ENOXAPARIN 40 MG/0.4 ML SYRINGE SUB-Q (08:30)
[2025-02-19] MEDS: ERTUGLIFLOZIN PO (08:31)
[2025-02-19] MEDS: NICOTINE (*PBKC) 21 MG PATCH 1 PATCH TRANSDERM (08:31)
[2025-02-19] MEDS: [UNRECOGNIZED DRUG - OTHER] PO (08:31)
[2025-02-19] MEDS: VENLAFAXINE HCL XR 75 MG CAP.ER.24H 150 MG BY MOUTH (08:32)
[2025-02-19] MEDS: MELOXICAM 7.5 MG TABLET 15 MG PO (08:32)
[2025-02-19] MEDS: oxyBUTYnin CHLORIDE XL 5 MG TAB.ER.24 PO (08:33)
[2025-02-19] MEDS: CHOLECALCIFEROL (VITAMIN D3) 25 MCG (1,000 UNITS) TABLET 50 MCG PO (08:33)
[2025-02-19] MEDS: LORATADINE 10 MG TABLET BY MOUTH (08:33)
[2025-02-19] MEDS: ERTAPENEM SODIUM 1 GM in SODIUM CHLORIDE 0.9% IV 50 ML 100 ML IVPB (08:34)
--- NOTE | 2025-02-19 09:08 | WPDPN ---
Progress Note: A&P Assessment and Plan (1) Bacteremia due to Escherichia coli: Code(s): R78.81 - Bacteremia; B96.20 - Unspecified Escherichia coli [E. coli] as the cause of diseases classified elsewhere Status: Acute Assessment and Plan: -ESBL, sensitive to Ertapenem/Meropenem -Admit to Hospital for IV antibiotics -Watch blood cultures drawn on admission (2) Urinary tract infection: Code(s): N39.0 - Urinary tract infection, site not specified Status: Acute Assessment and Plan: -Dysuria resolved, right flank pain remains with low CVA tenderness -Repeat UA does not appear infected on admission -Same ESBL E. coli infection as bacteremia from 02/07/25 -Initially treated with Cipro which was resistant and changed by PCP to Macrobid on 02/15 -On IV Ertapenem since 02/17 -CT abdomen pelvis negative for ureteral stone, obstructive uropathy or hydronephrosis (3) Acute flank pain: Code(s): R10.9 - Unspecified abdominal pain Status: Acute Assessment and Plan: -See above (4) Insulin dependent diabetes mellitus: Status: Acute Assessment and Plan: -Patient on lispro 70 units with meals in addition to Trulicity weekly and ertugliflozin 5 mg daily -Carb controlled diet with high dose SSI -Lantus 20 units BID, may need increased tomorrow if still significantly elevated blood sugars (5) Hyperglycemia due to type 2 diabetes mellitus: Code(s): E11.65 - Type 2 diabetes mellitus with hyperglycemia Status: Acute Assessment and Plan: -See above (6) Hyperlipidemia: Code(s): E78.5 - Hyperlipidemia, unspecified Status: Acute Assessment and Plan: -Continue home medications (7) Depression: Code(s): F32.9 - Major depressive disorder, single episode, unspecified Status: Chronic Assessment and Plan: -Stable, continue home medications (8) COPD (chronic obstructive pulmonary disease): Code(s): J44.9 - Chronic obstructive pulmonary disease, unspecified Status: Acute Assessment and Plan: -Stable, no active exacerbation -Patient states she rarely ever uses Breztri -Use albuterol or Duonebs PRN for wheezing (9) Nicotine dependence: Code(s): F17.200 - Nicotine dependence, unspecified, uncomplicated Status: Acute Assessment and 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 will continue to treat avoid any nephrotoxic medical and monitor blood sugars. Exam Const: General: no acute distress Eyes: EOM: EOMs intact bilaterally Neck: Neck: normal visual inspection : General: Yes CVA tenderness on the right Back/Spine/Pelvis: Back: CVA tenderness Skin: General skin exam: normal color Extrem: General: no clubbing, cyanosis or edema Psych: Mental Status: mental status grossly normal Objective Data Meds/Results Radiology Results: ITS Impressions Abdomen/Pelvis CT 02/17/25 11:04 IMPRESSION: Punctate nonobstructive nephrolithiasis. No hydroureteronephrosis. Chest X-Ray 02/17/25 11:42 IMPRESSION: 1: NO ACUTE CARDIOPULMONARY DISEASE.
--- NOTE | 2025-02-19 13:39 | PC.NURSE ---
Patient came to desk and informed nurses that she wants to leave. Patient stated that the CATH LAB MANAGER told her yesterday that her lab results would be done by noon today and that she would recieve a port and be discharged. supervisor grower contacted lab to get results and ultimately went directly to lab for results. Nurse does not have order to contact [facility] for port placement at this time. Nurse explained the seriousness of patient's condition to patient and patient stated that patient has things to do and wants to leave. Will continue to attempt to get results and order for port placement.
--- NOTE | 2025-02-19 14:04 | PC.NURSE ---
Pt came to nurse's station inquiring about her blood culture results, wanting to leave AMA. No results available in system @ 1315. Lab states also cannot see any update from [facility] system, other than that specimen was received. Call placed to [facility] @ , spoke to Marta, who gave verbal update that cultures are no growth at this point and should be updated in the system today. Spoke to Preeti in room 202 to explain the chain of processing and timing with her labs and [facility]. Pt verbalized that she understands now, why it takes so long and is frustrated that she has been here since Saturday and did not think she was staying overnight. Preeti also states that she is a pack per day smoker and her patch that she has been wearing doesn't take the cravings away and she knows that is half of her desire to go home today. Reminded Preeti that it is not safe to use other nicotine products while wearing a 21mg Nicotine patch due to cardiovascular effects and that [facility] is a non-smoking property. Pt verbalized understanding. Encouraged pt to ambulate in halls and focus on other activities to distract her from thinking of smoking. Charge nurse printed smoking cessation education to give to pt as well. Pt appears more relaxed and speaks about her daughter and her dogs. Pt verbalized understanding to communicate her emotions with nursing staff and seek support when she is frustrated.
[2025-02-19 16:00] VITALS: BP 114/79; PULSE 106; RESP 16; TEMP 36.7; O2SAT 96
[2025-02-19] MEDS: INSULIN HUMAN LISPRO (*BKC) 1,000 UNITS/10 ML VIAL SUB-Q (16:49)
[2025-02-19] MEDS: ATORVASTATIN 10 MG TABLET 20 MG BY MOUTH (20:46)
[2025-02-19] MEDS: PREGABALIN (*CRX) 100 MG CAPSULE 400 MG PO (20:47)
[2025-02-19] MEDS: ACETAMINOPHEN 325 MG TABLET 650 MG PO (21:45)
[2025-02-20] VITALS: BP 123/82; PULSE 98; RESP 15; TEMP 36.6; O2SAT 96
[2025-02-20 06:19] LABS: Hematocrit 47.3 % (35.0-49.0); Hemoglobin 16.1 g/dL (12.0-15.0); Immature Granulocyte Percent A 0.4 % (0.0-0.0); Lymphocytes Absolute Auto 4.90 K/mm3 (1.10-4.50); Mean Corpuscular HGB Conc 34.0 g/dL (32-36); Mean Corpuscular Hemoglobin 30.1 pg (27.0-31.0); Mean Corpuscular Volume 88.6 fL (78.0-102.0); Nucleated Red Blood Cells Absolute Auto 0.00 K/mm3 (0.00-0.00); Nucleated Red Blood Cells Perc 0.0 % (0-0.0); Platelet Count Result 417 K/mm3 (150-420); Red Blood Count 5.34 M/mm3 (4.20-5.40); White Blood Count 10.5 K/mm3 (4.8-10.8)
[2025-02-20 07:40] VITALS: BP 101/87; PULSE 99; RESP 16; TEMP 36.7; O2SAT 98
--- NOTE | 2025-02-20 07:45 | P.PNIM_ITS ---
Progress Note: A&P Assessment and Plan (1) Bacteremia due to Escherichia coli: Code(s): R78.81 - Bacteremia; B96.20 - Unspecified Escherichia coli [E. coli] as the cause of diseases classified elsewhere Status: Acute Assessment and Plan: -ESBL, sensitive to Ertapenem/Meropenem -Admit to Hospital for IV antibiotics -Watch blood cultures drawn on admission they are negative -Plan total 10 days of once daily Ertapenem 1 gram IV -Place Midline/PICC if admit cultures negative for 48 hours and arrange for outpatient infusion daily to complete 10 days of Ertapenem treatment. (2) Urinary tract infection: Code(s): N39.0 - Urinary tract infection, site not specified Status: Acute Assessment and Plan: -Dysuria resolved, right flank pain remains with low CVA tenderness -Repeat UA does not appear infected on admission -Same ESBL E. coli infection as bacteremia from 02/07/25 -Initially treated with Cipro which was resistant and changed by PCP to Macrobid on 02/15 -On IV Ertapenem since 02/17 -CT abdomen pelvis negative for ureteral stone, obstructive uropathy or hydronephrosis (3) Acute flank pain: Code(s): R10.9 - Unspecified abdominal pain Status: Acute Assessment and Plan: -See above (4) Insulin dependent diabetes mellitus: Status: Acute Assessment and Plan: -Patient on lispro 70 units with meals in addition to Trulicity weekly and ertugliflozin 5 mg daily -Carb controlled diet with high dose SSI -Lantus 20 units BID, may need increased tomorrow if still significantly elevated blood sugars - blood sugar is 190 (5) Hyperglycemia due to type 2 diabetes mellitus: Code(s): E11.65 - Type 2 diabetes mellitus with hyperglycemia Status: Acute Assessment and Plan: -See above (6) Hyperlipidemia: Code(s): E78.5 - Hyperlipidemia, unspecified Status: Acute Assessment and Plan: -Continue home medications (7) Depression: Code(s): F32.9 - Major depressive disorder, single episode, unspecified Status: Chronic Assessment and Plan: -Stable, continue home medications (8) COPD (chronic obstructive pulmonary disease): Code(s): J44.9 - Chronic obstructive pulmonary disease, unspecified Status: Acute Assessment and Plan: -Stable, no active exacerbation -Patient states she rarely ever uses Breztri -Use albuterol or Duonebs PRN for wheezing (9) Nicotine dependence: Code(s): F17.200 - Nicotine dependence, unspecified, uncomplicated Status: Acute 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 Patient states that she feels well enough to go. At this time patient has been asked if she would be able to make it as a outpatient for IV antibioitc. Exam Narrative: afebrile. Blood pressure 155/94. Const: Nutritional Appearance: well nourished Orientation/consciousness: patient oriented x3 Limitations: no limitations HENMT: Head: normal to inspection Ears: external ears normal Face/Nos e/Sinus: Normal external nose present and normal facial exam Face and sinus: normal facial exam Eyes: Conjunctivae: conjunctivae normal Pupils: Equal, round and reactive pupils present EOM: EOMs intact bilaterally Direct Ophthalmoscopy: no photophobia Neck: Neck: normal visual inspection, no lymphadenopathy and no meningeal signs Chest: Chest palpation & inspection: normal inspection of the chest Resp: Effort & Inspection: normal respiratory effort Auscultation: clear to auscultation bilaterally Cardio: Rate: regular rate Rhythm: regular rhythm GI: Auscultation: normal bowel sounds Other: No tenderness/rigidity/rebound. Back/Spine/Pelvis: Back: CVA tenderness Skin: General skin exam: normal color Rashes: no rashes Wounds: no wounds Neuro: General: patient oriented x3, moves all extremities and no focal motor deficits Speech: normal speech Gait exam (Neuro): Normal gait present Extrem: General: normal to inspection and no clubbing, cyanosis or edema Psych: Mental Status: mental status grossly normal Affect: normal affect Attitude: cooperative Objective Data Vital Signs Vital Signs: Vital Signs - 24 hr 02/19/25 16:00 02/20/25 00:00 Temperature 98.0 F 97.8 F Pulse Rate 106 H 98 Respiratory Rate 16 15 Blood Pressure 114/79 123/82 Pulse Oximetry 96 96 Oxygen Delivery Room Air Room Air Intake/Output Intake/Output: Intake & Output 02/17/25 02/18/25 02/19/25 02/20/25 23:59 23:59 23:59 23:59 Intake Total 2040 2780 3005 300 Output Total 700 600 Balance 1340 2780 2405 300 Meds/Results Medications: Active Medications Generic Name Dose Route Start Last Admin Trade Name Freq PRN Reason Stop Dose Admin Acetaminophen 650 mg 02/17/25 13:01 02/19/25 21:45 Acetaminophen 325 Mg Tablet PO 650 mg Q4H PRN Administration Mild Pain (1-3) or Fever Albuterol 2.5 mg 02/17/25 20:41 Albuterol Sulfate Neb 2.5 Mg/3 Ml Inh INHALATION Q4-6H PRN shortness of breath or wheezing Atorvastatin Calcium 20 mg 02/17/25 21:00 02/19/25 20:46 Atorvastatin 10 Mg Tablet BY MOUTH 20 mg QHS PARTH Administration Dextrose 12.5 gm 02/17/25 19:47 Dextrose 50% 25 Gm/50 Ml Syringe IV PUSH PRN PRN Hypoglycemia Protocol Dextrose 12.5 gm 02/17/25 20:42 Dextrose 50% 25 Gm/50 Ml Syringe IV PUSH PRN PRN Hypoglycemia Protocol Enoxaparin Sodium 40 mg 02/18/25 09:00 02/19/25 08:30 Enoxaparin 40 Mg/0.4 Ml Syringe SUB-Q 40 mg DAILY PARTH Administration Glucagon 1 mg 02/17/25 19:47 Glucagon For Inj 1 Mg Vial IM PRN PRN Hypoglycemia Protocol Glucagon 1 mg 02/17/25 20:42 Glucagon For Inj 1 Mg Vial IM PRN PRN Hypoglycemia Protocol Glucose 15 gm 02/17/25 19:47 Glucose Oral Gel 15 Gm Of Glucse In 37.5 Gm Tube PO PRN PRN Hypoglycemia Protocol Glucose 15 gm 02/17/25 20:42 Glucose Oral Gel 15 Gm Of Glucse In 37.5 Gm Tube PO PRN PRN Hypoglycemia Protocol Ertapenem 1 gm/ Sodium 50 mls @ 100 mls/hr 02/18/25 09:00 02/19/25 09:12 Chloride IVPB Infused DAILY PARTH Infusion Dextrose 1,000 mls @ 100 mls/hr 02/17/25 19:47 Dextrose 5% 1,000 Ml IVPB PRN PRN Hypoglycemia Protocol Dextrose 1,000 mls @ 100 mls/hr 02/17/25 20:42 Dextrose 5% 1,000 Ml IVPB PRN PRN Hypoglycemia Protocol Insulin Glargine 20 units 02/18/25 12:00 02/19/25 20:47 Insulin Glargine (*Bkc) 1,000 Units/10 Ml Vial SUB-Q 20 units Q12HR PARTH Administration Insulin Human Lispro 4 - 8 units 02/18/25 12:00 02/19/25 16:49 Insulin Human Lispro (*Bkc) 1,000 Units/10 Ml Vial SUB-Q 4 units TIDWM PARTH Administration Protocol Loratadine 10 mg 02/18/25 09:00 02/19/25 08:33 Loratadine 10 Mg Tablet BY MOUTH 10 mg QAM PARTH Administration Meloxicam 15 mg 02/18/25 09:00 02/19/25 08:32 Meloxicam 7.5 Mg Tablet PO 15 mg DAILY PARTH Administration Nicotine 1 patch 02/18/25 09:35 02/19/25 08:31 Nicotine (*Pbkc) 21 Mg Patch TRANSDERM 1 patch DAILY PARTH Administration Non-Formulary Medication 5 mg 02/18/25 14:30 02/19/25 08:31 Ertugliflozin [Steglatro] PO 03/20/25 14:29 5 mg DAILY PARTH Administration Non-Formulary Medication 1.5 mg 02/23/25 09:00 Dulaglutide [Trulicity] SUB-Q 03/25/25 08:59 WEEKLY [facility] Ondansetron HCl 4 mg 02/17/25 13:01 Ondansetron Inj 4 Mg/2 Ml Vial IV PUSH Q6H PRN Nausea And Vomiting Oxybutynin Chloride 5 mg 02/18/25 09:30 02/19/25 08:33 Oxybutynin Chloride Xl 5 Mg Tab.Er.24 PO 5 mg DAILY PARTH Administration Pregabalin 400 mg 02/17/25 21:00 02/19/25 20:47 Pregabalin (*Crx) 100 Mg Capsule PO 400 mg HS PARTH Administration Venlafaxine HCl 150 mg 02/18/25 09:00 02/19/25 08:32 Venlafaxine Hcl Xr 75 Mg Cap.Er.24h BY MOUTH 150 mg DAILY PARTH Administration Vitamin D 50 mcg 02/18/25 09:30 02/19/25 08:33 Cholecalciferol (Vitamin D3) 25 Mcg (1,000 Units) Tablet PO 50 mcg DAILY PARTH Administration Radiology Results: ITS Impressions Abdomen/Pelvis CT 02/17/25 11:04 IMPRESSION: Punctate nonobstructive nephrolithiasis. No hydroureteronephrosis. Chest X-Ray 02/17/25 11:42 IMPRESSION: 1: NO ACUTE CARDIOPULMONARY DISEASE. Labs Labs: Laboratory Results - last 24 hr 02/19/25 02/19/25 02/19/25 07:20 11:33 16:33 WBC RBC Hgb Hct MCV MCH MCHC RDW Plt Count MPV Immature Gran % (Auto) Neut % (Auto) Lymph % (Auto) Parker % (Auto) Eos % (Auto) Baso % (Auto) Lymph # (Auto) Parker # (Auto) Eos # (Auto) Baso # (Auto) Abs Immat Gran (auto) Absolute Neuts (auto) Absolute Nucleated RBC Nucleated RBC % POC Capillary Glucose 189 H 191 H 201 H 02/19/25 02/20/25 20:50 06:10 WBC 10.5 RBC 5.34 Hgb 16.1 H Hct 47.3 MCV 88.6 MCH 30.1 MCHC 34.0 RDW 12.4 Plt Count 417 MPV 8.9 L Immature Gran % (Auto) 0.4 H Neut % (Auto) 43.7 L Lymph % (Auto) 46.9 H Parker % (Auto) 6.1 Eos % (Auto) 2.0 Baso % (Auto) 0.9 Lymph # (Auto) 4.90 H Parker # (Auto) 0.64 Eos # (Auto) 0.21 Baso # (Auto) 0.09 Abs Immat Gran (auto) 0.04 H Absolute Neuts (auto) 4.57 Absolute Nucleated RBC 0.00 Nucleated RBC % 0.0 POC Capillary Glucose 173 H
[2025-02-20 08:17] LABS: Alanine Aminotransferase 18 U/L (6-35); Albumin Level 3.9 g/dL (3.5-5.1); Alkaline Phosphatase 96 U/L (38-126); Anion Gap 7 mmol/L (4-12); Aspartate Amino Transferase 33 U/L (14-36); Bilirubin,Total 0.6 mg/dL (0.2-1.3); Blood Urea Nitrogen 12 mg/dL (7-17); Calcium 9.1 mg/dL (8.4-10.2); Carbon Dioxide 23 mmol/L (22-30); Chloride 109 mmol/L (98-107); Estimated CRCL calculation 96 ml/min; Estimated Glomerular Filt Rate > 60; Glucose 163 mg/dL (65-110); Magnesium 2.0 mg/dL (1.6-2.3); Osmolality Calculated 291 mOsm/kg (285-295); Potassium 3.6 mmol/L (3.4-5.0); Sodium 139 mmol/L (137-145); Total Protein 7.2 g/dL (6.3-8.2)
[2025-02-20 08:30] VITALS: PULSE 99; RESP 16; O2SAT 98
[2025-02-20] MEDS: ERTAPENEM SODIUM 1 GM in SODIUM CHLORIDE 0.9% IV 50 ML 100 ML IVPB (09:00)
[2025-02-20] MEDS: LORATADINE 10 MG TABLET BY MOUTH (09:02)
[2025-02-20] MEDS: VENLAFAXINE HCL XR 75 MG CAP.ER.24H 150 MG BY MOUTH (09:02)
[2025-02-20] MEDS: CHOLECALCIFEROL (VITAMIN D3) 25 MCG (1,000 UNITS) TABLET 50 MCG PO (09:02)
[2025-02-20] MEDS: ENOXAPARIN 40 MG/0.4 ML SYRINGE SUB-Q (09:02)
[2025-02-20] MEDS: oxyBUTYnin CHLORIDE XL 5 MG TAB.ER.24 PO (09:02)
[2025-02-20] MEDS: MELOXICAM 7.5 MG TABLET 15 MG PO (09:02)
[2025-02-20] MEDS: ERTUGLIFLOZIN PO (09:03)
[2025-02-20] MEDS: [UNRECOGNIZED DRUG - OTHER] PO (09:03)
--- NOTE | 2025-02-20 09:10 | PC.NURSE ---
patient voicing frusterations about not being able to smoke. This nurse reiterated the policy that we are a non-smoking campus and patients are not to go outside and smoke. Patient stated she is just gonna get a vape then. This nurse notified patient that vapes were not allowed either. Patient appears frustrated and stated Then I am just gonna leave then, whose your supervisor [employer], I want to speak with them. This nurse Notified charge nurse Melanie, Melanie went and spoke with patient about situation. Patient agreed to staying and wearing nicotine patch. Charge nurse Melanie to contact [employer] about something to help with anxiety for patient.
[2025-02-20] MEDS: NICOTINE (*PBKC) 21 MG PATCH 1 PATCH TRANSDERM (09:16)
[2025-02-20] MEDS: INSULIN GLARGINE (*BKC) 1,000 UNITS/10 ML VIAL 20 UNITS SUB-Q ×2 (09:16→20:59)
[2025-02-20] MEDS: LORazepam (*CRX) 0.5 MG TABLET PO ×3 (09:39→20:59)
[2025-02-20 16:40] VITALS: BP 116/78; PULSE 93; RESP 16; TEMP 36.2; O2SAT 98
--- NOTE | 2025-02-20 17:50 | PC.NURSE ---
Preliminary repeat blood culture shows no growth, [employer]INE [employer]THEL aware.
[2025-02-20] MEDS: PREGABALIN (*CRX) 100 MG CAPSULE 400 MG PO (20:58)
[2025-02-20] MEDS: ATORVASTATIN 10 MG TABLET 20 MG BY MOUTH (20:59)
[2025-02-20 23:54] VITALS: BP 114/77; PULSE 102; RESP 17; TEMP 36.5; O2SAT 98
[2025-02-21 05:31] LABS: Hematocrit 48.3 % (35.0-49.0); Hemoglobin 16.2 g/dL (12.0-15.0); Immature Granulocyte Percent A 0.2 % (0.0-0.0); Lymphocytes Absolute Auto 3.92 K/mm3 (1.10-4.50); Mean Corpuscular HGB Conc 33.5 g/dL (32-36); Mean Corpuscular Hemoglobin 29.8 pg (27.0-31.0); Mean Corpuscular Volume 89.0 fL (78.0-102.0); Nucleated Red Blood Cells Absolute Auto 0.00 K/mm3 (0.00-0.00); Nucleated Red Blood Cells Perc 0.0 % (0-0.0); Platelet Count Result 414 K/mm3 (150-420); Red Blood Count 5.43 M/mm3 (4.20-5.40); White Blood Count 8.6 K/mm3 (4.8-10.8)
[2025-02-21 05:44] LABS: Alanine Aminotransferase 20 U/L (6-35); Albumin Level 4.1 g/dL (3.5-5.1); Alkaline Phosphatase 93 U/L (38-126); Anion Gap 6 mmol/L (4-12); Aspartate Amino Transferase 37 U/L (14-36); Bilirubin,Total 0.5 mg/dL (0.2-1.3); Blood Urea Nitrogen 13 mg/dL (7-17); Calcium 9.1 mg/dL (8.4-10.2); Carbon Dioxide 27 mmol/L (22-30); Chloride 108 mmol/L (98-107); Estimated CRCL calculation 93 ml/min; Estimated Glomerular Filt Rate > 60; Glucose 160 mg/dL (65-110); Magnesium 2.2 mg/dL (1.6-2.3); Osmolality Calculated 295 mOsm/kg (285-295); Potassium 3.9 mmol/L (3.4-5.0); Sodium 141 mmol/L (137-145); Total Protein 7.7 g/dL (6.3-8.2)
[2025-02-21 07:50] VITALS: BP 105/81; PULSE 92; RESP 16; TEMP 36.3; O2SAT 95
[2025-02-21 08:30] VITALS: PULSE 92; RESP 16; O2SAT 95
[2025-02-21] MEDS: ERTAPENEM SODIUM 1 GM in SODIUM CHLORIDE 0.9% IV 50 ML 100 ML IVPB (09:11)
[2025-02-21] MEDS: INSULIN GLARGINE (*BKC) 1,000 UNITS/10 ML VIAL 20 UNITS SUB-Q ×2 (09:11→20:55)
[2025-02-21] MEDS: ENOXAPARIN 40 MG/0.4 ML SYRINGE SUB-Q (09:12)
[2025-02-21] MEDS: MELOXICAM 7.5 MG TABLET 15 MG PO (09:12)
[2025-02-21] MEDS: NICOTINE (*PBKC) 21 MG PATCH 1 PATCH TRANSDERM (09:12)
[2025-02-21] MEDS: LORATADINE 10 MG TABLET BY MOUTH (09:12)
[2025-02-21] MEDS: oxyBUTYnin CHLORIDE XL 5 MG TAB.ER.24 PO (09:12)
[2025-02-21] MEDS: CHOLECALCIFEROL (VITAMIN D3) 25 MCG (1,000 UNITS) TABLET 50 MCG PO (09:12)
[2025-02-21] MEDS: VENLAFAXINE HCL XR 75 MG CAP.ER.24H 150 MG BY MOUTH (09:12)
[2025-02-21] MEDS: ERTUGLIFLOZIN PO (09:13)
[2025-02-21] MEDS: LORazepam (*CRX) 0.5 MG TABLET PO ×2 (09:13→20:44)
[2025-02-21] MEDS: [UNRECOGNIZED DRUG - OTHER] PO (09:13)
--- NOTE | 2025-02-21 10:25 | WPDPN ---
Progress Note: A&P Assessment and Plan (1) Bacteremia due to Escherichia coli: Code(s): R78.81 - Bacteremia; B96.20 - Unspecified Escherichia coli [E. coli] as the cause of diseases classified elsewhere Status: Acute Assessment and Plan: -ESBL, sensitive to Ertapenem/Meropenem -Admit to Hospital for IV antibiotics -Watch blood cultures drawn on admission they are negative -Plan total 10 days of once daily Ertapenem 1 gram IV - pt is on day 5*/10 days of antibioitic. (2) Urinary tract infection: Code(s): N39.0 - Urinary tract infection, site not specified Status: Acute Assessment and Plan: -Dysuria resolved, right flank pain remains with low CVA tenderness -Repeat UA does not appear infected on admission -Same ESBL E. coli infection as bacteremia from 02/07/25 -Initially treated with Cipro which was resistant and changed by PCP to Macrobid on 02/15 -On IV Ertapenem since 02/17 -CT abdomen pelvis negative for ureteral stone, obstructive uropathy or hydronephrosis (3) Acute flank pain: Code(s): R10.9 - Unspecified abdominal pain Status: Acute Assessment and Plan: -See above (4) Insulin dependent diabetes mellitus: Status: Acute Assessment and Plan: -Patient on lispro 70 units with meals in addition to Trulicity weekly and ertugliflozin 5 mg daily -Carb controlled diet with high dose SSI -Lantus 20 units BID, may need increased tomorrow if still significantly elevated blood sugars - blood sugar is 160 (5) Hyperglycemia due to type 2 diabetes mellitus: Code(s): E11.65 - Type 2 diabetes mellitus with hyperglycemia Status: Acute Assessment and Plan: -See above (6) Hyperlipidemia: Code(s): E78.5 - Hyperlipidemia, unspecified Status: Acute Assessment and Plan: -Continue home medications (7) Depression: Code(s): F32.9 - Major depressive disorder, single episode, unspecified Status: Chronic Assessment and Plan: -Stable, continue home medications (8) COPD (chronic obstructive pulmonary disease): Code(s): J44.9 - Chronic obstructive pulmonary disease, unspecified Status: Acute Assessment and Plan: -Stable, no active exacerbation -Patient states she rarely ever uses Breztri -Use albuterol or Duonebs PRN for wheezing (9) Nicotine dependence: Code(s): F17.200 - Nicotine dependence, unspecified, uncomplicated Status: Acute Assessment and Plan: -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 Preliminary cultures are negative. Plan is for tomorrow to send home after antibioitics for outpatient iv therapy with insurance approval. Exam Narrative: afebrile. Blood pressure 155/94. Const: General: well nourished Nutritional Appearance: well nourished Orientation/consciousness: patient oriented x3 Limitations: no limitations HENMT: Head: normal to inspection Ears: external ears normal Face/Nose/Sinus: Normal external nose present and normal facial exam Face and sinus: normal facial exam Eyes: Conjunctivae: conjunctivae normal Pupils: Equal, round and reactive pupils present EOM: EOMs intact bilaterally Direct Ophthalmoscopy: no photophobia Neck: Neck: normal visual inspection, no lymphadenopathy and no meningeal signs Chest: Chest palpation & inspection: normal inspection of the chest Resp: Effort & Inspection: normal respiratory effort Auscultation: clear to auscultation bilaterally Cardio: Rate: regular rate Rhythm: regular rhythm GI: Auscultation: normal bowel sounds Other: No tenderness/rigidity/rebound. : General: Yes CVA tenderness Back/Spine/Pelvis: Back: CVA tenderness Skin: General skin exam: normal color Rashes: no rashes Wounds: no wounds Neuro: General: patient oriented x3, moves all extremities, no meningeal signs and no focal motor deficits Cranial nerves: Yes Equal, round and reactive pupils present Speech: normal speech Gait exam (Neuro): Normal gait present Extrem: General: normal to inspection and no clubbing, cyanosis or edema Psych: Mental Status: mental status grossly normal Affect: normal affect Attitude: cooperative Objective Data Vital Signs Vital Signs: Vital Signs - 24 hr 02/20/25 16:40 02/20/25 23:54 02/21/25 07:50 Temperature 97.2 F L 97.7 F 97.3 F L Pulse Rate 93 102 H 92 Respiratory Rate 16 17 16 Blood Pressure 116/78 114/77 105/81 Pulse Oximetry 98 98 95 Oxygen Delivery Room Air Room Air Room Air Intake/Output Intake/Output: Intake & Output 02/18/25 02/19/25 02/20/25 02/21/25 23:59 23:59 23:59 23:59 Intake Total 2780 3005 2510 240 Output Total 600 Balance 2780 2405 2510 240 Meds/Results Medications: Active Medications Generic Name Dose Route Start Last Admin Trade Name Freq PRN Reason Stop Dose Admin Acetaminophen 650 mg 02/17/25 13:01 02/19/25 21:45 Acetaminophen 325 Mg Tablet PO 650 mg Q4H PRN Administration Mild Pain (1-3) or Fever Albuterol 2.5 mg 02/17/25 20:41 Albuterol Sulfate Neb 2.5 Mg/3 Ml Inh INHALATION Q4-6H PRN shortness of breath or wheezing Atorvastatin Calcium 20 mg 02/17/25 21:00 02/20/25 20:59 Atorvastatin 10 Mg Tablet BY MOUTH 20 mg QHS PARTH Administration Dextrose 12.5 gm 02/17/25 19:47 Dextrose 50% 25 Gm/50 Ml Syringe IV PUSH PRN PRN Hypoglycemia Protocol Dextrose 12.5 gm 02/17/25 20:42 Dextrose 50% 25 Gm/50 Ml Syringe IV PUSH PRN PRN Hypoglycemia Protocol Enoxaparin Sodium 40 mg 02/18/25 09:00 02/21/25 09:12 Enoxaparin 40 Mg/0.4 Ml Syringe SUB-Q 40 mg DAILY PARTH Administration Glucagon 1 mg 02/17/25 19:47 Glucagon For Inj 1 Mg Vial IM PRN PRN Hypoglycemia Protocol Glucagon 1 mg 02/17/25 20:42 Glucagon For Inj 1 Mg Vial IM PRN PRN Hypoglycemia Protocol Glucose 15 gm 02/17/25 19:47 Glucose Oral Gel 15 Gm Of Glucse In 37.5 Gm Tube PO PRN PRN Hypoglycemia Protocol Glucose 15 gm 02/17/25 20:42 Glucose Oral Gel 15 Gm Of Glucse In 37.5 Gm Tube PO PRN PRN Hypoglycemia Protocol Ertapenem 1 gm/ Sodium 50 mls @ 100 mls/hr 02/18/25 09:00 02/21/25 09:11 Chloride IVPB 100 mls/hr DAILY PARTH Administration Dextrose 1,000 mls @ 100 mls/hr 02/17/25 19:47 Dextrose 5% 1,000 Ml IVPB PRN PRN Hypoglycemia Protocol Dextrose 1,000 mls @ 100 mls/hr 02/17/25 20:42 Dextrose 5% 1,000 Ml IVPB PRN PRN Hypoglycemia Protocol Insulin Glargine 20 units 02/18/25 12:00 02/21/25 09:11 Insulin Glargine (*Bkc) 1,000 Units/10 Ml Vial SUB-Q 20 units Q12HR PARTH Administration Insulin Human Lispro 4 - 8 units 02/18/25 12:00 02/21/25 08:10 Insulin Human Lispro (*Bkc) 1,000 Units/10 Ml Vial SUB-Q Not Given TIDWM PARTH Protocol Loratadine 10 mg 02/18/25 09:00 02/21/25 09:12 Loratadine 10 Mg Tablet BY MOUTH 10 mg QAM PARTH Administration Lorazepam 0.5 mg 02/20/25 11:06 02/21/25 09:13 Lorazepam (*Crx) 0.5 Mg Tablet PO 0.5 mg Q4HR PRN Administration Anxiety Meloxicam 15 mg 02/18/25 09:00 02/21/25 09:12 Meloxicam 7.5 Mg Tablet PO 15 mg DAILY PARTH Administration Nicotine 1 patch 02/18/25 09:35 02/21/25 09:12 Nicotine (*Pbkc) 21 Mg Patch TRANSDERM 1 patch DAILY PARTH Administration Non-Formulary Medication 5 mg 02/18/25 14:30 02/21/25 09:13 Ertugliflozin [Steglatro] PO 03/20/25 14:29 5 mg DAILY PARTH Administration Non-Formulary Medication 1.5 mg 02/23/25 09:00 Dulaglutide [Trulicity] SUB-Q 03/25/25 08:59 WEEKLY PARTH Ondansetron HCl 4 mg 02/17/25 13:01 Ondansetron Inj 4 Mg/2 Ml Vial IV PUSH Q6H PRN Nausea And Vomiting Oxybutynin Chloride 5 mg 02/18/25 09:30 02/21/25 09:12 Oxybutynin Chloride Xl 5 Mg Tab.Er.24 PO 5 mg DAILY PARTH Administration Pregabalin 400 mg 02/17/25 21:00 02/20/25 20:58 Pregabalin (*Crx) 100 Mg Capsule PO 400 mg HS PARTH Administration Venlafaxine HCl 150 mg 02/18/25 09:00 02/21/25 09:12 Venlafaxine Hcl Xr 75 Mg Cap.Er.24h BY MOUTH 150 mg DAILY PARTH Administration Vitamin D 50 mcg 02/18/25 09:30 02/21/25 09:12 Cholecalciferol (Vitamin D3) 25 Mcg (1,000 Units) Tablet PO 50 mcg DAILY PARTH Administration Radiology Results: ITS Impressions Abdomen/Pelvis CT 02/17/25 11:04 IMPRESSION: Punctate nonobstructive nephrolithiasis. No hydroureteronephrosis. Chest X-Ray 02/17/25 11:42 IMPRESSION: 1: NO ACUTE CARDIOPULMONARY DISEASE. Labs Labs: Laboratory Results - last 24 hr 02/20/25 02/20/25 02/20/25 12:02 17:03 21:05 WBC RBC Hgb Hct MCV MCH MCHC RDW Plt Count MPV Immature Gran % (Auto) Neut % (Auto) Lymph % (Auto) [place] % (Auto) Eos % (Auto) Baso % (Auto) Lymph # (Auto) [place] # (Auto) Eos # (Auto) Baso # (Auto) Abs Immat Gran (auto) Absolute Neuts (auto) Absolute Nucleated RBC Nucleated RBC % Sodium Potassium Chloride Carbon Dioxide Anion Gap BUN Creatinine Estim Creat Clear Calc Estimated GFR Glucose POC Capillary Glucose 167 H 158 H 206 H Calculated Osmolality Calcium Magnesium Total Bilirubin AST ALT Alkaline Phosphatase Total Protein Albumin 02/21/25 05:23 WBC 8.6 RBC 5.43 H Hgb 16.2 H Hct 48.3 MCV 89.0 MCH 29.8 MCHC 33.5 RDW 12.4 Plt Count 414 MPV 9.0 L Immature Gran % (Auto) 0.2 H Neut % (Auto) 45.0 L Lymph % (Auto) 45.6 H [place] % (Auto) 6.5 Eos % (Auto) 1.7 Baso % (Auto) 1.0 Lymph # (Auto) 3.92 [place] # (Auto) 0.56 Eos # (Auto) 0.15 Baso # (Auto) 0.09 Abs Immat Gran (auto) 0.02 H Absolute Neuts (auto) 3.86 Absolute Nucleated RBC 0.00 Nucleated RBC % 0.0 Sodium 141 Potassium 3.9 Chloride 108 H Carbon Dioxide 27 Anion Gap 6 BUN 13 Creatinine 0.58 L Estim Creat Clear Calc 93 Estimated GFR > 60 Glucose 160 H POC Capillary Glucose Calculated Osmolality 295 Calcium 9.1 Magnesium 2.2 Total Bilirubin 0.5 AST 37 H ALT 20 Alkaline Phosphatase 93 Total Protein 7.7 Albumin 4.1
[2025-02-21] MEDS: FLUCONAZOLE 150 MG TABLET PO (13:02)
[2025-02-21 16:00] VITALS: BP 117/72; PULSE 93; RESP 16; TEMP 36.4; O2SAT 97
[2025-02-21] MEDS: INSULIN HUMAN LISPRO (*BKC) 1,000 UNITS/10 ML VIAL SUB-Q (18:28)
[2025-02-21] MEDS: ATORVASTATIN 10 MG TABLET 20 MG BY MOUTH (20:44)
[2025-02-21] MEDS: PREGABALIN (*CRX) 100 MG CAPSULE 400 MG PO (20:44)
[2025-02-22] VITALS: BP 104/78; PULSE 100; RESP 14; TEMP 37.1; O2SAT 97
[2025-02-22 05:46] LABS: Hematocrit 44.8 % (35.0-49.0); Hemoglobin 15.2 g/dL (12.0-15.0); Immature Granulocyte Percent A 0.3 % (0.0-0.0); Lymphocytes Absolute Auto 4.52 K/mm3 (1.10-4.50); Mean Corpuscular HGB Conc 33.9 g/dL (32-36); Mean Corpuscular Hemoglobin 30.3 pg (27.0-31.0); Mean Corpuscular Volume 89.2 fL (78.0-102.0); Nucleated Red Blood Cells Absolute Auto 0.00 K/mm3 (0.00-0.00); Nucleated Red Blood Cells Perc 0.0 % (0-0.0); Platelet Count Result 353 K/mm3 (150-420); Red Blood Count 5.02 M/mm3 (4.20-5.40); White Blood Count 9.8 K/mm3 (4.8-10.8)
[2025-02-22 05:59] LABS: Alanine Aminotransferase 19 U/L (6-35); Albumin Level 3.8 g/dL (3.5-5.1); Alkaline Phosphatase 87 U/L (38-126); Anion Gap 4 mmol/L (4-12); Aspartate Amino Transferase 31 U/L (14-36); Bilirubin,Total 0.4 mg/dL (0.2-1.3); Blood Urea Nitrogen 11 mg/dL (7-17); Calcium 9.0 mg/dL (8.4-10.2); Carbon Dioxide 24 mmol/L (22-30); Chloride 112 mmol/L (98-107); Estimated CRCL calculation 97 ml/min; Estimated Glomerular Filt Rate > 60; Glucose 170 mg/dL (65-110); Magnesium 2.1 mg/dL (1.6-2.3); Osmolality Calculated 293 mOsm/kg (285-295); Potassium 4.0 mmol/L (3.4-5.0); Sodium 140 mmol/L (137-145); Total Protein 7.2 g/dL (6.3-8.2)
[2025-02-22 08:00] VITALS: BP 115/78; PULSE 87; RESP 18; TEMP 36.3; O2SAT 94
[2025-02-22] MEDS: VENLAFAXINE HCL XR 75 MG CAP.ER.24H 150 MG BY MOUTH (08:09)
[2025-02-22] MEDS: LORazepam (*CRX) 0.5 MG TABLET PO (08:10)
[2025-02-22] MEDS: LORATADINE 10 MG TABLET BY MOUTH (08:10)
[2025-02-22] MEDS: MELOXICAM 7.5 MG TABLET 15 MG PO (08:10)
[2025-02-22] MEDS: CHOLECALCIFEROL (VITAMIN D3) 25 MCG (1,000 UNITS) TABLET 50 MCG PO (08:10)
[2025-02-22] MEDS: oxyBUTYnin CHLORIDE XL 5 MG TAB.ER.24 PO (08:11)
[2025-02-22] MEDS: ERTUGLIFLOZIN PO (08:12)
[2025-02-22] MEDS: [UNRECOGNIZED DRUG - OTHER] PO (08:12)
[2025-02-22] MEDS: INSULIN GLARGINE (*BKC) 1,000 UNITS/10 ML VIAL 20 UNITS SUB-Q (08:14)
--- NOTE | 2025-02-22 08:44 | P.DS_ITS ---
DS: Admitting Diagnosis Discharge Date 02/22/2025 Admitting Diagnosis Urosepsis, EBSL, DS: Discharge Diagnosis Discharge Diagnosis (1) Bacteremia due to Escherichia coli: Code(s): R78.81 - Bacteremia; B96.20 - Unspecified Escherichia coli [E. coli] as the cause of diseases classified elsewhere Status: Acute Assessment and Plan: -ESBL, sensitive to Ertapenem/Meropenem -Admit to Hospital for IV antibiotics -Watch blood cultures drawn on admission they are negative -Plan total 10 days of once daily Ertapenem 1 gram IV - pt is on day 6/10 days of antibiotic. (2) Urinary tract infection: Code(s): N39.0 - Urinary tract infection, site not specified Status: Acute Assessment and Plan: -Dysuria resolved, right flank pain remains with low CVA tenderness -Repeat UA does not appear infected on admission -Same ESBL E. coli infection as bacteremia from 02/07/25 -Initially treated with Cipro which was resistant and changed by PCP to Macrobid on 02/15 -On IV Ertapenem since 02/17 -CT abdomen pelvis negative for ureteral stone, obstructive uropathy or hydronephrosis - OUTPUT IV ANTIBIOTIC FOR 4 DAYS OF ertapenem 1 GRAM DAILY X 4 DAYS A OUTPATIENT (3) Acute flank pain: Code(s): R10.9 - Unspecified abdominal pain Status: Acute Assessment and Plan: -See above (4) Insulin dependent diabetes mellitus: Status: Acute Assessment and Plan: -Patient on lispro 70 units with meals in addition to Trulicity weekly and ertugliflozin 5 mg daily -Carb controlled diet with high dose SSI -Lantus 20 units BID, may need increased tomorrow if still significantly elevated blood sugars - blood sugar is 160 (5) Hyperglycemia due to type 2 diabetes mellitus: Code(s): E11.65 - Type 2 diabetes mellitus with hyperglycemia Status: Acute Assessment and Plan: -See above (6) Hyperlipidemia: Code(s): E78.5 - Hyperlipidemia, unspecified Status: Acute Assessment and Plan: -Continue home medications (7) Depression: Code(s): F32.9 - Major depressive disorder, single episode, unspecified Status: Chronic Assessment and Plan: -Stable, continue home medications (8) COPD (chronic obstructive pulmonary disease): Code(s): J44.9 - Chronic obstructive pulmonary disease, unspecified Status: Acute Assessment and Plan: -Stable, no active exacerbation -Patient states she rarely ever uses Breztri -Use albuterol or Duonebs PRN for wheezing (9) Nicotine dependence: Code(s): F17.200 - Nicotine dependence, unspecified, uncomplicated Status: Acute Assessment and Plan: -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 Pt has been treated for the past 6 days with IV antibioitic and will continue with 4 days of out patient . Patient has remained as a afebrile she is eating and drinking without difficulties and she has tolerated the antibioitic without difficulties. Patient required to be treated with antifungal for yeast but is doing well at this time. Patient during her stay had some anxiety and was given ativan prn. We continued to address her diabetes as indicated and followed labs to treat accordingly. Patient is aware and in agreement with plan of care and labs are stable for discharge. Time Spent with Patient Time attestation: Total time spent providing and/or coordinating discharge services: Exam Narrative: afebrile. Blood pressure 104/78 Const: General: well nourished Nutritional Appearance: well nourished Orientation/consciousness: patient oriented x3 Limitations: no limitations HENMT: Head: normal to inspection Ears: external ears normal Face/Nose/Sinus: Normal external nose present and normal facial exam Face and sinus: normal facial exam Eyes: Conjunctivae: conjunctivae normal Pupils: Equal, round and reactive pupils present EOM: EOMs intact bilaterally Direct Ophthalmoscopy: no photophobia Neck: Neck: normal visual inspection, no lymphadenopathy and no meningeal signs Chest: Chest palpation & inspection: normal inspection of the chest Resp: Effort & Inspection: normal respiratory effort Auscultation: clear to auscultation bilaterally Cardio: Rate: regular rate Rhythm: regular rhythm GI: Auscultation: normal bowel sounds Other: No tenderness/rigidity/rebound. : General: Yes CVA tenderness Back/Spine/Pelvis: Back: CVA tenderness Skin: General skin exam: normal color Rashes: no rashes Wounds: no wounds Neuro: General: patient oriented x3, moves all extremities, no meningeal signs and no focal motor deficits Cranial nerves: Yes Equal, round and reactive pupils present Speech: normal speech Gait exam (Neuro): Normal gait present Extrem: General: normal to inspection and no clubbing, cyanosis or edema Psych: Mental Status: mental status grossly normal Affect: normal affect Attitude: cooperative DS: Data Data Completed and Pending Labs on day of discharge: Labs from last 24 hours 02/22/25 02/22/25 02/21/25 07:31 05:38 20:49 WBC 9.8 RBC 5.02 Hgb 15.2 H Hct 44.8 MCV 89.2 MCH 30.3 MCHC 33.9 RDW 12.5 Plt Count 353 MPV 9.3 Immature Gran % (Auto) 0.3 H Neut % (Auto) 45.6 L Lymph % (Auto) 46.4 H Taylor % (Auto) 4.9 Eos % (Auto) 1.6 Baso % (Auto) 1.2 H Lymph # (Auto) 4.52 H Taylor # (Auto) 0.48 Eos # (Auto) 0.16 Baso # (Auto) 0.12 H Abs Immat Gran (auto) 0.03 H Absolute Neuts (auto) 4.44 Absolute Nucleated RBC 0.00 Nucleated RBC % 0.0 Sodium 140 Potassium 4.0 Chloride 112 H Carbon Dioxide 24 Anion Gap 4 BUN 11 Creatinine 0.55 L Estim Creat Clear Calc 97 Estimated GFR > 60 Glucose 170 H POC Capillary Glucose 178 H 174 H Calculated Osmolality 293 Calcium 9.0 Magnesium 2.1 Total Bilirubin 0.4 AST 31 ALT 19 Alkaline Phosphatase 87 Total Protein 7.2 Albumin 3.8 02/21/25 02/21/25 17:02 11:57 WBC RBC Hgb Hct MCV MCH MCHC RDW Plt Count MPV Immature Gran % (Auto) Neut % (Auto) Lymph % (Auto) Taylor % (Auto) Eos % (Auto) Baso % (Auto) Lymph # (Auto) Taylor # (Auto) Eos # (Auto) Baso # (Auto) Abs Immat Gran (auto) Absolute Neuts (auto) Absolute Nucleated RBC Nucleated RBC % Sodium Potassium Chloride Carbon Dioxide Anion Gap BUN Creatinine Estim Creat Clear Calc Estimated GFR Glucose POC Capillary Glucose 248 H 159 H Calculated Osmolality Calcium Magnesium Total Bilirubin AST ALT Alkaline Phosphatase Total Protein Albumin Preliminary micro results at discharge 02/17/25 11:02 Blood Culture - Preliminary Blood 02/17/25 10:55 Blood Culture - Preliminary Blood Discharge Plan Discharge Attending physician on discharge: Mj Wan Discharging Clinician: Arline Olson Anticipated Discharge Date/Time: 02/20/25 07:50 Patient Disposition: Home Activity: may shower Diet: regular and heart healthy Discharge Instructions: ESBL You need to have 4 more IV antibioitics doses as a out patient. Please drink plenty fluids Patient Instructions: Antibiotic Form, How to Stop Smoking (DC), Cigarette Smoking and Your Health (GEN), Acute Urinary Retention in Women (ED), Interstitial Cystitis (ED) Patient Language: Guatemalan Stand Alone Forms: General Discharge Information Follow-up/Referrals: Yogi Dickson DO [Primary Care Provider] - Discharge Medications: New lorazepam 0.5 mg Tablet 0.5 mg PO Q4HR PRN (Reason: Anxiety) Qty: 10 0RF Continued insulin glargine [Lantus Solostar U-100 Insulin] 100 unit/mL (3 mL) insulin pen 20 unit subcut HS Breztri Aerosphere 160-9-4.8 mcg/actuation HFA aerosol inhaler 2 inh inhalation BID Qty: 10.7 2RF (DME) insulin syringe-needle U-100 1 mL 27 gauge x 1/2 syringe See Rx Instructions .ROUTE .MEDSUPPLY Qty: 500 3RF Rx Instructions: QID cholecalciferol (vitamin D3) 50 mcg (2,000 unit) capsule 50 mcg PO DAILY Qty: 30 2RF (DME) FreeStyle Sherron 3 [place] Misc See Rx Instructions .Route Qty: 1 0RF Rx Instructions: As directed fluticasone propionate 50 mcg/actuation spray,suspension See Rx Instructions .ROUTE .COMPLEX Qty: 16 3RF Dose Instruction: USE 1 SPRAY IN EACH NOSTRIL DAILY Rx Instructions: USE 1 SPRAY IN EACH NOSTRIL DAILY Trulicity 1.5 mg/0.5 mL pen injector 1.5 mg subcut WEEKLY Qty: 2 3RF albuterol sulfate 2.5 mg /3 mL (0.083 %) solution for nebulization 2.5 mg inhalation Q4-6H PRN (Reason: shortness of breath or wheezing) Qty: 90 3RF (DME) pen needle, diabetic [TechLITE Pen Needle] 32 gauge x 5/32 needle See Rx Instructions .Route Qty: 100 11RF Rx Instructions: Use once daily (DME) insulin syringes (disposable) 1 mL syringe See Rx Instructions .ROUTE .MEDSUPPLY Qty: 500 0RF Rx Instructions: As directed (DME) 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 meter [OneTouch Ultra2 Meter] Misc See Rx Instructions .ROUTE .COMPLEX Qty: 1 0RF Dose Instruction: DIRECTED Rx Instructions: DIRECTED (DME) OneTouch Ultra Test Strip See Rx Instructions .ROUTE .COMPLEX Qty: 100 5RF Dose Instruction: TEST BLOOD SUGAR FOUR TIMES DAILY Rx Instructions: TEST BLOOD SUGAR FOUR TIMES DAILY (DME) lancets [OneTouch Delica Plus Lancet] 33 gauge misc See Rx Instructions .ROUTE .COMPLEX Qty: 100 1RF Dose Instruction: CHECK BLOOD GLUCOSE UP TO 4 TIMES DAILY Rx Instructions: CHECK BLOOD GLUCOSE UP TO 4 TIMES DAILY atorvastatin 20 mg tablet See Rx Instructions .ROUTE .COMPLEX Qty: 90 2RF Dose Instruction: TAKE 1 TABLET BY MOUTH EVERYDAY AT BEDTIME Rx Instructions: TAKE 1 TABLET BY MOUTH EVERYDAY AT BEDTIME albuterol sulfate 90 mcg/actuation HFA aerosol inhaler See Rx Instructions .ROUTE .COMPLEX Qty: 18 2RF Dose Instruction: INHALE 1 PUFF BY MOUTH EVERY 4 HOURS NEEDED FOR SHORTNESS OF BREATH OR WHEEZING Rx Instructions: INHALE 1 PUFF BY MOUTH EVERY 4 HOURS NEEDED FOR SHORTNESS OF BREATH OR WHEEZING pregabalin [Lyrica] 200 mg capsule 400 mg PO HS Qty: 60 1RF tizanidine 2 mg tablet See Rx Instructions .ROUTE .COMPLEX Qty: 90 0RF Dose Instruction: TAKE 1 TABLET BY MOUTH 3 TIMES A DAY NEEDED FOR MUSCLE SPASTICITY Rx Instructions: TAKE 1 TABLET BY MOUTH 3 TIMES A DAY NEEDED FOR MUSCLE SPASTICITY (DME) FreeStyle Sherron 3 Plus Sensor Device See Rx Instructions .Route Qty: 1 0RF Rx Instructions: As directed meloxicam 15 mg tablet See Rx Instructions .ROUTE .COMPLEX Qty: 90 1RF Dose Instruction: TAKE 1 TABLET BY MOUTH EVERY DAY Rx Instructions: TAKE 1 TABLET BY MOUTH EVERY DAY venlafaxine 150 mg capsule,extended release 24hr See Rx Instructions .ROUTE .COMPLEX Qty: 90 1RF Dose Instruction: TAKE 1 CAPSULE BY MOUTH EVERY DAY Rx Instructions: TAKE 1 CAPSULE BY MOUTH EVERY DAY oxybutynin chloride 5 mg tablet extended release 24hr See Rx Instructions .ROUTE .COMPLEX Qty: 30 2RF Dose Instruction: TAKE 1 TABLET BY MOUTH EVERY DAY Rx Instructions: TAKE 1 TABLET BY MOUTH EVERY DAY Steglatro 5 mg tablet See Rx Instructions .ROUTE .COMPLEX Qty: 30 3RF Dose Instruction: TAKE 1 TABLET BY MOUTH EVERY DAY IN THE MORNING Rx Instructions: TAKE 1 TABLET BY MOUTH EVERY DAY IN THE MORNING insulin lispro [Humalog U-100 Insulin] 100 unit/mL solution See Rx Instructions .ROUTE .COMPLEX 30 Days Qty: 90 3RF Dose Instruction: INJECT 70 UNITS SUBCUTANEOUSLY 3 TIMES A DAY Rx Instructions: INJECT 70 UNITS SUBCUTANEOUSLY 3 TIMES A DAY loratadine 10 mg tablet See Rx Instructions .ROUTE .COMPLEX Qty: 30 5RF Dose Instruction: TAKE 1 TABLET BY MOUTH EVERY DAY Rx Instructions: TAKE 1 TABLET BY MOUTH EVERY DAY Date of admission: 02/17/25 13:01 Primary Care Provider: Yogi Dickson Admitting Provider: Mj Wan Attending physician on admission: Mj Wan Condition: Stable
[2025-02-22] MEDS: FLUCONAZOLE 150 MG TABLET PO (08:46)
[2025-02-22] MEDS: ERTAPENEM SODIUM 1 GM in SODIUM CHLORIDE 0.9% IV 50 ML 100 ML IVPB (08:47)
--- NOTE | 2025-02-22 09:50 | PC.NURSE ---
Patient alert and oriented x4 , discharge orders reveiwed, to return to hospital 2nd floor at 1pm daily for next 4 days starting tomorrow for op IV antibiotics, understands will get new IV site each day, agreeable to dc plan, no questions asked, personal items including home medications returned to patient, taken via wheelchair to car
--- NOTE | 2025-02-22 11:36 | PCCCNOTE ---
Patient discharged to home. Daily IV antibiotic therapy x 3 days set up outpatient. Patient to arrive at 13:00 daily for infusion.
--- NOTE | 2025-02-26 15:03 | PC.NURSE ---
Preeti in facility today for her last infusion of antibiotic. This automobile and property underwriter asks about her hospital stay, she informs, I have no questions or concerns about my discharge and no questions of side effects of my medication. She finisted all infusions over the last 4 days, tolerated well with no adverse reactions.
== END 2025-02-22 09:50 | disposition home or self-care (01) | DRG 463 ==
LOC: CHSED 12:59 → CHS2ND 13:08
PROVIDERS: Nurse Practitioner; Admitting Provider Internal Medicine; Emergency Provider Internal Medicine Critical Care Medicine; PCP Family Medicine; Visit Provider Internal Medicine
DX: R10.9 Unspecified abdominal pain (principal); N39.0 Urinary tract infection, site not specified; B96.20 Unspecified Escherichia coli [E. coli] as the cause of diseases classified elsewhere; E78.5 Hyperlipidemia, unspecified; E11.65 Type 2 diabetes mellitus with hyperglycemia; F32.9 Major depressive disorder, single episode, unspecified; F41.9 Anxiety disorder, unspecified; J44.9 Chronic obstructive pulmonary disease, unspecified; R78.81 Bacteremia; Z87.442 Personal history of urinary calculi; Z90.49 Acquired absence of other specified parts of digestive tract; Z16.12 Extended spectrum beta lactamase (ESBL) resistance; F17.290 Nicotine dependence, other tobacco product, uncomplicated; Z79.85 Long-term (current) use of injectable non-insulin antidiabetic drugs; Z79.4 Long term (current) use of insulin
CPT/HCPCS: 36415; 71045; 74176; 80048; 80053; 81003; 82948; 83605; 83690; 83735; 84145; 85025; 85055; 85652; 86140; 87040; 96365; 96375; 99285; A9270; J1335; J1650; J1815; J7120

== ENCOUNTER 2025-02-26 12:52 | Outpatient (RCR) | payer OTHER, SELFPAY ==
[2025-02-23 13:06] VITALS: BMI 32.1
[2025-02-23 13:24] VITALS: BP 84/59; PULSE 95; RESP 18; TEMP 36.4; O2SAT 96
[2025-02-23] MEDS: ERTAPENEM SODIUM 1 GM in SODIUM CHLORIDE 0.9% IV 50 ML 100 ML IVPB (13:27)
[2025-02-23 14:18] VITALS: BP 110/60; PULSE 90
[2025-02-24] MEDS: ERTAPENEM SODIUM 1 GM in SODIUM CHLORIDE 0.9% IV 50 ML 100 ML IVPB (13:00)
[2025-02-24 13:11] VITALS: BP 100/70; PULSE 104; RESP 20; TEMP 36.6; O2SAT 96
[2025-02-25 12:45] VITALS: BP 101/68; PULSE 89; RESP 18; TEMP 36.4; O2SAT 98
[2025-02-25] MEDS: ERTAPENEM SODIUM 1 GM in SODIUM CHLORIDE 0.9% IV 50 ML 100 ML IVPB (12:56)
[2025-02-25 13:26] VITALS: BMI 29.5
[2025-02-26 13:05] VITALS: BP 120/81; PULSE 87; RESP 18; TEMP 36.7; O2SAT 96; BMI 29.9
[2025-02-26] MEDS: ERTAPENEM SODIUM 1 GM in SODIUM CHLORIDE 0.9% IV 50 ML 100 ML IVPB (13:22)
== END 2025-02-26 12:53 | disposition home or self-care (01) ==
LOC: CHSTREATRM 12:52
PROVIDERS: PCP Family Medicine; Visit Provider Nurse Practitioner Family
DX: A41.51 Sepsis due to Escherichia coli [E. coli] (principal); Z16.12 Extended spectrum beta lactamase (ESBL) resistance
CPT/HCPCS: 96365; J1335

== ENCOUNTER 2025-03-04 14:18 | Outpatient (CLI) | payer OTHER, SELFPAY ==
--- OUTSIDE RECORDS SUMMARY | 2025-03-04 14:22 | XMS_ITS | Clinical Summary ---
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
--- OUTSIDE RECORDS SUMMARY | 2025-03-04 14:22 | XMS_ITS | Clinical Summary ---
Author Organization [facility] Address [address] [place] [address] Phone Care Team Providers Care Shore Hand Dredge [employer]ge Name Role Phone Yenny Hernández Fred BENDING ROLL OPERATOR, [facility] Primary Care Provi feliberto Allergies Active [...] age to complete this topic Insurance [place] Care Teams Shore [employer]ge Relationship Specialty Start Date End Date Yenny Hernández, BENDING ROLL OPERATOR, [employer] [address] [place] [address] PCP - General Advanced Practice Nurse 05/05/20
--- OUTSIDE RECORDS SUMMARY | 2025-03-04 14:22 | XMS_ITS | Clinical Summary ---
Author Organization [facility] Address [address] [place] [address] Care Team Providers Care Printed Circuit Layout Taper Name Role Phone Yenny Hernández KAYAKING INSTRUCTOR-CHIP CRUSHER OPERATOR Primary Care Provid er Source Comments [facility],non-owned Affiliates and Associated Physician Practices is amultiple site organization consisting of ambulatory clinics and hospital sitesin [place], [place], [place] and [place]. This disclosure is being madepursuant to the Care Everywhere program and may not contain all information available regarding this patient. Last updated 18.[facility] Allergies Active Allergy Reactions Criticality Noted Date [...] this topic Medical Devices Implanted Type Area Immigration Attorney Device Identifier Shelf Expiration Date Model / Serial / Lot Stent Uret 6fr 24cm Pgtl Crv Tpr Tip Implanted:Qty: 1 on 10/12/2020 by Dariel Gudino MD at [facility] Right: [employer]ter [employer] 07/04/2023 [id number] / / [id number] Procedures Procedure Name Priority Date/Time Associated Diagnosis Comments GLUCOSE - POINT OF CARE Routine 10/12/2020 7:58 AM CDT from Last 3 Months or Most Recently Relevant to Health Maintenance Results * (ABNORMAL) GLUCOSE - POINT OF CARE (10/12/2020 7:58 AM CDT) Glucose WB/POC 160(H) 70 - 115 mg/dL 10/12/2020 7:59 AM CDT [facility] Specimen Type Venous 10/12/2020 7:[address] [facility] Blood BLOOD SPECIMEN / Unknown 10/12/2020 7:58 AM CDT 10/12/2020 7:59 AM CDT us Dariel Gudino MD LAB - POINT OF CARE ORDERA BLES Final Result [address] [address], [place] [phone] from Last 3 Months or Most Recently Relevant to Health Maintenance Insurance [facility] Care Teams Printed Circuit Layout Taper Relationship Specialty Start Date End Date Yenny Hernández, KAYAKING INSTRUCTOR-CHIP CRUSHER OPERATOR [address] [place] [address] PCP - General 06/16/20
[2025-03-04 14:43] LABS: Hematocrit 45.8 % (35.0-49.0); Hemoglobin 15.1 g/dL (12.0-15.0); Immature Granulocyte Percent A 0.3 % (0.0-0.0); Lymphocytes Absolute Auto 3.79 K/mm3 (1.10-4.50); Mean Corpuscular HGB Conc 33.0 g/dL (32-36); Mean Corpuscular Hemoglobin 30.1 pg (27.0-31.0); Mean Corpuscular Volume 91.2 fL (78.0-102.0); Nucleated Red Blood Cells Absolute Auto 0.00 K/mm3 (0.00-0.00); Nucleated Red Blood Cells Perc 0.0 % (0-0.0); Platelet Count Result 301 K/mm3 (150-420); Red Blood Count 5.02 M/mm3 (4.20-5.40); White Blood Count 13.7 K/mm3 (4.8-10.8)
[2025-03-04 14:58] LABS: Alanine Aminotransferase 22 U/L (6-35); Albumin Level 4.3 g/dL (3.5-5.1); Alkaline Phosphatase 86 U/L (38-126); Anion Gap 10 mmol/L (4-12); Aspartate Amino Transferase 30 U/L (14-36); Bilirubin,Total 0.5 mg/dL (0.2-1.3); Blood Urea Nitrogen 8 mg/dL (7-17); Calcium 9.9 mg/dL (8.4-10.2); Carbon Dioxide 24 mmol/L (22-30); Chloride 106 mmol/L (98-107); Estimated Glomerular Filt Rate > 60; Glucose 229 mg/dL (65-110); Osmolality Calculated 295 mOsm/kg (285-295); Potassium 4.4 mmol/L (3.4-5.0); Sodium 140 mmol/L (137-145); Total Protein 7.2 g/dL (6.3-8.2)
[2025-03-04 15:12] LABS: CRP 1.3 mg/dL (<1.0)
== END 2025-03-04 14:19 | disposition home or self-care (01) ==
LOC: CHSLAB 14:19
PROVIDERS: PCP Nurse Practitioner Family; Visit Provider Nurse Practitioner Family
DX: R39.198 Other difficulties with micturition (principal); R78.81 Bacteremia
CPT/HCPCS: 36415; 80053; 85025; 86140

== ENCOUNTER 2025-03-04 16:47 | Emergency (ER) | payer OTHER, SELFPAY ==
[2025-03-04 16:48] VITALS: BP 119/74; PULSE 99; RESP 18; TEMP 35.9; O2SAT 94
--- OUTSIDE RECORDS SUMMARY | 2025-03-04 16:49 | XMS_ITS | Clinical Summary ---
Author Organization [facility] Address [address] [place] [address] Care Team Providers Care Primary School Teacher Librarian Name Role Phone Josh Kidd MD Primary Care Provider [phone] Allergies Active Allergy Reactions Criticality Noted Date [...] w st at migr 11/27/2018 Ischemic stroke ([facility]) 11/26/2018 Encounters Date Type Department Care Team Description 12/26/2024 6:58 PM CDT - 12/27/2024 9:40 PM CDT Hospital Encounter [facility] [place] [address] Ash Lopes MD Mardani, Fareed, MD Sohail, [...] from your doctor or pharmacy? Never 12/26/2024 [facility] Utilities Answer Date Recorded In the past 12 months has e [employer] gas, oil, or water Magnetic threatened to shut off services in your [...] often do you attend chur ch or scientology services? Never 12/26/2024 Do you belong to any clubs o r organizations such as taoist groups, unions, fraternal or athletic groups, or [...] and heating? Not hard at all 12/26/2024 [facility] Occupat ional Health - Occupational Stress [...] any time in the past 12 m [facility], were you homeless or living in a fpc (including now)? 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 PM PLASTICS SEASONER OPERATOR Gender Identity Female 12/26/2024 8:40 PM CDT [...] 70 - 109 12/27/2024 8:55 PM CDT [facility] 12/27/2024 8:08 PM CDT Jacques Ramirez MD POCT ORDERABLES - DEVICE Final R esult Performing Organization Address [facility] de Phone Number [facility] [address] [place] [address], [place] [phone] * (ABNORMAL) HEMOGLOBIN, GLYCOSYLATED (12/27/2024 12:11 PM CDT) HGB A1C 7.6(H) <5.7 % 12/27/2024 3:36 PM CDT [facility] ESTIMATED AVG GLUCOSE 171(H) 74 - 114 MG/DL 12/27/2024 3:36 PM CDT [facility] 12/27/2024 12:1 1 PM CDT Jacques Ramirez MD LABORATORY Final Result Performing Organization Address [facility] de Phone Number [facility] [address] [place] [address], [place] [phone] * POTASSIUM, SERUM (12/27/2024 12:11 PM CDT) POTASSIUM S/P/B 3.6 3.5 - 5.1 MMOL/L 12/27/2024 12:49 PM CDT [facility] 12/27/2024 12:1 1 PM CDT Jacques Ramirez MD LABORATORY Final Result Performing Organization Address [facility] de Phone Number [facility] [address] [place] [address], [place] [phone] * CULTURE, WOUND W/ GRAM STAIN (12/27/2024 11:30 AM CDT) SPEC DESCRIPTION CHEEK,LEFT 12/27/2024 3:09 PM CDT [facility] SPECIAL REQUESTS NO SPECIAL REQUEST 12/27/2024 3:09 PM CDT [facility] GRAM STAIN RESULT NO NEUTROPHILS OR ORGANISMS SEEN 12/27/2024 4:03 PM CDT [facility] CULTURE RESULT NO GROWTH 5 DAYS 01/01/2025 11:41 AM CDT [facility] CHEEK STRUCTURE / Unknown 12/27/2024 11:30 AM CDT 12/27/2024 3:09 PM CDT us Bree Mendez MD MICROBIOLOGY - GENERAL ORD ERABLES Final Result Performing Organization Address City/[facility]/ZIP Co de Phone Number [facility] [address] [place] [address], [place] [phone] * CULTURE, ANAEROBIC (12/27/2024 11:30 AM CDT) SPEC DESCRIPTION CHEEK,LEFT 12/27/2024 3:09 PM CDT [facility] SPECIAL REQUESTS NO SPECIAL REQUEST 12/27/2024 3:09 PM CDT [facility] CULTURE RESULT NO ANAEROBES ISOLATED 01/01/2025 11:41 AM CDT [facility] CHEEK STRUCTURE / Unknown 12/27/2024 11:30 AM CDT 12/27/2024 3:10 PM CDT us Bree Mendez MD MICROBIOLOGY - GENERAL ORD ERABLES Final Result Performing Organization Address City/[facility]/ZIP Co de Phone Number [facility] [address] [place] [address], [place] [phone] * CULTURE URINE (12/27/2024 11:12 AM CDT) SPEC DESCRIPTION URINE CLEAN CATCH 12/27/2024 11:12 AM CDT [facility] SPECIAL REQUESTS NO SPECIAL REQUEST 12/27/2024 11:12 AM CDT [facility] CULTURE RESULT NO GROWTH (< OR = 1,000 CFU/ML) 12/29/2024 8:54 AM CDT [facility] URINE SPECIMEN OBTAINED BY CLEAN CATCH PROCEDURE / Unknown 12/27/2024 11:12 AM CDT 12/27/2024 11:31 AM CDT us Vitor Larry MD MICROBIOLOGY - GENERAL ORDERAB LES Final Result [facility] [address] [place] [address], [phone] * (ABNORMAL) BASIC METABOLIC PANEL (12/27/2024 4:01 AM CDT) SODIUM S/P/B 149(H) 136 - 145 MMOL/L 12/27/2024 5:04 AM CDT [facility] POTASSIUM S/P/B 2.6(LL) 3.5 - 5.1 MMOL/L 12/27/2024 5:04 AM CDT [facility] Comment: Critical Result(s) Called to and read back by: JILL [id number] at: 05:02:52 12/27/2024 by LUCY. CHLORIDE S/P/B 118(H) 97 - 115 MMOL/L 12/27/2024 5:04 AM CDT [facility] CO2 25.0 21.0 - 32.0 MMOL/L 12/27/2024 5:04 AM CDT [facility] GLUCOSE 108(H) 74 - 106 MG/DL 12/27/2024 5:04 AM CDT [facility] BUN 6(L) 7 - 18 MG/DL 12/27/2024 5:04 AM CDT [facility] CREATININE S/P/B 0.42(L) 0.55 - 1.02 MG/DL 12/27/2024 5:04 AM CDT [facility] CALCIUM S/P/B 8.0(L) 8.5 - 10.1 MG/DL 12/27/2024 5:04 AM CDT [facility] ANION GAP 6.0 2.0 - 10.0 MMOL/L 12/27/2024 5:04 AM CDT [facility] OSMOLALITY (CALC) 306 MOSM/KG 025 5:04 AM CDT [facility] Comment:REFERENCE RANGE NOT ESTABLISHED GFR ESTIMATE >90 >90 ML/MIN/1. 73 M2 12/27/2024 5:04 AM CDT [facility] GFR NOTES GFR REFERENCE S: 12/27/2024 5:04 AM CDT [facility] Comment: THE ESTIMATED GFR IS CALCULATED [...] CDT Vitor Larry MD LABORATORY Final Result [facility] [address] [place] [address], [phone] * (ABNORMAL) CBC W/DIFF AUTOMATED (12/27/2024 4:01 AM CDT) Only the most recent of2 resultswithin the time period is included. WBC 7.81 4.00 - 10.80 x10'3/uL 12/27/2024 4:10 AM CDT [facility] RBC 4.42 4.10 - 5.40 x10'6/uL 12/27/2024 4:10 AM CDT [facility] HGB 13.9 12.0 - 16.0 G/DL 12/27/2024 4:10 AM CDT [facility] HCT 40.0 36.0 - 47.0 % 12/27/2024 4:10 AM CDT [facility] MCV 90.5 78.0 - 100.0 FL 12/27/2024 4:10 AM CDT [facility] MCH 31.4(H) 27.0 - 31.0 PG 12/27/2024 4:10 AM CDT [facility] MCHC 34.8 33.0 - 36.0 G/DL 12/27/2024 4:10 AM CDT [facility] RDW 13.4 11.5 - 14.5 % 12/27/2024 4:10 AM CDT [facility] PLT 192 150 - 350 x10'3/uL 12/27/2024 4:10 AM CDT [facility] MPV 9.7 7.4 - 10.4 FL 12/27/2024 4:10 AM CDT [facility] DIFFERENTIAL TYPE MANUAL DIFFERENTIAL 12/27/2024 5:06 AM CDT [facility] NRBC % 0.0 % 12/27/2024 5:06 AM CDT [facility] SEG NEUTROPHILS 34 % 5:06 AM CDT [facility] LYMPHOCYTES 60 % 12/27/2024 5:06 AM CDT [facility] MONOCYTES 4 % 12/27/2024 5:06 AM CDT [facility] EOSINOPHILS 1 % 12/27/2024 5:06 AM CDT [facility] BASOPHILS 1 % 12/27/2024 5:06 AM CDT [facility] ABS. NEUTROPHILS 2.66 1.60 - 8.30 x10'3/uL 12/27/2024 5:06 AM CDT [facility] ABS. LYMPHOCYTES 4.69 0.80 - 4.70 x10'3/uL 12/27/2024 5:06 AM CDT [facility] ABS. MONOCYTES 0.31 0.00 - 1.50 x10'3/uL 12/27/2024 5:06 AM CDT [facility] ABS. EOSINOPHILS 0.08 0.00 - 0.40 x10'3/uL 12/27/2024 5:06 AM CDT [facility] ABS. BASOPHILS 0.08 0.00 - 0.20 x10'3/uL 12/27/2024 5:06 AM CDT [facility] ABS. NUCLEATED RBC'S 0.00 0.00 - 0.01 x10'3/uL 12/27/2024 5:06 AM CDT [facility] RBC MORPHOLOGY RBC MORPHOLOGY APPEARS NORMAL. SLIDE REVIEWED. 12/27/2024 5:06 AM CDT [facility] PLT EST. ADEQUATE 12/27/2024 5:06 AM CDT [facility] 12/27/2024 4:01 AM CDT us Vitor Larry MD LABORATORY Final Result [facility] [address] [place] [address], [phone] * Pathology (12/27/2024 12:00 AM CDT) PATHOLOGY [facility] Department of Laboratory Medicine [address] [place] [address] , extension [phone] Pathology Report Surgical Pathology Report Name: DAKOTA SHARIF Specimen #: [id number] Age: 8 1975 (Age: 49) Location: [facility] Sex: F Procedure Date: 12/27/2024 Hospital #: [id number] Date Received: 12/28/2024 Date Reported: 12/31/2024 Provider: [...] interpretation, and sign out were performed at [facility], [address] [place] [address]. Electronically Signed Out MAGDA TEE MD [facility] 12/27/2024 12/28/2024 12: 17 PM CDT Comment:Skin, left cheek, bi opsy us Ash Lopes MD PATHOLOGY/CYTOLOGY ORDERABLES F inal Result [facility] [address] [place] [address], [id number] * ECG 12 lead (12/26/2024 9:27 PM CDT) 12/26/2024 9:27 PM CDT Narrative [facility] - 12/26/2024 9:57 PM CDT [facility] [place] [address] Test Date: 2024-12-26 Pat Name: DAKOTA SHARIF Department: 1 Room: 84A Gender: Female Tractor Operator Laser Leveling: : 1975 Requested By: VITOR LARRY Order Number: [id number] Reading MD: Manjeet Goodrich Measurements Intervals [place] Rate: 86 P: 48 OK: 150 QRS: -37 QRSD: 93 T: 75 QT: 284 QTc: 340 Interpretive Statements SINUS RHYTHM LEFT AXIS DEVIATION [QRS AXIS < -30] PATTERN CONSISTENT WITH PULMONARY DISEASE NONSPECIFIC T-WAVE ABNORMALITY Procedure Note Manjeet Goodrich MD - 12/26/2024 [address] [place] [address] Test Date: 2024-12-26 Pat Name: DAKOTA SHARIF Department: 1 Room: 84A Gender: Female 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 Operator Laser Leveling: : 1975 Requested By: VITOR LARRY Order Number: [id number] Reading : Manjeet Goodrich Measurements Intervals [place] Rate: 86 P: 48 OK: 150 QRS: -37 QRSD: 93 T: 75 QT: 284 QTc: 340 Interpretive Statements SINUS RHYTHM LEFT AXIS DEVIATION [QRS AXIS < -30] PATTERN CONSISTENT WITH PULMONARY DISEASE NONSPECIFIC T-WAVE ABNORMALITY us Vitor Larry MD ECG ORDERABLES Final Result [facility] * LACTIC ACID W REFLEX (SEPSIS) (12/26/2024 8:24 PM CDT) LACTIC ACID VENOUS 1.5 0.4 - 2.0 MMOL/L 12/26/2024 9:12 PM CDT [facility] 12/26/2024 8:24 PM CDT Vitor Larry MD LABORATORY Final Result [facility] [address] [place] [address], [id number] * (ABNORMAL) COMPREHENSIVE METABOLIC PANEL (12/26/2024 8:24 PM CDT) SODIUM S/P/B 145 136 - 145 MMOL/L 12/26/2024 9:10 PM CDT [facility] POTASSIUM S/P/B 3.1(L) 3.5 - 5.1 MMOL/L 12/26/2024 9:10 PM CDT [facility] CHLORIDE S/P/B 112 97 - 115 MMOL/L 12/26/2024 9:10 PM CDT [facility] CO2 25.3 21.0 - 32.0 MMOL/L 12/26/2024 9:10 PM CDT [facility] GLUCOSE 117(H) 74 - 106 MG/DL 12/26/2024 9:10 PM CDT [facility] BUN 8 7 - 18 MG/DL 12/26/2024 9:10 PM CDT [facility] CREATININE S/P/B 0.65 0.55 - 1.02 MG/DL 12/26/2024 9:10 PM CDT [facility] CALCIUM S/P/B 8.7 8.5 - 10.1 MG/DL 12/26/2024 9:10 PM CDT [facility] BILIRUBIN TOTAL S/P/B 0.7 0.2 - 1.0 MG/DL 12/26/2024 9:10 PM CDT [facility] ALKALINE PHOSPHATASE S/P/B 83 41 - 108 U/L 12/26/2024 9:10 PM CDT [facility] AST 23 15 - 37 U/L 12/26/2024 9:10 PM CDT [facility] ALT 25 13 - 56 U/L 12/26/2024 9:10 PM CDT [facility] TOTAL PROTEIN S/P/B 6.8 6.4 - 8.2 G/DL 12/26/2024 9:10 PM CDT [facility] ALBUMIN S/P/B 3.4 3.4 - 5.0 G/DL 12/26/2024 9:10 PM CDT [facility] ANION GAP 7.7 2.0 - 10.0 MMOL/L 12/26/2024 9:10 PM CDT [facility] OSMOLALITY (CALC) 299 MOSM/KG 025 9:10 PM CDT [facility] Comment:REFERENCE RANGE NOT ESTABLISHED GFR ESTIMATE >90 >90 ML/MIN/1. 73 M2 12/26/2024 9:10 PM CDT [facility] GFR NOTES GFR REFERENCE S: 12/26/2024 9:10 PM CDT [facility] Comment: THE ESTIMATED GFR IS CALCULATED [...] us Vitor Larry MD LABORATORY Final Result [facility] [address] [place] [address], [phone] * CULTURE, BACTERIA, BLOOD (12/26/2024 8:23 PM CDT) Only the most recent of2 resultswithin the time period is included. SPEC DESCRIPTION BLOOD 12/26/2024 7:42 PM CDT [facility] SPECIAL REQUESTS NO SPECIAL REQUEST 12/26/2024 7:42 PM CDT [facility] CULTURE RESULT NO GROWTH 5 DAYS 12/31/2024 9:42 PM CDT [facility] BLOOD SPECIMEN OBTAINED FOR BLOOD CULTURE / Unknown 12/26/2024 8:23 PM CDT 12/26/2024 8:24 PM CDT us Vitor aLrry MD MICROBIOLOGY - GENERAL ORDERAB LES Final Result Performing Organization Address City/State/[facility] Co de Phone Number [facility] [address] [place] [address], [phone] from Last 3 Months Insurance Advance Directives * Full Code (Latest Code Status on File) Date Activated Date Inactivated Comments 12/26/2024 7:42 PM 12/28/2024 12:30 AM * Full Code Date Activated Date Inactivated Comments 11/26/2018 6:13 PM 11/28/2018 2:55 PM Care Teams Primary School Teacher Librarian Relationship Specialty Start Date End Date Josh Kidd MD [address] [place] [address] PCP - General FAMILY PRACTICE 11/26/18
--- OUTSIDE RECORDS SUMMARY | 2025-03-04 16:49 | XMS_ITS | Clinical Summary ---
Author Organization [facility] Address [address] [place] [address] Care Team Providers Care Adult Nurse Practitioner Name Role Phone Yenny Hernández PLASTIC MIXER-COMIC BOOK ARTIST Primary Care Provid er Source Comments [facility],non-owned Affiliates and Associated Physician Practices is amultiple site organization consisting of ambulatory clinics and hospital sitesin [place], [place], [place] and [place]. This disclosure is being madepursuant to the Care Everywhere program and may not contain all information available regarding this patient. Last updated 18.[facility] Allergies Active Allergy Reactions Criticality Noted Date [...] this topic Medical Devices Implanted Type Area Urologic Nurse Device Identifier Shelf Expiration Date Model / Serial / Lot Stent Uret 6fr 24cm Pgtl Crv Tpr Tip Implanted:Qty: 1 on 10/12/2020 by Dariel Gudino MD at [facility] Right: [employer] 07/04/2023 [id number] / / [id number] Procedures Procedure Name Priority Date/Time Associated Diagnosis Comments GLUCOSE - POINT OF CARE Routine 10/12/2020 7:58 AM CDT from Last 3 Months or Most Recently Relevant to Health Maintenance Results * (ABNORMAL) GLUCOSE - POINT OF CARE (10/12/2020 7:58 AM CDT) Glucose WB/POC 160(H) 70 - 115 mg/dL 10/12/2020 7:59 AM CDT [facility] Specimen Type Venous 10/12/2020 7:59 AM CDT [facility] Blood BLOOD SPECIMEN / Unknown 10/12/2020 7:58 AM CDT 10/12/2020 7:59 AM CDT us Dariel Gudino MD LAB - POINT OF CARE ORDERA BLES Final Result [address] [address], [place] [phone] from Last 3 Months or Most Recently Relevant to Health Maintenance Insurance [facility] Care Teams Adult Nurse Practitioner Relationship Specialty Start Date End Date Yenny Hernández, PLASTIC MIXER-COMIC BOOK ARTIST [address] [place] [address] PCP - General 06/16/20
--- OUTSIDE RECORDS SUMMARY | 2025-03-04 16:49 | XMS_ITS | Encounter Summary ---
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
--- OUTSIDE RECORDS SUMMARY | 2025-03-04 16:49 | XMS_ITS | Clinical Summary ---
Author Organization [facility] Address [address] [place] [address] Care Team Providers Care Security Researcher Name Role Phone Josh Kidd MD Primary [...] 11/11/2012 Surgical History Surgery Date Site/Laterality Comments UT TOTAL ABDOMINAL HYSTERECT W/WO RMVL TUBE OVARY [...] on file Legal Sex Female 10:10 AM OCULAR CARE AIDE Gender Identity Not on file Sexual Orientation [...] of Treatment Not on file Insurance [facility] Care Teams Security Researcher Relationship Specialty Start Date End Date Josh Kidd MD [address] [place] [id number] PCP - General 10/02/18
--- OUTSIDE RECORDS SUMMARY | 2025-03-04 16:49 | XMS_ITS | Clinical Summary ---
Author Organization [facility] Address [address] [place] [address] Phone Care Team Providers Care Sourcing Manager Name Role Phone Yenny Hernández Fred NEEDLEWORKER, [facility] Primary Care Provi feliberto Allergies Active [...] age to complete this topic Insurance MEDICAID [facility] Care Teams Sourcing Manager Relationship Specialty Start Date End Date Yenny Hernández, NEEDLEWORKER, FIRE ALARM REPAIRER [address] [place] [address] PCP - General Advanced Practice Nurse 05/05/20
--- NOTE | 2025-03-04 16:58 | ED_ITS ---
HPI - Female Genitourinary General Chief complaint: Urogenital-Female Stated complaint: possible uti Time Seen by Provider: 03/04/25 16:58 Source: patient Mode of arrival: ambulatory Limitations: no limitations History of Present Illness HPI Narrative: 49 years old white female referred to the ED from urgent care because of burning urination and frequency started yesterday. . Patient denies any fever, chills, nausea, vomiting, Vaginal bleeding or discharge or rash,abdominal pain or back pain. History of sepsis secondary to urinary tract infection recently, went for follow-up with family physician today after finishing the antibiotic for urinary tract infection. Patient was told that her blood pressure is soft and need to go to the emergency room. Currently patient main complaint is worry about staying in the hospital or not. Related Data Home Medications ?Medication ?Instructions ?Recorded ?Confirmed ?Last Taken ?Type insulin glargine 100 unit/mL (3 20 unit subcut HS 02/17/25 03/04/25 02/16/25 20:47 History mL) subcutaneous pen (Lantus Solostar U-100 Insulin) Allergies Allergy/AdvReac Type Severity Reaction Status Date / Time empagliflozin (Jardiance) Allergy Intermediate rash Verified 03/04/25 17:15 latex Allergy Intermediate Rash Verified 03/04/25 17:15 tetracycline Allergy Intermediate unknown Verified 03/04/25 17:15 lactose AdvReac Nausea Verified 03/04/25 17:15 Review of Systems Review of Systems: All systems reviewed & are unremarkable except as noted in HPI and below PMFSH Past Medical History Medical History Anxiety Acute bronchitis with chronic obstructive pulmonary disease (COPD) Pneumonia Wheezing Cough Urethritis Joint pain Fatigue RLQ abdominal pain Pelvic pain Head injury with loss of consciousness (05/24/21) Syncope Nipple discharge Preventative health care Acute bronchitis Acute sinusitis COPD exacerbation Calculus of kidney COPD exacerbation BMI 32.0-32.9,adult Acute sinusitis Sinusitis, acute maxillary Finger avulsion Depression Acute insomnia Migraine IBS (irritable bowel syndrome) COPD (chronic obstructive pulmonary disease) Hyperlipidemia Diabetes mellitus with diabetic nephropathy Surgical History Surgical History Hx of cholecystectomy Hx of hysterectomy Family History Family History Mother Diabetes mellitus Social History Social History Smoking packs per day: 1 Smoking cigarettes per day: 20.0 Smoking status: Current every day smoker Tobacco type: cigarettes Second hand tobacco smoke exposure: Yes Alcohol intake: never Substance use: current Substance use type: marijuana Last use: 02/16/2025 Do You Feel Safe in your Home?: Yes Lack of Transportation: YES Lack of Food: Never True Current Housing: I Have Housing Concerned About Future Housing: No Difficulty Paying Gas/Electric Bills: YES Difficulty Paying for Meds: No Currently Unemployed: YES Education: High School Diploma/GED Difficulty w/ Childcare or Family Care: No Living arrangements: with family Gender identity (if verbalized by the patient): Female Spiritual care concerns: No Exam Narrative: General appearance: Well-developed, well-nourished Skin: Normal color Head: Normocephalic, nontraumatic Eyes: Clear conjunctiva ENT: Oropharynx normal, ears normal, nose normal Neck: Supple, nontender Chest and respiratory: Airway patent, no respiratory distress, no accessory muscle use Heart: Regular rate/rhythm Abdomen: Soft, nontender, no organomegaly, quiet bowel sounds Vascular: Normal peripheral pulses, normal capillary refill. Musculoskeletal: Normal range of motion, nontender back Neurologic: Alert and oriented ?3, ENVIRONMENTAL HEALTH TECHNOLOGIST is normal as tested, no gross motor deficit Course Vital Signs Vital signs: Vital Signs Temperature 35.9 C L 03/04/25 16:48 Pulse Rate 99 03/04/25 16:48 Respiratory Rate 18 03/04/25 16:48 Blood Pressure 119/74 03/04/25 16:48 Pulse Oximetry 94 03/04/25 16:48 Oxygen Delivery Room Air 03/04/25 16:48 Temperature 35.9 C L 03/04/25 16:48 Pulse Rate 99 03/04/25 16:48 Respiratory Rate 18 03/04/25 16:48 Blood Pressure 119/74 03/04/25 16:48 Pulse Oximetry 94 03/04/25 16:48 Oxygen Delivery Room Air 03/04/25 16:48 MDM - Female Genitourinary MDM Narrative Medical decision making narrative: patient referred to the emergency room by her family physician office for urinary frequency and soft blood pressure probably 90/55. Vital sign showing blood pressure 119/74 otherwise within normal limit Physical examination insignificant Differential diagnosis include urinary tract infection, electrolyte imbalance, dehydration, diabetic hyperglycemia. Blood workup today which was done as outpatient showed WBC of 13.7 , blood glucose of 229, CRP 1.3, otherwise within normal limit Urinalysis showed no evidence of infection Diagnosis dysuria which could be secondary to interstitial cystitis /bladder pain syndrome, menopause, irritation from soaps hygiene products, diabetes The pt was discharged to home.the pt,s condition upon discharge was fair,education was provided to the pt in reference to the final impression,discharge study results,treatment,prognosis and need for follow up . Differential Diagnosis Differential diagnosis: Likely other (As above) Medical Records Attestation: I reviewed the patient's medical records. Lab Data Attestation: I reviewed the patient's lab results. Critical Care Time Critical Care Time Critical Care Time: No Discharge Plan Discharge Clinical Impression: Dysuria Patient Disposition: Home Condition: Stable Instructions: Dysuria (ED) Additional Instructions: Return if symptoms are worsening , call your family physician for appointment, take Tylenol as as needed for aches and pain, continue home medications. Patient Language: Sinhala Prescriptions: No Action insulin glargine [Lantus Solostar U-100 Insulin] 100 unit/mL (3 mL) insulin pen 20 unit subcut HS lorazepam 0.5 mg Tablet 0.5 mg PO Q4HR PRN (Reason: Anxiety) Qty: 10 0RF Breztri Aerosphere 160-9-4.8 mcg/actuation HFA aerosol inhaler 2 inh inhalation BID Qty: 10.7 2RF (DME) insulin syringe-needle U-100 1 mL 27 gauge x 1/2 syringe See Rx Instructions .ROUTE .MEDSUPPLY Qty: 500 3RF Rx Instructions: QID cholecalciferol (vitamin D3) 50 mcg (2,000 unit) capsule 50 mcg PO DAILY Qty: 30 2RF (DME) FreeStyle Sherron 3 [place] Misc See Rx Instructions .Route Qty: 1 0RF Rx Instructions: As directed fluticasone propionate 50 mcg/actuation spray,suspension See Rx Instructions .ROUTE .COMPLEX Qty: 16 3RF Dose Instruction: USE 1 SPRAY IN EACH NOSTRIL DAILY Rx Instructions: USE 1 SPRAY IN EACH NOSTRIL DAILY Trulicity 1.5 mg/0.5 mL pen injector 1.5 mg subcut WEEKLY Qty: 2 3RF albuterol sulfate 2.5 mg /3 mL (0.083 %) solution for nebulization 2.5 mg inhalation Q4-6H PRN (Reason: shortness of breath or wheezing) Qty: 90 3RF (DME) pen needle, diabetic [TechLITE Pen Needle] 32 gauge x 5/32 needle See Rx Instructions .Route Qty: 100 11RF Rx Instructions: Use once daily (DME) insulin syringes (disposable) 1 mL syringe See Rx Instructions .ROUTE .MEDSUPPLY Qty: 500 0RF Rx Instructions: As directed (DME) 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 meter [OneTouch Ultra2 Meter] Misc See Rx Instructions .ROUTE .COMPLEX Qty: 1 0RF Dose Instruction: DIRECTED Rx Instructions: DIRECTED (DME) OneTouch Ultra Test Strip See Rx Instructions .ROUTE .COMPLEX Qty: 100 5RF Dose Instruction: TEST BLOOD SUGAR FOUR TIMES DAILY Rx Instructions: TEST BLOOD SUGAR FOUR TIMES DAILY (DME) lancets [OneTouch Delica Plus Lancet] 33 gauge misc See Rx Instructions .ROUTE .COMPLEX Qty: 100 1RF Dose Instruction: CHECK BLOOD GLUCOSE UP TO 4 TIMES DAILY Rx Instructions: CHECK BLOOD GLUCOSE UP TO 4 TIMES DAILY atorvastatin 20 mg tablet See Rx Instructions .ROUTE .COMPLEX Qty: 90 2RF Dose Instruction: TAKE 1 TABLET BY MOUTH EVERYDAY AT BEDTIME Rx Instructions: TAKE 1 TABLET BY MOUTH EVERYDAY AT BEDTIME albuterol sulfate 90 mcg/actuation HFA aerosol inhaler See Rx Instructions .ROUTE .COMPLEX Qty: 18 2RF Dose Instruction: INHALE 1 PUFF BY MOUTH EVERY 4 HOURS NEEDED FOR SHORTNESS OF BREATH OR WHEEZING Rx Instructions: INHALE 1 PUFF BY MOUTH EVERY 4 HOURS NEEDED FOR SHORTNESS OF BREATH OR WHEEZING tizanidine 2 mg tablet See Rx Instructions .ROUTE .COMPLEX Qty: 90 0RF Dose Instruction: TAKE 1 TABLET BY MOUTH 3 TIMES A DAY NEEDED FOR MUSCLE SPASTICITY Rx Instructions: TAKE 1 TABLET BY MOUTH 3 TIMES A DAY NEEDED FOR MUSCLE SPASTICITY meloxicam 15 mg tablet See Rx Instructions .ROUTE .COMPLEX Qty: 90 1RF Dose Instruction: TAKE 1 TABLET BY MOUTH EVERY DAY Rx Instructions: TAKE 1 TABLET BY MOUTH EVERY DAY venlafaxine 150 mg capsule,extended release 24hr See Rx Instructions .ROUTE .COMPLEX Qty: 90 1RF Dose Instruction: TAKE 1 CAPSULE BY MOUTH EVERY DAY Rx Instructions: TAKE 1 CAPSULE BY MOUTH EVERY DAY oxybutynin chloride 5 mg tablet extended release 24hr See Rx Instructions .ROUTE .COMPLEX Qty: 30 2RF Dose Instruction: TAKE 1 TABLET BY MOUTH EVERY DAY Rx Instructions: TAKE 1 TABLET BY MOUTH EVERY DAY Steglatro 5 mg tablet See Rx Instructions .ROUTE .COMPLEX Qty: 30 3RF Dose Instruction: TAKE 1 TABLET BY MOUTH EVERY DAY IN THE MORNING Rx Instructions: TAKE 1 TABLET BY MOUTH EVERY DAY IN THE MORNING insulin lispro [Humalog U-100 Insulin] 100 unit/mL solution See Rx Instructions .ROUTE .COMPLEX 30 Days Qty: 90 3RF Dose Instruction: INJECT 70 UNITS SUBCUTANEOUSLY 3 TIMES A DAY Rx Instructions: INJECT 70 UNITS SUBCUTANEOUSLY 3 TIMES A DAY loratadine 10 mg tablet See Rx Instructions .ROUTE .COMPLEX Qty: 30 5RF Dose Instruction: TAKE 1 TABLET BY MOUTH EVERY DAY Rx Instructions: TAKE 1 TABLET BY MOUTH EVERY DAY pregabalin [Lyrica] 200 mg capsule 400 mg PO HS Qty: 60 1RF (DME) FreeStyle Sherron 3 Plus Sensor Device See Rx Instructions .ROUTE .COMPLEX Qty: 1 0RF Dose Instruction: DIRECTED Rx Instructions: DIRECTED Follow-up/Referrals: Corinne Rasmussen APRN [Primary Care Provider] - Stand Alone Forms: Work/School Release IP
--- OUTSIDE RECORDS SUMMARY | 2025-03-04 17:17 | XMS_ITS | Encounter Summary ---
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
--- OUTSIDE RECORDS SUMMARY | 2025-03-04 17:18 | XMS_ITS | Clinical Summary ---
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
--- OUTSIDE RECORDS SUMMARY | 2025-03-04 17:18 | XMS_ITS | Clinical Summary ---
Author Organization [facility] [employer] Address [address] [place] [address] Care Team Providers Care Therapeutic Riding Instructor Name Role Phone Yenny Hernández COMMERCIAL REAL ESTATE ASSISTANT-ADMINISTRATION VICE PRESIDENT Primary Care Provid er Source Comments [facility] [employer],non-owned Affiliates and Associated Physician Practices is amultiple site organization consisting of ambulatory clinics and hospital sitesin [place], [place], [place] and [place]. This disclosure is being madepursuant to the Care Everywhere program and may not contain all information available regarding this patient. Last updated 18.[facility] [employer] Allergies Active Allergy Reactions Criticality Noted Date [...] this topic Medical Devices Implanted Type Area Electrical Project Manager Device Identifier Shelf Expiration Date Model / Serial / Lot Stent Uret 6fr 24cm Pgtl Crv Tpr Tip Implanted:Qty: 1 on 10/12/2020 by Dariel Gudino MD at [facility] Right: [employer] 07/04/2023 [id number] / / [id number] Procedures Procedure Name Priority Date/Time Associated Diagnosis Comments GLUCOSE - POINT OF CARE Routine 10/12/2020 7:58 AM CDT from Last 3 Months or Most Recently Relevant to Health Maintenance Results * (ABNORMAL) GLUCOSE - POINT OF CARE (10/12/2020 7:58 AM CDT) Glucose WB/POC 160(H) 70 - 115 mg/dL 10/12/2020 7:59 AM CDT [facility] Specimen Type Venous 10/12/2020 7:59 AM CDT [facility] Blood BLOOD SPECIMEN / Unknown 10/12/2020 7:58 AM CDT 10/12/2020 7:59 AM CDT us Dariel Gudino MD LAB - POINT OF CARE ORDERA BLES Final Result [address] [address], [place] [phone] from Last 3 Months or Most Recently Relevant to Health Maintenance Insurance [facility] Care Teams Therapeutic Riding Instructor Relationship Specialty Start Date End Date Yenny Hernández, COMMERCIAL REAL ESTATE ASSISTANT-ADMINISTRATION VICE PRESIDENT [address] [place] [address] PCP - General 06/16/20
--- OUTSIDE RECORDS SUMMARY | 2025-03-04 17:18 | XMS_ITS | Clinical Summary ---
Author Organization [facility] Address [address] [place] [address] Care Team Providers Care Textile Designer Name Role Phone Josh Kidd MD Primary Care Provider [phone] Allergies Active Allergy Reactions Criticality Noted Date [...] w st at migr 11/27/2018 Ischemic stroke ([facility]) 11/26/2018 Encounters Date Type Department Care Team Description 12/26/2024 6:58 PM CDT - 12/27/2024 9:40 PM CDT Hospital Encounter [facility] [place] [place] [address] Ash Lopes MD Mardani, Fareed, MD Sohail, [...] from your doctor or pharmacy? Never 12/26/2024 [facility] Utilities Answer Date Recorded In the past 12 months has e [employer] gas, oil, or water [employer] threatened to shut off services in your [...] often do you attend chur ch or zoroastrian services? Never 12/26/2024 Do you belong to any clubs o r organizations such as congregation groups, unions, fraternal or athletic groups, or [...] and heating? Not hard at all 12/26/2024 [facility] of Occupat ional Health - Occupational Stress [...] any time in the past 12 m [facility], were you homeless or living in a long term (including now)? 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 Gender Identity Female 12/26/2024 8:40 PM CDT [...] 70 - 109 12/27/2024 8:55 PM CDT [facility] 12/27/2024 8:08 PM CDT Jacques Ramirez MD POCT ORDERABLES - DEVICE Final R esult Performing Organization Address [facility] de Phone Number [facility] [address] [place] [address], [place] [phone] * (ABNORMAL) HEMOGLOBIN, GLYCOSYLATED (12/27/2024 12:11 PM CDT) HGB A1C 7.6(H) <5.7 % 12/27/2024 3:36 PM CDT [facility] ESTIMATED AVG GLUCOSE 171(H) 74 - 114 MG/DL 12/27/2024 3:36 PM CDT [facility] 12/27/2024 12:1 1 PM CDT Jacques Ramirez MD LABORATORY Final Result Performing Organization Address [facility] de Phone Number [facility] [address] [place] [address], [place] [phone] * POTASSIUM, SERUM (12/27/2024 12:11 PM CDT) POTASSIUM S/P/B 3.6 3.5 - 5.1 MMOL/L 12/27/2024 12:49 PM CDT [facility] 12/27/2024 12:1 1 PM CDT Jacques Ramirez MD LABORATORY Final Result Performing Organization Address [facility] de Phone Number [facility] [address] [place] [address], [place] [phone] * CULTURE, WOUND W/ GRAM STAIN (12/27/2024 11:30 AM CDT) SPEC DESCRIPTION CHEEK,LEFT 12/27/2024 3:09 PM CDT [facility] SPECIAL REQUESTS NO SPECIAL REQUEST 12/27/2024 3:09 PM CDT [facility] GRAM STAIN RESULT NO NEUTROPHILS OR ORGANISMS SEEN 12/27/2024 4:03 PM CDT [facility] CULTURE RESULT NO GROWTH 5 DAYS 01/01/2025 11:41 AM CDT [facility] CHEEK STRUCTURE / Unknown 12/27/2024 11:30 AM CDT 12/27/2024 3:09 PM CDT us Bree Mendez MD MICROBIOLOGY - GENERAL ORD ERABLES Final Result Performing Organization Address City/[facility]/ZIP Co de Phone Number [facility] [address] [place] [address], [place] [phone] * CULTURE, ANAEROBIC (12/27/2024 11:30 AM CDT) SPEC DESCRIPTION CHEEK,LEFT 12/27/2024 3:09 PM CDT [facility] SPECIAL REQUESTS NO SPECIAL REQUEST 12/27/2024 3:09 PM CDT [facility] CULTURE RESULT NO ANAEROBES ISOLATED 01/01/2025 11:41 AM CDT [facility] CHEEK STRUCTURE / Unknown 12/27/2024 11:30 AM CDT 12/27/2024 3:10 PM CDT us Bree Mendez MD MICROBIOLOGY - GENERAL ORD ERABLES Final Result Performing Organization Address City/[facility]/ZIP Co de Phone Number [facility] [address] [place] [address], [place] [phone] * CULTURE URINE (12/27/2024 11:12 AM CDT) SPEC DESCRIPTION URINE CLEAN CATCH 12/27/2024 11:12 AM CDT [facility] SPECIAL REQUESTS NO SPECIAL REQUEST 12/27/2024 11:12 AM CDT [facility] CULTURE RESULT NO GROWTH (< OR = 1,000 CFU/ML) 12/29/2024 8:54 AM CDT [facility] URINE SPECIMEN OBTAINED BY CLEAN CATCH PROCEDURE / Unknown 12/27/2024 11:12 AM CDT 12/27/2024 11:31 AM CDT us Vitor Larry MD MICROBIOLOGY - GENERAL ORDERAB LES Final Result [facility] [address] [place] [address], [id number] * (ABNORMAL) BASIC METABOLIC PANEL (12/27/2024 4:01 AM CDT) SODIUM S/P/B 149(H) 136 - 145 MMOL/L 12/27/2024 5:04 AM CDT [facility] POTASSIUM S/P/B 2.6(LL) 3.5 - 5.1 MMOL/L 12/27/2024 5:04 AM CDT [facility] Comment: Critical Result(s) Called to and read back by: JILL [id number] at: 05:02:52 12/27/2024 by LUCY. CHLORIDE S/P/B 118(H) 97 - 115 MMOL/L 12/27/2024 5:04 AM CDT [facility] CO2 25.0 21.0 - 32.0 MMOL/L 12/27/2024 5:04 AM CDT [facility] GLUCOSE 108(H) 74 - 106 MG/DL 12/27/2024 5:04 AM CDT [facility] BUN 6(L) 7 - 18 MG/DL 12/27/2024 5:04 AM CDT [facility] CREATININE S/P/B 0.42(L) 0.55 - 1.02 MG/DL 12/27/2024 5:04 AM CDT [facility] CALCIUM S/P/B 8.0(L) 8.5 - 10.1 MG/DL 12/27/2024 5:04 AM CDT [facility] ANION GAP 6.0 2.0 - 10.0 MMOL/L 12/27/2024 5:04 AM CDT [facility] OSMOLALITY (CALC) 306 MOSM/KG 025 5:04 AM CDT [facility] Comment:REFERENCE RANGE NOT ESTABLISHED GFR ESTIMATE >90 >90 ML/MIN/1. 73 M2 12/27/2024 5:04 AM CDT [facility] GFR NOTES GFR REFERENCE S: 12/27/2024 5:04 AM CDT [facility] Comment: THE ESTIMATED GFR IS [...] CDT Vitor Larry MD LABORATORY Final Result [facility] [address] [place] [address], [id number] * (ABNORMAL) CBC W/DIFF AUTOMATED (12/27/2024 4:01 AM CDT) Only the most recent of2 resultswithin the time period is included. WBC 7.81 4.00 - 10.80 x10'3/uL 12/27/2024 4:10 AM CDT [facility] RBC 4.42 4.10 - 5.40 x10'6/uL 12/27/2024 4:10 AM CDT [facility] HGB 13.9 12.0 - 16.0 G/DL 12/27/2024 4:10 AM CDT [facility] HCT 40.0 36.0 - 47.0 % 12/27/2024 4:10 AM CDT [facility] MCV 90.5 78.0 - 100.0 FL 12/27/2024 4:10 AM CDT [facility] MCH 31.4(H) 27.0 - 31.0 PG 12/27/2024 4:10 AM CDT [facility] MCHC 34.8 33.0 - 36.0 G/DL 12/27/2024 4:10 AM CDT [facility] RDW 13.4 11.5 - 14.5 % 12/27/2024 4:10 AM CDT [facility] PLT 192 150 - 350 x10'3/uL 12/27/2024 4:10 AM CDT [facility] MPV 9.7 7.4 - 10.4 FL 12/27/2024 4:10 AM CDT [facility] DIFFERENTIAL TYPE MANUAL DIFFERENTIAL 12/27/2024 5:06 AM CDT [facility] NRBC % 0.0 % 12/27/2024 5:06 AM CDT [facility] SEG NEUTROPHILS 34 % 5:06 AM CDT [facility] LYMPHOCYTES 60 % 12/27/2024 5:06 AM CDT [facility] MONOCYTES 4 % 12/27/2024 5:06 AM CDT [facility] EOSINOPHILS 1 % 12/27/2024 5:06 AM CDT [facility] BASOPHILS 1 % 12/27/2024 5:06 AM CDT [facility] ABS. NEUTROPHILS 2.66 1.60 - 8.30 x10'3/uL 12/27/2024 5:06 AM CDT [facility] ABS. LYMPHOCYTES 4.69 0.80 - 4.70 x10'3/uL 12/27/2024 5:06 AM CDT [facility] ABS. MONOCYTES 0.31 0.00 - 1.50 x10'3/uL 12/27/2024 5:06 AM CDT [facility] ABS. EOSINOPHILS 0.08 0.00 - 0.40 x10'3/uL 12/27/2024 5:06 AM CDT [facility] ABS. BASOPHILS 0.08 0.00 - 0.20 x10'3/uL 12/27/2024 5:06 AM CDT [facility] ABS. NUCLEATED RBC'S 0.00 0.00 - 0.01 x10'3/uL 12/27/2024 5:06 AM CDT [facility] RBC MORPHOLOGY RBC MORPHOLOGY APPEARS NORMAL. SLIDE REVIEWED. 12/27/2024 5:06 AM CDT [facility] PLT EST. ADEQUATE 12/27/2024 5:06 AM CDT [facility] 12/27/2024 4:01 AM CDT us Vitor Larry MD LABORATORY Final Result [facility] [address] [place] [address], [id number] * Pathology (12/27/2024 12:00 AM CDT) PATHOLOGY [facility] Department of Laboratory Medicine [address] [place] [address] , extension [phone] Pathology Report Surgical Pathology Report Name: DAKOTA SHARIF Specimen #: [id number] Age: 8 1975 (Age: 49) Location: [facility] Sex: F Procedure Date: 12/27/2024 Hospital #: [id number] Date Received: 12/28/2024 Date Reported: 12/31/2024 Provider: [...] interpretation, and sign out were performed at [facility], [address] [place] [address]. 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1975 Requested By: VITOR LARRY Order Number: [id number] Reading MD: Manjeet Goodrich Measurements Intervals [place] Rate: 86 P: 48 AL: 150 QRS: -37 QRSD: 93 T: 75 QT: 284 QTc: 340 Interpretive Statements SINUS RHYTHM LEFT AXIS DEVIATION [QRS AXIS < -30] PATTERN CONSISTENT WITH PULMONARY DISEASE NONSPECIFIC T-WAVE ABNORMALITY Procedure Note Manjeet Goodrich MD - 12/26/2024 [address] [place] [address] Test Date: 2024-12-26 Pat Name: DAKOTA SHARIF Department: 1 Room: 84A Gender: Female 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1975 Requested By: VITOR LARRY Order Number: [id number] Reading : Manjeet Goodrich Measurements Intervals [place] Rate: 86 P: 48 AL: 150 QRS: -37 QRSD: 93 T: 75 QT: 284 QTc: 340 Interpretive Statements SINUS RHYTHM LEFT AXIS DEVIATION [QRS AXIS < -30] PATTERN CONSISTENT WITH PULMONARY DISEASE NONSPECIFIC T-WAVE ABNORMALITY us Vitor Larry MD ECG ORDERABLES Final Result [facility] * LACTIC ACID W REFLEX (SEPSIS) (12/26/2024 8:24 PM CDT) LACTIC ACID VENOUS 1.5 0.4 - 2.0 MMOL/L 12/26/2024 9:12 PM CDT [facility] 12/26/2024 8:24 PM CDT Vitor Larry MD LABORATORY Final Result [facility] [address] [place] [address], [id number] * (ABNORMAL) COMPREHENSIVE METABOLIC PANEL (12/26/2024 8:24 PM CDT) SODIUM S/P/B 145 136 - 145 MMOL/L 12/26/2024 9:10 PM CDT [facility] POTASSIUM S/P/B 3.1(L) 3.5 - 5.1 MMOL/L 12/26/2024 9:10 PM CDT [facility] CHLORIDE S/P/B 112 97 - 115 MMOL/L 12/26/2024 9:10 PM CDT [facility] CO2 25.3 21.0 - 32.0 MMOL/L 12/26/2024 9:10 PM CDT [facility] GLUCOSE 117(H) 74 - 106 MG/DL 12/26/2024 9:10 PM CDT [facility] BUN 8 7 - 18 MG/DL 12/26/2024 9:10 PM CDT [facility] CREATININE S/P/B 0.65 0.55 - 1.02 MG/DL 12/26/2024 9:10 PM CDT [facility] CALCIUM S/P/B 8.7 8.5 - 10.1 MG/DL 12/26/2024 9:10 PM CDT [facility] BILIRUBIN TOTAL S/P/B 0.7 0.2 - 1.0 MG/DL 12/26/2024 9:10 PM CDT [facility] ALKALINE PHOSPHATASE S/P/B 83 41 - 108 U/L 12/26/2024 9:10 PM CDT [facility] AST 23 15 - 37 U/L 12/26/2024 9:10 PM CDT [facility] ALT 25 13 - 56 U/L 12/26/2024 9:10 PM CDT [facility] TOTAL PROTEIN S/P/B 6.8 6.4 - 8.2 G/DL 12/26/2024 9:10 PM CDT [facility] ALBUMIN S/P/B 3.4 3.4 - 5.0 G/DL 12/26/2024 9:10 PM CDT [facility] ANION GAP 7.7 2.0 - 10.0 MMOL/L 12/26/2024 9:10 PM CDT [facility] OSMOLALITY (CALC) 299 MOSM/KG 025 9:10 PM CDT [facility] Comment:REFERENCE RANGE NOT ESTABLISHED GFR ESTIMATE >90 >90 ML/MIN/1. 73 M2 12/26/2024 9:10 PM CDT [facility] GFR NOTES GFR REFERENCE S: 12/26/2024 9:10 PM CDT [facility] Comment: THE ESTIMATED GFR IS [...] us Vitor Larry MD LABORATORY Final Result [facility] [address] [place] [address], [id number] * CULTURE, BACTERIA, BLOOD (12/26/2024 8:23 PM CDT) Only the most recent of2 resultswithin the time period is included. SPEC DESCRIPTION BLOOD 12/26/2024 7:42 PM CDT [facility] SPECIAL REQUESTS NO SPECIAL REQUEST 12/26/2024 7:42 PM CDT [facility] CULTURE RESULT NO GROWTH 5 DAYS 12/31/2024 9:42 PM CDT [facility] BLOOD SPECIMEN OBTAINED FOR BLOOD CULTURE / Unknown 12/26/2024 8:23 PM CDT 12/26/2024 8:24 PM CDT us Vitor Larry MD MICROBIOLOGY - GENERAL ORDERAB LES Final Result Performing Organization Address City/State/[facility] Co de Phone Number [facility] [address] [place] [address], [phone] from Last 3 Months Insurance Advance Directives * Full Code (Latest Code Status on File) Date Activated Date Inactivated Comments 12/26/2024 7:42 PM 12/28/2024 12:30 AM * Full Code Date Activated Date Inactivated Comments 11/26/2018 6:13 PM 11/28/2018 2:55 PM Care Teams Textile Designer Relationship Specialty Start Date End Date Josh Kidd MD [address] [place] [address] PCP - General FAMILY PRACTICE 11/26/18
--- OUTSIDE RECORDS SUMMARY | 2025-03-04 17:18 | XMS_ITS | Clinical Summary ---
Author Organization [facility] Address [address] [place] [address] Phone Care Team Providers Care Billet Inspector Name Role Phone Yenny Hernández Fred PLANNING ENGINEER, [facility] Primary Care Provi feliberto Allergies Active [...] age to complete this topic Insurance [place] Care Teams Billet Inspector Relationship Specialty Start Date End Date Yenny Hernández, PLANNING ENGINEER, LATHING SUPERVISOR [address] [place] [address] PCP - General Advanced Practice Nurse 05/05/20
== END 2025-03-04 17:16 | disposition home or self-care (01) ==
PROVIDERS: Emergency Provider Emergency Medicine; PCP Nurse Practitioner Family
DX: R30.0 Dysuria (principal); J44.9 Chronic obstructive pulmonary disease, unspecified; E78.5 Hyperlipidemia, unspecified; E11.9 Type 2 diabetes mellitus without complications; Z79.4 Long term (current) use of insulin
CPT/HCPCS: 99281

== ENCOUNTER 2025-03-05 13:08 | Outpatient (CLI) | payer OTHER, SELFPAY ==
--- OUTSIDE RECORDS SUMMARY | 2025-03-05 13:12 | XMS_ITS | Encounter Summary ---
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
--- OUTSIDE RECORDS SUMMARY | 2025-03-05 13:12 | XMS_ITS | Clinical Summary ---
Author Organization [facility] Address [address] [place] [address] Care Team Providers Care Apprentice Electrician Name Role Phone Josh Kidd MD Primary Care Provider [phone] Allergies Active Allergy Reactions Criticality Noted Date [...] w st at migr 11/27/2018 Ischemic stroke ([facility]) 11/26/2018 Encounters Date Type Department Care Team Description 12/26/2024 6:58 PM CDT - 12/27/2024 9:40 PM CDT Hospital Encounter [place] [address] [place] [address] Ash Lopes MD Mardani, Fareed, MD Sohail, [...] from your doctor or pharmacy? Never 12/26/2024 [facility] Utilities Answer Date Recorded In the past 12 months has e silkfred gas, oil, or water [employer] threatened to shut off services in your [...] often do you attend chur ch or pentecostal services? Never 12/26/2024 Do you belong to any clubs o r organizations such as religious groups, unions, fraternal or athletic groups, or [...] and heating? Not hard at all 12/26/2024 [facility] [place] of Occupat ional Health - Occupational Stress [...] any time in the past 12 m [facility], were you homeless or living in a retirement (including now)? 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 Gender Identity Female 12/26/2024 8:40 PM [...] 70 - 109 12/27/2024 8:55 PM CDT [facility] 12/27/2024 8:08 PM CDT Jacques aRmirez MD POCT ORDERABLES - DEVICE Final R esult Performing Organization Address [facility] de Phone Number [facility] [address] [place] [address], [place] [phone] * (ABNORMAL) HEMOGLOBIN, GLYCOSYLATED (12/27/2024 12:11 PM CDT) HGB A1C 7.6(H) <5.7 % 12/27/2024 3:36 PM CDT [facility] ESTIMATED AVG GLUCOSE 171(H) 74 - 114 MG/DL 12/27/2024 3:36 PM CDT [facility] 12/27/2024 12:1 1 PM CDT Jacques Ramirez MD LABORATORY Final Result Performing Organization Address [facility] de Phone Number [facility] [address] [place] [address], [place] [phone] * POTASSIUM, SERUM (12/27/2024 12:11 PM CDT) POTASSIUM S/P/B 3.6 3.5 - 5.1 MMOL/L 12/27/2024 12:49 PM CDT [facility] 12/27/2024 12:1 1 PM CDT Jacques Ramirez MD LABORATORY Final Result Performing Organization Address [facility] de Phone Number [facility] [address] [place] [address], [place] [phone] * CULTURE, WOUND W/ GRAM STAIN (12/27/2024 11:30 AM CDT) SPEC DESCRIPTION CHEEK,LEFT 12/27/2024 3:09 PM CDT [facility] SPECIAL REQUESTS NO SPECIAL REQUEST 12/27/2024 3:09 PM CDT [facility] GRAM STAIN RESULT NO NEUTROPHILS OR ORGANISMS SEEN 12/27/2024 4:03 PM CDT [facility] CULTURE RESULT NO GROWTH 5 DAYS 01/01/2025 11:41 AM CDT [facility] CHEEK STRUCTURE / Unknown 12/27/2024 11:30 AM CDT 12/27/2024 3:09 PM CDT us Bree Mendez MD MICROBIOLOGY - GENERAL ORD ERABLES Final Result Performing Organization Address City/[facility]/ZIP Co de Phone Number [facility] [address] [place] [address], [place] [phone] * CULTURE, ANAEROBIC (12/27/2024 11:30 AM CDT) SPEC DESCRIPTION CHEEK,LEFT 12/27/2024 3:09 PM CDT [facility] SPECIAL REQUESTS NO SPECIAL REQUEST 12/27/2024 3:09 PM CDT [facility] CULTURE RESULT NO ANAEROBES ISOLATED 01/01/2025 11:41 AM CDT [facility] CHEEK STRUCTURE / Unknown 12/27/2024 11:30 AM CDT 12/27/2024 3:10 PM CDT us Bree Mendez MD MICROBIOLOGY - GENERAL ORD ERABLES Final Result Performing Organization Address City/[facility]/ZIP Co de Phone Number [facility] [address] [place] [address], [place] [phone] * CULTURE URINE (12/27/2024 11:12 AM CDT) SPEC DESCRIPTION URINE CLEAN CATCH 12/27/2024 11:12 AM CDT [facility] SPECIAL REQUESTS NO SPECIAL REQUEST 12/27/2024 11:12 AM CDT [facility] CULTURE RESULT NO GROWTH (< OR = 1,000 CFU/ML) 12/29/2024 8:54 AM CDT [facility] URINE SPECIMEN OBTAINED BY CLEAN CATCH PROCEDURE / Unknown 12/27/2024 11:12 AM CDT 12/27/2024 11:31 AM CDT us Vitor Larry MD MICROBIOLOGY - GENERAL ORDERAB LES Final Result [facility] [address] [place] [address], [phone] * (ABNORMAL) BASIC METABOLIC PANEL (12/27/2024 4:01 AM CDT) SODIUM S/P/B 149(H) 136 - 145 MMOL/L 12/27/2024 5:04 AM CDT [facility] POTASSIUM S/P/B 2.6(LL) 3.5 - 5.1 MMOL/L 12/27/2024 5:04 AM CDT [facility] Comment: Critical Result(s) Called to and read back by: [id number] [id number] at: 05:02:52 12/27/2024 by LUCY. CHLORIDE S/P/B 118(H) 97 - 115 MMOL/L 12/27/2024 5:04 AM CDT [facility] CO2 25.0 21.0 - 32.0 MMOL/L 12/27/2024 5:04 AM CDT [facility] GLUCOSE 108(H) 74 - 106 MG/DL 12/27/2024 5:04 AM CDT [facility] BUN 6(L) 7 - 18 MG/DL 12/27/2024 5:04 AM CDT [facility] CREATININE S/P/B 0.42(L) 0.55 - 1.02 MG/DL 12/27/2024 5:04 AM CDT [facility] CALCIUM S/P/B 8.0(L) 8.5 - 10.1 MG/DL 12/27/2024 5:04 AM CDT [facility] ANION GAP 6.0 2.0 - 10.0 MMOL/L 12/27/2024 5:04 AM CDT [facility] OSMOLALITY (CALC) 306 MOSM/KG 025 5:04 AM CDT [facility] Comment:REFERENCE RANGE NOT ESTABLISHED GFR ESTIMATE >90 >90 ML/MIN/1. 73 M2 12/27/2024 5:04 AM CDT [facility] GFR NOTES GFR REFERENCE S: 12/27/2024 5:04 AM CDT [facility] Comment: THE ESTIMATED GFR IS [...] CDT Vitor Larry MD LABORATORY Final Result [facility] [address] [place] [address], [phone] * (ABNORMAL) CBC W/DIFF AUTOMATED (12/27/2024 4:01 AM CDT) Only the most recent of2 resultswithin the time period is included. WBC 7.81 4.00 - 10.80 x10'3/uL 12/27/2024 4:10 AM CDT [facility] RBC 4.42 4.10 - 5.40 x10'6/uL 12/27/2024 4:10 AM CDT [facility] HGB 13.9 12.0 - 16.0 G/DL 12/27/2024 4:10 AM CDT [facility] HCT 40.0 36.0 - 47.0 % 12/27/2024 4:10 AM CDT [facility] MCV 90.5 78.0 - 100.0 FL 12/27/2024 4:10 AM CDT [facility] MCH 31.4(H) 27.0 - 31.0 PG 12/27/2024 4:10 AM CDT [facility] MCHC 34.8 33.0 - 36.0 G/DL 12/27/2024 4:10 AM CDT [facility] RDW 13.4 11.5 - 14.5 % 12/27/2024 4:10 AM CDT [facility] PLT 192 150 - 350 x10'3/uL 12/27/2024 4:10 AM CDT [facility] MPV 9.7 7.4 - 10.4 FL 12/27/2024 4:10 AM CDT [facility] DIFFERENTIAL TYPE MANUAL DIFFERENTIAL 12/27/2024 5:06 AM CDT [facility] NRBC % 0.0 % 12/27/2024 5:06 AM CDT [facility] SEG NEUTROPHILS 34 % 5:06 AM CDT [facility] LYMPHOCYTES 60 % 12/27/2024 5:06 AM CDT [facility] MONOCYTES 4 % 12/27/2024 5:06 AM CDT [facility] EOSINOPHILS 1 % 12/27/2024 5:06 AM CDT [facility] BASOPHILS 1 % 12/27/2024 5:06 AM CDT [facility] ABS. NEUTROPHILS 2.66 1.60 - 8.30 x10'3/uL 12/27/2024 5:06 AM CDT [facility] ABS. LYMPHOCYTES 4.69 0.80 - 4.70 x10'3/uL 12/27/2024 5:06 AM CDT [facility] ABS. MONOCYTES 0.31 0.00 - 1.50 x10'3/uL 12/27/2024 5:06 AM CDT [facility] ABS. EOSINOPHILS 0.08 0.00 - 0.40 x10'3/uL 12/27/2024 5:06 AM CDT [facility] ABS. BASOPHILS 0.08 0.00 - 0.20 x10'3/uL 12/27/2024 5:06 AM CDT [facility] ABS. NUCLEATED RBC'S 0.00 0.00 - 0.01 x10'3/uL 12/27/2024 5:06 AM CDT [facility] RBC MORPHOLOGY RBC MORPHOLOGY APPEARS NORMAL. SLIDE REVIEWED. 12/27/2024 5:06 AM CDT [facility] PLT EST. ADEQUATE 12/27/2024 5:06 AM CDT [facility] 12/27/2024 4:01 AM CDT us Vitor Larry MD LABORATORY Final Result [facility] [address] [place] [address], [phone] * Pathology (12/27/2024 12:00 AM CDT) PATHOLOGY [facility] Department of Laboratory Medicine [address] [place] [address] , extension [phone] Pathology Report Surgical Pathology Report Name: DAKOTA SHARIF Specimen #: [id number] Age: 8 1975 (Age: 49) Location: [facility] Sex: F Procedure Date: 12/27/2024 Hospital #: [id number] Date Received: 12/28/2024 Date Reported: 12/31/2024 Provider: [...] interpretation, and sign out were performed at [facility], [address] [place] [address]. Electronically Signed Out MAGDA TEE MD [facility] 12/27/2024 12/28/2024 12: 17 PM CDT Comment:Skin, left cheek, bi opsy us Ash Lopes MD PATHOLOGY/CYTOLOGY ORDERABLES F inal Result [facility] [address] [place] [address], [phone] * ECG 12 lead (12/26/2024 9:27 PM CDT) 12/26/2024 9:27 PM CDT Narrative [facility] - 12/26/2024 9:57 PM CDT [place] [address] [place] [address] Test Date: 2024-12-26 Pat Name: DAKOTA SHARIF Department: 1 Room: 84A Gender: Female Crew Person: : 1975 Requested By: VITOR LARRY Order Number: [id number] Reading MD: Manjeet Goodrich Measurements Intervals [place] Rate: 86 P: 48 TX: 150 QRS: -37 QRSD: 93 T: 75 QT: 284 QTc: 340 Interpretive Statements SINUS RHYTHM LEFT AXIS DEVIATION [QRS AXIS < -30] PATTERN CONSISTENT WITH PULMONARY DISEASE NONSPECIFIC T-WAVE ABNORMALITY Procedure Note Manjeet Goodrich MD - 12/26/2024 [place] [address] [place] [address] Test Date: 2024-12-26 Pat Name: DAKOTA SHARIF Department: 1 Room: 84A Gender: Female Crew Person: : 1975 Requested By: VITOR LARRY Order Number: [id number] Reading : Manjeet Goodrich Measurements Intervals [place] Rate: 86 P: 48 TX: 150 QRS: -37 QRSD: 93 T: 75 QT: 284 QTc: 340 Interpretive Statements SINUS RHYTHM LEFT AXIS DEVIATION [QRS AXIS < -30] PATTERN CONSISTENT WITH PULMONARY DISEASE NONSPECIFIC T-WAVE ABNORMALITY us Vitor Larry MD ECG ORDERABLES Final Result [facility] * LACTIC ACID W REFLEX (SEPSIS) (12/26/2024 8:24 PM CDT) LACTIC ACID VENOUS 1.5 0.4 - 2.0 MMOL/L 12/26/2024 9:12 PM CDT [facility] 12/26/2024 8:24 PM CDT Vitor Larry MD LABORATORY Final Result [facility] [address] [place] [address], [phone] * (ABNORMAL) COMPREHENSIVE METABOLIC PANEL (12/26/2024 8:24 PM CDT) SODIUM S/P/B 145 136 - 145 MMOL/L 12/26/2024 9:10 PM CDT [facility] POTASSIUM S/P/B 3.1(L) 3.5 - 5.1 MMOL/L 12/26/2024 9:10 PM CDT [facility] CHLORIDE S/P/B 112 97 - 115 MMOL/L 12/26/2024 9:10 PM CDT [facility] CO2 25.3 21.0 - 32.0 MMOL/L 12/26/2024 9:10 PM CDT [facility] GLUCOSE 117(H) 74 - 106 MG/DL 12/26/2024 9:10 PM CDT [facility] BUN 8 7 - 18 MG/DL 12/26/2024 9:10 PM CDT [facility] CREATININE S/P/B 0.65 0.55 - 1.02 MG/DL 12/26/2024 9:10 PM CDT [facility] CALCIUM S/P/B 8.7 8.5 - 10.1 MG/DL 12/26/2024 9:10 PM CDT [facility] BILIRUBIN TOTAL S/P/B 0.7 0.2 - 1.0 MG/DL 12/26/2024 9:10 PM CDT [facility] ALKALINE PHOSPHATASE S/P/B 83 41 - 108 U/L 12/26/2024 9:10 PM CDT [facility] AST 23 15 - 37 U/L 12/26/2024 9:10 PM CDT [facility] ALT 25 13 - 56 U/L 12/26/2024 9:10 PM CDT [facility] TOTAL PROTEIN S/P/B 6.8 6.4 - 8.2 G/DL 12/26/2024 9:10 PM CDT [facility] ALBUMIN S/P/B 3.4 3.4 - 5.0 G/DL 12/26/2024 9:10 PM CDT [facility] ANION GAP 7.7 2.0 - 10.0 MMOL/L 12/26/2024 9:10 PM CDT [facility] OSMOLALITY (CALC) 299 MOSM/KG 025 9:10 PM CDT [facility] Comment:REFERENCE RANGE NOT ESTABLISHED GFR ESTIMATE >90 >90 ML/MIN/1. 73 M2 12/26/2024 9:10 PM CDT [facility] GFR NOTES GFR REFERENCE S: 12/26/2024 9:10 PM CDT [facility] Comment: THE ESTIMATED GFR IS [...] us Vitor Larry MD LABORATORY Final Result [facility] [address] [place] [address], [phone] * CULTURE, BACTERIA, BLOOD (12/26/2024 8:23 PM CDT) Only the most recent of2 resultswithin the time period is included. SPEC DESCRIPTION BLOOD 12/26/2024 7:42 PM CDT [facility] SPECIAL REQUESTS NO SPECIAL REQUEST 12/26/2024 7:42 PM CDT [facility] CULTURE RESULT NO GROWTH 5 DAYS 12/31/2024 9:42 PM CDT [facility] BLOOD SPECIMEN OBTAINED FOR BLOOD CULTURE / Unknown 12/26/2024 8:23 PM CDT 12/26/2024 8:24 PM CDT us Vitor Larry MD MICROBIOLOGY - GENERAL ORDERAB LES Final Result Performing Organization Address City/State/[facility] Co de Phone Number [facility] [address] [place] [address], [phone] from Last 3 Months Insurance Advance Directives * Full Code (Latest Code Status on File) Date Activated Date Inactivated Comments 12/26/2024 7:42 PM 12/28/2024 12:30 AM * Full Code Date Activated Date Inactivated Comments 11/26/2018 6:13 PM 11/28/2018 2:55 PM Care Teams Apprentice Electrician Relationship Specialty Start Date End Date Josh Kidd MD [address] [place] [address] PCP - General FAMILY PRACTICE 11/26/18
--- OUTSIDE RECORDS SUMMARY | 2025-03-05 13:12 | XMS_ITS | Clinical Summary ---
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
--- OUTSIDE RECORDS SUMMARY | 2025-03-05 13:12 | XMS_ITS | Clinical Summary ---
Author Organization [facility] Address [address] [place] [address] Phone Care Team Providers Care Auto Technician Name Role Phone Yenny Hernández Fred HEEL EDGE INKER MACHINE, [facility] Primary Care Provi feliberto Allergies Active [...] age to complete this topic Insurance MEDICAID [place] Care Teams Auto Technician Relationship Specialty Start Date End Date Yenny Hernández, HEEL EDGE INKER MACHINE, ORTHOPHOTOGRAPHY TECHNICIAN [address] [place] [address] PCP - General Advanced Practice Nurse 05/05/20
--- OUTSIDE RECORDS SUMMARY | 2025-03-05 13:12 | XMS_ITS | Clinical Summary ---
Author Organization [facility] Address [address] [place] [address] Care Team Providers Care Titrator Name Role Phone Yenny Hernández REPROGRAPHICS ASSOCIATE-RN CCU Primary Care Provid er Source Comments [facility],non-owned Affiliates and Associated Physician Practices is amultiple site organization consisting of ambulatory clinics and hospital sitesin [place], [place], [place] and [place]. This disclosure is being madepursuant to the Care Everywhere program and may not contain all information available regarding this patient. Last updated 18.[facility] Allergies Active Allergy Reactions Criticality Noted Date [...] this topic Medical Devices Implanted Type Area Bander And Cellophaner Machine Device Identifier Shelf Expiration Date Model / Serial / Lot Stent Uret 6fr 24cm Pgtl Crv Tpr Tip Implanted:Qty: 1 on 10/12/2020 by Dariel Gudino MD at [facility] Right: Ureter [employer] 07/04/2023 [id number] / / [id number] Procedures Procedure Name Priority Date/Time Associated Diagnosis Comments GLUCOSE - POINT OF CARE Routine 10/12/2020 7:58 AM CDT from Last 3 Months or Most Recently Relevant to Health Maintenance Results * (ABNORMAL) GLUCOSE - POINT OF CARE (10/12/2020 7:58 AM CDT) Glucose WB/POC 160(H) 70 - 115 mg/dL 10/12/2020 7:59 AM CDT [facility] Specimen Type Venous 10/12/2020 7:59 AM CDT [facility] Blood BLOOD SPECIMEN / Unknown 10/12/2020 7:58 AM CDT 10/12/2020 7:59 AM CDT us Dariel Gudino MD LAB - POINT OF CARE ORDERA BLES Final Result [address] [address], [place] [phone] from Last 3 Months or Most Recently Relevant to Health Maintenance Insurance [facility] Care Teams Titrator Relationship Specialty Start Date End Date Yenny Hernández, REPROGRAPHICS ASSOCIATE-RN CCU [address] [place] [address] PCP - General 06/16/20
[2025-03-05 13:22] LABS: Appearance Urine Cloudy (Clear); Glucose Urine UA 3+ (Negative); Leukocyte Esterase Ur 2+ LEU/UL (Negative); Nitrate Urine Positive (Negative); Specific Grav Ur <= 1.005 (1.010-1.020)
[2025-03-05 13:54] LABS: Add Urine Microscopic? YES
== END 2025-03-05 13:09 | disposition home or self-care (01) ==
LOC: CHSLAB 13:09
PROVIDERS: PCP Nurse Practitioner Family; Visit Provider Nurse Practitioner Family
DX: R39.198 Other difficulties with micturition (principal); B96.20 Unspecified Escherichia coli [E. coli] as the cause of diseases classified elsewhere; R78.81 Bacteremia; R19.5 Other fecal abnormalities
CPT/HCPCS: 81001

== ENCOUNTER 2025-03-26 15:10 | Outpatient (NON) | payer OTHER, SELFPAY ==
--- OUTSIDE RECORDS SUMMARY | 2025-03-26 15:15 | XMS_ITS | Encounter Summary ---
Author Organization [facility] Address [address] [place] [address] Care Team Providers Care Legal Instruments Examiner Name Role Phone Josh Kidd MD Primary Care Provider [phone] Encounter Details Date Type Department Care Team (Late st Contact Info) Description 01/03/2019 Abstract [facility] CONVERSION [address] [place] [address] , Generic Conversion, Social History Tobacco Use [...] PM CDT Legal Sex Female 10:01 PM DIE FITTER Gender Identity Female 12/26/2024 8:40 PM CDT Sexual Orientation Straight 12/26/2024 8: 40 PM CDT documented as of this encounter Plan of Treatment Not on file documented as of this encounter Visit Diagnoses Not on filedocumented in this encounter Care Teams Legal Instruments Examiner Relationship Specialty Start Date End Date Josh Kidd MD [address] [place] [address] PCP - General FAMILY PRACTICE 11/26/18 documented as of this encounter
--- OUTSIDE RECORDS SUMMARY | 2025-03-26 15:15 | XMS_ITS | Clinical Summary ---
Author Organization [facility] Address [address] [place] [address] Care Team Providers Care Edge Bonder Name Role Phone Josh Kidd MD Primary Care Provider [phone] Allergies Active Allergy Reactions Criticality Noted Date [...] on file Legal Sex Female 10:10 AM SOLID DIE CUTTER Gender Identity Not on file Sexual Orientation [...] Plan of Treatment Not on file Insurance [facility] Care Teams Edge Bonder Relationship Specialty Start Date End Date Josh Kidd MD [address] [place] [id number] PCP - General 10/02/18
--- OUTSIDE RECORDS SUMMARY | 2025-03-26 15:15 | XMS_ITS | Clinical Summary ---
Author Organization [facility] Address [address] [place] [address] Care Team Providers Care Superintendent Drivers Name Role Phone Josh Kidd MD Primary Care Provider [phone] Allergies Active Allergy Reactions Criticality Noted Date [...] w st at migr 11/27/2018 Ischemic stroke ([facility] 11/26/2018 Encounters Date Type Department Care Team Description 12/26/2024 6:58 PM CDT - 12/27/2024 9:40 PM CDT Hospital Encounter [facility] [place] [place] [address] Ash Lopes MD Mardani, Fareed, MD Sohail, [...] from your doctor or pharmacy? Never 12/26/2024 [facility] Utilities Answer Date Recorded In the past 12 months has [employer] gas, oil, or water [employer] threatened to shut off services in your [...] often do you attend chur ch or adventist services? Never 12/26/2024 Do you belong to any clubs o r organizations such as anglican groups, unions, fraternal or athletic groups, or [...] and heating? Not hard at all 12/26/2024 [facility] of Occupat ional Health - Occupational Stress [...] any time in the past [address] [facility], were you homeless or living in a senior living (including now)? 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 PM STEREOTYPE FINISHER Gender Identity Female 12/26/2024 8:40 PM CDT Sexual Orientation Straight 12/26/2024 8 :40 PM CDT Last Filed Vital Signs Vital [...] 70 - 109 12/27/2024 8:55 PM CDT [facility] 12/27/2024 8:08 PM CDT Jacques Ramirez MD POCT ORDERABLES - DEVICE Final R esult Performing Organization Address [facility] de Phone Number [facility] [address] [place] [address], [place] [phone] * (ABNORMAL) HEMOGLOBIN, GLYCOSYLATED (12/27/2024 12:11 PM CDT) HGB A1C 7.6(H) <5.7 % 12/27/2024 3:36 PM CDT [facility] ESTIMATED AVG GLUCOSE 171(H) 74 - 114 MG/DL 12/27/2024 3:36 PM CDT [facility] 12/27/2024 12:1 1 PM CDT Jacques Ramirez MD LABORATORY Final Result Performing Organization Address [facility] de Phone Number [facility] [address] [place] [address], [place] [phone] * POTASSIUM, SERUM (12/27/2024 12:11 PM CDT) POTASSIUM S/P/B 3.6 3.5 - 5.1 MMOL/L 12/27/2024 12:49 PM CDT [facility] 12/27/2024 12:1 1 PM CDT Jacques Ramirez MD LABORATORY Final Result Performing Organization Address [facility] de Phone Number [facility] [address] [place] [address], [place] [phone] * CULTURE, WOUND W/ GRAM STAIN (12/27/2024 11:30 AM CDT) SPEC DESCRIPTION CHEEK,LEFT 12/27/2024 3:09 PM CDT [facility] SPECIAL REQUESTS NO SPECIAL REQUEST 12/27/2024 3:09 PM CDT [facility] GRAM STAIN RESULT NO NEUTROPHILS OR ORGANISMS SEEN 12/27/2024 4:03 PM CDT [facility] CULTURE RESULT NO GROWTH 5 DAYS 01/01/2025 11:41 AM CDT [facility] CHEEK STRUCTURE / Unknown 12/27/2024 11:30 AM CDT 12/27/2024 3:09 PM CDT us Bree Mendez MD MICROBIOLOGY - GENERAL ORD ERABLES Final Result Performing Organization Address City/[facility]/ZIP Co de Phone Number [facility] [address] [place] [address], [place] [phone] * CULTURE, ANAEROBIC (12/27/2024 11:30 AM CDT) SPEC DESCRIPTION CHEEK,LEFT 12/27/2024 3:09 PM CDT [facility] SPECIAL REQUESTS NO SPECIAL REQUEST 12/27/2024 3:09 PM CDT [facility] CULTURE RESULT NO ANAEROBES ISOLATED 01/01/2025 11:41 AM CDT [facility] CHEEK STRUCTURE / Unknown 12/27/2024 11:30 AM CDT 12/27/2024 3:10 PM CDT us Bree Mendez MD MICROBIOLOGY - GENERAL ORD ERABLES Final Result Performing Organization Address City/[facility]/ZIP Co de Phone Number [facility] [address] [place] [address], [place] [phone] * CULTURE URINE (12/27/2024 11:12 AM CDT) SPEC DESCRIPTION URINE CLEAN CATCH 12/27/2024 11:12 AM CDT [facility] SPECIAL REQUESTS NO SPECIAL REQUEST 12/27/2024 11:12 AM CDT [facility] CULTURE RESULT NO GROWTH (< OR = 1,000 CFU/ML) 12/29/2024 8:54 AM CDT [facility] URINE SPECIMEN OBTAINED BY CLEAN CATCH PROCEDURE / Unknown 12/27/2024 11:12 AM CDT 12/27/2024 11:31 AM CDT us Vitor Larry MD MICROBIOLOGY - GENERAL ORDERAB LES Final Result [facility] [address] [place] [address], [id number] * (ABNORMAL) BASIC METABOLIC PANEL (12/27/2024 4:01 AM CDT) SODIUM S/P/B 149(H) 136 - 145 MMOL/L 12/27/2024 5:04 AM CDT [facility] POTASSIUM S/P/B 2.6(LL) 3.5 - 5.1 MMOL/L 12/27/2024 5:04 AM CDT [facility] Comment: Critical Result(s) Called to and read back by: JILL [id number] at: 05:02:52 12/27/2024 by LUCY. CHLORIDE S/P/B 118(H) 97 - 115 MMOL/L 12/27/2024 5:04 AM CDT [facility] CO2 25.0 21.0 - 32.0 MMOL/L 12/27/2024 5:04 AM CDT [facility] GLUCOSE 108(H) 74 - 106 MG/DL 12/27/2024 5:04 AM CDT [facility] BUN 6(L) 7 - 18 MG/DL 12/27/2024 5:04 AM CDT [facility] CREATININE S/P/B 0.42(L) 0.55 - 1.02 MG/DL 12/27/2024 5:04 AM CDT [facility] CALCIUM S/P/B 8.0(L) 8.5 - 10.1 MG/DL 12/27/2024 5:04 AM CDT [facility] ANION GAP 6.0 2.0 - 10.0 MMOL/L 12/27/2024 5:04 AM CDT [facility] OSMOLALITY (CALC) 306 MOSM/KG 025 5:04 AM CDT [facility] Comment:REFERENCE RANGE NOT ESTABLISHED GFR ESTIMATE >90 >90 ML/MIN/1. 73 M2 12/27/2024 5:04 AM CDT [facility] GFR NOTES GFR REFERENCE S: 12/27/2024 5:04 AM CDT [facility] Comment: THE ESTIMATED GFR IS [...] CDT Vitor Larry MD LABORATORY Final Result [facility] [address] [place] [address], [id number] * (ABNORMAL) CBC W/DIFF AUTOMATED (12/27/2024 4:01 AM CDT) Only the most recent of2 resultswithin the time period is included. WBC 7.81 4.00 - 10.80 x10'3/uL 12/27/2024 4:10 AM CDT [facility] RBC 4.42 4.10 - 5.40 x10'6/uL 12/27/2024 4:10 AM CDT [facility] HGB 13.9 12.0 - 16.0 G/DL 12/27/2024 4:10 AM CDT [facility] HCT 40.0 36.0 - 47.0 % 12/27/2024 4:10 AM CDT [facility] MCV 90.5 78.0 - 100.0 FL 12/27/2024 4:10 AM CDT [facility] MCH 31.4(H) 27.0 - 31.0 PG 12/27/2024 4:10 AM CDT [facility] MCHC 34.8 33.0 - 36.0 G/DL 12/27/2024 4:10 AM CDT [facility] RDW 13.4 11.5 - 14.5 % 12/27/2024 4:10 AM CDT [facility] PLT 192 150 - 350 x10'3/uL 12/27/2024 4:10 AM CDT [facility] MPV 9.7 7.4 - 10.4 FL 12/27/2024 4:10 AM CDT [facility] DIFFERENTIAL TYPE MANUAL DIFFERENTIAL 12/27/2024 5:06 AM CDT [facility] NRBC % 0.0 % 12/27/2024 5:06 AM CDT [facility] SEG NEUTROPHILS 34 % 5:06 AM CDT [facility] LYMPHOCYTES 60 % 12/27/2024 5:06 AM CDT [facility] MONOCYTES 4 % 12/27/2024 5:06 AM CDT [facility] EOSINOPHILS 1 % 12/27/2024 5:06 AM CDT [facility] BASOPHILS 1 % 12/27/2024 5:06 AM CDT [facility] ABS. NEUTROPHILS 2.66 1.60 - 8.30 x10'3/uL 12/27/2024 5:06 AM CDT [facility] ABS. LYMPHOCYTES 4.69 0.80 - 4.70 x10'3/uL 12/27/2024 5:06 AM CDT [facility] ABS. MONOCYTES 0.31 0.00 - 1.50 x10'3/uL 12/27/2024 5:06 AM CDT [facility] ABS. EOSINOPHILS 0.08 0.00 - 0.40 x10'3/uL 12/27/2024 5:06 AM CDT [facility] ABS. BASOPHILS 0.08 0.00 - 0.20 x10'3/uL 12/27/2024 5:06 AM CDT [facility] ABS. NUCLEATED RBC'S 0.00 0.00 - 0.01 x10'3/uL 12/27/2024 5:06 AM CDT [facility] RBC MORPHOLOGY RBC MORPHOLOGY APPEARS NORMAL. SLIDE REVIEWED. 12/27/2024 5:06 AM CDT [facility] PLT EST. ADEQUATE 12/27/2024 5:06 AM CDT [facility] 12/27/2024 4:01 AM CDT us Vitor Larry MD LABORATORY Final Result [facility] [address] [place] [address], [id number] * Pathology (12/27/2024 12:00 AM CDT) PATHOLOGY [facility] Department of Laboratory Medicine [address] [place] [address] , extension [phone] Pathology Report Surgical Pathology Report Name: DAKOTA SHARIF Specimen #: [id number] Age: 8 1975 (Age: 49) Location: [facility] Sex: F Procedure Date: 12/27/2024 Hospital #: [id number] Date Received: 12/28/2024 Date Reported: 12/31/2024 Provider: [...] interpretation, and sign out were performed at [facility], [address] [place] [address]. 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: : 1975 Requested By: VITOR LARRY Order Number: [id number] Reading MD: Manjeet Goodrich Measurements Intervals [place] Rate: 86 P: 48 DE: 150 QRS: -37 QRSD: 93 T: 75 QT: 284 QTc: 340 Interpretive Statements SINUS RHYTHM LEFT AXIS DEVIATION [QRS AXIS < -30] PATTERN CONSISTENT WITH PULMONARY DISEASE NONSPECIFIC T-WAVE ABNORMALITY Procedure Note Manjeet Goodrich MD - 12/26/2024 [address] [place] [address] Test Date: 2024-12-26 Pat Name: DAKOTA SHARIF Department: 1 Room: 84A Gender: Female 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: : 1975 Requested By: VITOR LARRY Order Number: [id number] Reading : Manjeet Goodrich Measurements Intervals [place] Rate: 86 P: 48 DE: 150 QRS: -37 QRSD: 93 T: 75 QT: 284 QTc: 340 Interpretive Statements SINUS RHYTHM LEFT AXIS DEVIATION [QRS AXIS < -30] PATTERN CONSISTENT WITH PULMONARY DISEASE NONSPECIFIC T-WAVE ABNORMALITY us Vitor Larry MD ECG ORDERABLES Final Result [facility] * LACTIC ACID W REFLEX (SEPSIS) (12/26/2024 8:24 PM CDT) LACTIC ACID VENOUS 1.5 0.4 - 2.0 MMOL/L 12/26/2024 9:12 PM CDT [facility] 12/26/2024 8:24 PM CDT Vitor Larry MD LABORATORY Final Result [facility] [address] [place] [address], [id number] * (ABNORMAL) COMPREHENSIVE METABOLIC PANEL (12/26/2024 8:24 PM CDT) SODIUM S/P/B 145 136 - 145 MMOL/L 12/26/2024 9:10 PM CDT [facility] POTASSIUM S/P/B 3.1(L) 3.5 - 5.1 MMOL/L 12/26/2024 9:10 PM CDT [facility] CHLORIDE S/P/B 112 97 - 115 MMOL/L 12/26/2024 9:10 PM CDT [facility] CO2 25.3 21.0 - 32.0 MMOL/L 12/26/2024 9:10 PM CDT [facility] GLUCOSE 117(H) 74 - 106 MG/DL 12/26/2024 9:10 PM CDT [facility] BUN 8 7 - 18 MG/DL 12/26/2024 9:10 PM CDT [facility] CREATININE S/P/B 0.65 0.55 - 1.02 MG/DL 12/26/2024 9:10 PM CDT [facility] CALCIUM S/P/B 8.7 8.5 - 10.1 MG/DL 12/26/2024 9:10 PM CDT [facility] BILIRUBIN TOTAL S/P/B 0.7 0.2 - 1.0 MG/DL 12/26/2024 9:10 PM CDT [facility] ALKALINE PHOSPHATASE S/P/B 83 41 - 108 U/L 12/26/2024 9:10 PM CDT [facility] AST 23 15 - 37 U/L 12/26/2024 9:10 PM CDT [facility] ALT 25 13 - 56 U/L 12/26/2024 9:10 PM CDT [facility] TOTAL PROTEIN S/P/B 6.8 6.4 - 8.2 G/DL 12/26/2024 9:10 PM CDT [facility] ALBUMIN S/P/B 3.4 3.4 - 5.0 G/DL 12/26/2024 9:10 PM CDT [facility] ANION GAP 7.7 2.0 - 10.0 MMOL/L 12/26/2024 9:10 PM CDT [facility] OSMOLALITY (CALC) 299 MOSM/KG 025 9:10 PM CDT [facility] Comment:REFERENCE RANGE NOT ESTABLISHED GFR ESTIMATE >90 >90 ML/MIN/1. 73 M2 12/26/2024 9:10 PM CDT [facility] GFR NOTES GFR REFERENCE S: 12/26/2024 9:10 PM CDT [facility] Comment: THE ESTIMATED GFR IS [...] us Vitor Larry MD LABORATORY Final Result [facility] [address] [place] [address], [id number] * CULTURE, BACTERIA, BLOOD (12/26/2024 8:23 PM CDT) Only the most recent of2 resultswithin the time period is included. SPEC DESCRIPTION BLOOD 12/26/2024 7:42 PM CDT [facility] SPECIAL REQUESTS NO SPECIAL REQUEST 12/26/2024 7:42 PM CDT [facility] CULTURE RESULT NO GROWTH 5 DAYS 12/31/2024 9:42 PM CDT [facility] BLOOD SPECIMEN OBTAINED FOR BLOOD CULTURE / Unknown 12/26/2024 8:23 PM CDT 12/26/2024 8:24 PM CDT us Vitor Larry MD MICROBIOLOGY - GENERAL ORDERAB LES Final Result Performing Organization Address City/State/[facility] Co de Phone Number [facility] [address] [place] [address], [phone] from Last 3 Months Insurance Advance Directives * Full Code (Latest Code Status on File) Date Activated Date Inactivated Comments 12/26/2024 7:42 PM 12/28/2024 12:30 AM * Full Code Date Activated Date Inactivated Comments 11/26/2018 6:13 PM 11/28/2018 2:55 PM Care Teams Superintendent Drivers Relationship Specialty Start Date End Date Josh Kidd MD [address] [place] [address] PCP - General FAMILY PRACTICE 11/26/18
--- OUTSIDE RECORDS SUMMARY | 2025-03-26 15:15 | XMS_ITS | Clinical Summary ---
Author Organization [facility] Address [address] [place] [address] Phone Care Team Providers Care Stereoptician Name Role Phone Yenny Hernández Fred DIRECTOR OF EVENT SALES, [facility] Primary Care Provi feliberto Allergies Active [...] age to complete this topic Insurance MEDICAID [place] Care Teams Stereoptician Relationship Specialty Start Date End Date Yenny Hernández, DIRECTOR OF EVENT SALES, FOREMAN[employer] [address] [place] [address] PCP - General Advanced Practice Nurse 05/05/20
--- OUTSIDE RECORDS SUMMARY | 2025-03-26 15:15 | XMS_ITS | Clinical Summary ---
Author Organization [facility] Address [address] [place] [address] Care Team Providers Care Deputy Director Name Role Phone Yenny Hernández LITHOGRAPHIC ETCHER-INFORMATION RESOURCES DIRECTOR Primary Care Provid er Source Comments [facility],non-owned Affiliates and Associated Physician Practices is amultiple site organization consisting of ambulatory clinics and hospital sitesin [place], [place], [place] and [place]. This disclosure is being madepursuant to the Care Everywhere program and may not contain all information available regarding this patient. Last updated 18.[facility] Allergies Active Allergy Reactions Criticality Noted Date [...] this topic Medical Devices Implanted Type Area Host Hostess Device Identifier Shelf Expiration Date Model / Serial / Lot Stent Uret 6fr 24cm Pgtl Crv Tpr Tip Implanted:Qty: 1 on 10/12/2020 by Dariel Gudino MD at [facility] Right: [facility] 07/04/2023 [id number] / / [id number] Procedures Procedure Name Priority Date/Time Associated Diagnosis Comments GLUCOSE - POINT OF CARE Routine 10/12/2020 7:58 AM CDT from Last 3 Months or Most Recently Relevant to Health Maintenance Results * (ABNORMAL) GLUCOSE - POINT OF CARE (10/12/2020 7:58 AM CDT) Glucose WB/POC 160(H) 70 - 115 mg/dL 10/12/2020 7:59 AM CDT [facility] Specimen Type Venous 10/12/2020 7:59 AM CDT [facility] Blood BLOOD SPECIMEN / Unknown 10/12/2020 7:58 AM CDT 10/12/2020 7:59 AM CDT us Dariel Gudino MD LAB - POINT OF CARE ORDERA BLES Final Result [facility] [address] [place] [phone], [facility] [phone] from Last 3 Months or Most Recently Relevant to Health Maintenance Insurance [facility] Care Teams Deputy Director Relationship Specialty Start Date End Date Yenny Hernández, LITHOGRAPHIC ETCHER-INFORMATION RESOURCES DIRECTOR [address] [place] [address] PCP - General 06/16/20
[2025-03-26 15:20] LABS: Appearance Urine Clear (Clear); Glucose Urine UA 1+ (Negative); Leukocyte Esterase Ur 3+ LEU/UL (Negative); Specific Grav Ur 1.010 (1.010-1.020)
[2025-03-26 15:25] LABS: Add Urine Microscopic? YES; Nitrate Urine Positive (Negative)
== END 2025-03-26 15:11 | disposition home or self-care (01) ==
LOC: CHSLAB 15:13
PROVIDERS: PCP Nurse Practitioner Family; Visit Provider Nurse Practitioner Family
DX: M54.9 Dorsalgia, unspecified (principal); R82.90 Unspecified abnormal findings in urine
CPT/HCPCS: 81001; 87086

== ENCOUNTER 2025-04-08 10:46 | Outpatient (CLI) | payer OTHER, SELFPAY ==
--- NOTE | ~2025-04-08 | XR_ITS ---
EXAMINATION: XR hip BI wo pelvis, 04/08/2025 11:00 CDT HISTORY: M54.9 - Dorsalgia, unspecified COMPARISON: No comparisons available. Findings: Fixation of the right acetabulum, no acute fracture identified No significant degenerative changes. Soft tissues unremarkable. Impression: No acute fracture or malalignment. 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 Impression: No acute fracture or malalignment.
--- NOTE | ~2025-04-08 | XR_ITS ---
XR lumbar spine 2-3V Indication: M54.9 - Dorsalgia, unspecified Comparison: None Findings: The vertebral heights are intact. No fracture or subluxation. The disc heights are intact. Soft tissues unremarkable Impression: No acute abnormality. 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 Impression: No acute abnormality.
--- NOTE | ~2025-04-08 | XR_ITS ---
XR thoracic spine 2V Indication: M54.9 - Dorsalgia, unspecified Comparison: None Findings: The vertebral heights are intact. No fracture or subluxation. The disc heights are intact. Soft tissues unremarkable Impression: No acute abnormality. 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 Impression: No acute abnormality.
[2025-04-08 11:01] LABS: Add Urine Microscopic? YES; Appearance Urine Clear (Clear); Glucose Urine UA Negative (Negative); Hematocrit 43.0 % (35.0-49.0); Hemoglobin 14.4 g/dL (12.0-15.0); Immature Granulocyte Percent A 0.3 % (0.0-0.0); Leukocyte Esterase Ur 1+ LEU/UL (Negative); Lymphocytes Absolute Auto 4.76 K/mm3 (1.10-4.50); Mean Corpuscular HGB Conc 33.5 g/dL (32-36); Mean Corpuscular Hemoglobin 29.8 pg (27.0-31.0); Mean Corpuscular Volume 88.8 fL (78.0-102.0); Nitrate Urine Negative (Negative); Nucleated Red Blood Cells Absolute Auto 0.00 K/mm3 (0.00-0.00); Nucleated Red Blood Cells Perc 0.0 % (0-0.0); Platelet Count Result 318 K/mm3 (150-420); Red Blood Count 4.84 M/mm3 (4.20-5.40); Specific Grav Ur 1.010 (1.010-1.020); White Blood Count 13.0 K/mm3 (4.8-10.8)
[2025-04-08 11:42] LABS: Hemoglobin A1C 8.5 % (<5.7)
[2025-04-08 13:00] LABS: Alanine Aminotransferase 25 U/L (6-35); Albumin Level 4.7 g/dL (3.5-5.1); Alkaline Phosphatase 90 U/L (38-126); Anion Gap 11 mmol/L (4-12); Aspartate Amino Transferase 33 U/L (14-36); Bilirubin,Total 0.6 mg/dL (0.2-1.3); Blood Urea Nitrogen 11 mg/dL (7-17); Calcium 10.7 mg/dL (8.4-10.2); Carbon Dioxide 31 mmol/L (22-30); Chloride 103 mmol/L (98-107); Cholesterol 166 mg/dL (0-200); Estimated Glomerular Filt Rate > 60; Glucose 240 mg/dL (65-110); HDL Direct 44 mg/dL; Lipase 207 U/L (23-300); Osmolality Calculated 307 mOsm/kg (285-295); Potassium 4.8 mmol/L (3.4-5.0); Sodium 145 mmol/L (137-145); Total Protein 7.9 g/dL (6.3-8.2); Triglycerides 294 mg/dL (<150)
[2025-04-08 13:28] LABS: Thyroid Stimulating Hormone Reflex 0.737 uIU/mL (0.465-4.68)
== END 2025-04-08 10:47 | disposition home or self-care (01) ==
LOC: CHSLAB 10:47
PROVIDERS: PCP Nurse Practitioner Family; Visit Provider Nurse Practitioner Family
DX: Z00.00 Encounter for general adult medical examination without abnormal findings (principal); E11.21 Type 2 diabetes mellitus with diabetic nephropathy; R82.4 Acetonuria; M54.9 Dorsalgia, unspecified; R53.83 Other fatigue; D72.829 Elevated white blood cell count, unspecified; E78.5 Hyperlipidemia, unspecified; N39.0 Urinary tract infection, site not specified; R82.90 Unspecified abnormal findings in urine
CPT/HCPCS: 36415; 72070; 72100; 73521; 80053; 80061; 81001; 82010; 82306; 83036; 83690; 84443; 85025; 87086

== ENCOUNTER 2025-04-14 15:58 | Outpatient (NON) | payer OTHER, SELFPAY ==
[2025-04-14 16:12] LABS: Add Urine Microscopic? YES; Appearance Urine Cloudy (Clear); Glucose Urine UA 2+ (Negative); Leukocyte Esterase Ur 2+ LEU/UL (Negative); Nitrate Urine Positive (Negative); Specific Grav Ur <= 1.005 (1.010-1.020)
--- OUTSIDE RECORDS SUMMARY | 2025-04-14 16:35 | XMS_ITS | Clinical Summary ---
Author Organization [facility] Address [address] [place] [address] Phone Care Team Providers Care Communications Project Manager Name Role Phone Yenny Hernández Fred MARKETING OFFICER, [facility] Primary Care Provi feliberto Allergies Active [...] 08/10/2019 Zoster Immunization (1 of 2) 2023 Influenza Immunization (#1) 2025 05/05/2019 SARS-COV-2 Immunization ( - season) 2025 Respiratory Syncytial Virus (RSV) Immunization (Adult) (1 [...] age to complete this topic Insurance MEDICAID [place] Care Teams Communications Project Manager Relationship Specialty Start Date End Date Yenny Hernández, MARKETING OFFICER, AQUATIC FACILITY MANAGER [address] [place] [address] PCP - General Advanced Practice Nurse 05/05/20
--- OUTSIDE RECORDS SUMMARY | 2025-04-14 16:35 | XMS_ITS | Clinical Summary ---
Author Organization [facility] Address [address] [place] [address] Care Team Providers Care Software Test Technician Name Role Phone Yenny Hernández BEARING INSPECTOR-METAL CRAFTS TEACHER Primary Care Provid er Source Comments [facility],non-owned Affiliates and Associated Physician Practices is amultiple site organization consisting of ambulatory clinics and hospital sitesin [place], [place], [place]. This disclosure is being madepursuant to the Care Everywhere program and may not contain all information available regarding this patient. Last updated 18.[facility] Allergies Active Allergy Reactions Criticality Noted Date [...] 2023 SCREENING FOR DIABETES 10/13/2023 1, 10/12/2020 DEPRESSION SCREENING 07/29/2024 COVID-19 VACCINE (1 - 2023-2 5 season) 2025 INFLUENZA VACCINE (#1) 2025 06/12/2020 HIB VACCINE [...] this topic Medical Devices Implanted Type Area Cashier Device Identifier Shelf Expiration Date Model / Serial / Lot Stent Uret 6fr 24cm Pgtl Crv Tpr Tip Implanted:Qty: 1 on 10/12/2020 by Dariel Gudino MD at [facility] Right: Ureter [employer] 07/04/2023 [id number] / / [id number] Procedures Procedure Name Priority Date/Time Associated Diagnosis Comments GLUCOSE - POINT OF CARE Routine 10/12/2020 7:58 AM CDT from Last 3 Months or Most Recently Relevant to Health Maintenance Results * (ABNORMAL) GLUCOSE - POINT OF CARE (10/12/2020 7:58 AM CDT) Glucose WB/POC 160(H) 70 - 115 mg/dL 10/12/2020 7:59 AM CDT [facility] Specimen Type Venous 10/12/2020 7:59 AM CDT [facility] Blood BLOOD SPECIMEN / Unknown 10/12/2020 7:58 AM CDT 10/12/2020 7:59 AM CDT us Dariel Gudino MD LAB - POINT OF CARE ORDERA BLES Final Result [facility] [address] [place] [phone], [facility] [phone] from Last 3 Months or Most Recently Relevant to Health Maintenance Insurance [facility] Care Teams Software Test Technician Relationship Specialty Start Date End Date Yenny Hernández, BEARING INSPECTOR-METAL CRAFTS TEACHER [address] [place] [address] PCP - General 06/16/20
--- OUTSIDE RECORDS SUMMARY | 2025-04-14 16:35 | XMS_ITS | Clinical Summary ---
Author Organization [facility] Address [address] [place] [address] Care Team Providers Care Marketing Strategy Lead Name Role Phone Josh Kidd MD Primary Care Provider [phone] Allergies Active Allergy Reactions Criticality Noted Date [...] w st at migr 11/27/2018 Ischemic stroke ([facility]/HCC [facility]) 11/26/2018 Social History Tobacco Use Types [...] doctor or pharmacy? Never 12/26/2024 [facility] Utilities Answer Date Recorded In the past 12 months has e electric, gas, oil, or water company threatened to shut off services in your [...] often do you attend chur ch or confucianism services? Never 12/26/2024 Do you belong to any clubs o r organizations such as mu-ism groups, unions, fraternal or athletic groups, or [...] and heating? Not hard at all 12/26/2024 [facility] [place] of Occupat ional Health - Occupational Stress [...] any time in the past 12 m onths, were you homeless or living in a fdc (including now)? 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 PM CONSULTING INTERN Gender Identity Female 12/26/2024 8:40 PM CDT [...] COVID-19 Vaccine (1 - 2023-2 5 season) 2025 Meningococcal B Vaccine Aged Out No l [...] 6:13 PM 11/28/2018 2:55 PM Care Teams Marketing Strategy Lead Relationship Specialty Start Date End Date Josh Kidd MD [address] [place] [address] PCP - General FAMILY PRACTICE 11/26/18
--- OUTSIDE RECORDS SUMMARY | 2025-04-14 16:35 | XMS_ITS | Encounter Summary ---
Author Organization [facility] Address [address] [place] [address] Care Team Providers Care Beauty School Instructor Name Role Phone Josh Kidd MD Primary Care Provider [phone] Encounter Details Date Type Department Care Team (Late st Contact Info) Description 01/03/2019 Abstract SFL CONVERSION [address] [place] [address] , Generic Conversion, Social History Tobacco Use [...] PM CDT Legal Sex Female 10:01 PM COMBINATION WELDER Gender Identity Female 12/26/2024 8:40 PM CDT Sexual Orientation Straight 12/26/2024 8: 40 PM CDT documented as of this encounter Plan of Treatment Not on file documented as of this encounter Visit Diagnoses Not on filedocumented in this encounter Care Teams Beauty School Instructor Relationship Specialty Start Date End Date Josh Kidd MD [address] [place] [address] PCP - General FAMILY PRACTICE 11/26/18 documented as of this encounter
--- OUTSIDE RECORDS SUMMARY | 2025-04-14 16:35 | XMS_ITS | Clinical Summary ---
Author Organization [facility] Address [address] [place] [address] Care Team Providers Care Hotel Baggage Handler Name Role Phone Josh Kidd MD Primary Care Provider [phone] Allergies Active Allergy Reactions Criticality Noted Date [...] 11/11/2012 Surgical History Surgery Date Site/Laterality Comments [place] TOTAL ABDOMINAL HYSTERECT W/WO RMVL TUBE OVARY [...] on file Legal Sex Female 10:10 AM MUSICAL THERAPIST Gender Identity Not on file Sexual Orientation [...] Plan of Treatment Not on file Insurance [facility] Care Teams Hotel Baggage Handler Relationship Specialty Start Date End Date Josh Kidd MD [address] [place] [id number] PCP - General 10/02/18
== END 2025-04-14 15:59 | disposition home or self-care (01) ==
LOC: CHSLAB 15:59
PROVIDERS: PCP Nurse Practitioner Family; Visit Provider Nurse Practitioner Family
DX: R30.9 Painful micturition, unspecified (principal); R82.90 Unspecified abnormal findings in urine
CPT/HCPCS: 81001; 87086; 87186

== ENCOUNTER 2025-04-28 09:34 | Outpatient (CLI) | payer OTHER, SELFPAY ==
[2025-04-28 09:46] LABS: Add Urine Microscopic? YES; Appearance Urine Clear (Clear); Glucose Urine UA Negative (Negative); Leukocyte Esterase Ur Trace LEU/UL (Negative); Nitrate Urine Negative (Negative); Specific Grav Ur 1.025 (1.010-1.020)
--- OUTSIDE RECORDS SUMMARY | 2025-04-28 10:09 | XMS_ITS | Clinical Summary ---
Author Organization [facility] Address [address] [facility] [place] [address] Care Team Providers Care White Hat Hacker Name Role Phone Yenny Hernández ACCOUNTING SYSTEMS ANALYST-WING COVERER Primary Care Provid er Source Comments [facility],non-owned Affiliates and Associated Physician Practices is amultiple site organization consisting of ambulatory clinics and hospital sitesin [place], [place], [place] and [place]. This disclosure is being madepursuant to the Care Everywhere program and may not contain all information available regarding this patient. Last updated 18.[facility] Allergies Active Allergy Reactions Criticality Noted Date [...] this topic Medical Devices Implanted Type Area Zigzagger Device Identifier Shelf Expiration Date Model / Serial / Lot Stent Uret 6fr 24cm Pgtl Crv Tpr Tip Implanted:Qty: 1 on 10/12/2020 by Dariel Gudino MD at [facility] Right: Ureter [employer] Scimed 07/04/2023 [id number] / / [id number] Procedures Procedure Name Priority Date/Time Associated Diagnosis Comments GLUCOSE - POINT OF CARE Routine 10/12/2020 7:58 AM CDT from Last 3 Months or Most Recently Relevant to Health Maintenance Results * (ABNORMAL) GLUCOSE - POINT OF CARE (10/12/2020 7:58 AM CDT) Glucose WB/POC 160(H) 70 - 115 mg/dL 10/12/2020 7:59 AM CDT [facility] Specimen Type Venous 10/12/2020 7:59 AM CDT [facility] Blood BLOOD SPECIMEN / Unknown 10/12/2020 7:58 AM CDT 10/12/2020 7:59 AM CDT us Dariel Gudino MD LAB - POINT OF CARE ORDERA BLES Final Result [facility] [address] [place] [id number], [facility] [phone] from Last 3 Months or Most Recently Relevant to Health Maintenance Insurance [facility] Care Teams White Hat Hacker Relationship Specialty Start Date End Date Yenny Hernández, ACCOUNTING SYSTEMS ANALYST-WING COVERER [address] [place] [address] PCP - General 06/16/20
--- OUTSIDE RECORDS SUMMARY | 2025-04-28 10:09 | XMS_ITS | Clinical Summary ---
Author Organization [facility] Address [address] [place] [address] Phone Care Team Providers Care Kalsominer Name Role Phone Yenny Hernández Fred EDUCATION DIAGNOSTICIAN, [facility] Primary Care Provi feliberto Allergies [...] age to complete this topic Insurance MEDICAID [place] Care Teams Kalsominer Relationship Specialty Start Date End Date Yenny Hernández, EDUCATION DIAGNOSTICIAN, PROFESSIONAL MODEL [address] [place] [address] PCP - General Advanced Practice Nurse 05/05/20
--- OUTSIDE RECORDS SUMMARY | 2025-04-28 10:09 | XMS_ITS | Clinical Summary ---
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
== END 2025-04-28 09:35 | disposition home or self-care (01) ==
PROVIDERS: PCP Nurse Practitioner Family; Visit Provider Nurse Practitioner Family
DX: N39.0 Urinary tract infection, site not specified (principal); R82.90 Unspecified abnormal findings in urine
CPT/HCPCS: 81001; 87086

== ENCOUNTER 2025-05-07 10:56 | Outpatient (CLI) | payer OTHER, SELFPAY ==
[2025-05-07 11:39] LABS: Add Urine Microscopic? YES; Appearance Urine Sl Cloudy (Clear); Glucose Urine UA Negative (Negative); Leukocyte Esterase Ur 3+ LEU/UL (Negative); Nitrate Urine Positive (Negative); Specific Grav Ur <= 1.005 (1.010-1.020)
== END 2025-05-07 10:57 | disposition home or self-care (01) ==
LOC: CHSLAB 10:57
PROVIDERS: PCP Nurse Practitioner Family; Visit Provider Nurse Practitioner Family
DX: R30.9 Painful micturition, unspecified (principal); R82.90 Unspecified abnormal findings in urine
CPT/HCPCS: 81001; 87086; 87186

== ENCOUNTER 2025-05-26 12:28 | Outpatient (CLI) | payer OTHER, SELFPAY ==
[2025-05-26 13:07] LABS: Add Urine Microscopic? NO; Appearance Urine Clear (Clear); Glucose Urine UA 1+ (Negative); Leukocyte Esterase Ur Negative LEU/UL (Negative); Nitrate Urine Negative (Negative); Specific Grav Ur <= 1.005 (1.010-1.020)
--- OUTSIDE RECORDS SUMMARY | 2025-05-26 13:43 | XMS_ITS | Clinical Summary ---
Author Organization [facility] Address [address] [place] [address] Phone Care Team Providers Care Associate Professor Of Criminal Justice Name Role Phone Yenny Hernández Fred DIE FINISHER, [facility] Primary Care Provi feliberto Allergies Active Allergy [...] age to complete this topic Insurance MEDICAID [place] Care Teams Associate Professor Of Criminal Justice Relationship Specialty Start Date End Date Yenny Hernández, DIE FINISHER, LOCAL SUPERINTENDENT [address] [place] [address] PCP - General Advanced Practice Nurse 05/05/20
--- OUTSIDE RECORDS SUMMARY | 2025-05-26 13:43 | XMS_ITS | Clinical Summary ---
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
--- OUTSIDE RECORDS SUMMARY | 2025-05-26 13:43 | XMS_ITS | Clinical Summary ---
Author Organization [facility] Address [address] [place] [address] Care Team Providers Care Industrial Diamond Polisher Name Role Phone Josh Kidd MD Primary Care Provider [phone] Allergies Active Allergy Reactions Criticality Noted Date [...] w st at migr 11/27/2018 Ischemic stroke 11/26/2018 Social History Tobacco Use Types Packs/Day [...] your doctor or pharmacy? Never 12/26/[address] [facility] Utilities Answer Date Recorded In [...] or ex-partner? No 12/26/2024 Social Connection and Isolation Panel Answer Date Recorded In a typical week, how many times do you talk on the phone with family, friends, or neighbors? More than three times a week 12/26/2024 How often do you get togethe r with friends or relatives? More than three times a week 12/26/2024 How often do you attend chur ch or tenriism services? Never 12/26/2024 Do you belong to any clubs o r organizations such as buddhism groups, unions, fraternal or athletic groups, or [...] and heating? Not hard at all 12/26/2024 [facility] [place] of Occupat ional Health - Occupational Stress [...] any time in the past 12 m [facility], were you homeless or living in a assisted (including now)? 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 Gender Identity Female 12/26/2024 8:40 PM CDT [...] 1992 Mammogram Screening 2013 Pneumococcal Vaccine: 50+ Years (2 of 2 - PCV) 08/10/2020 08/10/2019 Zoster Vaccines (1 of 2) 2023 COVID-19 Vaccine (1 - 2024-2 6 season) 2025 Influenza Adult (#1) 2025 06/12/2020, 05/05/2019 Hepatitis A Vaccines Aged Out No long er eligible based on patient's age to complete this topic Meningococcal B Vaccine Aged Out No l onger eligible based on patient's age to complete this topic Meningococcal Vaccine Aged Out No olya winston eligible based on patient's age to complete this topic RSV Immunizations Under 20 Months Aged Out No longer eligible b ased on patient's age to complete this topic Insurance [place] MEDICAID Advance Directives * Full Code (Latest Code Status on File) Date Activated Date Inactivated Comments 12/26/2024 7:42 PM 12/28/2024 12:30 AM * Full Code Date Activated Date Inactivated Comments 11/26/2018 6:13 PM 11/28/2018 2:55 PM Care Teams Industrial Diamond Polisher Relationship Specialty Start Date End Date Josh Kidd MD [address] [place] [address] PCP - General FAMILY PRACTICE 11/26/18
--- OUTSIDE RECORDS SUMMARY | 2025-05-26 13:43 | XMS_ITS | Encounter Summary ---
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
--- OUTSIDE RECORDS SUMMARY | 2025-05-26 13:43 | XMS_ITS | Clinical Summary ---
Author Organization [facility] Address [address] [facility] [place] [address] Care Team Providers Care Wildlife Refuge Manager Name Role Phone Yenny Hernández WATER PLUMBER-MEASUREMENT TECHNICIAN Primary Care Provid er Source Comments [facility],non-owned Affiliates and Associated Physician Practices is amultiple site organization consisting of ambulatory clinics and hospital sitesin [place], [place], [place] and [place]. This disclosure is being madepursuant to the Care Everywhere program and may not contain all information available regarding this patient. Last updated 18.[facility] Allergies Active Allergy Reactions Criticality Noted Date [...] this topic Medical Devices Implanted Type Area Cooler Deliverer Device Identifier Shelf Expiration Date Model / Serial / Lot Stent Uret 6fr 24cm Pgtl Crv Tpr Tip Implanted:Qty: 1 on 10/12/2020 by Dariel Gudino MD at [facility] Right: Ureter [employer] Scimed 07/04/2023 [id number] / / [id number] Procedures Procedure Name Priority Date/Time Associated Diagnosis Comments GLUCOSE - POINT OF CARE Routine 10/12/2020 11:04 AM CDT from Last 3 Months or Most Recently Relevant to Health Maintenance Results * (ABNORMAL) GLUCOSE - POINT OF CARE (10/12/2020 11:04 AM CDT) Pathologist [facility] Glucose WB/POC 173(H) 70 - 115 mg/dL 10/12/2020 12:33 PM CDT [facility] Specimen Type Arterial/C apillary 10/12/2020 12:33 PM CDT [facility] Blood BLOOD SPECIMEN / Unknown 10/12/2020 11:04 AM CDT 10/12/2020 12:32 PM CDT us Dariel Gudino MD LAB - POINT OF CARE ORDERA BLES Final Result [facility] [address] [place] [id number], [facility] [phone] from Last 3 Months or Most Recently Relevant to Health Maintenance Insurance [facility] Care Teams Wildlife Refuge Manager Relationship Specialty Start Date End Date Yenny Hernández, WATER PLUMBER-MEASUREMENT TECHNICIAN [address] [place] [address] PCP - General 06/16/20
== END 2025-05-26 12:29 | disposition home or self-care (01) ==
LOC: CHSLAB 12:29
PROVIDERS: PCP Nurse Practitioner Family; Visit Provider Nurse Practitioner Family
DX: N39.0 Urinary tract infection, site not specified (principal)
CPT/HCPCS: 81003